=== PATIENT | male | born 1935 | race Caucasian/White ===

== ENCOUNTER → 2018-06-08 07:01 | Outpatient (CLI) | payer OTHER, SELFPAY ==
[2018-06-08 08:45] LABS: Add Manual Diff / Slide Review NO; Eosinophils Percent Auto 4.5 % (2-4); Hematocrit 44.1 % (41-53); Hemoglobin 15.2 g/dL (13.5-17.5); Lymphocytes Percent Auto 20.4 % (25-40); Mean Corpuscular HGB Conc 34.5 % (30-36); Mean Corpuscular Volume 98.6 fL (80-100); Monocytes Percent Auto 7.4 % (3-14); Neutrophils Absolute Auto 3200 /uL (1500-7000); Neutrophils Percent Auto 66.7 % (50-75); Platelet Count 176 X10^3/uL (150-400); Red Blood Cell Count 4.47 X10^6/uL (4.5-5.9); Red Cell Distribution Width 12.7 % (11.6-14.8); White Blood Cell Count 4.8 X10^3/uL (4.5-11.0)
[2018-06-08 09:12] LABS: Alanine Aminotransferase 28 IU/L (21-72); Albumin 3.8 g/dL (3.5-5.0); Albumin Globulin Ratio 1.3 (1.0-2.8); Alkaline Phosphatase 73 U/L (38-126); Aspartate Aminotransferase 25 IU/L (17-59); BUN Creatinine Ratio 17.3 (6-22); Bilirubin Total 1.2 mg/dL (0.2-1.3); Blood Urea Nitrogen 19 mg/dL (9-20); Calcium 8.9 mg/dL (8.4-10.2); Carbon Dioxide 31 mmol/L (22-32); Chloride 104 mmol/L (98-107); Estimated Glomerular Filt Rate > 60.0 mL/min (>60); Glucose 91 mg/dL (80-110); HEMOLYSIS < 15 (0-50); Potassium 3.8 mmol/L (3.4-5.1); Sodium 142 mmol/L (137-145); Total Protein 6.8 g/dL (6.3-8.2)
[2018-06-08 09:43] LABS: Prostate Specific Antigen Scrn 1.57 ng/mL (0.1-4.0)
== END ==
PROVIDERS: Student in an Organized Health Care Education/Training Program; PCP Internal Medicine; Visit Provider Internal Medicine
DX: Z87.442 Personal history of urinary calculi (principal); E78.5 Hyperlipidemia, unspecified; I10 Essential (primary) hypertension; Z12.5 Encounter for screening for malignant neoplasm of prostate
CPT/HCPCS: 36415; 80053; 85025; G0103

== ENCOUNTER 2019-02-11 20:38 | Emergency (ER) | payer OTHER, SELFPAY ==
[2019-02-11 21:00] VITALS: BP 150/86; PULSE 58; RESP 15; TEMP 36.1; O2SAT 97; BMI 24.3
--- NOTE | 2019-02-11 21:35 | PC.NURSE ---
Pt reports having carpal tunnel surgery yesterday and advised to come back if site has s/s of infection. pt concerned for coloring of hand. on assessment hand appears to have iodine dyed to skin. pt reports that he was not told that iodine was put on skin and he didnt know what the odd coloring was. 2+ pulses. +CSM. appears intact and healing nicely.
--- NOTE | 2019-02-12 04:52 | ED.EXTPRO ---
HPI - Extremity Problem General Chief complaint: Extremity Problem,Nontraumatic Stated complaint: surgery right wrist, R hand swelling/redness/heat Time Seen by Provider: 02/11/19 20:43 Source: patient Mode of arrival: ambulatory Limitations: no limitations History of Present Illness HPI Narrative: 83-year-old male nonsmoker with recent carpal tunnel surgery presents with a chief complaint redness of his hand. His discharge instructions suggested the for increasing pain, swelling or redness he should be seen emergency department. He denies any fever chills nor any significant pain. He denies any swelling nor red streaks. MD Complaint: other Onset (ago): hour(s) Pain Consistency: constant Location: right Quality: other Radiation: none Relieving factors: nothing Exacerbating factors: nothing Related Data Home Medications Medication Instructions Recorded Confirmed ASPIRIN (Aspir-Low) 81 mg PO Q DAY #0 09/04/11 12/14/18 MULTIVITAMIN (#MULTIPLE VITAMINS) 1 cap PO #0 09/04/11 12/14/18 VITAMIN D (Vitamin D3) 2,000 u PO DAILY #0 07/25/12 12/14/18 glucosamine sulfate 1,500 mg oral 1,500 mg PO #0 12/14/18 12/14/18 powder packet Previous Rx's Medication Instructions Recorded metronidazole [Metrogel] 1 % TOPICAL BID #180 ml 07/20/18 pravastatin [Pravachol] 80 mg PO HS #90 tab 11/16/18 tamsulosin 0.4 mg capsule 0.4 mg PO QDAY #90 cap 12/14/18 propranolol 40 mg PO BID #180 tab 12/21/18 potassium chloride 8 mEq 8 meq PO QDAY #90 tab 01/06/19 tablet,extended release hydrochlorothiazide 25 mg tablet 25 mg PO QDAY #90 tab 01/20/19 Allergies Allergy/AdvReac Type Severity Reaction Status Date / Time atorvastatin [ATORVASTATIN] Allergy Unknown WEAKNESS/BODY Verified 02/11/19 21:00 ACHES Review of Systems Constitutional Constitutional: Denies chills, Denies fatigue, Denies fever(s), Denies frequent falls, Denies lethargy and Denies weakness Eyes Eyes: Denies change in vision, Denies eye discharge, Denies irritation and Denies loss of vision ENT Ears, Nose, Mouth, and Throat: Denies change in voice, Denies dizziness, Denies neck pain, Denies sore throat and Denies throat swelling Cardiovascular Cardiovascular: Denies chest pain, Denies irregular heart rhythm, Denies lightheadedness, Denies palpitations, Denies dyspnea, Denies dyspnea on exertion and Denies orthopnea Respiratory Respiratory: Denies cough, Denies dyspnea, Denies dyspnea on exertion and Denies wheezing Gastrointestinal Gastrointestinal: Denies abdominal pain, Denies change in bowel habits, Denies diarrhea, Denies nausea and Denies vomiting Genitourinary Genitourinary: Denies hematuria, Denies flank pain, Denies urinary incontinence and Denies urinary urgency Musculoskeletal Musculoskeletal: Denies back pain, Denies muscle weakness, Denies neck pain, Denies numbness and Denies tingling Integumentary/Breasts Skin/Breast: Denies pruritus, Reports erythema, Denies rash and Denies wounds Neurologic Neurologic: Denies behavioral changes, Denies confusion, Denies dizziness, Denies frequent falls, Denies loss of vision, Denies numbness, Denies tingling and Denies weakness Psychiatric Psychiatric: Denies anxiety, Denies behavioral changes, Denies confusion, Denies depression, Denies homicidal ideation and Denies suicidal ideation Endocrine Endocrine: Denies fatigue, Denies flushing and Denies palpitations Hematologic/Lymphatic Hematologic/Lymphatic: Denies easy bruising Allergic/Immunologic Allergic/Immunologic: Denies urticaria, Denies throat swelling and Denies wheezing [facility] Medical History Anxiety (Inactive 06/06/14) Cardiac arrhythmia (Chronic 06/06/14) Cardiac arrhythmia (Chronic) Cervical spine disease (Chronic) Colon polyps (Resolved) Essential hypertension (Chronic 08/04/15) History of adenomatous polyp of colon (Chronic 12/27/10) History of renal calculi (Chronic 12/27/10) Hyperlipidemia (Chronic 08/09/16) Hyperlipidemia (Chronic) Kidney stones (Resolved) Paroxysmal atrial fibrillation (Chronic) SVT (supraventricular tachycardia) (Chronic) Family History Father Family history of Alzheimer's disease Social History marital status: number of children: 0 household members: none lives independently: Yes caregiver/support person: Yes housing: house pets and animals: No education level: high school occupational status: other current occupational exposures/hazards: No Previous occupational history: [employer]/episcopalian: None Smoking Status: Former smoker Tobacco: How many years used: 10 Smokeless tobacco user: other quit status: quit date established second hand exposure: No alcohol intake: never substance use type: does not use Family History Father Family history of Alzheimer's disease Social History marital status: number of children: 0 household members: none lives independently: Yes caregiver/support person: Yes housing: house pets and animals: No education level: high school occupational status: other current occupational exposures/hazards: No Previous occupational history: [employer]/episcopalian: None Smoking Status: Former smoker Tobacco: How many years used: 10 Smokeless tobacco user: other quit status: quit date established second hand exposure: No alcohol intake: never substance use type: does not use Exam Narrative Exam Narrative: GEN: AOx3 and in mild distress EYES: Pupils are equal, round, and reactive to light and accommodation. Extraoccular muscles are intact bilaterally. There is no subconjunctival hemorrhage or exudate. CHEST: Lungs are clear to auscultation bilaterally and free of wheezes, rales, or rhonchi. Heart rate is regular rhythm, there are no murmurs, clicks, rubs, or gallops. There is no chest wall tenderness. ABD: Abdomen is soft and nontender. There is no guarding or rebound. Bowel sounds are normal in all 4 quadrants. There is no mass or organomegaly. EXT: Full painless ROM of all extremities with no loss of sensation or strength. No swelling, pain SKIN: Right hand is orangish/yellow, from betadine during surgery. Warm, pink, and dry. No erythema or rash Initial Vital Signs Initial Vital Signs: Vital Signs Temperature 96.9 F L 02/11/19 21:00 Pulse Rate 58 L 02/11/19 21:00 Respiratory Rate 15 02/11/19 21:00 Blood Pressure 150/86 H 02/11/19 21:00 Pulse Oximetry 97 02/11/19 21:00 Course Vital Signs Vital signs: Vital Signs - 8 hr 02/11/19 21:00 Temperature 96.9 F L Pulse Rate 58 L Respiratory Rate 15 Blood Pressure 150/86 H Pulse Oximetry 97 MDM - Extremity (Nontraumatic) MDM Narrative Medical decision making narrative: 83-year-old male with recent carpal tunnel surgery presents with concerns that his right hand is discolored. His discharge instructions stated that he needs to be seen for redness, swelling, or pain. The discoloration is clearly from preop preparation. Patient given return precautions, has had questions answered to apparent satisfaction Discharge Plan Departure Patient Disposition: Home Clinical Impression: Feared complaint without diagnosis Discharge Date/Time: 02/11/19 22:05 Activity Restrictions/Additional Instructions: *You have been diagnosed with [very reassuring exam in the aftermath appear surge] *What to do: *Take medications as directed *Follow up with your primary care provider in 2-3 days, call for an appointment. Let them know you were seen in the Emergency Department and that we ask that you be seen in follow up *Return to ER if you should have any new, worsening or concerning symptoms Prescriptions: No Action ASPIRIN (Aspir-Low) 81 mg PO Q DAY Qty: 0 RF: 0 MULTIVITAMIN (#MULTIPLE VITAMINS) 1 cap PO Qty: 0 RF: 0 VITAMIN D (Vitamin D3) 2,000 u PO DAILY Qty: 0 RF: 0 metronidazole [Metrogel] 1 % gel 1 % Topical BID Qty: 180 RF: 3 pravastatin [Pravachol] 80 mg tablet 80 mg PO HS Qty: 90 RF: 3 Miriam 1,500 mg powder in packet 1,500 mg PO Qty: 0 RF: 0 propranolol 40 mg tablet 40 mg PO BID Qty: 180 RF: 3 potassium chloride [Klor-Con 8] 8 mEq tablet extended release 8 meq PO QDAY Qty: 90 RF: 3 hydrochlorothiazide 25 mg tablet 25 mg PO QDAY Qty: 90 RF: 3 tamsulosin [Flomax] 0.4 mg capsule 0.4 mg PO QDAY Qty: 90 RF: 3 Referrals: Jack Richardson MD [Primary Care Provider] -
== END 2019-02-11 22:05 | disposition home or self-care (01) ==
PROVIDERS: Emergency Provider Emergency Medicine; PCP Internal Medicine
DX: G89.18 Other acute postprocedural pain (principal); M79.641 Pain in right hand
CPT/HCPCS: 99282

== ENCOUNTER → 2019-06-07 08:33 | Outpatient (CLI) | payer OTHER, SELFPAY ==
[2019-06-07 10:14] LABS: Add Manual Diff / Slide Review NO; Basophils Absolute Auto 0 /uL (0-100); Basophils Percent Auto 0.9 % (0-2); Eosinophils Absolute Auto 100 /uL (0-450); Eosinophils Percent Auto 2.4 % (2-4); Hemoglobin 14.6 g/dL (13.5-17.5); Lymphocytes Absolute Auto 900 /uL (1100-4500); Lymphocytes Percent Auto 22.1 % (25-40); Mean Corpuscular Hemoglobin 33.5 PG (26-34); Mean Corpuscular Volume 98.6 fL (80-100); Monocytes Absolute Auto 400 /uL (0-900); Neutrophils Absolute Auto 2600 /uL (1500-7000); Neutrophils Percent Auto 64.6 % (50-75); Platelet Count 173 X10^3/uL (150-400); Red Blood Cell Count 4.36 X10^6/uL (4.5-5.9); Red Cell Distribution Width 12.9 % (11.6-14.8); White Blood Cell Count 3.9 X10^3/uL (4.5-11.0)
[2019-06-07 10:53] LABS: Alanine Aminotransferase 19 IU/L (<50); Albumin Globulin Ratio 1.4 (1.0-2.8); Alkaline Phosphatase 84 U/L (38-126); Aspartate Aminotransferase 28 IU/L (17-59); BUN Creatinine Ratio 13.6 (6-22); Bilirubin Total 1.2 mg/dL (0.2-1.3); Blood Urea Nitrogen 15 mg/dL (9-20); Carbon Dioxide 33 mmol/L (22-32); Chloride 103 mmol/L (98-107); Cholesterol 187 mg/dL (140-199); Estimated Glomerular Filt Rate > 60.0 mL/min (>60); Globulin 2.9 g/dL (1.7-4.1); Glucose 96 mg/dL (80-110); HDL Cholesterol 42 mg/dL (40-60); HEMOLYSIS < 15 (0-50); LDL Cholesterol Calculated 133 mg/dL (<100); Potassium 4.1 mmol/L (3.4-5.1); Sodium 143 mmol/L (137-145); Total Protein 6.9 g/dL (6.3-8.2); Triglycerides 61 mg/dL (35-150)
== END ==
PROVIDERS: PCP Internal Medicine; Visit Provider Internal Medicine
DX: E78.5 Hyperlipidemia, unspecified (principal); I10 Essential (primary) hypertension; R60.9 Edema, unspecified; Z87.442 Personal history of urinary calculi
CPT/HCPCS: 36415; 80053; 80061; 85025

== ENCOUNTER → 2019-06-14 11:24 | Outpatient (CLI) | payer OTHER, SELFPAY ==
--- NOTE | 2019-06-14 11:25 | DI.RAD.S_ITS ---
PROCEDURE: XR CHEST 2V INDICATIONS: chest pain TECHNIQUE: 2 views of the chest were acquired. COMPARISON: [facility], CHEST 2 VIEW, 09/19/2016, 16:21. [facility], CHEST 2 VIEW, 06/04/2014, 10:04. FINDINGS: Surgical changes and devices: None. Lungs and pleura: Lungs are clear. No pleural effusions or pneumothorax. Mediastinum: Mediastinal contours are normal. Heart size is normal. Bones and chest wall: No suspicious bony abnormalities. Soft tissues appear unremarkable. IMPRESSION: Normal for age, source of current chest pain symptoms is not seen. Dictated by: Moisés Bowser M.D. on 06/14/2019 at 12:46 Approved by: Moisés Bowser M.D. on 06/14/2019 at 12:50
== END ==
PROVIDERS: PCP Internal Medicine; Visit Provider Internal Medicine
DX: R07.9 Chest pain, unspecified (principal)
CPT/HCPCS: 71046

== ENCOUNTER → 2019-12-09 08:17 | Outpatient (CLI) | payer OTHER, SELFPAY ==
--- NOTE | 2019-12-09 08:19 | DI.RAD.S_ITS ---
PROCEDURE: XR LUMBAR SPINE 2-3V INDICATIONS: back pain TECHNIQUE: 3 views of the lumbar spine were acquired. COMPARISON: None. FINDINGS: Bones: No fracture or focal osseous destruction. Multilevel degenerative endplate sclerosis and spurring. Diffuse facet arthropathy. Straightening of the normal lordotic curvature. Mild narrowing of the L5-S1 and L4-L5 disc space. Mild levocurvature. Mild bilateral hip joint degeneration and degenerative spurring and sclerosis at the SI joints bilaterally Soft tissues: Scattered vascular calcifications seen in the aorta. IMPRESSION: Mild lower lumbar spondylosis and diffuse facet arthropathy Dictated by: Rubens Matute M.D. on 12/09/2019 at 13:55 Approved by: Rubens Matute M.D. on 12/09/2019 at 13:56
[2019-12-09 09:56] LABS: Alanine Aminotransferase 36 IU/L (<50); Albumin 3.7 g/dL (3.5-5.0); Albumin Globulin Ratio 1.3 (1.0-2.8); Alkaline Phosphatase 79 U/L (38-126); Aspartate Aminotransferase 32 IU/L (17-59); BUN Creatinine Ratio 16.7 (6-22); Bilirubin Total 1.4 mg/dL (0.2-1.3); Blood Urea Nitrogen 18 mg/dL (9-20); Carbon Dioxide 34 mmol/L (22-32); Chloride 102 mmol/L (98-107); Cholesterol 168 mg/dL (140-199); Estimated Glomerular Filt Rate > 60.0 mL/min (>60); Globulin 2.8 g/dL (1.7-4.1); Glucose 91 mg/dL (80-110); HDL Cholesterol 39 mg/dL (40-60); HEMOLYSIS < 15 (0-50); LDL Cholesterol Calculated 101 mg/dL (<100); Potassium 3.9 mmol/L (3.4-5.1); Sodium 139 mmol/L (137-145); Total Protein 6.5 g/dL (6.3-8.2); Triglycerides 139 mg/dL (35-150)
== END ==
PROVIDERS: PCP Internal Medicine; Referring Provider Internal Medicine; Visit Provider Internal Medicine
DX: M54.9 Dorsalgia, unspecified (principal); E78.5 Hyperlipidemia, unspecified; I10 Essential (primary) hypertension
CPT/HCPCS: 36415; 72100; 80053; 80061

== ENCOUNTER 2020-02-15 13:32 | Emergency (ER) | payer OTHER, SELFPAY ==
[2020-02-15 13:36] VITALS: BP 182/86; PULSE 69; RESP 20; TEMP 36.7; O2SAT 100
--- NOTE | 2020-02-15 13:53 | DI.RAD.S_ITS ---
PROCEDURE: XR CHEST 1V INDICATIONS: chest pain TECHNIQUE: One view of the chest was acquired. COMPARISON: [facility], , CHEST 2 VIEW, 09/19/2016, 16:21. [facility], , XR CHEST 2V, 06/14/2019, 11:20. FINDINGS: Surgical changes and devices: None. Lungs and pleura: Lungs are clear. No pleural effusions or pneumothorax. Mediastinum: Mediastinal contours appear normal. Heart size is normal. Bones and chest wall: No suspicious bony lesions. Overlying soft tissues appear unremarkable. IMPRESSION: No acute cardiopulmonary disease. Dictated by: Brittany Claros M.D. on 02/15/2020 at 14:29 Approved by: Brittany Claros M.D. on 02/15/2020 at 14:30
--- NOTE | 2020-02-15 13:54 | ED_ITS ---
HPI - Chest Pain General Chief Complaint: Chest Pain Stated Complaint: heart can feel it pounding Time Seen by Provider: 02/15/20 13:54 History of Present Illness HPI narrative: 84-year-old gentleman with a history of hypertension, paroxysmal atrial fibrillation (last episode estimated at 5 years ago and not anticoagulated) and chronic peripheral edema, presents after a 10 second episode with a very notable pounding in his chest. It was not associated with pain, dyspnea, diaphoresis. It has since resolved. Related Data Home Medications Medication Instructions Recorded Confirmed ASPIRIN (Aspir-Low) 81 mg PO Q DAY #0 09/04/11 01/25/20 MULTIVITAMIN (#MULTIPLE VITAMINS) 1 cap PO #0 09/04/11 01/25/20 VITAMIN D (Vitamin D3) 2,000 u PO DAILY #0 07/25/12 01/25/20 glucosamine sulfate 1,500 mg oral 1,500 mg PO #0 12/14/18 01/25/20 powder packet Previous Rx's Medication Instructions Recorded metronidazole [Metrogel] 1 % TOPICAL BID #180 ml 07/20/18 tamsulosin 0.4 mg capsule 0.4 mg PO QDAY #90 cap 12/14/18 cyclobenzaprine 5 mg tablet 5 mg PO TID PRN #20 tab 12/02/19 meloxicam 7.5 mg tablet 7.5 mg PO DAILY #20 tab 12/02/19 pravastatin 80 mg tablet 80 mg PO HS #90 tab 12/06/19 losartan 50 mg tablet 50 mg PO DAILY #90 tab 12/13/19 propranolol 40 mg tablet 40 mg PO BID #180 tab 12/31/19 potassium chloride 8 mEq 8 meq PO QDAY #90 tab 01/14/20 tablet,extended release hydrochlorothiazide 25 mg tablet 25 mg PO QDAY #90 tab 01/20/20 Allergies Allergy/AdvReac Type Severity Reaction Status Date / Time atorvastatin [ATORVASTATIN] Allergy Unknown WEAKNESS/BODY Verified 02/15/20 13:56 ACHES lisinopril AdvReac Intermediate slow hr Verified 02/15/20 13:56 Review of Systems Review of Systems Narrative: Pertinent positive and negative findings as per HPI Remainder of review of systems is otherwise unremarkable for Constitutional: Fevers, chills, weakness ENT: No sore throat, neck pain, ear pain CV: Chest pain, dyspnea on exertion Respiratory: Cough, wheeze, dyspnea GI: Nausea, vomiting, diarrhea, change in bowel habits, black or bloody stools : Dysuria, hematuria, flank pain MS: Muscle weakness, numbness, joint swelling or warmth Skin: Rashes, nonhealing lesions Neuro: Syncope, dizziness, tingling Endocrine: Fatigue, heat or cold intolerance, very dry skin Patient History Medical History Anxiety (Inactive 06/06/14) Cardiac arrhythmia (Chronic 06/06/14) Cardiac arrhythmia (Chronic) Carpal tunnel syndrome (Chronic) Cervical spine disease (Chronic) Colon polyps (Resolved) Essential hypertension (Chronic 08/04/15) History of adenomatous polyp of colon (Chronic 12/27/10) History of renal calculi (Chronic 12/27/10) Hyperlipidemia (Chronic 08/09/16) Hyperlipidemia (Chronic) Kidney stones (Resolved) Paroxysmal atrial fibrillation (Chronic) SVT (supraventricular tachycardia) (Chronic) Surgical History S/P carpal tunnel release (Inactive) Family History Father Family history of Alzheimer's disease Social History marital status: number of children: 0 household members: none lives independently: Yes caregiver/support person: Yes housing: house pets and animals: No education level: high school occupational status: other current occupational exposures/hazards: No Previous occupational history: [employer] destini/confucianist: None Smoking Status: Former smoker Tobacco: How many years used: 10 Smokeless tobacco user: other quit status: quit date established second hand exposure: No alcohol intake: never substance use type: does not use Smoking Status: Former smoker alcohol intake frequency: holidays/special occasions only Substance Use Type: does not use Exam Narrative Exam Narrative: General: Anxious but able to give a complete and coherent history. Well-nourished well-developed HEENT: Moist mucous membranes, normal sclera with reactive pupils, Neck: No JVD, supple Respiratory: Lungs are clear to auscultation, no wheezing no rales no rhonchi. Full and symmetrical air movement Cardiac: Regular rate and rhythm no murmurs no bruits Abdomen: Soft nontender good bowel tones, no flank pain Skin: Warm and dry, no rashes Neurologic: Grossly neurologically intact with no obvious asymmetries or abn ormalities Extremities: No trauma, well perfused, no lower extremity edema at this time Psych: Cooperative, appropriate insight and affect Initial Vital Signs Initial Vital Signs: Vital Signs Temperature 98.1 F 02/15/20 13:36 Pulse Rate 69 02/15/20 13:36 Respiratory Rate 20 02/15/20 13:36 Blood Pressure 182/86 H 02/15/20 13:36 Pulse Oximetry 100 02/15/20 13:36 Scores ABCD2 Citation: Lancet. 2006Jul 05;369(6262):283-32. Validation and refinement of scores to predict very early stroke risk after transient ischaemic attack. Jose SC1, Phyllis PM, Camille MN, Aren MF, Pito JS, Sammy AL, Mike S. Course Orders Ordered: ED Orders 02/15/20 13:53 XR chest 1V Stat 02/15/20 13:56 Complete Blood Count AUTO DIFF Stat Comprehensive Metabolic Panel Stat Lipase Stat Partial Thromboplastin Time Stat Prothrombin Time INR Stat Troponin & CK Cardiac Panel Stat 02/15/20 13:58 EKG-12 Lead Stat Vital Signs Vital signs: Vital Signs - 8 hr 02/15/20 13:36 02/15/20 14:15 02/15/20 14:30 Temperature 98.1 F Pulse Rate 69 65 62 Respiratory Rate 20 13 13 Blood Pressure 182/86 H 131/65 Pulse Oximetry 100 100 98 MDM - Chest Pain Medical Records Data Attestation: I reviewed the patient's medical records. Lab Data Attestation: I reviewed the patient's lab results. Result diagrams: 02/15/20 13:56 02/15/20 13:56 Labs: Lab Results 02/15/20 02/15/20 02/15/20 Range/Units 13:56 13:56 13:56 WBC 4.7 (4.5-11.0) X10^3/uL RBC 4.02 L (4.5-5.9) X10^6/uL Hgb 13.5 (13.5-17.5) g/dL Hct 39.1 L (41-53) % MCV 97.2 (80-100) fL MCH 33.6 (26-34) PG MCHC 34.5 (30-36) % RDW 12.7 (11.6-14.8) % Plt Count 171 (150-400) X10^3/uL Neut % (Auto) 63.5 (50-75) % Lymph % (Auto) 23.9 L (25-40) % [place] % (Auto) 9.4 (3-14) % Eos % (Auto) 2.2 (2-4) % Baso % (Auto) 1.0 (0-2) % Neut # (Auto) 3000 (7576-2381) /uL Lymph # (Auto) 1100 (0771-9843) /uL [place] # (Auto) 400 (0-900) /uL Eos # (Auto) 100 (0-450) /uL Baso # (Auto) 0 (0-100) /uL PT 11.7 (10.1-12.7) SECONDS INR 1.0 (0.9-1.3) APTT 29 (26.4-36.2) SECONDS Sodium 139 (137-145) mmol/L Potassium 3.6 (3.4-5.1) mmol/L Chloride 104 (98-107) mmol/L Carbon Dioxide 30 (22-32) mmol/L BUN 20 (9-20) mg/dL Creatinine 1.14 (0.66-1.25) mg/dL Estimated GFR > 60.0 (>60) mL/min BUN/Creatinine Ratio 17.5 (6-22) Glucose 106 (80-110) mg/dL Calcium 9.1 (8.4-10.2) mg/dL Total Bilirubin 1.3 (0.2-1.3) mg/dL AST 25 (17-59) IU/L ALT 19 (<50) IU/L Alkaline Phosphatase 75 (38-126) U/L Total Creatine Kinase 132 (55-170) U/L CK-MB (CK-2) 2.70 H (<2.37) ng/mL CK-MB (CK-2) Rel Index 2.0 (1.5-5.0) % Troponin I < 0.012 (0.01-0.034) ng/mL Total Protein 6.4 (6.3-8.2) g/dL Albumin 3.6 (3.5-5.0) g/dL Globulin 2.8 (1.7-4.1) g/dL Albumin/Globulin Ratio 1.3 (1.0-2.8) Lipase 155 (23-300) U/L ECG Data Attestation: I personally reviewed and interpreted this ECG as follows: Interpretation: Sinus rhythm at a rate of 75 Normal axis, normal intervals Mild sinus arrhythmia No ischemic changes MDM Narrative Medical decision making narrative: 84-year-old gentleman with 10 seconds of significant heart pounding not associated with pain dyspnea or diaphoresis. 3 hours after initial episode workup is unremarkable with reassuring EKG and troponin. He is much more home at this point and having no residual symptoms. He does have a primary care physician and access to follow-up if needed. I [address] he is safe for home discharge Discharge Plan Departure Patient Disposition: Home Clinical Impression: Heart palpitations Instructions: DI for Palpitations Activity Restrictions/Additional Instructions: Thank you for coming in today We did a thorough workup in the emergency department and did not find any evidence of heart attack or heart attack like symptoms, life-threatening cardiac rhythms, blood clots, infection or any reason to keep you in the hospital today. I do not have a good explanation for the 10 seconds of heart pounding that got your attention this morning however your body does seem to have tolerated it nicely. If you have recurrent symptoms please feel free to return to the emergency department. I encourage you to follow-up with Dr. Richardson when the within the next 3-4 weeks. Prescriptions: No Action ASPIRIN (Aspir-Low) 81 mg PO Q DAY Qty: 0 RF: 0 MULTIVITAMIN (#MULTIPLE VITAMINS) 1 cap PO Qty: 0 RF: 0 VITAMIN D (Vitamin D3) 2,000 u PO DAILY Qty: 0 RF: 0 metronidazole [Metrogel] 1 % gel 1 % Topical BID Qty: 180 RF: 3 Miriam 1,500 mg powder in packet 1,500 mg PO Qty: 0 RF: 0 pravastatin 80 mg tablet 80 mg PO HS Qty: 90 RF: 3 propranolol 40 mg tablet 40 mg PO BID Qty: 180 RF: 3 potassium chloride [Klor-Con 8] 8 mEq tablet extended release 8 meq PO QDAY Qty: 90 RF: 3 hydrochlorothiazide 25 mg tablet 25 mg PO QDAY Qty: 90 RF: 3 tamsulosin [Flomax] 0.4 mg capsule 0.4 mg PO QDAY Qty: 90 RF: 3 losartan 50 mg tablet 50 mg PO DAILY Qty: 90 RF: 3 cyclobenzaprine 5 mg tablet 5 mg PO TID PRN (Reason: muscle spasm) Qty: 20 RF: 0 meloxicam 7.5 mg tablet 7.5 mg PO DAILY Qty: 20 RF: 0 Referrals: Jack Richardson MD [Primary Care Provider] -
[2020-02-15 14:02] LABS: Add Manual Diff / Slide Review NO; Basophils Absolute Auto 0 /uL (0-100); Eosinophils Absolute Auto 100 /uL (0-450); Eosinophils Percent Auto 2.2 % (2-4); Hematocrit 39.1 % (41-53); Hemoglobin 13.5 g/dL (13.5-17.5); Lymphocytes Absolute Auto 1100 /uL (1100-4500); Lymphocytes Percent Auto 23.9 % (25-40); Mean Corpuscular HGB Conc 34.5 % (30-36); Mean Corpuscular Hemoglobin 33.6 PG (26-34); Mean Corpuscular Volume 97.2 fL (80-100); Monocytes Absolute Auto 400 /uL (0-900); Monocytes Percent Auto 9.4 % (3-14); Neutrophils Absolute Auto 3000 /uL (1500-7000); Neutrophils Percent Auto 63.5 % (50-75); Platelet Count 171 X10^3/uL (150-400); Red Blood Cell Count 4.02 X10^6/uL (4.5-5.9); Red Cell Distribution Width 12.7 % (11.6-14.8); White Blood Cell Count 4.7 X10^3/uL (4.5-11.0)
[2020-02-15 14:10] LABS: Prothrombin Time 11.7 SECONDS (10.1-12.7)
[2020-02-15 14:13] LABS: PTT Partial Thromboplastin Tim 29 SECONDS (26.4-36.2)
[2020-02-15 14:15] VITALS: PULSE 65; RESP 13; O2SAT 100
[2020-02-15 14:15] LABS: Alanine Aminotransferase 19 IU/L (<50); Albumin 3.6 g/dL (3.5-5.0); Albumin Globulin Ratio 1.3 (1.0-2.8); Alkaline Phosphatase 75 U/L (38-126); Aspartate Aminotransferase 25 IU/L (17-59); BUN Creatinine Ratio 17.5 (6-22); Bilirubin Total 1.3 mg/dL (0.2-1.3); Blood Urea Nitrogen 20 mg/dL (9-20); Calcium 9.1 mg/dL (8.4-10.2); Carbon Dioxide 30 mmol/L (22-32); Chloride 104 mmol/L (98-107); Creatine Kinase 132 U/L (55-170); Estimated Glomerular Filt Rate > 60.0 mL/min (>60); Globulin 2.8 g/dL (1.7-4.1); Glucose 106 mg/dL (80-110); HEMOLYSIS 16 (0-50); Lipase 155 U/L (23-300); Potassium 3.6 mmol/L (3.4-5.1); Sodium 139 mmol/L (137-145); Total Protein 6.4 g/dL (6.3-8.2)
[2020-02-15 14:27] LABS: Troponin I < 0.012 ng/mL (0.01-0.034)
[2020-02-15 14:30] VITALS: BP 131/65; PULSE 62; RESP 13; O2SAT 98
[2020-02-15 15:00] VITALS: BP 134/64; PULSE 62; O2SAT 97
[2020-02-15 15:30] VITALS: BP 129/64; PULSE 60; O2SAT 96
== END 2020-02-15 15:37 | disposition home or self-care (01) ==
PROVIDERS: Emergency Provider Emergency Medicine; PCP Internal Medicine
DX: R00.2 Palpitations (principal); R07.9 Chest pain, unspecified; I10 Essential (primary) hypertension
CPT/HCPCS: 36415; 71045; 80053; 82550; 82553; 83690; 84484; 85025; 85610; 85730; 93005; 99283

== ENCOUNTER → 2020-03-15 15:48 | Outpatient (CLI) | payer OTHER, SELFPAY ==
--- NOTE | 2020-03-15 15:50 | DI.ECHO.S_ITS ---
[facility]---------+ [facility] +---------+ : : [address] : : : : [id number] : : : : Phone: [phone]---------+ Echocardiogram Report + + :Name: MARIO PATE Study Date: 03/15/2020 Height: 70 in : :[facility] Weight: 175 lb : : Gender: Male BSA: 2.0 m2 : :: 1935 Age: 84 yrs BP: 156/87 mmHg: :Reason For Study: PALPITATIONS : :Ordering Physician: RENATA, : :SADIE Landa Performed By: Maricarmen Yeh : :Referring: SADIE YANEZ : + + Interpretation Summary The ejection fraction is estimated to be 60-65%. There is mild mitral regurgitation. There is mild aortic regurgitation. There is mild to moderate tricuspid regurgitation. The right ventricular systolic pressure is estimated to be at least 27 mmHg based on an estimated right atrial pressure of 3 mm Hg. Procedure: A two-dimensional transthoracic echocardiogram with color flow and Doppler was performed. The study quality was technically adequate. There is no prior echocardiogram noted for this patient. The patient was in sinus bradycardia with heart rates between 45-48 bpm during the exam. Left Ventricle: The left ventricle is normal in size and wall thickness. The ejection fraction is estimated to be 60-65%. There are no focal wall motion abnormalities. Diastolic parameters suggest probable normal left ventricular diastolic function and normal filling pressures. Right Ventricle: The right ventricle is normal in size and function. Atria: The left atrial size is normal. Right atrial size is normal. There is no Doppler evidence for an interatrial shunt. Mitral Valve: The mitral valve is normal in structure and function. There is mild mitral regurgitation. Aortic Valve: The aortic valve is trileaflet. The aortic valve opens well. There is no aortic valve stenosis. There is mild aortic regurgitation. Tricuspid Valve: The tricuspid valve is normal in structure and function. There is mild to moderate tricuspid regurgitation. The right ventricular systolic pressure is estimated to be at least 27 mmHg based on an estimated right atrial pressure of 3 mm Hg. Pulmonic Valve: The pulmonic valve is not well visualized. There is mild pulmonic regurgitation. Great Vessels: The aortic root is normal size. The ascending aorta is mildly enlarged. The IVC is of normal diameter and collapses greater than 50% with a sniff. This suggests a low right atrial pressure of 3 mm Hg. Pericardium/ Pleura There is no pericardial effusion. There is no pleural effusion. MMode/2D Measurements & Calculations LVIDd: 5.1 cm LVOT diam: 2.1 cm LVIDs: 3.1 cm Ao root diam: 3.8 cm FS: 38.1 % asc Aorta Diam: 4.0 cm EPSS: 0.82 cm Ao Arch Diam (Prox Trans): 3.5 cm IVSd: 0.94 cm LVPWd: 1.0 cm LV wilson. diameter/BSA (cm/m^2): 2.6 LV sys. diameter/BSA (cm/m^2): 1.6 LA A2 area: 24.9 cm2 RA long axis: 5.0 cm LA A4 area: 16.0 cm2 RA area: 17.2 cm2 LA length (vol): 5.2 cm RA vol: 49.9 ml LA vol: 65.7 ml RA : 25.3 ml/m2 LA vol index: 33.3 ml/m2 IVC diam: 0.91 cm RVD1 (basal): 3.6 cm TAPSE: 1.9 cm Doppler Measurements & Calculations Ao V2 max: 139.6 cm/sec LVOT Max Mina: 111.6 cm/sec Ao V2 mean: 90.8 cm/sec LV V1 max P.0 mmHg Ao max P.8 mmHg LV V1 VTI: 26.8 cm Ao mean P.9 mmHg LUBNA(I,D): 3.3 cm2 Ao V2 VTI: 28.7 cm LUBNA(V,D): 2.8 cm2 sev ratio: 0.94 LUBNA indexed to BSA (cm^2/m^2): 1.7 AI P1/2t: 1067 msec AI dec slope: 102.8 cm/sec2 MV E max mina: 73.2 cm/sec TR max mina: 245.6 cm/sec MV A max mina: 58.5 cm/sec TR max P.2 mmHg MV E/A: 1.3 PA V2 max: 54.7 cm/sec Med Peak E' Mina: 7.4 cm/sec PA V2 mean: 36.6 cm/sec E/E' med: 9.9 PA mean P.63 mmHg Lat Peak E' Mina: 11.3 cm/sec E/E' lat: 6.5 E/e' average: 8.2 MV dec time: 0.23 sec SVLVOT): 93.4 ml Reading Physician:10:33 AM
== END ==
PROVIDERS: PCP Internal Medicine; Referring Provider Internal Medicine; Visit Provider Internal Medicine
DX: I08.3 Combined rheumatic disorders of mitral, aortic and tricuspid valves (principal); I77.89 Other specified disorders of arteries and arterioles; R00.2 Palpitations; I10 Essential (primary) hypertension
CPT/HCPCS: 93306

== ENCOUNTER → 2020-03-20 12:47 | Outpatient (CLI) | payer OTHER, SELFPAY ==
--- NOTE | 2020-04-14 16:20 | P.HOLT.S_ITS ---
[employer] Report Referral & Results Date Patient Seen: 03/20/20 Requesting provider: Jack Richardson Indication: Palpitations Duration of monitoring (days): 14 Diary information: There was 1 patient triggered event and 5 patient diary entries These events were associated with (within 45 seconds) sinus rhythm alone Data: Minimum heart rate identified was 30 beats per minute at 09:25 on 03/25/2020 Maximum sinus heart rate was 92 beats per minute at 16:53 on 04/02/2020 Maximum overall heart rate was 135 beats per minute at 16:47 on 03/25/2020 during a 13 beat run of SVT Less than 1% of identified beats or either ventricular supraventricular ectopic in origin. Patient did have a 9.2nd run of ventricular trigeminy There 17 runs of SVT/atrial tachycardia with the fastest being the above 13 beat run at 135 beats per minute with the longest lasting 10.2 seconds at a rate of 119 beats per minute. Impression: Various minor dysrhythmias as above without evidence of anything more significant. Certainly low burden of premature depolarizations present
== END ==
PROVIDERS: PCP Internal Medicine; Referring Provider Internal Medicine; Visit Provider Internal Medicine
DX: R00.2 Palpitations (principal)
CPT/HCPCS: 0296T; 0298T

== ENCOUNTER → 2020-04-21 09:39 | Outpatient (CLI) | payer OTHER, SELFPAY ==
--- NOTE | 2020-04-21 09:40 | DI.US.S_ITS ---
PROCEDURE: US PERIPH VENOUS UP EXTREM RT INDICATIONS: swollen , lump of right FA TECHNIQUE: Real-time imaging, as well as color and pulse Doppler interrogation, was performed of the right upper extremity deep veins from the inferior neck to the antecubital fossa. COMPARISON: None. FINDINGS: The internal jugular vein, visualized portions of the subclavian vein, axillary, and brachial veins are free of intraluminal thrombus. Where physically possible, the veins are normally compressible. Color and pulse Doppler demonstrate normal intraluminal flow, with expected phasicity and pulsatility. Additional scanning of the cephalic and basilic veins of the superficial system demonstrate normal compressibility, without thrombus. Scanning is performed at the area of clinical concern involving the right proximal forearm, where there is a subcutaneous nodule within echogenicity similar to the surrounding subcutaneous fat that measures 11 x 5 x 11 mm. No abnormal vascularity can be seen. IMPRESSION: Negative for deep venous thrombosis. 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 Dictated by: Oleksandr Dc M.D. on 04/21/2020 at 9:53 Approved by: Oleksandr Dc M.D. on 04/21/2020 at 9:55
== END ==
PROVIDERS: PCP Internal Medicine; Referring Provider Internal Medicine; Visit Provider Registered Nurse
DX: R22.31 Localized swelling, mass and lump, right upper limb (principal)
CPT/HCPCS: 93971

== ENCOUNTER 2020-07-30 09:06 | Emergency (ER) | payer OTHER, SELFPAY ==
[2020-07-30] VITALS (19 sets, daily range): BP systolic 110–200; BP diastolic 64–132; PULSE 45–70; RESP 12–20; TEMP 36; O2SAT 95–98; BMI 24.3
--- NOTE | 2020-07-30 09:34 | DI.CT.S_ITS ---
PROCEDURE: CT ANGIO CHEST ABDOMEN PELVIS INDICATIONS: Chest and abdominal pain TECHNIQUE: Precontrast 5 mm thick sections acquired from the lung apices to the iliac crests. After the administration of intravenous contrast, 2.5 mm thick sections again acquired from the lung apices to the iliac crests. Maximum intensity projection (MIP) oblique sagittal and coronal reformats were then acquired. For radiation dose reduction, the following was used: automated exposure control. COMPARISON: None. FINDINGS: Image quality: Excellent. AORTA: Intramural hematoma: Absent Maximum hematoma thickness: Not applicable. Focal contrast enhancement: Intramural blood pool (< 2 mm neck or imperceptible communication with aortic lumen): Absent. Ulcer-like projection (broad communication with aortic lumen > 3 mm): Absent. Dissection: Absent Bhanu classification: Not applicable Maximum aortic diameter: 4.1 cm. [If Bhanu A dissection, > 5.0 cm has a poorer prognosis. If [place] B dissection, > 4.0 cm has a poorer prognosis.] Periaortic hematoma: Absent. CHEST: Lungs and pleura: No acute airspace opacities. No pleural effusions or pneumothorax. Central and peripheral airways are patent and normal in caliber. Mediastinum: Heart size is normal. Atherosclerotic calcifications are noted in the aorta, great vessels and the coronary vasculature. No pericardial effusion. No mediastinal or hilar adenopathy by size criteria. Central pulmonary arteries are normal in size. Esophagus is normal in caliber. No hiatal hernias. Bones and chest wall: No axillary adenopathy by size criteria. Thyroid gland contains a 1.9 centimeter hypoattenuating nodule in the left lobe. No suspicious bony lesions. No vertebral body compression fractures. ABDOMEN: Vasculature: Celiac trunk and mesenteric arteries are patent. Renal arteries are also patent. Solid organs: Liver is normal in size and enhancement. Gallbladder contains multiple small gallstones. Gallbladder wall is thickened. There is small amount of pericholecystic fluid.. 7 millimeter 4 millimeter stones in the common bile duct with mild intra and extrahepatic biliary dilatation. Pancreas enhances normally. Spleen is normal in size and enhancement. No adrenal nodules. Both kidneys are normal in size and enhancement, without hydronephrosis. Peritoneum and bowel: No free fluid or air. Bowel loops are normal in caliber and wall thickness. Scattered colonic diverticuli without evidence of diverticulitis. The appendix is normal. Nodes and vessels: No retroperitoneal or mesenteric adenopathy by size criteria. Inferior vena cava is normal in morphology. Miscellaneous: Small fat containing umbilical hernia. PELVIS: Genitourinary: Bladder wall thickness is normal. Miscellaneous: No inguinal hernias or adenopathy. No ventral hernias. Bones: No suspicious bony lesions. No vertebral body compression fractures. Spine degenerative disc disease and facet arthropathy. IMPRESSION: 1. No evidence of aortic dissection or aneurysm. 2. Cholelithiasis with gallbladder wall thickening and pericholecystic fluid concerning for acute cholecystitis. 3. 4 millimeter and 6 millimeters stones in the common bile duct with mild intra and extrahepatic biliary tree dilatation. 4. Colonic diverticulosis without evidence of diverticulitis. 5. Atherosclerosis including dense atherosclerotic calcifications in the coronary vasculature. Dictated by: Anali Ragland MD, PhD on 07/30/2020 at 10:32 Approved by: Anali Ragland MD, PhD on 07/30/2020 at 10:40
--- NOTE | 2020-07-30 09:34 | DI.CT.S_ITS ---
PROCEDURE: CT HEAD/BRAIN WO CON INDICATIONS: headache TECHNIQUE: Noncontrast 4.5 mm thick angled axial sections acquired from the foramen magnum to the vertex, with coronal and sagittal reformats. For radiation dose reduction, the following was used: automated exposure control, adjustment of mA and/or kV according to patient size. COMPARISON: None. FINDINGS: Image quality: Excellent. CSF spaces: Basal cisterns are patent. No extra-axial fluid collections. The ventricles are symmetric in size and shape. Brain: No intracranial bleeds or masses. There is cerebral volume loss for age, with resultant ventricular and sulcal prominence. There are periventricular and deep white matter chronic small vessel ischemic changes. There is intracranial internal carotid artery atherosclerosis. Skull and face: Calvarium and visualized facial bones appear intact, without suspicious lesions. Sinuses: Visualized sinuses and mastoids are clear. IMPRESSION: No acute intracranial disease process. Dictated by: Anali Ragland MD, PhD on 07/30/2020 at 10:28 Approved by: Anali Ragland MD, PhD on 07/30/2020 at 10:31
--- NOTE | 2020-07-30 09:37 | PC.NURSE ---
Pt took home HTCZ and propanolol per instruction
--- NOTE | 2020-07-30 09:41 | ED.CHESTPAIN ---
HPI - Chest Pain General Chief Complaint: Chest Pain Stated Complaint: Heart issues/high blood pressure Time Seen by Provider: 07/30/20 09:16 Source: patient and other (Significant other/partner) Mode of arrival: Ambulatory Limitations: no limitations History of Present Illness HPI narrative: Patient sitting in a recliner 3:00 a.m. today. Had sudden-onset epigastric burning pain nonradiating other than going to his umbilicus. 03/18 lasted for hours resolved by 7:00 a.m.. Pain free at this time. Has not taken his blood pressure medication this morning. Blood pressure vitals noted. His family doctor, dr muhammad took him off 1 of his blood pressure medications 10 days ago. It has been elevating since then. Complains of mild head discomfort. Has baseline slow cognition/putting words together that is not not new. Otherwise has baseline right leg weakness from previous sciatic problems. No slurred speech or facial droop. Otherwise no other new neuro complaints no prior history of aneurysms. Related Data Home Medications Medication Instructions Recorded Confirmed ASPIRIN (Aspir-Low) 81 mg PO Q DAY #0 09/04/11 07/30/20 MULTIVITAMIN (#MULTIPLE VITAMINS) 1 cap PO #0 09/04/11 07/20/20 VITAMIN D (Vitamin D3) 2,000 u PO DAILY #0 07/25/12 07/30/20 Previous Rx's Medication Instructions Recorded metronidazole [Metrogel] 1 % TOPICAL BID #180 ml 07/20/18 pravastatin 80 mg tablet 80 mg PO HS #90 tab 12/06/19 propranolol 40 mg tablet 40 mg PO BID #180 tab 12/31/19 potassium chloride 8 mEq 8 meq PO QDAY #90 tab 01/14/20 tablet,extended release hydrochlorothiazide 25 mg tablet 25 mg PO QDAY #90 tab 01/20/20 tamsulosin 0.4 mg capsule 0.4 mg PO QDAY #90 cap 03/06/20 Allergies Allergy/AdvReac Type Severity Reaction Status Date / Time atorvastatin [ATORVASTATIN] Allergy Unknown WEAKNESS/BODY Verified 07/30/20 09:25 ACHES lisinopril AdvReac Intermediate slow hr Verified 07/30/20 09:25 Review of Systems Review of Systems Narrative: GENERAL: Denies chills, fatigue, malaise, fever, sweats. HEENT: Denies sinus pain, ear pain, sore throat RESPIRATORY: Denies dyspnea, cough CARDIOVASCULAR: Complaint chest pain, denied palpitations GASTROINTESTINAL: Denies nausea, vomiting, abdominal pain : Denies dysuria, frequency, hematuria MUSCULOSKELETAL: denies any new muscle or bony pain SKIN: Denies rash, skin lesions NEUROLOGIC: Denies any new weakness, numbness, complains of mild headache ROS Unobtainable: All systems reviewed & are unremarkable except as noted in HPI and below Patient History Medical History Anxiety (06/06/14) Cardiac arrhythmia (06/06/14) Carpal tunnel syndrome Cervical spine disease Essential hypertension (08/04/15) History of adenomatous polyp of colon (12/27/10) History of renal calculi (12/27/10) Hyperlipidemia (08/09/16) Paroxysmal atrial fibrillation SVT (supraventricular tachycardia) Surgical History S/P carpal tunnel release Family History Father Family history of Alzheimer's disease Social History marital status: number of children: 0 household members: none lives independently: Yes caregiver/support person: Yes housing: house pets and animals: No education level: high school occupational status: other current occupational exposures/hazards: No Previous occupational history: [employer] destini/restorationism: None Smoking Status: Former smoker Tobacco: How many years used: 10 Smokeless tobacco user: other quit status: quit date established second hand exposure: No alcohol intake: never substance use type: does not use Smoking Status: Former smoker alcohol intake frequency: holidays/special occasions only Substance Use Type: does not use Exam Narrative Exam Narrative: GENERAL: in no distress, not toxic not dyspneic HEAD: Normocephalic. EYES: Pupils equal round No scleral icterus. No injection no discharge ENT: Mucous membranes moist. NECK: Trachea midline. CARDIOVASCULAR: Regular rate and rhythm without murmurs RESPIRATORY: Clear to auscultation. Breath sounds equal bilaterally. No wheezes, rales, or rhonchi. GASTROINTESTINAL: Abdomen soft, non-tender, bowel sounds present no peritoneal signs EXTREMITIES: No gross deformities. BACK: No flank tenderness. NEURO: AOx4. Clear speech no facial droop light touch intact to bilateral face hands with strong equal home health rn. Negative pronator drift. SKIN: Warm and dry PSYCH: Not anxious, is cooperative Initial Vital Signs Initial Vital Signs: Vital Signs Temperature 96.8 F L 07/30/20 09:15 Pulse Rate 70 07/30/20 09:15 Respiratory Rate 18 07/30/20 09:15 Blood Pressure 200/102 H 07/30/20 09:15 Pulse Oximetry 97 07/30/20 09:15 Course Course Course Narrative: Blood pressure improving well here. Patient took home blood pressure medication Decision to Admit Date: 07/30/20 Decision to Admit time: 11:03 Orders Ordered: ED Orders 07/30/20 09:48 Urinalysis and Microscopic Stat 07/30/20 10:57 US abdomen limited Stat 07/30/20 11:05 COVID19 Stat Discontinued Medications Aspirin (Aspirin 81 Mg Chew Tab) 324 mg PO NOW ONE Stop: 07/30/20 09:35 Last Admin: 07/30/20 09:44 Dose: 243 mg Documented by: GEOVANNA Clonidine HCl (Clonidine 0.1 Mg Tablet) 0.1 mg PO NOW ONE Stop: 07/30/20 11:41 Last Admin: 07/30/20 11:54 Dose: 0.1 mg Documented by: GEOVANNA Sodium Chloride (Normal Saline 0.9%) 1,000 mls @ 150 mls/hr IV CONT NIKOLE Last Infusion: 07/30/20 14:31 Dose: 0 mls/hr Documented by: Admin: 07/30/20 09:44 Dose: 150 mls/hr Documented by: GEOVANNA Sodium Chloride (Normal Saline 0.9%) 500 mls @ 1,000 mls/hr IV BOLUS ONE Stop: 07/30/20 10:54 Last Infusion: 07/30/20 11:18 Dose: 0 mls/hr Documented by: Admin: 07/30/20 10:34 Dose: 1,000 mls/hr Documented by: GEOVANNA Piperacillin Sod/Tazobactam (Sod 4.5 gm/ Sodium Chloride) 100 mls @ 200 mls/hr IV NOW ONE Stop: 07/30/20 14:15 Last Infusion: 07/30/20 14:30 Dose: 0 mls/hr Documented by: Admin: 07/30/20 13:56 Dose: 200 mls/hr Documented by: HAROON Reevaluation(s) Reevaluation #1: Updated patient and partner lab results and diagnosis and discussion with surgeon for transfer for ERCP and GI services Time: 11:04 Consultations Consultation #1: Spoke with Dr. Thornton, general surgeon, at our facility. Patient needs GI intervention possible ERCP. Recommends transferring Time: 11:04 Consultation #2: s/w dr jose henriquez, he will help coordinate transfer patient to [facility], he will contact hospitalist Additional Consultation(s): Time 1:45 p.m.. [facility] has assigned bed for patient for hospitalist Dr. Stuart, they did not call me or provided conversation. [place] insurance physician provided communication with [facility] and our facility Vital Signs Vital signs: Vital Signs - 8 hr 07/30/20 11:00 07/30/20 11:05 07/30/20 11:30 Pulse Rate 54 L 54 L 54 L Respiratory Rate 12 20 14 Blood Pressure 183/90 H Pulse Oximetry 96 97 97 07/30/20 11:31 07/30/20 11:54 07/30/20 12:00 Pulse Rate 52 L 53 L Respiratory Rate 19 12 Blood Pressure 181/85 H 188/82 H Pulse Oximetry 97 97 07/30/20 12:01 07/30/20 12:30 07/30/20 13:00 Pulse Rate 53 L 48 L 46 L Respiratory Rate 16 16 18 Blood Pressure 178/80 H 157/80 H 126/67 Pulse Oximetry 97 96 97 07/30/20 13:30 07/30/20 14:00 07/30/20 14:30 Pulse Rate 45 L 45 L 46 L Respiratory Rate 20 17 18 Blood Pressure 110/64 129/67 127/70 Pulse Oximetry 95 96 96 07/30/20 15:36 Pulse Rate 46 L Respiratory Rate 18 Blood Pressure 125/74 Pulse Oximetry 98 MDM - Chest Pain Differential Diagnosis Differential diagnosis: Likely stable angina, unstable angina pectoris, atypical chest pain, st elevation myocardial infarction, chest pain, biliary colic and other (Pancreatitis/cholecystitis) Medical Records Data Attestation: I reviewed the patient's medical records. Lab Data Attestation: I reviewed the patient's lab results. Result diagrams: 07/30/20 09:18 07/30/20 09:18 Labs: Lab Results 07/30/20 07/30/20 07/30/20 Range/Units 09:18 09:18 09:18 WBC 4.1 L (4.5-11.0) X10^3/uL RBC 4.45 L (4.5-5.9) X10^6/uL Hgb 15.4 (13.5-17.5) g/dL Hct 44.4 (41-53) % MCV 99.8 (80-100) fL MCH 34.6 H (26-34) PG MCHC 34.7 (30-36) % RDW 13.0 (11.6-14.8) % Plt Count 164 (150-400) X10^3/uL Neut % (Auto) 74.1 (50-75) % Lymph % (Auto) 14.8 L (25-40) % Forrest % (Auto) 10.2 (3-14) % Eos % (Auto) 0.6 L (2-4) % Baso % (Auto) 0.3 (0-2) % Neut # (Auto) 3100 (5690-8863) /uL Lymph # (Auto) 600 L (9743-4884) /uL Forrest # (Auto) 400 (0-900) /uL Eos # (Auto) 0 (0-450) /uL Baso # (Auto) 0 (0-100) /uL PT 11.1 (10.1-12.7) SECONDS INR 1.0 (0.9-1.3) APTT 30 (26.4-36.2) SECONDS Sodium 137 (137-145) mmol/L Potassium 3.8 (3.4-5.1) mmol/L Chloride 102 (98-107) mmol/L Carbon Dioxide 34 H (22-32) mmol/L BUN 22 H (9-20) mg/dL Creatinine 1.03 (0.66-1.25) mg/dL Estimated GFR > 60.0 (>60) mL/min BUN/Creatinine Ratio 21.4 (6-22) Glucose 91 (80-110) mg/dL Calcium 9.1 (8.4-10.2) mg/dL Total Bilirubin 2.9 H (0.2-1.3) mg/dL AST 1193 H (17-59) IU/L ALT 722 H (<50) IU/L Alkaline Phosphatase 169 H (38-126) U/L Total Creatine Kinase 97 (55-170) U/L CK-MB (CK-2) TNP CK-MB (CK-2) Rel Index TNP Troponin I < 0.012 (0.01-0.034) ng/mL Total Protein 7.3 (6.3-8.2) g/dL Albumin 4.1 (3.5-5.0) g/dL Globulin 3.2 (1.7-4.1) g/dL Albumin/Globulin Ratio 1.3 (1.0-2.8) Lipase 145 (23-300) U/L Urine Color Urine Appearance Urine pH (4.5-8.0) Ur Specific [place] (1.000-1.035) Urine Protein (Negative) Urine Glucose (UA) (Negative) g/dL Urine Ketones (NEGATIVE) Urine Occult Blood (Negative) Urine Nitrate (Negative) Urine Bilirubin (NEGATIVE) Urine Urobilinogen (0.2) E.U./dL Ur Leukocyte Esterase (NEGATIVE) Urine RBC (0-5/HPF) Urine WBC (0-5/HPF) Urine Bacteria (None) Ur Culture Indicated? Micro UA Comment SARS-CoV-2 (PCR) (Negative) 07/30/20 07/30/20 Range/Units 09:48 11:05 WBC (4.5-11.0) X10^3/uL RBC (4.5-5.9) X10^6/uL Hgb (13.5-17.5) g/dL Hct (41-53) % MCV (80-100) fL MCH (26-34) PG MCHC (30-36) % RDW (11.6-14.8) % Plt Count (150-400) X10^3/uL Neut % (Auto) (50-75) % Lymph % (Auto) (25-40) % Forrest % (Auto) (3-14) % Eos % (Auto) (2-4) % Baso % (Auto) (0-2) % Neut # (Auto) (6563-6320) /uL Lymph # (Auto) (1263-8045) /uL Forrest # (Auto) (0-900) /uL Eos # (Auto) (0-450) /uL Baso # (Auto) (0-100) /uL PT (10.1-12.7) SECONDS INR (0.9-1.3) APTT (26.4-36.2) SECONDS Sodium (137-145) mmol/L Potassium (3.4-5.1) mmol/L Chloride (98-107) mmol/L Carbon Dioxide (22-32) mmol/L BUN (9-20) mg/dL Creatinine (0.66-1.25) mg/dL Estimated GFR (>60) mL/min BUN/Creatinine Ratio (6-22) Glucose (80-110) mg/dL Calcium (8.4-10.2) mg/dL Total Bilirubin (0.2-1.3) mg/dL AST (17-59) IU/L ALT (<50) IU/L Alkaline Phosphatase (38-126) U/L Total Creatine Kinase (55-170) U/L CK-MB (CK-2) CK-MB (CK-2) Rel Index Troponin I (0.01-0.034) ng/mL Total Protein (6.3-8.2) g/dL Albumin (3.5-5.0) g/dL Globulin (1.7-4.1) g/dL Albumin/Globulin Ratio (1.0-2.8) Lipase (23-300) U/L Urine Color Yellow Urine Appearance Clear Urine pH 7.5 (4.5-8.0) Ur Specific [place] 1.010 (1.000-1.035) Urine Protein Negative (Negative) Urine Glucose (UA) Negative (Negative) g/dL Urine Ketones Negative (NEGATIVE) Urine Occult Blood Trace-lysed (Negative) Urine Nitrate Negative (Negative) Urine Bilirubin Negative (NEGATIVE) Urine Urobilinogen 1.0 (0.2) E.U./dL Ur Leukocyte Esterase Trace H (NEGATIVE) Urine RBC None seen (0-5/HPF) Urine WBC None seen (0-5/HPF) Urine Bacteria None seen (None) Ur Culture Indicated? Cult not indicated Micro UA Comment Microscopic normal SARS-CoV-2 (PCR) Negative (Negative) Urine Dip Bedside Urine Glucose Negative Bedside Urine Bilirubin - Negative Bedside Urine Ketone - Negative Urine Specific [place] 1.015 Bedside Urine Occult Blood - Negative Bedside Urine pH 7.5 Bedside Urine Protein - Negative Bedside Urine Urobilinogen +/- 1mg Bedside Urine Nitrite - Negative Bedside Urine Leukocytes - Negative Esterase Imaging Data CT scan - head: Radiologist's Impression: [address] [id number] Scan ReportSigned Patient: Roel Vikcers MMR#: [id number]: 8Acct:[id number]/Sex: 84 / MDate of Service: 07/30/20Loc: EDAccession Number: [id number] Procedure: CT head/brain wo con Ordering Provider: Lorenzo Bro MD PROCEDURE: CT HEAD/BRAIN WO CON INDICATIONS: headache TECHNIQUE: Noncontrast 4.5 mm thick angled axial sections acquired from the foramen magnum to the vertex, with coronal and sagittal reformats. For radiation dose reduction, the following was used: automated exposure control, adjustment of mA and/or kV according to patient size. COMPARISON: None. FINDINGS: Image quality: Excellent. CSF spaces: Basal cisterns are patent. No extra-axial fluid collections. The ventricles are symmetric in size and shape. Brain: No intracranial bleeds or masses. There is cerebral volume loss for age, with resultant ventricular and sulcal prominence. There are periventricular and deep white matter chronic small vessel ischemic changes. There is intracranial internal carotid artery atherosclerosis. Skull and face: Calvarium and visualized facial bones appear intact, without suspicious lesions. Sinuses: Visualized sinuses and mastoids are clear. IMPRESSION: No acute intracranial disease process. Dictated by: Anali Ragland MD, PhD on 07/30/2020 at 10:28 Approved by: Anali Ragland MD, PhD on 07/30/2020 at 10:31 CT scan - abdomen/pelvis: Radiologist's Impression: [address] [id number] Scan ReportSigned Patient: Roel Vickers MMR#: [id number]: 8Acct:[id number]/Sex: 84 / MDate of Service: 07/30/20Loc: EDAccession Number: [id number] Procedure: CT angio chest abdomen pelvis Ordering Provider: Lorenzo Bro MD PROCEDURE: CT ANGIO CHEST ABDOMEN PELVIS INDICATIONS: Chest and abdominal pain TECHNIQUE: Precontrast 5 mm thick sections acquired from the lung apices to the iliac crests. After the administration of intravenous contrast, 2.5 mm thick sections again acquired from the lung apices to the iliac crests. Maximum intensity projection (MIP) oblique sagittal and coronal reformats were then acquired. For radiation dose reduction, the following was used: automated exposure control. COMPARISON: None. FINDINGS: Image quality: Excellent. AORTA: Intramural hematoma: Absent Maximum hematoma thickness: Not applicable. Focal contrast enhancement: Intramural blood pool (< 2 mm neck or imperceptible communication with aortic lumen): Absent. Ulcer-like projection (broad communication with aortic lumen > 3 mm): Absent. Dissection: Absent Bhanu classification: Not applicable Maximum aortic diameter: 4.1 cm. [If Bhanu A dissection, > 5.0 cm has a poorer prognosis. If Bhanu B dissection, > 4.0 cm has a poorer prognosis.] Periaortic hematoma: Absent. CHEST: Lungs and pleura: No acute airspace opacities. No pleural effusions or pneumothorax. Central and peripheral airways are patent and normal in caliber. Mediastinum: Heart size is normal. Atherosclerotic calcifications are noted in the aorta, great vessels and the coronary vasculature. No pericardial effusion. No mediastinal or hilar adenopathy by size criteria. Central pulmonary arteries are normal in size. Esophagus is normal in caliber. No hiatal hernias. Bones and chest wall: No axillary adenopathy by size criteria. Thyroid gland contains a 1.9 centimeter hypoattenuating nodule in the left lobe. No suspicious bony lesions. No vertebral body compression fractures. ABDOMEN: Vasculature: Celiac trunk and mesenteric arteries are patent. Renal arteries are also patent. Solid organs: Liver is normal in size and enhancement. Gallbladder contains multiple small gallstones. Gallbladder wall is thickened. There is small amount of pericholecystic fluid.. 7 millimeter 4 millimeter stones in the common bile duct with mild intra and extrahepatic biliary dilatation. Pancreas enhances normally. Spleen is normal in size and enhancement. No adrenal nodules. Both kidneys are normal in size and enhancement, without hydronephrosis. Peritoneum and bowel: No free fluid or air. Bowel loops are normal in caliber and wall thickness. Scattered colonic diverticuli without evidence of diverticulitis. The appendix is normal. Nodes and vessels: No retroperitoneal or mesenteric adenopathy by size criteria. Inferior vena cava is normal in morphology. Miscellaneous: Small fat containing umbilical hernia. PELVIS: Genitourinary: Bladder wall thickness is normal. Miscellaneous: No inguinal hernias or adenopathy. No ventral hernias. Bones: No suspicious bony lesions. No vertebral body compression fractures. Spine degenerative disc disease and facet arthropathy. IMPRESSION: 1. No evidence of aortic dissection or aneurysm. 2. Cholelithiasis with gallbladder wall thickening and pericholecystic fluid concerning for acute cholecystitis. 3. 4 millimeter and 6 millimeters stones in the common bile duct with mild intra and extrahepatic biliary tree dilatation. 4. Colonic diverticulosis without evidence of diverticulitis. 5. Atherosclerosis including dense atherosclerotic calcifications in the coronary vasculature. Dictated by: Anali Ragland MD, PhD on 07/30/2020 at 10:32 Approved by: Anali Ragland MD, PhD on 07/30/2020 at 10:40 US - abdomen: Radiologist's Impression: [address] [id number] ReportSigned Patient: Roel Vickers [facility]#: [id number]: 8Acct:[id number]/Sex: 84 / MDate of Service: 07/30/20Loc: EDAccession Number: [id number] Procedure: US abdomen limited Ordering Provider: Lorenzo Bro MD PROCEDURE: US ABDOMEN LIMITED INDICATIONS: abd pain/attn gallbladder TECHNIQUE: Real-time focused scanning was performed of the abdomen, with image documentation. COMPARISON: [facility], CT, CT ANGIO CHEST ABDOMEN PELVIS, 07/30/2020, 9:58. FINDINGS: The liver is normal in size and demonstrates no focal lesions. Sludge is seen within the gallbladder. The gallbladder wall measures up to 3 mm. No focal pericholecystic fluid is seen. The sonographic Hernandez sign is negative. The common bile duct is prominently enlarged at 14 mm. Stones and apparent sludge can be seen within the common bile duct. No significant pancreatic abnormality is seen on these images. IMPRESSION: Stones and apparent sludge can be seen within the common bile duct, with associated biliary ductal dilatation, as previously demonstrated by CT. Sludge is seen within the gallbladder, without additional significant gallbladder abnormality. It is noted that on the recent prior CT, the gallbladder wall appeared thickened. Dictated by: Oleksandr Dc M.D. on 07/30/2020 at 11:04 Approved by: Oleksandr Dc M.D. on 07/30/2020 at 11:08 ECG Data Attestation: I personally reviewed and interpreted this ECG as follows: Interpretation: Sinus rhythm with premature supraventricular complexes. Ventricular rate 65. No ST elevation MDM Narrative Medical decision making narrative: Appropriate for transfer. Will need ERCP/gastroenterology. I do not have the services here. Discharge Plan Departure Patient Disposition: [facility] Clinical Impression: Acute calculous cholecystitis Prescriptions: No Action ASPIRIN (Aspir-Low) 81 mg PO Q DAY Qty: 0 RF: 0 MULTIVITAMIN (#MULTIPLE VITAMINS) 1 cap PO Qty: 0 RF: 0 VITAMIN D (Vitamin D3) 2,000 u PO DAILY Qty: 0 RF: 0 metronidazole [Metrogel] 1 % gel 1 % Topical BID Qty: 180 RF: 3 pravastatin 80 mg tablet 80 mg PO HS Qty: 90 RF: 3 propranolol 40 mg tablet 40 mg PO BID Qty: 180 RF: 3 potassium chloride [Klor-Con 8] 8 mEq tablet extended release 8 meq PO QDAY Qty: 90 RF: 3 hydrochlorothiazide 25 mg tablet 25 mg PO QDAY Qty: 90 RF: 3 tamsulosin [Flomax] 0.4 mg capsule 0.4 mg PO QDAY Qty: 90 RF: 3 Referrals: Jack Muhammad MD [Primary Care Provider] -
[2020-07-30] MEDS: ASPIRIN 81 MG CHEW TAB 324 MG PO (09:44)
[2020-07-30] MEDS: SODIUM CHLORIDE 0.9% 1,000 ML 150 ML IV (09:44)
[2020-07-30 09:45] LABS: Prothrombin Time 11.1 SECONDS (10.1-12.7)
[2020-07-30 09:48] LABS: PTT Partial Thromboplastin Tim 30 SECONDS (26.4-36.2)
[2020-07-30 09:49] LABS: Alanine Aminotransferase 722 IU/L (<50); Albumin 4.1 g/dL (3.5-5.0); Albumin Globulin Ratio 1.3 (1.0-2.8); Alkaline Phosphatase 169 U/L (38-126); BUN Creatinine Ratio 21.4 (6-22); Bilirubin Total 2.9 mg/dL (0.2-1.3); Blood Urea Nitrogen 22 mg/dL (9-20); Calcium 9.1 mg/dL (8.4-10.2); Carbon Dioxide 34 mmol/L (22-32); Chloride 102 mmol/L (98-107); Creatine Kinase 97 U/L (55-170); Estimated Glomerular Filt Rate > 60.0 mL/min (>60); Globulin 3.2 g/dL (1.7-4.1); Glucose 91 mg/dL (80-110); HEMOLYSIS 24 (0-50); Lipase 145 U/L (23-300); Potassium 3.8 mmol/L (3.4-5.1); Sodium 137 mmol/L (137-145); Total Protein 7.3 g/dL (6.3-8.2)
[2020-07-30 09:50] LABS: Add Manual Diff / Slide Review NO; Basophils Absolute Auto 0 /uL (0-100); Basophils Percent Auto 0.3 % (0-2); Eosinophils Absolute Auto 0 /uL (0-450); Eosinophils Percent Auto 0.6 % (2-4); Hematocrit 44.4 % (41-53); Hemoglobin 15.4 g/dL (13.5-17.5); Lymphocytes Absolute Auto 600 /uL (1100-4500); Lymphocytes Percent Auto 14.8 % (25-40); Mean Corpuscular HGB Conc 34.7 % (30-36); Mean Corpuscular Hemoglobin 34.6 PG (26-34); Mean Corpuscular Volume 99.8 fL (80-100); Monocytes Absolute Auto 400 /uL (0-900); Monocytes Percent Auto 10.2 % (3-14); Neutrophils Absolute Auto 3100 /uL (1500-7000); Neutrophils Percent Auto 74.1 % (50-75); Platelet Count 164 X10^3/uL (150-400); Red Blood Cell Count 4.45 X10^6/uL (4.5-5.9); White Blood Cell Count 4.1 X10^3/uL (4.5-11.0)
[2020-07-30 09:55] LABS: Aspartate Aminotransferase 1193 IU/L (17-59)
[2020-07-30 09:55] LABS: Bacteria Urine None Seen; RBC Urine None Seen (0-5/HPF); WBC Urine None Seen (0-5/HPF)
[2020-07-30 09:56] LABS: Appearance Urine UA CLEAR; Bilirubin Urine UA NEGATIVE (NEGATIVE); Color Urine UA YELLOW; Glucose Urine UA NEGATIVE (Negative); Ketones Urine UA NEGATIVE (NEGATIVE); Leukocyte Esterase Urine UA TRACE (NEGATIVE); Nitrite Urine UA NEGATIVE (Negative); Occult Blood Urine UA TRACE-LYSED (Negative); Protein Urine UA NEGATIVE (Negative); pH Urine UA 7.5 (4.5-8.0)
[2020-07-30 10:01] LABS: Troponin I < 0.012 ng/mL (0.01-0.034)
[2020-07-30 10:12] LABS: Culture Indicated Urine Cult Not Indicated; Urine Comments Microscopic Normal
[2020-07-30] MEDS: SODIUM CHLORIDE 0.9% 500 ML 1000 ML IV (10:34)
--- NOTE | 2020-07-30 10:57 | DI.US.S_ITS ---
PROCEDURE: US ABDOMEN LIMITED INDICATIONS: abd pain/attn gallbladder TECHNIQUE: Real-time focused scanning was performed of the abdomen, with image documentation. COMPARISON: [facility], CT, CT ANGIO CHEST ABDOMEN PELVIS, 07/30/2020, 9:58. FINDINGS: The liver is normal in size and demonstrates no focal lesions. Sludge is seen within the gallbladder. The gallbladder wall measures up to 3 mm. No focal pericholecystic fluid is seen. The sonographic Hernandez sign is negative. The common bile duct is prominently enlarged at 14 mm. Stones and apparent sludge can be seen within the common bile duct. No significant pancreatic abnormality is seen on these images. IMPRESSION: Stones and apparent sludge can be seen within the common bile duct, with associated biliary ductal dilatation, as previously demonstrated by CT. Sludge is seen within the gallbladder, without additional significant gallbladder abnormality. It is noted that on the recent prior CT, the gallbladder wall appeared thickened. Dictated by: Oleksandr Dc M.D. on 07/30/2020 at 11:04 Approved by: Oleksandr Dc M.D. on 07/30/2020 at 11:08
[2020-07-30 11:30] LABS: COVID19 -Nasal RAPID Negative (Negative)
[2020-07-30] MEDS: cloNIDine 0.1 MG TABLET PO (11:54)
[2020-07-30] MEDS: PIPERACILLIN/TAZO 4.5 GM in SODIUM CHLORIDE 0.9% 100 ML 200 ML IV (13:56)
--- NOTE | 2020-07-30 15:23 | PC.NURSE ---
Report called to Darrius Koch Seugent, RN
== END 2020-07-30 15:44 | disposition short-term general hospital (02) ==
PROVIDERS: Emergency Provider Emergency Medicine; PCP Internal Medicine
DX: K80.00 Calculus of gallbladder with acute cholecystitis without obstruction (principal); R07.9 Chest pain, unspecified; R51.9 Headache, unspecified; I10 Essential (primary) hypertension; Z79.82 Long term (current) use of aspirin; Z20.822 Contact with and (suspected) exposure to COVID-19
CPT/HCPCS: 36415; 70450; 71275; 74174; 76705; 80053; 81001; 81003; 82550; 83690; 84484; 85025; 85610; 85730; 87635; 93005; 93010; 96361; 96365; 99284; C9803; J2543; Q9967

== ENCOUNTER 2020-10-23 19:41 | Emergency (ER) | payer OTHER, SELFPAY ==
[2020-10-23] VITALS (9 sets, daily range): BP systolic 119–184; BP diastolic 67–98; PULSE 46–65; RESP 12–20; TEMP 36.9; O2SAT 95–98
--- NOTE | 2020-10-23 19:50 | DI.RAD.S_ITS ---
PROCEDURE: XR CHEST 1V INDICATIONS: chest pain TECHNIQUE: One view of the chest was acquired. COMPARISON: [facility], CR, XR CHEST 1V, 02/15/2020, 13:59. FINDINGS: Surgical changes and devices: None. Lungs and pleura: Lungs are clear. No pleural effusions or pneumothorax. Mediastinum: Mediastinal contours appear normal. Heart size is normal. Bones and chest wall: No suspicious bony lesions. Degenerative change in the glenohumeral joints bilaterally. Overlying soft tissues appear unremarkable. IMPRESSION: No acute cardiopulmonary disease. Dictated by: Marry Steele M.D. on 10/23/2020 at 20:41 Approved by: Marry Steele M.D. on 10/23/2020 at 20:41
[2020-10-23 20:17] LABS: Add Manual Diff / Slide Review NO; Basophils Absolute Auto 0 /uL (0-100); Basophils Percent Auto 0.7 % (0-2); Eosinophils Absolute Auto 100 /uL (0-450); Eosinophils Percent Auto 1.8 % (2-4); Hemoglobin 14.1 g/dL (13.5-17.5); Lymphocytes Absolute Auto 1400 /uL (1100-4500); Lymphocytes Percent Auto 27.6 % (25-40); Mean Corpuscular HGB Conc 34.4 % (30-36); Mean Corpuscular Hemoglobin 33.5 PG (26-34); Mean Corpuscular Volume 97.5 fL (80-100); Monocytes Absolute Auto 500 /uL (0-900); Monocytes Percent Auto 9.1 % (3-14); Neutrophils Absolute Auto 3100 /uL (1500-7000); Neutrophils Percent Auto 60.8 % (50-75); Platelet Count 182 X10^3/uL (150-400); Prothrombin Time 11.2 SECONDS (10.1-12.7); Red Cell Distribution Width 12.9 % (11.6-14.8); White Blood Cell Count 5.1 X10^3/uL (4.5-11.0)
[2020-10-23 20:20] LABS: PTT Partial Thromboplastin Tim 28 SECONDS (26.4-36.2)
[2020-10-23 20:22] LABS: Alanine Aminotransferase 21 IU/L (<50); Albumin Globulin Ratio 1.4 (1.0-2.8); Alkaline Phosphatase 83 U/L (38-126); Aspartate Aminotransferase 29 IU/L (17-59); BUN Creatinine Ratio 19.1 (6-22); Blood Urea Nitrogen 21 mg/dL (9-20); Calcium 9.2 mg/dL (8.4-10.2); Carbon Dioxide 34 mmol/L (22-32); Chloride 101 mmol/L (98-107); Creatine Kinase 120 U/L (55-170); Estimated Glomerular Filt Rate > 60.0 mL/min (>60); Globulin 2.9 g/dL (1.7-4.1); Glucose 118 mg/dL (80-110); HEMOLYSIS < 15 (0-50); Lipase 87 U/L (23-300); Potassium 3.6 mmol/L (3.4-5.1); Sodium 140 mmol/L (137-145); Total Protein 6.9 g/dL (6.3-8.2)
[2020-10-23 20:34] LABS: Troponin I < 0.012 ng/mL (0.01-0.034)
[2020-10-23 20:37] LABS: CKMB % Relative Index 2.2 % (1.5-5.0); Creatine Kinase MB 2.64 ng/mL (<2.37)
--- NOTE | 2020-10-23 21:02 | ED.NEUROSD ---
HPI - Neuro Symptoms/Deficit General Chief Complaint: Neuro Symptoms/Deficit Stated Complaint: Feels Like Earthquake In Body Time Seen by Provider: 10/23/20 19:50 Source: patient and family Mode of arrival: Wheelchair Limitations: no limitations History of Present Illness HPI Narrative: 85-year-old male who was here by private vehicle for evaluation of symptoms that occurred just prior to arrival. He states that he was at his house when he felt like there was an earthquake. He states he felt like his body was moving but he really was not moving. He denied any vertigo. Denies chest pain. Denies shortness of breath. Had no nausea and vomiting. He called his girlfriend to come over and they both decided to come to the emergency department. Prior to coming the did take his blood pressure in the systolic blood pressure was in the 190s. Two days ago after discussion with his primary doctor they stopped the amlodipine because he was having swelling in his lower extremities. Patient states that the swelling was actually present prior to the amlodipine and review of the primary doctor's note does state that he was not convinced that the swelling was related to this however the patient has had problems with blood pressure medications in the past specifically losartan that they decided to hold on replacing the amlodipine with another medication and checking his blood pressures over the next month and deciding at that point whether not he I to be back on blood pressure medications. On Anticoagulants: No Related Data Home Medications Medication Instructions Recorded Confirmed ASPIRIN (Aspir-Low) 81 mg PO Q DAY #0 09/04/11 10/20/20 MULTIVITAMIN (#MULTIPLE VITAMINS) 1 cap PO #0 09/04/11 10/20/20 VITAMIN D (Vitamin D3) 2,000 u PO DAILY #0 07/25/12 10/20/20 Acid Addiction Nurse 1 tab PO DAILY 10/20/20 calcium carbonate 200 mg calcium 200 mg PO BID PRN 10/20/20 10/20/20 (500 mg) chewable tablet Previous Rx's Medication Instructions Recorded metronidazole [Metrogel] 1 % TOPICAL BID #180 ml 07/20/18 pravastatin 80 mg tablet 80 mg PO HS #90 tab 12/06/19 propranolol 40 mg tablet 40 mg PO BID #180 tab 12/31/19 potassium chloride 8 mEq 8 meq PO QDAY #90 tab 01/14/20 tablet,extended release hydrochlorothiazide 25 mg tablet 25 mg PO QDAY #90 tab 01/20/20 tamsulosin 0.4 mg capsule 0.4 mg PO QDAY #90 cap 03/06/20 food supplemt, lactose-reduced 1 ea PO QID #12041 ml 08/18/20 citalopram 10 mg tablet 10 mg PO DAILY #30 tab 10/20/20 Allergies Allergy/AdvReac Type Severity Reaction Status Date / Time atorvastatin [ATORVASTATIN] Allergy Unknown WEAKNESS/BODY Verified 10/20/20 09:11 ACHES lisinopril AdvReac Intermediate slow hr Verified 10/20/20 09:11 losartan AdvReac Intermediate imbalance Verified 10/20/20 09:11 Review of Systems Constitutional Constitutional: Denies fever(s) Cardiovascular Cardiovascular: Denies chest pain and Denies dyspnea Respiratory Respiratory: Denies dyspnea Gastrointestinal Gastrointestinal: Denies abdominal pain, Denies nausea and Denies vomiting Musculoskeletal Musculoskeletal: Reports system reviewed and no additional complaints, except as documented Integumentary/Breasts Skin/Breast: Reports system reviewed and no additional complaints, except as documented Neurologic Neurologic: Reports tremor(s) Comments: Feels like his body is shaking Hematologic/Lymphatic Hematologic/Lymphatic: Denies easy bleeding and Denies easy bruising On Anticoagulants: No Allergic/Immunologic Allergic/Immunologic: Reports system reviewed and no additional complaints, except as documented Patient History Medical History Anxiety (06/06/14) Bile duct carcinoma Cardiac arrhythmia (06/06/14) Carpal tunnel syndrome Cervical spine disease Essential hypertension (08/04/15) History of adenomatous polyp of colon (12/27/10) History of renal calculi (12/27/10) Hyperlipidemia (08/09/16) Mild cognitive impairment Paroxysmal atrial fibrillation SVT (supraventricular tachycardia) Surgical History S/P carpal tunnel release Family History Father Family history of Alzheimer's disease Social History marital status: number of children: 0 household members: none lives independently: Yes caregiver/support person: Yes housing: house pets and animals: No education level: high school occupational status: other current occupational exposures/hazards: No Previous occupational history: [employer] destini/restoration: None Smoking Status: Former smoker Tobacco: How many years used: 10 Smokeless tobacco user: other quit status: quit date established second hand exposure: No alcohol intake: never substance use type: does not use Smoking Status: Former smoker alcohol intake frequency: holidays/special occasions only Substance Use Type: does not use Exam Initial Vital Signs Initial Vital Signs: Vital Signs Temperature 98.4 F 10/23/20 19:45 Pulse Rate 64 10/23/20 19:45 Respiratory Rate 20 10/23/20 19:45 Blood Pressure 184/98 H 10/23/20 19:45 Pulse Oximetry 98 10/23/20 19:45 Const General: cooperative and comfortable Limitations: mental status not altered HENMT Head: normal to inspection and normocephalic Resp Effort & Inspection: normal respiratory effort Auscultation: clear to auscultation bilaterally Cardio Rate: regular rate Rhythm: regular rhythm GI Inspection: non-distended Palpation: soft Skin Lesions: no lesions Rashes: no rashes Neuro General: patient alert and patient awake Speech: speech normal Extrem General: capillary refill normal Psych Appearance: grossly normal and well kempt Course Orders Ordered: ED Orders 10/23/20 19:50 XR chest 1V Stat EKG-12 Lead Stat 10/23/20 20:00 Complete Blood Count AUTO DIFF Stat Comprehensive Metabolic Panel Stat Lipase Stat Partial Thromboplastin Time Stat Prothrombin Time INR Stat Troponin & CK Cardiac Panel Stat 10/23/20 21:56 Troponin & CK Cardiac Panel Stat Vital Signs Vital signs: Vital Signs - 8 hr 10/23/20 19:45 10/23/20 20:16 10/23/20 20:30 Temperature 98.4 F Pulse Rate 64 53 L 55 L Respiratory Rate 20 13 12 Blood Pressure 184/98 H 158/79 H Pulse Oximetry 98 98 97 10/23/20 21:00 10/23/20 21:30 10/23/20 21:31 Temperature Pulse Rate 58 L 46 L 49 L Respiratory Rate 19 18 15 Blood Pressure 168/83 H 127/74 Pulse Oximetry 95 95 96 10/23/20 22:00 10/23/20 22:30 10/23/20 23:31 Temperature Pulse Rate 51 L 49 L 65 Respiratory Rate 16 17 19 Blood Pressure 125/72 119/67 136/76 Pulse Oximetry 96 95 96 MDM - Neuro Symptoms/Deficit Lab Data Attestation: I reviewed the patient's lab results. Result diagrams: 10/23/20 20:00 10/23/20 20:00 Labs: Lab Results 10/23/20 10/23/20 10/23/20 Range/Units 20:00 20:00 20:00 WBC 5.1 (4.5-11.0) X10^3/uL RBC 4.20 L (4.5-5.9) X10^6/uL Hgb 14.1 (13.5-17.5) g/dL Hct 41.0 (41-53) % MCV 97.5 (80-100) fL MCH 33.5 (26-34) PG MCHC 34.4 (30-36) % RDW 12.9 (11.6-14.8) % Plt Count 182 (150-400) X10^3/uL Neut % (Auto) 60.8 (50-75) % Lymph % (Auto) 27.6 (25-40) % [place] % (Auto) 9.1 (3-14) % Eos % (Auto) 1.8 L (2-4) % Baso % (Auto) 0.7 (0-2) % Neut # (Auto) 3100 (8844-9789) /uL Lymph # (Auto) 1400 (8921-2895) /uL [place] # (Auto) 500 (0-900) /uL Eos # (Auto) 100 (0-450) /uL Baso # (Auto) 0 (0-100) /uL PT 11.2 (10.1-12.7) SECONDS INR 1.0 (0.9-1.3) APTT 28 (26.4-36.2) SECONDS Sodium 140 (137-145) mmol/L Potassium 3.6 (3.4-5.1) mmol/L Chloride 101 (98-107) mmol/L Carbon Dioxide 34 H (22-32) mmol/L BUN 21 H (9-20) mg/dL Creatinine 1.10 (0.66-1.25) mg/dL Estimated GFR > 60.0 (>60) mL/min BUN/Creatinine Ratio 19.1 (6-22) Glucose 118 H (80-110) mg/dL Calcium 9.2 (8.4-10.2) mg/dL Total Bilirubin 1.0 (0.2-1.3) mg/dL AST 29 (17-59) IU/L ALT 21 (<50) IU/L Alkaline Phosphatase 83 (38-126) U/L Total Creatine Kinase 120 (55-170) U/L CK-MB (CK-2) 2.64 H (<2.37) ng/mL CK-MB (CK-2) Rel Index 2.2 (1.5-5.0) % Troponin I < 0.012 (0.01-0.034) ng/mL Total Protein 6.9 (6.3-8.2) g/dL Albumin 4.0 (3.5-5.0) g/dL Globulin 2.9 (1.7-4.1) g/dL Albumin/Globulin Ratio 1.4 (1.0-2.8) Lipase 87 (23-300) U/L 10/23/20 Range/Units 21:56 WBC (4.5-11.0) X10^3/uL RBC (4.5-5.9) X10^6/uL Hgb (13.5-17.5) g/dL Hct (41-53) % MCV (80-100) fL MCH (26-34) PG MCHC (30-36) % RDW (11.6-14.8) % Plt Count (150-400) X10^3/uL Neut % (Auto) (50-75) % Lymph % (Auto) (25-40) % [place] % (Auto) (3-14) % Eos % (Auto) (2-4) % Baso % (Auto) (0-2) % Neut # (Auto) (9215-6237) /uL Lymph # (Auto) (6435-6431) /uL [place] # (Auto) (0-900) /uL Eos # (Auto) (0-450) /uL Baso # (Auto) (0-100) /uL PT (10.1-12.7) SECONDS INR (0.9-1.3) APTT (26.4-36.2) SECONDS Sodium (137-145) mmol/L Potassium (3.4-5.1) mmol/L Chloride (98-107) mmol/L Carbon Dioxide (22-32) mmol/L BUN (9-20) mg/dL Creatinine (0.66-1.25) mg/dL Estimated GFR (>60) mL/min BUN/Creatinine Ratio (6-22) Glucose (80-110) mg/dL Calcium (8.4-10.2) mg/dL Total Bilirubin (0.2-1.3) mg/dL AST (17-59) IU/L ALT (<50) IU/L Alkaline Phosphatase (38-126) U/L Total Creatine Kinase 104 (55-170) U/L CK-MB (CK-2) 2.03 (<2.37) ng/mL CK-MB (CK-2) Rel Index 2.0 (1.5-5.0) % Troponin I < 0.012 (0.01-0.034) ng/mL Total Protein (6.3-8.2) g/dL Albumin (3.5-5.0) g/dL Globulin (1.7-4.1) g/dL Albumin/Globulin Ratio (1.0-2.8) Lipase (23-300) U/L Imaging Data Chest x-ray: Radiologist's Impression: [address] [id number] ReportSigned Patient: Roel Vickers [facility]#: [id number]: 8Acct:[id number]/Sex: 85 / MDate of Service: 10/23/20Loc: EDAccession Number: [id number] Procedure: XR chest 1V Ordering Provider: Harjit Plasencia D.O. PROCEDURE: XR CHEST 1V INDICATIONS: chest pain TECHNIQUE: One view of the chest was acquired. COMPARISON: [facility], CR, XR CHEST 1V, 02/15/2020, 13:59. FINDINGS: Surgical changes and devices: None. Lungs and pleura: Lungs are clear. No pleural effusions or pneumothorax. Mediastinum: Mediastinal contours appear normal. Heart size is normal. Bones and chest wall: No suspicious bony lesions. Degenerative change in the glenohumeral joints bilaterally. Overlying soft tissues appear unremarkable. IMPRESSION: No acute cardiopulmonary disease. Dictated by: Marry Steele M.D. on 10/23/2020 at 20:41 Approved by: Marry Steele M.D. on 10/23/2020 at 20:41 ECG Data Attestation: I personally reviewed and interpreted this ECG as follows: Prior ECG tracings: not available for review Interpretation: Sinus bradycardia Ventricular rate of 55 Normal axis Normal QRS Normal QTC No ST T wave changes MDM Narrative Medical decision making narrative: His labs and EKG are reassuring. Unsure as to what was causing the shaking sensation that he had a his body. Does not appear to be seizure/stroke. He was awake during the whole event. His blood pressure was elevated at the time and I did discuss with him that this could potentially be because he was not feeling well. He did take a dose of the amlodipine prior to arrival. His blood pressure improved during his time here in the ER. I feel that we can hold on further workup for now. Review of the patient's primary doctor's note and also discussion with the patient it appears that the swelling in his lower extremities was present prior to the start of the amlodipine and they are not 100% convinced that it was caused by the amlodipine. Given that his blood pressure was elevated he is very concerned about the blood pressure being elevated he wants to restart his amlodipine. I do not think this is unreasonable and I will have him contact his primary doctor tomorrow to discuss this further. He was given return precautions and follow-up instructions. He expressed understanding and agreement. Discharge Plan Departure Patient Disposition: Home Clinical Impression: Hypertension Instructions: Essential Hypertension Activity Restrictions/Additional Instructions: I do recommend that you continue all of your medications like we discussed. Tomorrow morning when the office opens give your primary doctor's office a call for a follow-up. Return to the emergency department for any new or worsening symptoms Prescriptions: No Action ASPIRIN (Aspir-Low) 81 mg PO Q DAY Qty: 0 RF: 0 MULTIVITAMIN (#MULTIPLE VITAMINS) 1 cap PO Qty: 0 RF: 0 VITAMIN D (Vitamin D3) 2,000 u PO DAILY Qty: 0 RF: 0 metronidazole [Metrogel] 1 % gel 1 % Topical BID Qty: 180 RF: 3 pravastatin 80 mg tablet 80 mg PO HS Qty: 90 RF: 3 propranolol 40 mg tablet 40 mg PO BID Qty: 180 RF: 3 potassium chloride [Klor-Con 8] 8 mEq tablet extended release 8 meq PO QDAY Qty: 90 RF: 3 hydrochlorothiazide 25 mg tablet 25 mg PO QDAY Qty: 90 RF: 3 tamsulosin [Flomax] 0.4 mg capsule 0.4 mg PO QDAY Qty: 90 RF: 3 Acid Addiction Nurse 1 tab PO DAILY RF: 0 calcium carbonate [Tums] 200 mg calcium (500 mg) tablet,chewable 200 mg PO BID PRN (Reason: heartburn) RF: 0 citalopram 10 mg tablet 10 mg PO DAILY Qty: 30 RF: 4 Ensure Original Liquid 1 ea PO QID Qty: 40622 RF: 12 Referrals: Jack Richardson MD [Primary Care Provider] -
[2020-10-23 22:26] LABS: Creatine Kinase 104 U/L (55-170)
[2020-10-23 22:39] LABS: Troponin I < 0.012 ng/mL (0.01-0.034)
[2020-10-23 22:42] LABS: Creatine Kinase MB 2.03 ng/mL (<2.37)
== END 2020-10-23 23:31 | disposition home or self-care (01) ==
PROVIDERS: Emergency Provider Emergency Medicine; PCP Internal Medicine
DX: I10 Essential (primary) hypertension (principal); R07.9 Chest pain, unspecified
CPT/HCPCS: 36415; 71045; 80053; 82550; 82553; 83690; 84484; 85025; 85610; 85730; 93005; 93010; 99284

== ENCOUNTER 2021-01-18 13:09 | Outpatient (RCR) | payer OTHER, SELFPAY ==
--- NOTE | 2021-01-19 16:29 | ST.OPPOC ---
Physical, Occupational & Speech Therapy At [facility] Visit Care Team Role Provider Type Jack Richardson MD Family Provider Physician Primary Care Provider Address: [address] [place] [address], [facility] [address], [place], [address] Ubaldo Shelton MD Attending Provider Non-Staff Referring Provider Address: [address] [place] [address], [id number] Speech Pathology Plan of Care Plan of Care Dates 01/18/21-04/20/21 Language Function Mild-moderately impaired Cognitive Function Mild-moderately impaired Findings Pt presented with moderate word-finding difficulty. At one point, he pointed to the computer and said I don't know the name for that. Additionally, he reported that he finds this challenge frustrating. This OFFICE EXECUTIVE suggested different strategies for word-finding, such as thinking of a different way to say the same thing, describing the word/item, writing important information down to help with phone calls and labeling items (i.e., the computer). Both the pt and his stated that they are currently using these strategies. A list of different strategies were provided to the pt for their use to try at home. in discussion the results of the SLUMS, it appeared that memory was impacted more than other areas. Both the pt and his reported that the memory issues have been occurring for some time and were not new following his surgeries. Pt and his reported that they are currently using external strategies for memory assistance: lists, using a calendar for important information, implementing a central location for everything important ( calendar, phone, keys, etc). At the end of the session, both the pt and his indicated that they will try the word finding strategies at home before coming in for therapy. Electronically Signed by: Polly Henry, OFFICE EXECUTIVE 01/19/21 [id number] Please Sign and Return: I have reviewed this Plan of Care and certify that the skilled therapy services above are required to meet the patient?s needs. Physician Signature Date Printed Name and Credentials Clinical Instructor Signature Printed Name and Credentials
--- NOTE | 2021-01-19 16:33 | ST.OPIE ---
Visit Care Team Role Provider Type Jack Richardson MD Family Provider Physician Primary Care Provider Specialty: Internal Medicine Address: [address] [place] [address], [address], [place], [address] Email: [email or web address] Ubaldo Shelton MD Attending Provider Non-Staff Referring Provider Specialty: Psychiatry Address: [address] [place] [address], [id number] Email: Speech-Language Pathology Initial Evaluation ASSISTANT ELEMENTARY TEACHER Adult Cognitive Linguistic Eval Start: 01/19/21 11:44 Freq: Status: Active Protocol: Document 01/18/21 11:45 LNK (Rec: 01/19/21 12:33 LNK [id number]) Adult Cognitive Linguistic Evaluation Session Time Visit Start Time 13:30 Visit Stop Time 14:30 Total Visit Minutes 60 Visit Information Visit Number 1 Plan of Care Dates 01/18/21-04/20/[address] Shelton Reason for Referral wordfinding Setting Assessment Location Outpatient Care Visit Type Note Type Initial evaluation Patient Information Identification Type Name,Date of Medical History Roel Vickers was seen for an assessment of his word-finding difficulty. According to records reviewed and interview with the pt and his , pt had 3 gall bladder surgeries within 1 week in October 2020. Afterwards, pt's noticed word finding difficulty. Pt reported that he had an MRI recently, which was reported to show no intercranial infarct. Additionally, the pt noted that since the 3 surgeries, his voice and been very breathy. His stated this is not his voice. During the session, t his ASSISTANT ELEMENTARY TEACHER observed poor vocal quality with significant breathiness and limited volume control. It may be related to having been intubated, which possibly damages vocal fold innervation . Education Level [employer] Occupation Status Retired Hearing Hearing Level Hearing Aids Subjective Patient Report Pt and his reported that, in addition to his difficulty coming up with the word he wants to say, he has been more forgetful and had misplaced items as well as has given things away (a guitar he had made), but he doesn't remember doing so or who he gave it to , as an example. Pt and his reported that they are currently using external strategies for memory assistance : lists, using a calendar for important information, implementing a central location for everything important (calendar, phone, keys, etc). 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 Fifteen pictures were presented. Of the 15, the pt was able to spontaneously name 8. Of the remaining pictures( 6/15), the pt was unable to name the picture with verbal and phonemic cueing. He was able to correctly identify the written word for the picture from 4 written words presented . The one remaining picture was correctly identified following a phonemic cue. The SLUMS was then administered to the pt to screen cognive functioning. The results indicated a score of 15/30, which indicated moderate cognitive dysfunction . The pt was oriented x3 was able to compute mental math, reversed numbers up to 3 digits and he named 14 different animals within one minute. However he was unable to remember details of a short paragraph read to him, draw a clock face with a specified time or remember w words with an interval of time (he remembered 2/5). Findings/Results Language Function Mild-moderately impaired Cognitive Function Mild-moderately impaired Findings Pt presented with moderate word-finding difficulty. At one point, he pointed to the computer and said I don't know the name for that. Additionally, he reported that he finds this challenge frustrating. This ASSISTANT ELEMENTARY TEACHER suggested different strategies for word-finding, such as thinking of a different way to say the same thing, describing the word/item, writing important information down to help with phone calls and labeling items (i.e., the computer). Both the pt and his stated that they are currently using these strategies. A list of different strategies were provided to the pt for their use to try at home. in discussion the results of the SLUMS, it appeared that memory was impacted more than other areas. Both the pt and his reported that the memory issues have been occurring for some time and were not new following his surgeries. Pt and his reported that they are currently using external strategies for memory assistance: lists, using a calendar for important information, implementing a central location for everything important (calendar , phone, keys, etc). at the end of the session, both the pt and his indicated that they will try the word finding strategies at home before coming in for therapy. Cognitive Communication Deficits Self-awareness of Cognitive- Predictive awareness (able to Communication Deficits predict problem; impact of impairments) Concomitant Factors Concomitant Factors Hearing loss Impact on Functioning Activity Limits/Particip.Rest. Mild: General Tasks and Demands Household Tasks Interpersonal Interactions Community Safety Risks Mod: Being Left Alone at Home Reacting to Emergency Managing Medication Traveling Alone in Community Prognosis Prognosis Fair Based on Cognitive status,Family support Plan of Care Speech-Language Treatment No Patient/Caregiver Education Described results of evaluation,Patient expressed understanding of evaluation, Family/caregivers expressed understanding of evaluation, Patient expressed understanding of eval, but refused treatment Short Term Goals Possible referral to ENT re: breathy voice
--- NOTE | 2021-02-22 10:48 | ST.OPDS ---
Visit Care Team Role Provider Type Jack Richardson MD Family Provider Physician Primary Care Provider Address: [address] [place] [address], [facility] [address], [place], [address] Ubaldo Shelton MD Attending Provider Non-Staff Referring Provider Address: [address] [place] [address], [id number] TIER IN Treatment Note TIER IN Treatment Note Start: 01/19/21 11:44 Freq: Status: Active Protocol: Document 02/22/21 10:44 LNK (Rec: 02/22/21 10:48 LNK [email or web address]) Speech Pathology Treatment Note Visit Type Note Type Discharge Summary General Information General Information Roel Vickers was seen for an assessment of his word-finding difficulty.Pt and his reported that, in addition to his difficulty coming up with the word he wants to say, he has been more forgetful and had misplaced items as well as has given things away (a guitar he had made), but he doesn't remember doing so or who he gave it to, as an example. Subjective Observations/Patient Presentation He was seen with his . Chief Complaint(s) Language,Cognitive Objective Treatment Activities Pt has not been seen since initial evaluation. Will d/c at this time Assessment Progress Towards Goals Appropriate for Discharge Plan Amount of Therapy Recommended No Further Therapy Frequency of Treatment No Further Therapy Therapy Recommendations Discharge from Speech Therapy
== END 2021-02-23 07:56 | disposition home or self-care (01) ==
LOC: SP 13:09
PROVIDERS: Family Provider Internal Medicine; PCP Internal Medicine; Referring Provider Psychiatry & Neurology Neurology; Visit Provider Psychiatry & Neurology Neurology
DX: R47.89 Other speech disturbances (principal); R41.89 Other symptoms and signs involving cognitive functions and awareness; Z91.81 History of falling
CPT/HCPCS: 92523

== ENCOUNTER 2021-02-27 14:35 | Emergency (ER) | payer OTHER, SELFPAY ==
[2021-02-27 14:43] VITALS: BP 156/84; PULSE 52; RESP 18; TEMP 36.6; O2SAT 98; BMI 24.7
[2021-02-27 16:27] VITALS: O2SAT 84
[2021-02-27 16:28] VITALS: BP 182/87; PULSE 51; O2SAT 97
[2021-02-27 16:30] VITALS: PULSE 55; RESP 18; O2SAT 99
[2021-02-27 16:32] LABS: Add Manual Diff / Slide Review NO; Basophils Absolute Auto 0 /uL (0-100); Basophils Percent Auto 0.7 % (0-2); Eosinophils Absolute Auto 100 /uL (0-450); Eosinophils Percent Auto 1.5 % (2-4); Hematocrit 40.9 % (41-53); Hemoglobin 14.3 g/dL (13.5-17.5); Lymphocytes Absolute Auto 1000 /uL (1100-4500); Lymphocytes Percent Auto 17.6 % (25-40); Mean Corpuscular HGB Conc 34.9 % (30-36); Mean Corpuscular Hemoglobin 34.7 PG (26-34); Mean Corpuscular Volume 99.6 fL (80-100); Monocytes Absolute Auto 500 /uL (0-900); Monocytes Percent Auto 8.9 % (3-14); Neutrophils Absolute Auto 3800 /uL (1500-7000); Neutrophils Percent Auto 71.3 % (50-75); Platelet Count 166 X10^3/uL (150-400); Red Blood Cell Count 4.11 X10^6/uL (4.5-5.9); Red Cell Distribution Width 12.8 % (11.6-14.8); White Blood Cell Count 5.4 X10^3/uL (4.5-11.0)
--- NOTE | 2021-02-27 16:34 | PC.NURSE ---
Patient's significant other reports patient called her today c/o confusion and high blood pressure. Took patient to walk in clinic who brought patient here. SO gave patient dose of amlodipine 5mg and propranolol (dose unknown) at 1300). Patient reports he feels better c/o to earlier today. Denies chest pain and SOB.
[2021-02-27 16:38] LABS: Alanine Aminotransferase 21 IU/L (<50); Albumin 3.8 g/dL (3.5-5.0); Albumin Globulin Ratio 1.3 (1.0-2.8); Alkaline Phosphatase 83 U/L (38-126); Aspartate Aminotransferase 32 IU/L (17-59); BUN Creatinine Ratio 21.4 (6-22); Bilirubin Total 1.4 mg/dL (0.2-1.3); Blood Urea Nitrogen 22 mg/dL (9-20); Calcium 9.1 mg/dL (8.4-10.2); Carbon Dioxide 34 mmol/L (22-32); Chloride 103 mmol/L (98-107); Creatine Kinase 115 U/L (55-170); Estimated Glomerular Filt Rate > 60.0 mL/min (>60); Glucose 100 mg/dL (80-110); HEMOLYSIS < 15 (0-50); Potassium 3.6 mmol/L (3.4-5.1); Sodium 139 mmol/L (137-145); Total Protein 6.8 g/dL (6.3-8.2)
[2021-02-27 16:50] LABS: Troponin I < 0.012 ng/mL (0.01-0.034)
[2021-02-27 16:54] LABS: CKMB % Relative Index 1.8 % (1.5-5.0); Creatine Kinase MB 2.03 ng/mL (<2.37)
--- NOTE | 2021-02-27 16:58 | ED_ITS ---
HPI - General Adult General Chief complaint: Hypertension Stated complaint: high blood pressure, blue lips and nose Time Seen by Provider: 02/27/21 16:40 Source: patient and family Mode of arrival: Wheelchair Limitations: no limitations History of Present Illness HPI narrative: Patient is an 85-year-old male who was sent over from the walk-in clinic for evaluation of high blood pressure and discoloration of his lips and nose. The discoloration has resolved. Patient is on blood pressure medications. He does admit that there has been some changes in his medicine recently. He is been trying to adjust when he takes his medication throughout the day. He denies chest pain no shortness of breath. Earlier today he did take his blood pressure and was elevated. This did make him somewhat anxious. He then realized that he did not take his blood pressure medications so he took it at that time. Contacted his primary doctor and was sent to the walk-in clinic from there and then was sent to the emergency department. Related Data Home Medications Medication Instructions Recorded Confirmed ASPIRIN (Aspir-Low) 81 mg PO Q DAY #0 09/04/11 11/13/20 MULTIVITAMIN (#MULTIPLE VITAMINS) 1 cap PO #0 09/04/11 11/13/20 VITAMIN D (Vitamin D3) 2,000 u PO DAILY #0 07/25/12 11/13/20 Acid Medical Device Sales Representative 1 tab PO DAILY 10/20/20 11/13/20 calcium carbonate 200 mg calcium 200 mg PO BID PRN 10/20/20 11/13/20 (500 mg) chewable tablet (Tums) amlodipine 5 mg tablet 5 mg PO DAILY 10/26/20 11/13/20 Previous Rx's Medication Instructions Recorded metronidazole 1 % topical gel 1 % TOPICAL BID #180 ml 07/20/18 (Metrogel) tamsulosin 0.4 mg capsule (Flomax) 0.4 mg PO QDAY #90 cap 03/06/20 pravastatin 80 mg tablet 80 mg PO HS #90 tab 12/22/20 food supplemt, lactose-reduced 1 ea PO QID #72666 ml 01/01/21 (Ensure Original) propranolol 40 mg tablet 40 mg PO BID #180 tab 01/09/21 potassium chloride 8 mEq 8 meq PO QDAY #90 tab 01/16/21 tablet,extended release (Klor-Con) hydrochlorothiazide 25 mg tablet 25 mg PO QDAY #90 tab 01/29/21 Allergies Allergy/AdvReac Type Severity Reaction Status Date / Time atorvastatin [ATORVASTATIN] Allergy Unknown WEAKNESS/BODY Verified 11/13/20 15:22 ACHES citalopram AdvReac Intermediate Off Verified 11/13/20 15:33 Balance/Head felt stuffed. lisinopril AdvReac Intermediate slow hr Verified 11/13/20 15:22 losartan AdvReac Intermediate imbalance Verified 11/13/20 15:22 Review of Systems Constitutional Constitutional: Denies fever(s) and Denies headache(s) ENT Ears, Nose, Mouth, and Throat: Denies headache(s) Cardiovascular Cardiovascular: Reports as per HPI and Reports system reviewed and no additional complaints, except as documented Respiratory Respiratory: Reports system reviewed and no additional complaints, except as documented Gastrointestinal Gastrointestinal: Reports as per HPI and Reports system reviewed and no additional complaints, except as documented Musculoskeletal Musculoskeletal: Reports system reviewed and no additional complaints, except as documented Integumentary/Breasts Skin/Breast: Reports system reviewed and no additional complaints, except as documented and Reports as per HPI Neurologic Neurologic: Reports system reviewed and no additional complaints, except as documented and Denies headache(s) Hematologic/Lymphatic On Anticoagulants: No Patient History Medical History Anxiety (06/06/14) Bile duct carcinoma Cardiac arrhythmia (06/06/14) Carpal tunnel syndrome Cervical spine disease Essential hypertension (08/04/15) History of adenomatous polyp of colon (12/27/10) History of renal calculi (12/27/10) Hyperlipidemia (08/09/16) Mild cognitive impairment Paroxysmal atrial fibrillation SVT (supraventricular tachycardia) Surgical History S/P carpal tunnel release Family History Father Family history of Alzheimer's disease Social History marital status: number of children: 0 household members: none lives independently: Yes caregiver/support person: Yes housing: house pets and animals: No education level: high school occupational status: other current occupational exposures/hazards: No 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: None Smoking Status: Former smoker Tobacco: How many years used: 10 Smokeless tobacco user: other quit status: quit date established second hand exposure: No alcohol intake: never substance use type: does not use Smoking Status: Former smoker alcohol intake frequency: holidays/special occasions only Substance Use Type: does not use Exam Initial Vital Signs Initial Vital Signs: Vital Signs Temperature 97.8 F 02/27/21 14:43 Pulse Rate 52 L 02/27/21 14:43 Respiratory Rate 18 02/27/21 14:43 Blood Pressure 156/84 H 02/27/21 14:43 Pulse Oximetry 98 02/27/21 14:43 Const General: cooperative, healthy appearing and comfortable Limitations: altered mental status HENMT Head: normal to inspection and normocephalic Neck Neck: normal visual inspection Resp Effort & Inspection: normal respiratory effort Auscultation: clear to auscultation bilaterally Cardio Rate: regular rate Rhythm: regular rhythm GI Inspection: normal to inspection and non-distended Palpation: soft and No tender Back/Spine/Pelvis Back: normal to inspection Skin Lesions: no lesions Rashes: no rashes Neuro General: patient alert, patient awake and patient oriented x3 Extrem General: capillary refill normal Psych Appearance: grossly normal and well kempt Course Orders Ordered: ED Orders 02/27/21 15:00 EKG-12 Lead Stat 02/27/21 15:24 Complete Blood Count AUTO DIFF Stat Comprehensive Metabolic Panel Stat Troponin & CK Cardiac Panel Stat Vital Signs Vital signs: Vital Signs - 8 hr 02/27/21 14:43 02/27/21 16:27 02/27/21 16:28 Temperature 97.8 F Pulse Rate 52 L 51 L Respiratory Rate 18 Blood Pressure 156/84 H 182/87 H Pulse Oximetry 98 84 L 97 02/27/21 16:30 Temperature Pulse Rate 55 L Respiratory Rate 18 Blood Pressure Pulse Oximetry 99 Medical Decision Making Lab Data Lab results reviewed: Yes I reviewed the patient's lab results. Result diagrams: 02/27/21 15:24 02/27/21 15:24 Labs: Lab Results 02/27/21 02/27/21 Range/Units 15:24 15:24 WBC 5.4 (4.5-11.0) X10^3/uL RBC 4.11 L (4.5-5.9) X10^6/uL Hgb 14.3 (13.5-17.5) g/dL Hct 40.9 L (41-53) % MCV 99.6 (80-100) fL MCH 34.7 H (26-34) PG MCHC 34.9 (30-36) % RDW 12.8 (11.6-14.8) % Plt Count 166 (150-400) X10^3/uL Neut % (Auto) 71.3 (50-75) % Lymph % (Auto) 17.6 L (25-40) % [place] % (Auto) 8.9 (3-14) % Eos % (Auto) 1.5 L (2-4) % Baso % (Auto) 0.7 (0-2) % Neut # (Auto) 3800 (5529-8022) /uL Lymph # (Auto) 1000 L (9149-5895) /uL [place] # (Auto) 500 (0-900) /uL Eos # (Auto) 100 (0-450) /uL Baso # (Auto) 0 (0-100) /uL Sodium 139 (137-145) mmol/L Potassium 3.6 (3.4-5.1) mmol/L Chloride 103 (98-107) mmol/L Carbon Dioxide 34 H (22-32) mmol/L BUN 22 H (9-20) mg/dL Creatinine 1.03 (0.66-1.25) mg/dL Estimated GFR > 60.0 (>60) mL/min BUN/Creatinine Ratio 21.4 (6-22) Glucose 100 (80-110) mg/dL Calcium 9.1 (8.4-10.2) mg/dL Total Bilirubin 1.4 H (0.2-1.3) mg/dL AST 32 (17-59) IU/L ALT 21 (<50) IU/L Alkaline Phosphatase 83 (38-126) U/L Total Creatine Kinase 115 (55-170) U/L CK-MB (CK-2) 2.03 (<2.37) ng/mL CK-MB (CK-2) Rel Index 1.8 (1.5-5.0) % Troponin I < 0.012 (0.01-0.034) ng/mL Total Protein 6.8 (6.3-8.2) g/dL Albumin 3.8 (3.5-5.0) g/dL Globulin 3.0 (1.7-4.1) g/dL Albumin/Globulin Ratio 1.3 (1.0-2.8) ECG Data Attestation: I personally reviewed and interpreted this ECG as follows: Prior ECG tracings: not available for review Interpretation: Is sinus bradycardia Ventricular rate of 50 Normal axis Normal QRS Normal QTC No ST T wave changes MDM Narrative Medical decision making narrative: Unsure the exact etiology of the blue color of his nose and lips. That has resolved. Patient not in respiratory distress. Blood pressure slightly elevated but no indication of end-organ dysfunction from this. Had long discussion with him and family regarding his blood pressure medications and how to take his blood pressure at home. No emergent condition found on his exam today. Patient is safe for home discharge. He is given return precautions and follow-up instructions. He expressed understanding and agreement. Discharge Plan Departure Patient Disposition: Home Clinical Impression: Hypertension Instructions: DI for High Blood Pressure Activity Restrictions/Additional Instructions: I do recommend that you continue to take all of your blood pressure medications as directed and take your blood pressure at home like we discussed. Contact your primary doctor as you may need to change the amlodipine to a different medicine because of the swelling your having in your legs. Return to the emergency department for any new or worsening symptoms Prescriptions: No Action ASPIRIN (Aspir-Low) 81 mg PO Q DAY Qty: 0 RF: 0 MULTIVITAMIN (#MULTIPLE VITAMINS) 1 cap PO Qty: 0 RF: 0 VITAMIN D (Vitamin D3) 2,000 u PO DAILY Qty: 0 RF: 0 metronidazole [Metrogel] 1 % gel 1 % Topical BID Qty: 180 RF: 3 tamsulosin [Flomax] 0.4 mg capsule 0.4 mg PO QDAY Qty: 90 RF: 3 amlodipine 5 mg tablet 5 mg PO DAILY RF: 0 pravastatin 80 mg tablet 80 mg PO HS Qty: 90 RF: 3 propranolol 40 mg tablet 40 mg PO BID Qty: 180 RF: 3 potassium chloride [Klor-Con 8] 8 mEq tablet extended release 8 meq PO QDAY Qty: 90 RF: 3 hydrochlorothiazide 25 mg tablet 25 mg PO QDAY Qty: 90 RF: 3 Acid Medical Device Sales Representative 1 tab PO DAILY RF: 0 calcium carbonate [Tums] 200 mg calcium (500 mg) tablet,chewable 200 mg PO BID PRN (Reason: heartburn) RF: 0 Ensure Original Liquid 1 ea PO QID Qty: 93421 RF: 12 Referrals: Jack Richardson MD [Primary Care Provider] -
[2021-02-27 17:10] VITALS: BP 149/77; PULSE 50; RESP 21; O2SAT 97
== END 2021-02-27 17:11 | disposition home or self-care (01) ==
PROVIDERS: Emergency Provider Emergency Medicine; Family Provider Internal Medicine; PCP Internal Medicine
DX: I10 Essential (primary) hypertension (principal); R07.9 Chest pain, unspecified
CPT/HCPCS: 36415; 80053; 82550; 82553; 84484; 85025; 93005; 93010; 99283; 99284

== ENCOUNTER 2021-03-23 09:00 | Outpatient (RCR) | payer OTHER, SELFPAY ==
--- NOTE | 2021-01-23 16:34 | PT.OIE ---
Current Diagnoses Other symptoms and signs involving cognitive functions and awareness (01/23/21) Dizziness and giddiness (01/23/21) Other speech disturbances (01/23/21) History of falling (01/23/21) Past Medical History (Last Reviewed 10/24/20 @ 03:25 by Harjit Plasencia DO) Anxiety (06/06/14) Bile duct carcinoma Cardiac arrhythmia (06/06/14) Carpal tunnel syndrome Cervical spine disease Essential hypertension (08/04/15) History of adenomatous polyp of colon (12/27/10) History of renal calculi (12/27/10) Hyperlipidemia (08/09/16) Mild cognitive impairment Paroxysmal atrial fibrillation S/P carpal tunnel release SVT (supraventricular tachycardia) Past Surgical History (Last Reviewed 07/30/20 @ 09:43 by Lorenzo Bro MD) S/P carpal tunnel release Visit Care Team Role Provider Type Jack Richardson MD Family Provider Physician Primary Care Provider Specialty: Internal Medicine Address: [address] [place] [address], [address], [address] Email: [email or web address] Ubaldo Shelton MD Attending Provider Non-Staff Referring Provider Specialty: Psychiatry Address: [address] [place] [address], [id number] Email: Physical Therapy Initial Evaluation PT-OP-A Visit Information Start: 01/23/21 09:27 Freq: Status: Active Protocol: Document 01/23/21 10:15 AMB (Rec: 01/23/21 16:05 AMB [email or web address]) Out-Patient Physical Therapy Visit Information Visit Information Visit Type Initial Evaluation Visit Start Time 10:15 Visit Stop Time 11:00 Total Visit Minutes 45 Visit Number 1 PT-OP-B Current Condition Start: 01/23/21 09:27 Freq: Status: Active Protocol: Document 01/23/21 10:15 AMB (Rec: 01/23/21 10:44 AMB [id number]) Current Condition History of Current Condition Onset Date A few months Current Complaints Off balance History of Current Condition Norberto reports he goes on 1 mile walk with his girlfriend and some days feels like he has difficulty walking in a straight line. Describes being off balance with head turns and moving from sit to stand. 2 falls in the last 6 months. Fell on the curb, was able to get up by himself. Reports right leg weakness since gall bladder surgery, was in the hospital for a week . Head feels fuzzy. Reports L leg swelling. Feels like falling to the left, denies spinning or symptoms with rolling over in bed. Does walk with a cane in the community at times. He and his girlfriend both have their own homes, he is driving. Treatment Goals Patient/Caregiver Goals Walk more, and be able to turn head without dizziness. Prior Functional Status Baseline Function- ADL's Modified Independent Baseline Function- Mobility Modified Independent Current Functional Impairments (Reported) Functional Limitations- ADL's Feeling of being off balance with walking, especially with turning left, does have neck pain, is on hypertension medicine, is [place] Personal Factors Other Personal Factors That May Effect History of gall bladder Therapy/Recovery surgery, history of bile duct cancer, previous bilateral carpal tunnel surgery, neck pain PT-OP-D Balance Start: 01/23/21 09:27 Freq: Status: Active Protocol: Document 01/23/21 10:15 AMB (Rec: 01/23/21 16:33 AMB [email or web address]) Balance Tests Other Other Balance Tests Performed NBOS HT- fall, NBOS EC- fall, WBOS HT (small head turn)- 30 seconds ok. Walking with head turns falls left. PT-OP-G Mobility & Gait Start: 01/23/21 09:27 Freq: Status: Active Protocol: Document 01/23/21 10:15 AMB (Rec: 01/23/21 16:34 AMB [email or web address]) OP Gait Assessment Comments Gait Comments Pt ambulates without AD with WBOS with slightly veering gait. PT-OP-M Strength Start: 01/23/21 09:27 Freq: Status: Active Protocol: Document 01/23/21 10:15 AMB (Rec: 01/23/21 16:33 AMB [email or web address]) Hip Strength Hip Manual Muscle Testing Right Flexion (L2) 4 Good Extension (S1) 4 Good Abduction 4 Good Left Flexion (L2) 4+ Good+ Extension (S1) 4+ Good+ Abduction 4+ Good+ PT-OP-T Assessment and Plan Start: 01/23/21 09:27 Freq: Status: Active Protocol: Document 01/23/21 10:15 AMB (Rec: 01/23/21 16:26 AMB [email or web address]) Physical Therapy Assessment Rehab Potential Rehabilitation Potential Good Evaluation Complexity Number of Personal Factors/Comorbidities 1-2 Number of Body Systems Impaired 4 or More Clinical Presentation at Evaluation Evolving Impairments Impairments Functional Activities,Gait, Pain,Strength,Vestibular Goals Three Impairment Strength Short Term Goal (STG) Norberto will show improved LE strength by moving from sit to stand with good stability 5x in 20 seconds or less. STG Duration 4 weeks Two Impairment Balance Short Term Goal (STG) Norberto will be able to stand with NBOS and turn his head slowly right and left without loss of balance. STG Duration 4 weeks One Impairment Gait Short Term Goal (STG) Norberto will ambulate with horizontal head turns without veering. STG Duration 4 weeks Half-Way Goal (LTG) Norberto will walk in the community over uneven terrain without AD with good safety and stability. LTG Duration 8 weeks Assessment Summary Assessment Norberto attended physical therapy alone, and a history was somewhat challenging due to his memory issues. It sounds that he has had increasing feeling of being off balance, especially with moving from sit to stand and turning his head while standing or walking . Considerations of vestibular, central, postural hypotension, and cervicogenic dizziness all considered due to his subjective description of symptoms. His blood pressure in seated was 163/84. He did not have any dizziness or nystagmus in supine or with rolling or moving from sidelying to seated. Started the DGI with him, but walking with head turns quickly became unsafe and stopped due to time restrictions after the extended time trying to get a history, understand his description of symptoms. He does have a history of neck pain but this was present long before his recent hospitilization. From MD notes he had a recent MRI to check for CVA, and that was unavailable for review. He will benefit from physical therapy to further assess his gait/balance/fall risk and feeling of being off balance with turning his head. Physical Therapy Plan Frequency and Duration Frequency of Treatment 2x/Week Duration of Treatment 8 weeks Plan of Care Start Date 01/23/21 Plan of Care End Date 03/20/21 Therapeutic Interventions Therapeutic Interventions Balance Training,Gait Training ,Home Exercise Program,Manual Therapy,Neuromuscular Re- education,Self-Care/Home Management,Therapeutic Activities,Therapeutic Exercises,Vestibular Rehabilitation Next Visit Focus/Plan Next Note Type Treatment Note Next Visit Plan Begin HEP, further evaluate balance with head turns. Evaluate neck vs vestibular components.
--- NOTE | 2021-01-23 16:34 | PT.OPPOC ---
Physical, Occupational & Speech Therapy At [facility] Current Diagnoses Other symptoms and signs involving cognitive functions and awareness (01/23/21) Dizziness and giddiness (01/23/21) Other speech disturbances (01/23/21) History of falling (01/23/21) Visit Care Team Role Provider Type Jack Richardson MD Family Provider Physician Primary Care Provider Specialty: Internal Medicine Address: [address] [place] [address], [facility] [address], [place], [address] Email: [email or web address] Ubaldo Shelton MD Attending Provider Non-Staff Referring Provider Specialty: Psychiatry Address: [address] [place] [id number] Email: Plan Of Care PT-OP-T Assessment and Plan Start: 01/23/21 09:27 Freq: Status: Active Protocol: Document 01/23/21 10:15 AMB (Rec: 01/23/21 16:26 AMB [email or web address]) Physical Therapy Assessment Rehab Potential Rehabilitation Potential Good Evaluation Complexity Number of Personal Factors/Comorbidities 1-2 Number of Body Systems Impaired 4 or More Clinical Presentation at Evaluation Evolving Impairments Impairments Functional Activities,Gait, Pain,Strength,Vestibular Goals Three Impairment Strength Short Term Goal (STG) Norberto will show improved LE strength by moving from sit to stand with good stability 5x in 20 seconds or less. STG Duration 4 weeks Two Impairment Balance Short Term Goal (STG) Norberto will be able to stand with NBOS and turn his head slowly right and left without loss of balance. STG Duration 4 weeks One Impairment Gait Short Term Goal (STG) Norberto will ambulate with horizontal head turns without veering. STG Duration 4 weeks Hides Soaker Goal (LTG) Norberto will walk in the community over uneven terrain without AD with good safety and stability. LTG Duration 8 weeks Assessment Summary Assessment Norberto attended physical therapy alone, and a history was somewhat challenging due to his memory issues. It sounds that he has had increasing feeling of being off balance, especially with moving from sit to stand and turning his head while standing or walking . Considerations of vestibular, central, postural hypotension, and cervicogenic dizziness all considered due to his subjective description of symptoms. His blood pressure in seated was 163/84. He did not have any dizziness or nystagmus in supine or with rolling or moving from sidelying to seated. Started the DGI with him, but walking with head turns quickly became unsafe and stopped due to time restrictions after the extended time trying to get a history, understand his description of symptoms. He does have a history of neck pain but this was present long before his recent hospitilization. From MD notes he had a recent MRI to check for CVA, and that was unavailable for review. He will benefit from physical therapy to further assess his gait/balance/fall risk and feeling of being off balance with turning his head. Physical Therapy Plan Frequency and Duration Frequency of Treatment 2x/Week Duration of Treatment 8 weeks Plan of Care Start Date 01/23/21 Plan of Care End Date 03/20/21 Therapeutic Interventions Therapeutic Interventions Balance Training,Gait Training ,Home Exercise Program,Manual Therapy,Neuromuscular Re- education,Self-Care/Home Management,Therapeutic Activities,Therapeutic Exercises,Vestibular Rehabilitation Next Visit Focus/Plan Next Note Type Treatment Note Next Visit Plan Begin HEP, further evaluate balance with head turns. Evaluate neck vs vestibular components. Plan of Care Dates Plan of Care Start Date 01/23/21 Plan of Care End Date 03/20/21 Electronically Signed by: Lauryn Bullock, PT 01/23/21 1470 Please Sign and Return: I have reviewed this Plan of Care and certify that the skilled therapy services above are required to meet the patient?s needs. Physician Signature Date Printed Name and Credentials Clinical Instructor Signature Printed Name and Credentials
--- NOTE | 2021-01-25 11:16 | PT.OTN ---
Current Diagnoses Other symptoms and signs involving cognitive functions and awareness (01/25/21) Dizziness and giddiness (01/25/21) Other speech disturbances (01/25/21) History of falling (01/25/21) Physical Therapy Treatment Note PT-OP-A Visit Information Start: 01/23/21 09:27 Freq: Status: Active Protocol: Document 01/25/21 10:33 SP (Rec: 01/25/21 11:31 SP [id number]) Out-Patient Physical Therapy Visit Information Visit Information Visit Type Treatment Note Visit Start Time 10:33 Visit Stop Time 11:16 Total Visit Minutes 43 Visit Number 2 Number of DUST BOX TENDER Visits 1 PT-OP-B Current Condition Start: 01/23/21 09:27 Freq: Status: Active Protocol: Document 01/23/21 10:15 AMB (Rec: 01/23/21 10:44 AMB [id number]) Current Condition History of Current Condition Onset Date A few months Current Complaints Off balance History of Current Condition Norberto reports he goes on 1 mile walk with his girlfriend and some days feels like he has difficulty walking in a straight line. Describes being off balance with head turns and moving from sit to stand. 2 falls in the last 6 months. Fell on the curb, was able to get up by himself. Reports right leg weakness since gall bladder surgery, was in the hospital for a week . Head feels fuzzy. Reports L leg swelling. Feels like falling to the left, denies spinning or symptoms with rolling over in bed. Does walk with a cane in the community at times. He and his girlfriend both have their own homes, he is driving. Treatment Goals Patient/Caregiver Goals Walk more, and be able to turn head without dizziness. Prior Functional Status Baseline Function- ADL's Modified Independent Baseline Function- Mobility Modified Independent Current Functional Impairments (Reported) Functional Limitations- ADL's Feeling of being off balance with walking, especially with turning left, does have neck pain, is on hypertension medicine, is [place] Personal Factors Other Personal Factors That May Effect History of gall bladder Therapy/Recovery surgery, history of bile duct cancer, previous bilateral carpal tunnel surgery, neck pain PT-OP-C Subjective Start: 01/23/21 09:27 Freq: Status: Active Protocol: Document 01/25/21 10:33 SP (Rec: 01/25/21 11:31 SP [id number]) OP-PT Subjective Patient Comments Patient Comments Pt arrived by self. He stated we just did some talking and seeing what can help me with balance ans walking better last time. I want to be able to walk with my girlfriend without wobbling like a drunk person. PT-OP-D Balance Start: 01/23/21 09:27 Freq: Status: Active Protocol: Document 01/23/21 10:15 AMB (Rec: 01/23/21 16:33 AMB [email or web address]) Balance Tests Other Other Balance Tests Performed NBOS HT- fall, NBOS EC- fall, WBOS HT (small head turn)- 30 seconds ok. Walking with head turns falls left. PT-OP-G Mobility & Gait Start: 01/23/21 09:27 Freq: Status: Active Protocol: Document 01/23/21 10:15 AMB (Rec: 01/23/21 16:34 AMB [email or web address]) OP Gait Assessment Comments Gait Comments Pt ambulates without AD with WBOS with slightly veering gait. PT-OP-M Strength Start: 01/23/21 09:27 Freq: Status: Active Protocol: Document 01/23/21 10:15 AMB (Rec: 01/23/21 16:33 AMB [email or web address]) Hip Strength Hip Manual Muscle Testing Right Flexion (L2) 4 Good Extension (S1) 4 Good Abduction 4 Good Left Flexion (L2) 4+ Good+ Extension (S1) 4+ Good+ Abduction 4+ Good+ PT-OP-Q Treatments Start: 01/23/21 09:27 Freq: Status: Active Protocol: Document 01/25/21 10:33 SP (Rec: 01/25/21 11:31 SP [id number]) Therapeutic Exercises Supine Exercises TA fall out Supine Exercise Name alternating each LE- added to HEP am warm up Side bilateral Resistance AROM Reps/Minutes x6 each side Comments cued TA fac with stabilize opp LE and slow controlled pacing TA engagement Supine Exercise Name added to HEP- am warm up Reps/Minutes 10 sec hold x5 Comments therapist feedback under LB good TA fac and able to count Sitting Exercises sit<>stand Sitting Exercise Name contact chair if needed 1 UE - added to HEP Reps/Minutes 2x5 Comments cued scoot forward, feet underneath, hip hinge fwd asc/ desc chair Standing Exercises hip abd Standing Exercise Name added to HEP Side bilateral Resistance AROM Equipment Used rail (ed. counter at home for safety) Reps/Minutes 10 reps (2x day) Comments cued tall posture and leg out to side- improved with reps Self-Care/Home Management Treatment Education Patient Education Body Mechanics,Home Exercise Program,Posture,Safety Other Education Pt reported performs step taps forward in corner at home for safety leg strengthening self HEP. Assess next tx. Initiated supine, seated and stand ex for core, hip abd strengthening to support balance, gait, mobility. PT-OP-T Assessment and Plan Start: 01/23/21 09:27 Freq: Status: Active Protocol: Document 01/25/21 10:33 SP (Rec: 01/25/21 11:31 SP [id number]) Physical Therapy Assessment Goals Three Impairment Strength Short Term Goal (STG) Norberto will show improved LE strength by moving from sit to stand with good stability 5x in 20 seconds or less. STG Duration 4 weeks Two Impairment Balance Short Term Goal (STG) Norberto will be able to stand with NBOS and turn his head slowly right and left without loss of balance. STG Duration 4 weeks One Impairment Gait Short Term Goal (STG) Norberto will ambulate with horizontal head turns without veering. STG Duration 4 weeks Printing Press Operator Goal (LTG) Norberto will walk in the community over uneven terrain without AD with good safety and stability. LTG Duration 8 weeks Assessment Summary Assessment DUST BOX TENDER initiated TA and hip abd strengthening. Cued for set up and proper form supine for am warm up and improved core and hip stabilization during knee fall out. Pt able to ascend/ descend sit<>stands without UE suupport required with education and progression reps . Pt understood and good performance of HEP given today and stated felt more confident getting in/ out chair end tx. Physical Therapy Plan Frequency and Duration Frequency of Treatment 2x/Week Duration of Treatment 8 weeks Plan of Care Start Date 01/23/21 Plan of Care End Date 03/20/21 Therapeutic Interventions Therapeutic Interventions Balance Training,Gait Training ,Home Exercise Program,Manual Therapy,Neuromuscular Re- education,Self-Care/Home Management,Therapeutic Activities,Therapeutic Exercises,Vestibular Rehabilitation Next Visit Focus/Plan Next Note Type Treatment Note Next Visit Plan Next tx: recheck initiated HEP : supine TA, knee fallout, sit <>stands, hip abd standing. * Review self HEP step taps contact corner wall and progress balance to HEP. POC: further evaluate balance with head turns. Evaluate neck vs vestibular components.
--- NOTE | 2021-01-29 15:28 | PT.OTN ---
Current Diagnoses Other symptoms and signs involving cognitive functions and awareness (01/29/21) Dizziness and giddiness (01/29/21) Other speech disturbances (01/29/21) History of falling (01/29/21) Physical Therapy Treatment Note PT-OP-A Visit Information Start: 01/23/21 09:27 Freq: Status: Active Protocol: Document 01/29/21 14:35 SP (Rec: 01/29/21 15:53 SP [id number]) Out-Patient Physical Therapy Visit Information Visit Information Visit Type Treatment Note Visit Start Time 14:35 Visit Stop Time 15:28 Total Visit Minutes 53 Visit Number 3 Number of WIRE BASKET MAKER Visits 2 PT-OP-B Current Condition Start: 01/23/21 09:27 Freq: Status: Active Protocol: Document 01/23/21 10:15 AMB (Rec: 01/23/21 10:44 AMB [id number]) Current Condition History of Current Condition Onset Date A few months Current Complaints Off balance History of Current Condition Norberto reports he goes on 1 mile walk with his girlfriend and some days feels like he has difficulty walking in a straight line. Describes being off balance with head turns and moving from sit to stand. 2 falls in the last 6 months. Fell on the curb, was able to get up by himself. Reports right leg weakness since gall bladder surgery, was in the hospital for a week . Head feels fuzzy. Reports L leg swelling. Feels like falling to the left, denies spinning or symptoms with rolling over in bed. Does walk with a cane in the community at times. He and his girlfriend both have their own homes, he is driving. Treatment Goals Patient/Caregiver Goals Walk more, and be able to turn head without dizziness. Prior Functional Status Baseline Function- ADL's Modified Independent Baseline Function- Mobility Modified Independent Current Functional Impairments (Reported) Functional Limitations- ADL's Feeling of being off balance with walking, especially with turning left, does have neck pain, is on hypertension medicine, is [place] Personal Factors Other Personal Factors That May Effect History of gall bladder Therapy/Recovery surgery, history of bile duct cancer, previous bilateral carpal tunnel surgery, neck pain PT-OP-C Subjective Start: 01/23/21 09:27 Freq: Status: Active Protocol: Document 01/29/21 14:35 SP (Rec: 01/29/21 15:53 SP [id number]) OP-PT Subjective Patient Comments Patient Comments Pt states compliant with exercises given. I don't turn my head when walking because feel like am going to fall when go for a walk with my girlfriend. Pt states if feeling unsteady that day will bring a cane with him on walks but not always. He reports just doesn't trust his R leg muscle weakness to support him and hoping PT can improve this. PT-OP-D Balance Start: 01/23/21 09:27 Freq: Status: Active Protocol: Document 01/23/21 10:15 AMB (Rec: 01/23/21 16:33 AMB [email or web address]) Balance Tests Other Other Balance Tests Performed NBOS HT- fall, NBOS EC- fall, WBOS HT (small head turn)- 30 seconds ok. Walking with head turns falls left. PT-OP-G Mobility & Gait Start: 01/23/21 09:27 Freq: Status: Active Protocol: Document 01/23/21 10:15 AMB (Rec: 01/23/21 16:34 AMB [email or web address]) OP Gait Assessment Comments Gait Comments Pt ambulates without AD with WBOS with slightly veering gait. PT-OP-M Strength Start: 01/23/21 09:27 Freq: Status: Active Protocol: Document 01/23/21 10:15 AMB (Rec: 01/23/21 16:33 AMB [email or web address]) Hip Strength Hip Manual Muscle Testing Right Flexion (L2) 4 Good Extension (S1) 4 Good Abduction 4 Good Left Flexion (L2) 4+ Good+ Extension (S1) 4+ Good+ Abduction 4+ Good+ PT-OP-Q Treatments Start: 01/23/21 09:27 Freq: Status: Active Protocol: Document 01/29/21 14:35 SP (Rec: 01/29/21 15:53 SP [id number]) Cardio Equipment Recumbent Stepper (Sci-Fit) Duration (Minutes) 5 Resistance 2.5 Seat Position 12 Other LEs only, 65- 70 RPMs, 0. 81miles Therapeutic Exercises Supine Exercises TA fall out Supine Exercise Name changed to clamshell w/ TB Side bilateral Resistance #2 Reps/Minutes x6 each side Comments cued TA fac with stabilize opp LE and slow controlled pacing TA engagement Supine Exercise Name reviewed TA fac HEP Reps/Minutes 10 sec hold x5 Comments therapist feedback under LB good TA fac Sitting Exercises sit<>stand Sitting Exercise Name arms out front, uses for momentum as need at this time- reviewed HEP Reps/Minutes 9 reps in 30 Comments occ cued scoot forward, feet underneath, hip hinge fwd asc/ desc chair Standing Exercises heel raises Standing Exercise Name added to HEP Side bilateral Equipment Used contact rail Reps/Minutes x10 hip ext Standing Exercise Name contact rail (added to HEP) Side bilateral Reps/Minutes x10 Comments cued tall posture hip abd Standing Exercise Name reviewed HEP Side bilateral Resistance AROM Equipment Used rail (ed. counter at home for safety) Reps/Minutes 10 reps (2x day) Comments cued tall posture and leg out to side- improved with reps Gait Training Gait Activity 6MWT Device Used 0 Level of Assistance CG- 5%A Surface firm Distance/Duration 885 ft in 6 min Treatment Focus stability, foot clearance, stride, balance recovery Comments Pt loses balance L when turns head R. Neuro Re-Education Treatment Balance Activities pranay stepping Details step to patterning Surface firm Equipment 6 hurdles Reps/Duration F, side stepping Comments CGA- Min A: LOB x2 foot caught pranay, Min A for recovery step taps Details facing corner AROM BLEs Surface 2 UE> 1UE stable SBA, 0 UE contact CGA x5 reps Equipment 8 step Comments reviewed personal exercise (he performs hands on vu at home) PT-OP-T Assessment and Plan Start: 01/23/21 09:27 Freq: Status: Active Protocol: Document 01/29/21 14:35 SP (Rec: 01/29/21 15:53 SP [id number]) Physical Therapy Assessment Goals Three Impairment Strength Short Term Goal (STG) Norberto will show improved LE strength by moving from sit to stand with good stability 5x in 20 seconds or less. STG Duration 4 weeks Two Impairment Balance Short Term Goal (STG) Norberto will be able to stand with NBOS and turn his head slowly right and left without loss of balance. STG Duration 4 weeks One Impairment Gait Short Term Goal (STG) Norberto will ambulate with horizontal head turns without veering. STG Duration 4 weeks Alf Goal (LTG) Norberto will walk in the community over uneven terrain without AD with good safety and stability. LTG Duration 8 weeks Assessment Summary Assessment Reviewed HEP- supine: able to add TB resistance to fall out (clamshell #2 for HEP), standing: cued tall posture and no back arch during hip abd, added hip ext and heel raises contact rail for safety support with improved self postural corrections. Assessed baseline gait 6MWT with added head turns/ vertical when safe straight distance, pt unsteady during R head turn loses balance to L CGA for recovery, states doesn't turn head afraid of falling when walking. Pt improved RLE WB stability end tx compared to when arrived. Physical Therapy Plan Frequency and Duration Frequency of Treatment 2x/Week Duration of Treatment 8 weeks Plan of Care Start Date 01/23/21 Plan of Care End Date 03/20/21 Therapeutic Interventions Therapeutic Interventions Balance Training,Gait Training ,Home Exercise Program,Manual Therapy,Neuromuscular Re- education,Self-Care/Home Management,Therapeutic Activities,Therapeutic Exercises,Vestibular Rehabilitation Next Visit Focus/Plan Next Note Type Treatment Note Next Visit Plan Assess response to HEP and review and more neuro added last tx. *Progress corner balance and progress balance to HEP if safe. POC: further evaluate balance with head turns. Evaluate neck vs vestibular components.
--- NOTE | 2021-02-01 16:10 | PT.OTN ---
Current Diagnoses Other symptoms and signs involving cognitive functions and awareness (02/01/21) Dizziness and giddiness (02/01/21) Other speech disturbances (02/01/21) History of falling (02/01/21) Physical Therapy Treatment Note PT-OP-A Visit Information Start: 01/23/21 09:27 Freq: Status: Active Protocol: Document 02/01/21 08:15 AMB (Rec: 02/01/21 16:08 AMB [email or web address]) Out-Patient Physical Therapy Visit Information Visit Information Visit Type Treatment Note Visit Start Time 08:15 Visit Stop Time 09:00 Total Visit Minutes 45 Visit Number 4 Number of CAKE ICER Visits 0 PT-OP-B Current Condition Start: 01/23/21 09:27 Freq: Status: Active Protocol: Document 01/23/21 10:15 AMB (Rec: 01/23/21 10:44 AMB [id number]) Current Condition History of Current Condition Onset Date A few months Current Complaints Off balance History of Current Condition Norberto reports he goes on 1 mile walk with his girlfriend and some days feels like he has difficulty walking in a straight line. Describes being off balance with head turns and moving from sit to stand. 2 falls in the last 6 months. Fell on the curb, was able to get up by himself. Reports right leg weakness since gall bladder surgery, was in the hospital for a week . Head feels fuzzy. Reports L leg swelling. Feels like falling to the left, denies spinning or symptoms with rolling over in bed. Does walk with a cane in the community at times. He and his girlfriend both have their own homes, he is driving. Treatment Goals Patient/Caregiver Goals Walk more, and be able to turn head without dizziness. Prior Functional Status Baseline Function- ADL's Modified Independent Baseline Function- Mobility Modified Independent Current Functional Impairments (Reported) Functional Limitations- ADL's Feeling of being off balance with walking, especially with turning left, does have neck pain, is on hypertension medicine, is [place] Personal Factors Other Personal Factors That May Effect History of gall bladder Therapy/Recovery surgery, history of bile duct cancer, previous bilateral carpal tunnel surgery, neck pain PT-OP-C Subjective Start: 01/23/21 09:27 Freq: Status: Active Protocol: Document 02/01/21 08:15 AMB (Rec: 02/01/21 16:08 AMB [email or web address]) OP-PT Subjective Patient Comments Patient Comments Pt continues to be off balance PT-OP-D Balance Start: 01/23/21 09:27 Freq: Status: Active Protocol: Document 01/23/21 10:15 AMB (Rec: 01/23/21 16:33 AMB [email or web address]) Balance Tests Other Other Balance Tests Performed NBOS HT- fall, NBOS EC- fall, WBOS HT (small head turn)- 30 seconds ok. Walking with head turns falls left. PT-OP-G Mobility & Gait Start: 01/23/21 09:27 Freq: Status: Active Protocol: Document 01/23/21 10:15 AMB (Rec: 01/23/21 16:34 AMB [email or web address]) OP Gait Assessment Comments Gait Comments Pt ambulates without AD with WBOS with slightly veering gait. PT-OP-M Strength Start: 01/23/21 09:27 Freq: Status: Active Protocol: Document 01/23/21 10:15 AMB (Rec: 01/23/21 16:33 AMB [email or web address]) Hip Strength Hip Manual Muscle Testing Right Flexion (L2) 4 Good Extension (S1) 4 Good Abduction 4 Good Left Flexion (L2) 4+ Good+ Extension (S1) 4+ Good+ Abduction 4+ Good+ PT-OP-Q Treatments Start: 01/23/21 09:27 Freq: Status: Active Protocol: Document 02/01/21 08:15 AMB (Rec: 02/01/21 12:48 AMB [email or web address]) Gait Training Gait Activity 1 Description indoor smooth terrain Device Used none Level of Assistance SBA Comments working on feeling ok with turns Canalithic Repositioning BPPV Treatment [place] Affected Canal(s) R Reps 2 Comments Strong torsional nystagmus for 10 seconds with first rep in first position, no dizziness or nystagmus during second repetition PT-OP-T Assessment and Plan Start: 01/23/21 09:27 Freq: Status: Active Protocol: Document 02/01/21 08:15 AMB (Rec: 02/01/21 12:48 AMB [email or web address]) Physical Therapy Assessment Assessment Summary Assessment Pt had signs and symptoms consistent with R posterior canalasthiasis BPPV. Educated and pt more stable afterward. Physical Therapy Plan Therapeutic Interventions Therapeutic Interventions Balance Training,Gait Training ,Home Exercise Program,Manual Therapy,Neuromuscular Re- education,Self-Care/Home Management,Therapeutic Activities,Therapeutic Exercises,Vestibular Rehabilitation Next Visit Focus/Plan Next Note Type Treatment Note Next Visit Plan Reassess Brock Hendrickson
--- NOTE | 2021-02-05 15:21 | PT.OTN ---
Current Diagnoses Other symptoms and signs involving cognitive functions and awareness (02/05/21) Dizziness and giddiness (02/05/21) Other speech disturbances (02/05/21) History of falling (02/05/21) Physical Therapy Treatment Note PT-OP-A Visit Information Start: 01/23/21 09:27 Freq: Status: Active Protocol: Document 02/05/21 14:15 AMB (Rec: 02/05/21 15:21 AMB [email or web address]) Out-Patient Physical Therapy Visit Information Visit Information Visit Type Treatment Note Visit Start Time 08:15 Visit Stop Time 09:00 Total Visit Minutes 45 Visit Number 5 Number of CHARTER COACH DRIVER Visits 0 PT-OP-B Current Condition Start: 01/23/21 09:27 Freq: Status: Active Protocol: Document 01/23/21 10:15 AMB (Rec: 01/23/21 10:44 AMB [id number]) Current Condition History of Current Condition Onset Date A few months Current Complaints Off balance History of Current Condition Norberto reports he goes on 1 mile walk with his girlfriend and some days feels like he has difficulty walking in a straight line. Describes being off balance with head turns and moving from sit to stand. 2 falls in the last 6 months. Fell on the curb, was able to get up by himself. Reports right leg weakness since gall bladder surgery, was in the hospital for a week . Head feels fuzzy. Reports L leg swelling. Feels like falling to the left, denies spinning or symptoms with rolling over in bed. Does walk with a cane in the community at times. He and his girlfriend both have their own homes, he is driving. Treatment Goals Patient/Caregiver Goals Walk more, and be able to turn head without dizziness. Prior Functional Status Baseline Function- ADL's Modified Independent Baseline Function- Mobility Modified Independent Current Functional Impairments (Reported) Functional Limitations- ADL's Feeling of being off balance with walking, especially with turning left, does have neck pain, is on hypertension medicine, is [place] Personal Factors Other Personal Factors That May Effect History of gall bladder Therapy/Recovery surgery, history of bile duct cancer, previous bilateral carpal tunnel surgery, neck pain PT-OP-C Subjective Start: 01/23/21 09:27 Freq: Status: Active Protocol: Document 02/05/21 14:15 AMB (Rec: 02/05/21 15:21 AMB [email or web address]) OP-PT Subjective Patient Comments Patient Comments Pt feeling better, states today went for a mile walk with girlfriend and felt the best he has since his surgeries. Hasn't fully recovered and interested to see if BPPV is all the way gone or not, agrees that right sided weakness could be impacting his balance as well. PT-OP-D Balance Start: 01/23/21 09:27 Freq: Status: Active Protocol: Document 01/23/21 10:15 AMB (Rec: 01/23/21 16:33 AMB [email or web address]) Balance Tests Other Other Balance Tests Performed NBOS HT- fall, NBOS EC- fall, WBOS HT (small head turn)- 30 seconds ok. Walking with head turns falls left. PT-OP-G Mobility & Gait Start: 01/23/21 09:27 Freq: Status: Active Protocol: Document 01/23/21 10:15 AMB (Rec: 01/23/21 16:34 AMB [email or web address]) OP Gait Assessment Comments Gait Comments Pt ambulates without AD with WBOS with slightly veering gait. PT-OP-M Strength Start: 01/23/21 09:27 Freq: Status: Active Protocol: Document 01/23/21 10:15 AMB (Rec: 01/23/21 16:33 AMB [email or web address]) Hip Strength Hip Manual Muscle Testing Right Flexion (L2) 4 Good Extension (S1) 4 Good Abduction 4 Good Left Flexion (L2) 4+ Good+ Extension (S1) 4+ Good+ Abduction 4+ Good+ PT-OP-Q Treatments Start: 01/23/21 09:27 Freq: Status: Active Protocol: Document 02/05/21 14:15 AMB (Rec: 02/05/21 15:21 AMB [email or web address]) Neuro Re-Education Treatment Balance Activities 2 Details stairs Comments alternating steps with rail- SBA 1 Details walking with head turns Comments vertical and horizontal Vestibular Rehabilitation VOR Retraining Details 45bpm Background simple Distance From Target 3-5ft Reps/Duration 15 sec x5 Comments NBOS then stride stance PT-OP-T Assessment and Plan Start: 01/23/21 09:27 Freq: Status: Active Protocol: Document 02/05/21 14:15 AMB (Rec: 02/05/21 15:21 AMB [email or web address]) Physical Therapy Assessment Goals Three Impairment Strength Short Term Goal (STG) Norberto will show improved LE strength by moving from sit to stand with good stability 5x in 20 seconds or less. STG Duration 4 weeks Two Impairment Balance Short Term Goal (STG) Norberto will be able to stand with NBOS and turn his head slowly right and left without loss of balance. STG Duration 4 weeks One Impairment Gait Short Term Goal (STG) Norberto will ambulate with horizontal head turns without veering. STG Duration 4 weeks Custodial Goal (LTG) Norberto will walk in the community over uneven terrain without AD with good safety and stability. LTG Duration 8 weeks Assessment Summary Assessment Rechecked Brock Emeka B and negative with both. Pt continues to lose balance with horizontal head turns with walking, vertical head turns as well but not as bad. DVA 5 lines, pt denies blurriness and double vision with VOR exercises, but also loses balance if turns head quickly and has large DVA change. Physical Therapy Plan Next Visit Focus/Plan Next Note Type Treatment Note Next Visit Plan Continue strengthening and progress balance exercises- can work into gentle head turns but slow for now. Progress R hip stabilization, ankle stability
--- NOTE | 2021-02-08 09:03 | PT.OTN ---
Current Diagnoses Other symptoms and signs involving cognitive functions and awareness (02/08/21) Dizziness and giddiness (02/08/21) Other speech disturbances (02/08/21) History of falling (02/08/21) Physical Therapy Treatment Note PT-OP-A Visit Information Start: 01/23/21 09:27 Freq: Status: Active Protocol: Document 02/08/21 08:15 SP (Rec: 02/08/21 10:48 SP [id number]) Out-Patient Physical Therapy Visit Information Visit Information Visit Type Treatment Note Visit Start Time 08:15 Visit Stop Time 09:03 Total Visit Minutes 48 Visit Number 6 Number of CABLE STRANDER Visits 1 PT-OP-B Current Condition Start: 01/23/21 09:27 Freq: Status: Active Protocol: Document 01/23/21 10:15 AMB (Rec: 01/23/21 10:44 AMB [id number]) Current Condition History of Current Condition Onset Date A few months Current Complaints Off balance History of Current Condition Norberto reports he goes on 1 mile walk with his girlfriend and some days feels like he has difficulty walking in a straight line. Describes being off balance with head turns and moving from sit to stand. 2 falls in the last 6 months. Fell on the curb, was able to get up by himself. Reports right leg weakness since gall bladder surgery, was in the hospital for a week . Head feels fuzzy. Reports L leg swelling. Feels like falling to the left, denies spinning or symptoms with rolling over in bed. Does walk with a cane in the community at times. He and his girlfriend both have their own homes, he is driving. Treatment Goals Patient/Caregiver Goals Walk more, and be able to turn head without dizziness. Prior Functional Status Baseline Function- ADL's Modified Independent Baseline Function- Mobility Modified Independent Current Functional Impairments (Reported) Functional Limitations- ADL's Feeling of being off balance with walking, especially with turning left, does have neck pain, is on hypertension medicine, is [place] Personal Factors Other Personal Factors That May Effect History of gall bladder Therapy/Recovery surgery, history of bile duct cancer, previous bilateral carpal tunnel surgery, neck pain PT-OP-C Subjective Start: 01/23/21 09:27 Freq: Status: Active Protocol: Document 02/08/21 08:15 SP (Rec: 02/08/21 10:48 SP [id number]) OP-PT Subjective Patient Comments Patient Comments Pt stated I felt alot better after she shook my head up a little bit last time. I was a little PT-OP-D Balance Start: 01/23/21 09:27 Freq: Status: Active Protocol: Document 01/23/21 10:15 AMB (Rec: 01/23/21 16:33 AMB [email or web address]) Balance Tests Other Other Balance Tests Performed NBOS HT- fall, NBOS EC- fall, WBOS HT (small head turn)- 30 seconds ok. Walking with head turns falls left. PT-OP-G Mobility & Gait Start: 01/23/21 09:27 Freq: Status: Active Protocol: Document 01/23/21 10:15 AMB (Rec: 01/23/21 16:34 AMB [email or web address]) OP Gait Assessment Comments Gait Comments Pt ambulates without AD with WBOS with slightly veering gait. PT-OP-M Strength Start: 01/23/21 09:27 Freq: Status: Active Protocol: Document 01/23/21 10:15 AMB (Rec: 01/23/21 16:33 AMB [email or web address]) Hip Strength Hip Manual Muscle Testing Right Flexion (L2) 4 Good Extension (S1) 4 Good Abduction 4 Good Left Flexion (L2) 4+ Good+ Extension (S1) 4+ Good+ Abduction 4+ Good+ PT-OP-Q Treatments Start: 01/23/21 09:27 Freq: Status: Active Protocol: Document 02/08/21 08:15 SP (Rec: 02/08/21 10:48 SP [id number]) Cardio Equipment Recumbent Stepper (Sci-Fit) Duration (Minutes) 5 Resistance 2.5 Seat Position 10 Other LEs only, 60-65 RPMs, 0. 90miles Gym Equipment Shuttle Recovery Unilateral Squats Resistance 37# Shuttle Recovery Platform Stable Reps/Time 2x10 Bilateral Squats Resistance 75#> 87# Shuttle Recovery Platform Stable Reps/Time x10 Therapeutic Exercises Sitting Exercises pirformis stretch Sitting Exercise Name added to HEP Side bilateral Reps/Minutes 20 x2 Comments end tx for reduction in hip soreness and ROM improve sit<>stand Sitting Exercise Name arms out front, uses for momentum as need at this time- reviewed HEP Resistance add Equipment Used arms front Reps/Minutes 9 reps in 30 Comments occasional cues for hip hinge slow eccentric sitting Standing Exercises band walk Standing Exercise Name added to HEP Side bilateral Resistance YTB Equipment Used rail contact 1 UE Reps/Minutes 20 ft x2 laps Comments cued slow eccentric feet together heel raises Standing Exercise Name reviewed HEP Side bilateral Equipment Used contact rail Reps/Minutes x10 Neuro Re-Education Treatment Balance Activities 1 Details walking with gentle slow head turns Comments vertical and horizontal, LOB to R x2 with head turn to L. Improved slightly with education on looking at an object when turning head. PT-OP-T Assessment and Plan Start: 01/23/21 09:27 Freq: Status: Active Protocol: Document 02/08/21 08:15 SP (Rec: 02/08/21 10:48 SP [id number]) Physical Therapy Assessment Goals Three Impairment Strength Short Term Goal (STG) Norberto will show improved LE strength by moving from sit to stand with good stability 5x in 20 seconds or less. STG Duration 4 weeks Two Impairment Balance Short Term Goal (STG) Norberto will be able to stand with NBOS and turn his head slowly right and left without loss of balance. STG Duration 4 weeks One Impairment Gait Short Term Goal (STG) Norberto will ambulate with horizontal head turns without veering. STG Duration 4 weeks Retail Property Manager Goal (LTG) Norberto will walk in the community over uneven terrain without AD with good safety and stability. LTG Duration 8 weeks Assessment Summary Assessment Pt demonstrates scissor step and LOB CG for recovery with head turns mainly when turing head to L, improved slightly with cues for looking for an object when turn head. Pt improved walking stability post LE strengthening exercises end of tx leaving. Physical Therapy Plan Frequency and Duration Frequency of Treatment 2x/Week Duration of Treatment 8 weeks Plan of Care Start Date 01/23/21 Plan of Care End Date 03/20/21 Therapeutic Interventions Therapeutic Interventions Balance Training,Gait Training ,Home Exercise Program,Manual Therapy,Neuromuscular Re- education,Self-Care/Home Management,Therapeutic Activities,Therapeutic Exercises,Vestibular Rehabilitation Next Visit Focus/Plan Next Note Type Treatment Note Next Visit Plan Continue strengthening and progress balance exercises- can work into gentle head turns but slow for now. Progress R hip stabilization, ankle stability
--- NOTE | 2021-02-13 15:22 | PT.OTN ---
Current Diagnoses Other symptoms and signs involving cognitive functions and awareness (02/13/21) Dizziness and giddiness (02/13/21) Other speech disturbances (02/13/21) History of falling (02/13/21) Physical Therapy Treatment Note PT-OP-A Visit Information Start: 01/23/21 09:27 Freq: Status: Active Protocol: Document 02/13/21 14:32 SP (Rec: 02/13/21 15:48 SP [id number]) Out-Patient Physical Therapy Visit Information Visit Information Visit Type Treatment Note Visit Start Time 14:32 Visit Stop Time 15:22 Total Visit Minutes 50 Visit Number 7 Number of OIL TESTER Visits 2 PT-OP-B Current Condition Start: 01/23/21 09:27 Freq: Status: Active Protocol: Document 01/23/21 10:15 AMB (Rec: 01/23/21 10:44 AMB [id number]) Current Condition History of Current Condition Onset Date A few months Current Complaints Off balance History of Current Condition Norberto reports he goes on 1 mile walk with his girlfriend and some days feels like he has difficulty walking in a straight line. Describes being off balance with head turns and moving from sit to stand. 2 falls in the last 6 months. Fell on the curb, was able to get up by himself. Reports right leg weakness since gall bladder surgery, was in the hospital for a week . Head feels fuzzy. Reports L leg swelling. Feels like falling to the left, denies spinning or symptoms with rolling over in bed. Does walk with a cane in the community at times. He and his girlfriend both have their own homes, he is driving. Treatment Goals Patient/Caregiver Goals Walk more, and be able to turn head without dizziness. Prior Functional Status Baseline Function- ADL's Modified Independent Baseline Function- Mobility Modified Independent Current Functional Impairments (Reported) Functional Limitations- ADL's Feeling of being off balance with walking, especially with turning left, does have neck pain, is on hypertension medicine, is [place] Personal Factors Other Personal Factors That May Effect History of gall bladder Therapy/Recovery surgery, history of bile duct cancer, previous bilateral carpal tunnel surgery, neck pain PT-OP-C Subjective Start: 01/23/21 09:27 Freq: Status: Active Protocol: Document 02/13/21 14:32 SP (Rec: 02/13/21 15:48 SP [id number]) OP-PT Subjective Patient Comments Patient Comments Pt stated I have been little off most of the day. Pt stated walking about 2 miles now daily with gradual incline / declines. PT-OP-D Balance Start: 01/23/21 09:27 Freq: Status: Active Protocol: Document 01/23/21 10:15 AMB (Rec: 01/23/21 16:33 AMB [email or web address]) Balance Tests Other Other Balance Tests Performed NBOS HT- fall, NBOS EC- fall, WBOS HT (small head turn)- 30 seconds ok. Walking with head turns falls left. PT-OP-G Mobility & Gait Start: 01/23/21 09:27 Freq: Status: Active Protocol: Document 01/23/21 10:15 AMB (Rec: 01/23/21 16:34 AMB [email or web address]) OP Gait Assessment Comments Gait Comments Pt ambulates without AD with WBOS with slightly veering gait. PT-OP-M Strength Start: 01/23/21 09:27 Freq: Status: Active Protocol: Document 01/23/21 10:15 AMB (Rec: 01/23/21 16:33 AMB [email or web address]) Hip Strength Hip Manual Muscle Testing Right Flexion (L2) 4 Good Extension (S1) 4 Good Abduction 4 Good Left Flexion (L2) 4+ Good+ Extension (S1) 4+ Good+ Abduction 4+ Good+ PT-OP-Q Treatments Start: 01/23/21 09:27 Freq: Status: Active Protocol: Document 02/13/21 14:32 SP (Rec: 02/13/21 15:48 SP [id number]) Cardio Equipment Recumbent Stepper (Sci-Fit) Duration (Minutes) 7 Resistance 2.5 Seat Position 10 Other LEs only: 109 miles, 69 RPM Gym Equipment Shuttle Recovery Unilateral Squats Details knee alignment, LE strengthening Resistance 50# >62# Shuttle Recovery Platform Stable Reps/Time 2x10 Bilateral Squats Details knee alignment, LE strengthening Resistance 87#>112# Shuttle Recovery Platform Stable Reps/Time 2X10 Therapeutic Exercises Sitting Exercises sit<>stand Sitting Exercise Name arms out front, uses for momentum as need at this time- reviewed HEP Equipment Used 18 chair Reps/Minutes 9 reps in 30 Comments occasional cues for hip hinge slow eccentric sitting Standing Exercises band walk Standing Exercise Name Reviewed HEP Side bilateral Resistance #2 TB Equipment Used rail contact 1 UE Reps/Minutes 20 ft x2 laps Comments cued slow eccentric feet together Neuro Re-Education Treatment Balance Activities 2 Details stairs Equipment MAP bldg stair flight (1.5 flight) Comments alternating steps with hand light contact slide along rail 1 flight w/quad facilitation and hip ext for stability ascend CG- Min A, CG- Min grasp rail descending. 1 Details walking with gentle slow head turns Comments vertical and horizontal, LOB to R x1 during vertical head turn. Improved with education on looking at an object when turning head with slower pacing turn. pranay stepping Details step over step patterning Surface firm Equipment 6 hurdles Reps/Duration Fwd Comments CGA- Min A: noted wt shift deviations but no LOB PT-OP-T Assessment and Plan Start: 01/23/21 09:27 Freq: Status: Active Protocol: Document 02/13/21 14:32 SP (Rec: 02/13/21 15:48 SP [id number]) Physical Therapy Assessment Goals Three Impairment Strength Short Term Goal (STG) Norberto will show improved LE strength by moving from sit to stand with good stability 5x in 20 seconds or less. STG Duration 4 weeks Two Impairment Balance Short Term Goal (STG) Norberto will be able to stand with NBOS and turn his head slowly right and left without loss of balance. STG Duration 4 weeks One Impairment Gait Short Term Goal (STG) Norberto will ambulate with horizontal head turns without veering. STG Duration 4 weeks Snf Goal (LTG) Norberto will walk in the community over uneven terrain without AD with good safety and stability. LTG Duration 8 weeks Assessment Summary Assessment Pt demonstrated scissor step during vertical head turns today, improved with cues for awareness of maintaining WBOS. Improved ascending stairs with hand gliding rails today compared to Min director of spa and guest experience 1 UE last tx. Physical Therapy Plan Frequency and Duration Frequency of Treatment 2x/Week Duration of Treatment 8 weeks Plan of Care Start Date 01/23/21 Plan of Care End Date 03/20/21 Therapeutic Interventions Therapeutic Interventions Balance Training,Gait Training ,Home Exercise Program,Manual Therapy,Neuromuscular Re- education,Self-Care/Home Management,Therapeutic Activities,Therapeutic Exercises,Vestibular Rehabilitation Next Visit Focus/Plan Next Note Type Treatment Note Next Visit Plan Next tx sport cord, SLS and uneven ground, recheck gait head turns, tandem walking in/ /bars. POC: Continue strengthening and progress balance exercises- can work into gentle head turns but slow for now. Progress R hip stabilization, ankle stability
--- NOTE | 2021-02-15 13:05 | PT.OTN ---
Current Diagnoses Other symptoms and signs involving cognitive functions and awareness (02/15/21) Dizziness and giddiness (02/15/21) Other speech disturbances (02/15/21) History of falling (02/15/21) Physical Therapy Treatment Note PT-OP-A Visit Information Start: 01/23/21 09:27 Freq: Status: Active Protocol: Document 02/15/21 12:16 SP (Rec: 02/15/21 15:31 SP [id number]) Out-Patient Physical Therapy Visit Information Visit Information Visit Type Treatment Note Visit Start Time 12:16 Visit Stop Time 13:05 Total Visit Minutes 49 Visit Number 8 Number of ESCROW AGENT Visits 3 PT-OP-B Current Condition Start: 01/23/21 09:27 Freq: Status: Active Protocol: Document 01/23/21 10:15 AMB (Rec: 01/23/21 10:44 AMB [id number]) Current Condition History of Current Condition Onset Date A few months Current Complaints Off balance History of Current Condition Onrberto reports he goes on 1 mile walk with his girlfriend and some days feels like he has difficulty walking in a straight line. Describes being off balance with head turns and moving from sit to stand. 2 falls in the last 6 months. Fell on the curb, was able to get up by himself. Reports right leg weakness since gall bladder surgery, was in the hospital for a week . Head feels fuzzy. Reports L leg swelling. Feels like falling to the left, denies spinning or symptoms with rolling over in bed. Does walk with a cane in the community at times. He and his girlfriend both have their own homes, he is driving. Treatment Goals Patient/Caregiver Goals Walk more, and be able to turn head without dizziness. Prior Functional Status Baseline Function- ADL's Modified Independent Baseline Function- Mobility Modified Independent Current Functional Impairments (Reported) Functional Limitations- ADL's Feeling of being off balance with walking, especially with turning left, does have neck pain, is on hypertension medicine, is [place] Personal Factors Other Personal Factors That May Effect History of gall bladder Therapy/Recovery surgery, history of bile duct cancer, previous bilateral carpal tunnel surgery, neck pain PT-OP-C Subjective Start: 01/23/21 09:27 Freq: Status: Active Protocol: Document 02/15/21 12:16 SP (Rec: 02/15/21 15:31 SP [id number]) OP-PT Subjective Patient Comments Patient Comments Pt stated I walked the [facility] [place] yesterday, incorporated ascend/ descend the elevated stairs using semi wide B HR to top ([address]) while partner rested on nearby bench, and aware of my thighs now. No pain though just stiffness when arrived. Pt states has not had any dizziness. Patient Reported Progress Improving PT-OP-D Balance Start: 01/23/21 09:27 Freq: Status: Active Protocol: Document 01/23/21 10:15 AMB (Rec: 01/23/21 16:33 AMB [email or web address]) Balance Tests Other Other Balance Tests Performed NBOS HT- fall, NBOS EC- fall, WBOS HT (small head turn)- 30 seconds ok. Walking with head turns falls left. PT-OP-G Mobility & Gait Start: 01/23/21 09:27 Freq: Status: Active Protocol: Document 01/23/21 10:15 AMB (Rec: 01/23/21 16:34 AMB [email or web address]) OP Gait Assessment Comments Gait Comments Pt ambulates without AD with WBOS with slightly veering gait. PT-OP-M Strength Start: 01/23/21 09:27 Freq: Status: Active Protocol: Document 01/23/21 10:15 AMB (Rec: 01/23/21 16:33 AMB [email or web address]) Hip Strength Hip Manual Muscle Testing Right Flexion (L2) 4 Good Extension (S1) 4 Good Abduction 4 Good Left Flexion (L2) 4+ Good+ Extension (S1) 4+ Good+ Abduction 4+ Good+ PT-OP-Q Treatments Start: 01/23/21 09:27 Freq: Status: Active Protocol: Document 02/15/21 12:16 SP (Rec: 02/15/21 15:31 SP [id number]) Cardio Equipment Recumbent Stepper (Sci-Fit) Duration (Minutes) 7 Resistance 2.5 Seat Position 12 Other LEs only: 1.10 miles, 70 RPM Gym Equipment Shuttle Balance red Details WBOS Comments 1. wt shift, f/b hand contact> hover 2. stationary balance, hand hover 3. head turns CG- Min A on gait belt improved self corrections as time progressed Sport Cord green Exercise Details f/b/side stepping, forward step up/ back step downs Cord/Resistance CGA- 5%A, mod cues for patterning same LE lead asc/ descend Reps/Duration 5 steps each direction Comments cued slow eccentric control for improved SLS time recovery w/ hip abd and core fac. Neuro Re-Education Treatment Balance Activities corner balance Details NBOS, Semi tandem Surface firm Equipment back to wall, chair front- hands hover chair back Reps/Duration 5 min Comments EO head turns, EC 30 each foot position, increased sway/ veer RLE forward but self recovery w/out hands required. Cued tall posture, glut/ core fac fac between BLE. 1 Details walking with gentle slower head turns Surface firm Equipment GB Reps/Duration 1 lap around clinic Comments Improved self recovery wt shift deviations today, noted little increased normal JAIRON ( feet //) during stepping, no scissor stepping- performed post sport cord and shuttle balance. PT-OP-T Assessment and Plan Start: 01/23/21 09:27 Freq: Status: Active Protocol: Document 02/15/21 12:16 SP (Rec: 02/15/21 15:31 SP [id number]) Physical Therapy Assessment Goals Three Impairment Strength Short Term Goal (STG) Norberto will show improved LE strength by moving from sit to stand with good stability 5x in 20 seconds or less. STG Duration 4 weeks Two Impairment Balance Short Term Goal (STG) Norberto will be able to stand with NBOS and turn his head slowly right and left without loss of balance. STG Duration 4 weeks One Impairment Gait Short Term Goal (STG) Norberto will ambulate with horizontal head turns without veering. STG Duration 4 weeks Pet Handler Goal (LTG) Nroberto will walk in the community over uneven terrain without AD with good safety and stability. LTG Duration 8 weeks Assessment Summary Assessment Pt had no LOB, noted improved decreased veering and not scissor stepping during gait head turns post balance sport cord and shuttle balance initiated this tx. Physical Therapy Plan Frequency and Duration Frequency of Treatment 2x/Week Duration of Treatment 8 weeks Plan of Care Start Date 01/23/21 Plan of Care End Date 03/20/21 Therapeutic Interventions Therapeutic Interventions Balance Training,Gait Training ,Home Exercise Program,Manual Therapy,Neuromuscular Re- education,Self-Care/Home Management,Therapeutic Activities,Therapeutic Exercises,Vestibular Rehabilitation Next Visit Focus/Plan Next Note Type Treatment Note Next Visit Plan Continue sport cord, shuttle balance, uneven ground, recheck gait head turns, tandem walking in//bars. POC: Continue strengthening and progress balance exercises - can work into gentle head turns but slow for now. Progress R hip stabilization, ankle stability
--- NOTE | 2021-02-19 12:58 | PT.OTN ---
Current Diagnoses Other symptoms and signs involving cognitive functions and awareness (02/19/21) Dizziness and giddiness (02/19/21) Other speech disturbances (02/19/21) History of falling (02/19/21) Physical Therapy Treatment Note PT-OP-A Visit Information Start: 01/23/21 09:27 Freq: Status: Active Protocol: Document 02/19/21 09:01 AMB (Rec: 02/19/21 09:12 AMB [id number]) Out-Patient Physical Therapy Visit Information Visit Information Visit Type Treatment Note Visit Start Time 09:00 Visit Stop Time 09:45 Total Visit Minutes 45 Visit Number 9 Number of CLAY HOUSE WORKER Visits 0 PT-OP-B Current Condition Start: 01/23/21 09:27 Freq: Status: Active Protocol: Document 01/23/21 10:15 AMB (Rec: 01/23/21 10:44 AMB [id number]) Current Condition History of Current Condition Onset Date A few months Current Complaints Off balance History of Current Condition Norberto reports he goes on 1 mile walk with his girlfriend and some days feels like he has difficulty walking in a straight line. Describes being off balance with head turns and moving from sit to stand. 2 falls in the last 6 months. Fell on the curb, was able to get up by himself. Reports right leg weakness since gall bladder surgery, was in the hospital for a week . Head feels fuzzy. Reports L leg swelling. Feels like falling to the left, denies spinning or symptoms with rolling over in bed. Does walk with a cane in the community at times. He and his girlfriend both have their own homes, he is driving. Treatment Goals Patient/Caregiver Goals Walk more, and be able to turn head without dizziness. Prior Functional Status Baseline Function- ADL's Modified Independent Baseline Function- Mobility Modified Independent Current Functional Impairments (Reported) Functional Limitations- ADL's Feeling of being off balance with walking, especially with turning left, does have neck pain, is on hypertension medicine, is [place] Personal Factors Other Personal Factors That May Effect History of gall bladder Therapy/Recovery surgery, history of bile duct cancer, previous bilateral carpal tunnel surgery, neck pain PT-OP-C Subjective Start: 01/23/21 09:27 Freq: Status: Active Protocol: Document 02/19/21 09:01 AMB (Rec: 02/19/21 09:12 AMB [id number]) OP-PT Subjective Patient Comments Patient Comments Pt feels about 75% better, but still notices the ankles have to work extra hard. PT-OP-D Balance Start: 01/23/21 09:27 Freq: Status: Active Protocol: Document 01/23/21 10:15 AMB (Rec: 01/23/21 16:33 AMB [email or web address]) Balance Tests Other Other Balance Tests Performed NBOS HT- fall, NBOS EC- fall, WBOS HT (small head turn)- 30 seconds ok. Walking with head turns falls left. PT-OP-G Mobility & Gait Start: 01/23/21 09:27 Freq: Status: Active Protocol: Document 01/23/21 10:15 AMB (Rec: 01/23/21 16:34 AMB [email or web address]) OP Gait Assessment Comments Gait Comments Pt ambulates without AD with WBOS with slightly veering gait. PT-OP-M Strength Start: 01/23/21 09:27 Freq: Status: Active Protocol: Document 01/23/21 10:15 AMB (Rec: 01/23/21 16:33 AMB [email or web address]) Hip Strength Hip Manual Muscle Testing Right Flexion (L2) 4 Good Extension (S1) 4 Good Abduction 4 Good Left Flexion (L2) 4+ Good+ Extension (S1) 4+ Good+ Abduction 4+ Good+ PT-OP-Q Treatments Start: 01/23/21 09:27 Freq: Status: Active Protocol: Document 02/19/21 09:01 AMB (Rec: 02/19/21 09:12 AMB [id number]) Cardio Equipment Recumbent Stepper (Sci-Fit) Duration (Minutes) 7 Resistance 3 Seat Position 12 Other LEs only: 1.08 miles, 70 RPM Gym Equipment Shuttle Balance red Details WBOS Comments 1. stationary balance, hand hover 2. head turns 3. a/p then m/l stance on board CG- Min A on gait belt improved self corrections as time progressed Therapeutic Exercises Standing Exercises lateral step up Side right Reps/Minutes 2x10 achilles stretch Reps/Minutes 30x2 Comments on KEV heel raises Standing Exercise Name reviewed HEP Side bilateral Equipment Used contact rail Reps/Minutes x10 hip ext Standing Exercise Name contact rail (reviewed HEP Side bilateral Reps/Minutes x10 Comments cued tall posture hip abd Standing Exercise Name reviewed HEP Side bilateral Resistance AROM Equipment Used rail (ed. counter at home for safety) Reps/Minutes 10 reps (2x day) Comments cued tall posture and leg out to side- improved with reps Neuro Re-Education Treatment Balance Activities corner balance Details NBOS, Semi tandem Surface firm Equipment back to wall, chair front- hands hover chair back Reps/Duration 5 min Comments EO head turns, EC 30 each foot position, increased sway/ veer RLE forward but self recovery w/out hands required. Cued tall posture, glut/ core fac fac between BLE. 1 Details walking with gentle slower head turns Surface firm Equipment GB Reps/Duration 1 lap around clinic Comments Improved self recovery wt shift deviations today, noted little d shuttle balance.-- added ball toss PT-OP-T Assessment and Plan Start: 01/23/21 09:27 Freq: Status: Active Protocol: Document 02/19/21 09:00 AMB (Rec: 02/19/21 12:58 AMB [email or web address]) Physical Therapy Assessment Goals Three Impairment Strength Short Term Goal (STG) Norberto will show improved LE strength by moving from sit to stand with good stability 5x in 20 seconds or less. STG Duration 4 weeks Two Impairment Balance Short Term Goal (STG) Norberto will be able to stand with NBOS and turn his head slowly right and left without loss of balance. STG Duration 4 weeks One Impairment Gait Short Term Goal (STG) Norberto will ambulate with horizontal head turns without veering. STG Duration 4 weeks [facility] Goal (LTG) Norberto will walk in the community over uneven terrain without AD with good safety and stability. LTG Duration 8 weeks Assessment Summary Assessment Pt notes that R sided weakness has been going on for a few years, but he feels like it is improving. Did encourage pt that his gait is less veering today. Physical Therapy Plan Next Visit Focus/Plan Next Note Type Progress Note Next Visit Plan Continue sport cord, shuttle balance, uneven ground, recheck gait head turns, tandem walking in//bars. POC: Continue strengthening and progress balance exercises - can work into gentle head turns but slow for now. Progress R hip stabilization, ankle stability
--- NOTE | 2021-02-22 16:00 | PT.OTN ---
Current Diagnoses Other symptoms and signs involving cognitive functions and awareness (02/22/21) Dizziness and giddiness (02/22/21) Other speech disturbances (02/22/21) History of falling (02/22/21) Physical Therapy Treatment Note PT-OP-A Visit Information Start: 01/23/21 09:27 Freq: Status: Active Protocol: Document 02/22/21 09:05 AMB (Rec: 02/22/21 09:48 AMB [id number]) Out-Patient Physical Therapy Visit Information Visit Information Visit Type Progress Note Visit Start Time 09:05 Visit Stop Time 09:45 Total Visit Minutes 45 Visit Number 10 PT-OP-B Current Condition Start: 01/23/21 09:27 Freq: Status: Active Protocol: Document 01/23/21 10:15 AMB (Rec: 01/23/21 10:44 AMB [id number]) Current Condition History of Current Condition Onset Date A few months Current Complaints Off balance History of Current Condition Norberto reports he goes on 1 mile walk with his girlfriend and some days feels like he has difficulty walking in a straight line. Describes being off balance with head turns and moving from sit to stand. 2 falls in the last 6 months. Fell on the curb, was able to get up by himself. Reports right leg weakness since gall bladder surgery, was in the hospital for a week . Head feels fuzzy. Reports L leg swelling. Feels like falling to the left, denies spinning or symptoms with rolling over in bed. Does walk with a cane in the community at times. He and his girlfriend both have their own homes, he is driving. Treatment Goals Patient/Caregiver Goals Walk more, and be able to turn head without dizziness. Prior Functional Status Baseline Function- ADL's Modified Independent Baseline Function- Mobility Modified Independent Current Functional Impairments (Reported) Functional Limitations- ADL's Feeling of being off balance with walking, especially with turning left, does have neck pain, is on hypertension medicine, is [place] Personal Factors Other Personal Factors That May Effect History of gall bladder Therapy/Recovery surgery, history of bile duct cancer, previous bilateral carpal tunnel surgery, neck pain PT-OP-C Subjective Start: 01/23/21 09:27 Freq: Status: Active Protocol: Document 02/22/21 09:05 AMB (Rec: 02/22/21 09:48 AMB [id number]) OP-PT Subjective Patient Comments Patient Comments Feeling a little wobbly today but it just started PT-OP-D Balance Start: 01/23/21 09:27 Freq: Status: Active Protocol: Document 01/23/21 10:15 AMB (Rec: 01/23/21 16:33 AMB [email or web address]) Balance Tests Other Other Balance Tests Performed NBOS HT- fall, NBOS EC- fall, WBOS HT (small head turn)- 30 seconds ok. Walking with head turns falls left. PT-OP-G Mobility & Gait Start: 01/23/21 09:27 Freq: Status: Active Protocol: Document 01/23/21 10:15 AMB (Rec: 01/23/21 16:34 AMB [email or web address]) OP Gait Assessment Comments Gait Comments Pt ambulates without AD with WBOS with slightly veering gait. PT-OP-M Strength Start: 01/23/21 09:27 Freq: Status: Active Protocol: Document 01/23/21 10:15 AMB (Rec: 01/23/21 16:33 AMB [email or web address]) Hip Strength Hip Manual Muscle Testing Right Flexion (L2) 4 Good Extension (S1) 4 Good Abduction 4 Good Left Flexion (L2) 4+ Good+ Extension (S1) 4+ Good+ Abduction 4+ Good+ PT-OP-Q Treatments Start: 01/23/21 09:27 Freq: Status: Active Protocol: Document 02/22/21 15:52 AMB (Rec: 02/22/21 16:00 AMB [email or web address]) Cardio Equipment Recumbent Stepper (Sci-Fit) Duration (Minutes) 7 Resistance 3 Seat Position 12 Gait Training Gait Activity 1 Description indoor smooth terrain Device Used none Level of Assistance SBA Comments working on feeling ok with turns- did have a little misstep turning r Canalithic Repositioning BPPV Treatment [place] Affected Canal(s) R Reps 2 PT-OP-T Assessment and Plan Start: 01/23/21 09:27 Freq: Status: Active Protocol: Document 02/22/21 15:52 AMB (Rec: 02/22/21 16:00 AMB [email or web address]) Physical Therapy Assessment Goals Three Impairment Strength Short Term Goal (STG) Norberto will show improved LE strength by moving from sit to stand with good stability 5x in 20 seconds or less. STG Duration 4 weeks Two Impairment Balance Short Term Goal (STG) Norberto will be able to stand with NBOS and turn his head slowly right and left without loss of balance. STG Duration 4 weeks One Impairment Gait Short Term Goal (STG) Norberto will ambulate with horizontal head turns without veering. STG Duration 4 weeks Portfolio Accountant Goal (LTG) Norberto will walk in the community over uneven terrain without AD with good safety and stability. LTG Duration 8 weeks Assessment Summary Assessment Norberto had signs and symptoms consistent with R posterior canalithiasis today after being clear for weaks. Tolerated [place]a maneuver well without sx with second [place], however did explain to pt that since he was seemingly clear and then sx returned he could have a higher risk of sx in the future. Will need to further assess goals when pt is doing better as he has met some of his goals, but was off today. Physical Therapy Plan Next Visit Focus/Plan Next Note Type Treatment Note Next Visit Plan Recheck [place]. Continue sport cord, shuttle balance, uneven ground, recheck gait head turns, tandem walking in//bars. POC: Continue strengthening and progress balance exercises - can work into gentle head turns but slow for now. Progress R hip stabilization, ankle stability
--- NOTE | 2021-02-28 11:09 | PT.OTN ---
Current Diagnoses Other symptoms and signs involving cognitive functions and awareness (02/28/21) Dizziness and giddiness (02/28/21) Other speech disturbances (02/28/21) History of falling (02/28/21) Physical Therapy Treatment Note PT-OP-A Visit Information Start: 01/23/21 09:27 Freq: Status: Active Protocol: Document 02/28/21 08:14 AMB (Rec: 02/28/21 09:02 AMB [id number]) Out-Patient Physical Therapy Visit Information Visit Information Visit Type Treatment Note Visit Start Time 08:15 Visit Stop Time 09:00 Total Visit Minutes 45 Visit Number 11 PT-OP-B Current Condition Start: 01/23/21 09:27 Freq: Status: Active Protocol: Document 01/23/21 10:15 AMB (Rec: 01/23/21 10:44 AMB [id number]) Current Condition History of Current Condition Onset Date A few months Current Complaints Off balance History of Current Condition Norberto reports he goes on 1 mile walk with his girlfriend and some days feels like he has difficulty walking in a straight line. Describes being off balance with head turns and moving from sit to stand. 2 falls in the last 6 months. Fell on the curb, was able to get up by himself. Reports right leg weakness since gall bladder surgery, was in the hospital for a week . Head feels fuzzy. Reports L leg swelling. Feels like falling to the left, denies spinning or symptoms with rolling over in bed. Does walk with a cane in the community at times. He and his girlfriend both have their own homes, he is driving. Treatment Goals Patient/Caregiver Goals Walk more, and be able to turn head without dizziness. Prior Functional Status Baseline Function- ADL's Modified Independent Baseline Function- Mobility Modified Independent Current Functional Impairments (Reported) Functional Limitations- ADL's Feeling of being off balance with walking, especially with turning left, does have neck pain, is on hypertension medicine, is [place] Personal Factors Other Personal Factors That May Effect History of gall bladder Therapy/Recovery surgery, history of bile duct cancer, previous bilateral carpal tunnel surgery, neck pain PT-OP-C Subjective Start: 01/23/21 09:27 Freq: Status: Active Protocol: Document 02/28/21 08:14 AMB (Rec: 02/28/21 09:02 AMB [id number]) OP-PT Subjective Patient Comments Patient Comments Was in the ED yesterday for hypertension 150/86 today at beginning of session PT-OP-D Balance Start: 01/23/21 09:27 Freq: Status: Active Protocol: Document 01/23/21 10:15 AMB (Rec: 01/23/21 16:33 AMB [email or web address]) Balance Tests Other Other Balance Tests Performed NBOS HT- fall, NBOS EC- fall, WBOS HT (small head turn)- 30 seconds ok. Walking with head turns falls left. PT-OP-G Mobility & Gait Start: 01/23/21 09:27 Freq: Status: Active Protocol: Document 01/23/21 10:15 AMB (Rec: 01/23/21 16:34 AMB [email or web address]) OP Gait Assessment Comments Gait Comments Pt ambulates without AD with WBOS with slightly veering gait. PT-OP-M Strength Start: 01/23/21 09:27 Freq: Status: Active Protocol: Document 01/23/21 10:15 AMB (Rec: 01/23/21 16:33 AMB [email or web address]) Hip Strength Hip Manual Muscle Testing Right Flexion (L2) 4 Good Extension (S1) 4 Good Abduction 4 Good Left Flexion (L2) 4+ Good+ Extension (S1) 4+ Good+ Abduction 4+ Good+ PT-OP-Q Treatments Start: 01/23/21 09:27 Freq: Status: Active Protocol: Document 02/28/21 08:14 AMB (Rec: 02/28/21 09:02 AMB [id number]) Gym Equipment Shuttle Recovery Unilateral Squats Details knee alignment, LE strengthening Resistance 50# Shuttle Recovery Platform Stable Reps/Time 2x10 Bilateral Squats Details knee alignment, LE strengthening Resistance 100# Shuttle Recovery Platform Stable Reps/Time 2X10 Shuttle Balance blue Details WBOS Comments fwd/lateral slow head turns EO Therapeutic Exercises Standing Exercises hip ext Standing Exercise Name contact rail (reviewed HEP Side bilateral Reps/Minutes x10 Comments cued tall posture hip abd Standing Exercise Name reviewed HEP Side bilateral Resistance AROM Equipment Used rail (ed. counter at home for safety) Reps/Minutes 10 reps (2x day) Comments cued tall posture and leg out to side- improved with reps Gait Training Gait Activity 1 Description indoor smooth terrain Device Used none Level of Assistance SBA Comments working on feeling ok with turns-added head turns vertical and horizontal Neuro Re-Education Treatment Other Activities 1 Details Recheck [place] Comments negative R and L PT-OP-T Assessment and Plan Start: 01/23/21 09:27 Freq: Status: Active Protocol: Document 02/28/21 08:14 AMB (Rec: 02/28/21 09:02 AMB [id number]) Physical Therapy Assessment Assessment Summary Assessment No signs of BPPV today. Encouraged Norberto to continue to watch his hypertension, overall improving strength on the right and improving stability with gait, but concerning that BPPV was treated and then returned a month later. Physical Therapy Plan Next Visit Focus/Plan Next Note Type Treatment Note Next Visit Plan Recheck [place]. Continue sport cord, shuttle balance, uneven ground, recheck gait head turns, tandem walking in//bars. POC: Continue strengthening and progress balance exercises - can work into gentle head turns but slow for now. Progress R hip stabilization, ankle stability
--- NOTE | 2021-03-09 11:17 | PT.OTN ---
Current Diagnoses Other symptoms and signs involving cognitive functions and awareness (03/09/21) Dizziness and giddiness (03/09/21) Other speech disturbances (03/09/21) History of falling (03/09/21) Physical Therapy Treatment Note PT-OP-A Visit Information Start: 01/23/21 09:27 Freq: Status: Active Protocol: Document 03/09/21 09:00 AMB (Rec: 03/09/21 09:32 AMB [id number]) Out-Patient Physical Therapy Visit Information Visit Information Visit Type Treatment Note Visit Start Time 09:00 Visit Stop Time 09:45 Total Visit Minutes 45 Visit Number 12 PT-OP-B Current Condition Start: 01/23/21 09:27 Freq: Status: Active Protocol: Document 01/23/21 10:15 AMB (Rec: 01/23/21 10:44 AMB [id number]) Current Condition History of Current Condition Onset Date A few months Current Complaints Off balance History of Current Condition Norberto reports he goes on 1 mile walk with his girlfriend and some days feels like he has difficulty walking in a straight line. Describes being off balance with head turns and moving from sit to stand. 2 falls in the last 6 months. Fell on the curb, was able to get up by himself. Reports right leg weakness since gall bladder surgery, was in the hospital for a week . Head feels fuzzy. Reports L leg swelling. Feels like falling to the left, denies spinning or symptoms with rolling over in bed. Does walk with a cane in the community at times. He and his girlfriend both have their own homes, he is driving. Treatment Goals Patient/Caregiver Goals Walk more, and be able to turn head without dizziness. Prior Functional Status Baseline Function- ADL's Modified Independent Baseline Function- Mobility Modified Independent Current Functional Impairments (Reported) Functional Limitations- ADL's Feeling of being off balance with walking, especially with turning left, does have neck pain, is on hypertension medicine, is [place] Personal Factors Other Personal Factors That May Effect History of gall bladder Therapy/Recovery surgery, history of bile duct cancer, previous bilateral carpal tunnel surgery, neck pain PT-OP-C Subjective Start: 01/23/21 09:27 Freq: Status: Active Protocol: Document 03/09/21 09:45 AMB (Rec: 03/09/21 11:12 AMB [email or web address]) OP-PT Subjective Patient Comments Patient Comments Pt states he is doing well, would like to be checked for BPPV again just ot make sure, but doesn't feel dizzy. PT-OP-D Balance Start: 01/23/21 09:27 Freq: Status: Active Protocol: Document 01/23/21 10:15 AMB (Rec: 01/23/21 16:33 AMB [email or web address]) Balance Tests Other Other Balance Tests Performed NBOS HT- fall, NBOS EC- fall, WBOS HT (small head turn)- 30 seconds ok. Walking with head turns falls left. PT-OP-G Mobility & Gait Start: 01/23/21 09:27 Freq: Status: Active Protocol: Document 01/23/21 10:15 AMB (Rec: 01/23/21 16:34 AMB [email or web address]) OP Gait Assessment Comments Gait Comments Pt ambulates without AD with WBOS with slightly veering gait. PT-OP-M Strength Start: 01/23/21 09:27 Freq: Status: Active Protocol: Document 01/23/21 10:15 AMB (Rec: 01/23/21 16:33 AMB [email or web address]) Hip Strength Hip Manual Muscle Testing Right Flexion (L2) 4 Good Extension (S1) 4 Good Abduction 4 Good Left Flexion (L2) 4+ Good+ Extension (S1) 4+ Good+ Abduction 4+ Good+ PT-OP-Q Treatments Start: 01/23/21 09:27 Freq: Status: Active Protocol: Document 03/09/21 09:45 AMB (Rec: 03/09/21 11:12 AMB [email or web address]) Gym Equipment Shuttle Recovery Bilateral Squats Details knee alignment, LE strengthening Resistance 100# Shuttle Recovery Platform Stable Reps/Time 2X10 Shuttle Balance blue Details WBOS Comments fwd/lateral slow head turns EO Therapeutic Exercises Standing Exercises hip ext Standing Exercise Name contact rail (reviewed HEP Side bilateral Reps/Minutes x10 Comments cued tall posture hip abd Standing Exercise Name reviewed HEP Side bilateral Resistance AROM Equipment Used rail (ed. counter at home for safety) Reps/Minutes 10 reps (2x day) Comments cued tall posture and leg out to side- improved with reps Gait Training Gait Activity 1 Description indoor smooth terrain Device Used none Level of Assistance SBA Comments working on feeling ok with turns-added head turns vertical and horizontal Neuro Re-Education Treatment Other Activities 1 Details Recheck Brock-Hallpike Comments negative R and L PT-OP-T Assessment and Plan Start: 01/23/21 09:27 Freq: Status: Active Protocol: Document 03/09/21 09:00 AMB (Rec: 03/09/21 09:32 AMB [id number]) Physical Therapy Assessment Goals Three Impairment Strength Short Term Goal (STG) Norberto will show improved LE strength by moving from sit to stand with good stability 5x in 20 seconds or less. STG Duration 4 weeks Two Impairment Balance Short Term Goal (STG) Norberto will be able to stand with NBOS and turn his head slowly right and left without loss of balance. STG Duration 4 weeks One Impairment Gait Short Term Goal (STG) Norberto will ambulate with horizontal head turns without veering. STG Duration 4 weeks Care Home Goal (LTG) Norberto will walk in the community over uneven terrain without AD with good safety and stability. LTG Duration 8 weeks Assessment Summary Assessment Norberto did well with his walking today. Encouraged him to continue with strengthening the right side and reassured him that at least today he showed no signs of BPPV. Physical Therapy Plan Next Visit Focus/Plan Next Note Type Treatment Note Next Visit Plan Continue sport cord, shuttle balance, uneven ground, recheck gait head turns, tandem walking in//bars. POC: Continue strengthening and progress balance exercises - can work into gentle head turns but slow for now. Progress R hip stabilization, ankle stability
--- NOTE | 2021-03-16 09:46 | PT.OTN ---
Current Diagnoses Other symptoms and signs involving cognitive functions and awareness (03/16/21) Dizziness and giddiness (03/16/21) Other speech disturbances (03/16/21) History of falling (03/16/21) Physical Therapy Treatment Note PT-OP-A Visit Information Start: 01/23/21 09:27 Freq: Status: Active Protocol: Document 03/16/21 09:00 AMB (Rec: 03/16/21 09:28 AMB [id number]) Out-Patient Physical Therapy Visit Information Visit Information Visit Type Treatment Note Visit Start Time 09:00 Visit Stop Time 09:45 Total Visit Minutes 45 Visit Number 13 PT-OP-B Current Condition Start: 01/23/21 09:27 Freq: Status: Active Protocol: Document 01/23/21 10:15 AMB (Rec: 01/23/21 10:44 AMB [id number]) Current Condition History of Current Condition Onset Date A few months Current Complaints Off balance History of Current Condition Norberto reports he goes on 1 mile walk with his girlfriend and some days feels like he has difficulty walking in a straight line. Describes being off balance with head turns and moving from sit to stand. 2 falls in the last 6 months. Fell on the curb, was able to get up by himself. Reports right leg weakness since gall bladder surgery, was in the hospital for a week . Head feels fuzzy. Reports L leg swelling. Feels like falling to the left, denies spinning or symptoms with rolling over in bed. Does walk with a cane in the community at times. He and his girlfriend both have their own homes, he is driving. Treatment Goals Patient/Caregiver Goals Walk more, and be able to turn head without dizziness. Prior Functional Status Baseline Function- ADL's Modified Independent Baseline Function- Mobility Modified Independent Current Functional Impairments (Reported) Functional Limitations- ADL's Feeling of being off balance with walking, especially with turning left, does have neck pain, is on hypertension medicine, is [place] Personal Factors Other Personal Factors That May Effect History of gall bladder Therapy/Recovery surgery, history of bile duct cancer, previous bilateral carpal tunnel surgery, neck pain PT-OP-C Subjective Start: 01/23/21 09:27 Freq: Status: Active Protocol: Document 03/16/21 09:00 AMB (Rec: 03/16/21 09:28 AMB [id number]) OP-PT Subjective Patient Comments Patient Comments Pt had a red arm after flu and pneumonia vaccine and felt a bit dizzy for a few days but hasn't felt dizzy since Friday and feels fine now. Reports BP has been within normal range. PT-OP-D Balance Start: 01/23/21 09:27 Freq: Status: Active Protocol: Document 01/23/21 10:15 AMB (Rec: 01/23/21 16:33 AMB [email or web address]) Balance Tests Other Other Balance Tests Performed NBOS HT- fall, NBOS EC- fall, WBOS HT (small head turn)- 30 seconds ok. Walking with head turns falls left. PT-OP-G Mobility & Gait Start: 01/23/21 09:27 Freq: Status: Active Protocol: Document 01/23/21 10:15 AMB (Rec: 01/23/21 16:34 AMB [email or web address]) OP Gait Assessment Comments Gait Comments Pt ambulates without AD with WBOS with slightly veering gait. PT-OP-M Strength Start: 01/23/21 09:27 Freq: Status: Active Protocol: Document 01/23/21 10:15 AMB (Rec: 01/23/21 16:33 AMB [email or web address]) Hip Strength Hip Manual Muscle Testing Right Flexion (L2) 4 Good Extension (S1) 4 Good Abduction 4 Good Left Flexion (L2) 4+ Good+ Extension (S1) 4+ Good+ Abduction 4+ Good+ PT-OP-Q Treatments Start: 01/23/21 09:27 Freq: Status: Active Protocol: Document 03/16/21 09:00 AMB (Rec: 03/16/21 09:28 AMB [id number]) Cardio Equipment Recumbent Elliptical (Biodex) Duration (Minutes) 7 Resistance 5 Gym Equipment Shuttle Recovery Unilateral Squats Details knee alignment, LE strengthening Resistance 50# Shuttle Recovery Platform Stable Reps/Time 2x10 Bilateral Squats Details knee alignment, LE strengthening Resistance 100# Shuttle Recovery Platform Stable Reps/Time 2X10 Therapeutic Exercises Standing Exercises hip ext Standing Exercise Name contact rail (reviewed HEP Side bilateral Reps/Minutes 3x10 Comments cued tall posture hip abd Standing Exercise Name reviewed HEP Side bilateral Resistance AROM Equipment Used rail (ed. counter at home for safety) Reps/Minutes 10 reps (2x day) Comments cued tall posture and leg out to side- improved with reps Gait Training Gait Activity 1 Description indoor smooth terrain Device Used none Level of Assistance SBA Comments working on feeling ok with turns-added head turns vertical and horizontal PT-OP-T Assessment and Plan Start: 01/23/21 09:27 Freq: Status: Active Protocol: Document 03/16/21 09:00 AMB (Rec: 03/16/21 09:28 AMB [id number]) Physical Therapy Assessment Goals Three Impairment Strength Short Term Goal (STG) Norberto will show improved LE strength by moving from sit to stand with good stability 5x in 20 seconds or less. STG Duration 4 weeks Two Impairment Balance Short Term Goal (STG) Norberto will be able to stand with NBOS and turn his head slowly right and left without loss of balance. STG Duration 4 weeks One Impairment Gait Short Term Goal (STG) Norberto will ambulate with horizontal head turns without veering. STG Duration 4 weeks Prison Goal (LTG) Norberto will walk in the community over uneven terrain without AD with good safety and stability. LTG Duration 8 weeks Assessment Summary Assessment Pt was relieved to again be negative with DixHallpike. Right leg continues to be weaker than left but pt feels it is coming along. Physical Therapy Plan Next Visit Focus/Plan Next Note Type Treatment Note Next Visit Plan Continue sport cord, shuttle balance, uneven ground, recheck gait head turns, tandem walking in//bars. POC: Continue strengthening and progress balance exercises - can work into gentle head turns but slow for now. Progress R hip stabilization, ankle stability
--- NOTE | 2021-03-23 13:28 | PT.OPPOC ---
Physical, Occupational & Speech Therapy At [facility] Current Diagnoses Other symptoms and signs involving cognitive functions and awareness (03/23/21) Dizziness and giddiness (03/23/21) Other speech disturbances (03/23/21) History of falling (03/23/21) Visit Care Team Role Provider Type Jack Richardson MD Family Provider Physician Primary Care Provider Specialty: Internal Medicine Address: [address] [place] [address], [facility] [address], [address] Email: [email or web address] Ubaldo Shelton MD Attending Provider Non-Staff Referring Provider Specialty: Psychiatry Address: [address] [place] [address], [id number] Email: Plan Of Care PT-OP-T Assessment and Plan Start: 01/23/21 09:27 Freq: Status: Active Protocol: Document 03/23/21 09:00 AMB (Rec: 03/23/21 09:15 AMB [id number]) Physical Therapy Assessment Goals Three Impairment Strength Short Term Goal (STG) Norberto will show improved LE strength by moving from sit to stand with good stability 5x in 20 seconds or less. STG Duration MET-12 seconds Two Impairment Balance Short Term Goal (STG) Norberto will be able to stand with NBOS and turn his head slowly right and left without loss of balance. STG Duration MET One Impairment Gait Short Term Goal (STG) Norberto will ambulate with horizontal head turns without veering. STG Duration [employer] Goal (LTG) Norberto will walk in the community over uneven terrain without AD with good safety and stability. LTG Duration MET Assessment Summary Assessment Norberto has met the majority of his goals and feels he can independently progress his exercise at this time. He is going to be returning to the gym. Encouraged him to follow up with us in the future if his BPPV returns, but at this time he is clear. Reviewed his HEP and he is doing it daily at this time. Physical Therapy Plan Frequency and Duration Frequency of Treatment 1x/Week Duration of Treatment 1 weeks Plan of Care Start Date 03/20/21 Plan of Care End Date 03/27/21 Therapeutic Interventions Therapeutic Interventions Balance Training,Gait Training ,Home Exercise Program,Manual Therapy,Neuromuscular Re- education,Self-Care/Home Management,Therapeutic Activities,Therapeutic Exercises,Vestibular Rehabilitation Discharge Physical Therapy Discharge Reasons Goals Met Next Visit Focus/Plan Next Note Type Plan of Care Dates Plan of Care Start Date 03/20/21 Plan of Care End Date 03/27/21 Electronically Signed by: Lauryn Bullock, PT 03/23/21 [id number] Please Sign and Return: I have reviewed this Plan of Care and certify that the skilled therapy services above are required to meet the patient?s needs. Physician Signature Date Printed Name and Credentials
--- NOTE | 2021-03-23 13:29 | PT.OTN ---
Current Diagnoses Other symptoms and signs involving cognitive functions and awareness (03/23/21) Dizziness and giddiness (03/23/21) Other speech disturbances (03/23/21) History of falling (03/23/21) Physical Therapy Treatment Note PT-OP-A Visit Information Start: 01/23/21 09:27 Freq: Status: Active Protocol: Document 03/23/21 09:00 AMB (Rec: 03/23/21 09:15 AMB [id number]) Out-Patient Physical Therapy Visit Information Visit Information Visit Type Treatment Note PT-OP-B Current Condition Start: 01/23/21 09:27 Freq: Status: Active Protocol: Document 01/23/21 10:15 AMB (Rec: 01/23/21 10:44 AMB [id number]) Current Condition History of Current Condition Onset Date A few months Current Complaints Off balance History of Current Condition Norberto reports he goes on 1 mile walk with his girlfriend and some days feels like he has difficulty walking in a straight line. Describes being off balance with head turns and moving from sit to stand. 2 falls in the last 6 months. Fell on the curb, was able to get up by himself. Reports right leg weakness since gall bladder surgery, was in the hospital for a week . Head feels fuzzy. Reports L leg swelling. Feels like falling to the left, denies spinning or symptoms with rolling over in bed. Does walk with a cane in the community at times. He and his girlfriend both have their own homes, he is driving. Treatment Goals Patient/Caregiver Goals Walk more, and be able to turn head without dizziness. Prior Functional Status Baseline Function- ADL's Modified Independent Baseline Function- Mobility Modified Independent Current Functional Impairments (Reported) Functional Limitations- ADL's Feeling of being off balance with walking, especially with turning left, does have neck pain, is on hypertension medicine, is [place] Personal Factors Other Personal Factors That May Effect History of gall bladder Therapy/Recovery surgery, history of bile duct cancer, previous bilateral carpal tunnel surgery, neck pain PT-OP-C Subjective Start: 01/23/21 09:27 Freq: Status: Active Protocol: Document 03/23/21 09:00 AMB (Rec: 03/23/21 09:50 AMB [email or web address]) OP-PT Subjective Patient Comments Patient Comments Norberto is going back down to [place] next week to have the doctors talk to him about his bile duct cancer and to review a brain MRI due to his word finding. PT-OP-D Balance Start: 01/23/21 09:27 Freq: Status: Active Protocol: Document 01/23/21 10:15 AMB (Rec: 01/23/21 16:33 AMB [email or web address]) Balance Tests Other Other Balance Tests Performed NBOS HT- fall, NBOS EC- fall, WBOS HT (small head turn)- 30 seconds ok. Walking with head turns falls left. PT-OP-G Mobility & Gait Start: 01/23/21 09:27 Freq: Status: Active Protocol: Document 01/23/21 10:15 AMB (Rec: 01/23/21 16:34 AMB [email or web address]) OP Gait Assessment Comments Gait Comments Pt ambulates without AD with WBOS with slightly veering gait. PT-OP-M Strength Start: 01/23/21 09:27 Freq: Status: Active Protocol: Document 01/23/21 10:15 AMB (Rec: 01/23/21 16:33 AMB [email or web address]) Hip Strength Hip Manual Muscle Testing Right Flexion (L2) 4 Good Extension (S1) 4 Good Abduction 4 Good Left Flexion (L2) 4+ Good+ Extension (S1) 4+ Good+ Abduction 4+ Good+ PT-OP-Q Treatments Start: 01/23/21 09:27 Freq: Status: Active Protocol: Document 03/23/21 09:00 AMB (Rec: 03/23/21 09:50 AMB [email or web address]) Therapeutic Exercises Sitting Exercises pirformis stretch Sitting Exercise Name review HEP Side bilateral Reps/Minutes 20 x2 Comments end tx for reduction in hip soreness and ROM improve sit<>stand Sitting Exercise Name arms out front, uses for momentum as need at this time- reviewed HEP Equipment Used 18 chair Reps/Minutes 9 reps in 30 Comments occasional cues for hip hinge slow eccentric sitting Standing Exercises heel raises Standing Exercise Name reviewed HEP Side bilateral Equipment Used contact rail Reps/Minutes x10 hip ext Standing Exercise Name contact rail (reviewed HEP Side bilateral Reps/Minutes 3x10 Comments cued tall posture hip abd Standing Exercise Name reviewed HEP Side bilateral Resistance AROM Equipment Used rail (ed. counter at home for safety) Reps/Minutes 10 reps (2x day) Comments cued tall posture and leg out to side- improved with reps Gait Training Gait Activity 1 Description indoor smooth terrain Device Used none Level of Assistance SBA Comments working on feeling ok with turns-added head turns vertical and horizontal Neuro Re-Education Treatment Balance Activities corner balance Details NBOS, Semi tandem Surface firm Equipment back to wall, chair front- hands hover chair back Reps/Duration 5 min Comments EO head turns, Cued tall posture, glut/ core fac fac between BLE. PT-OP-T Assessment and Plan Start: 01/23/21 09:27 Freq: Status: Active Protocol: Document 03/23/21 09:00 AMB (Rec: 03/23/21 09:15 AMB [id number]) Physical Therapy Assessment Goals Three Impairment Strength Short Term Goal (STG) Norberto will show improved LE strength by moving from sit to stand with good stability 5x in 20 seconds or less. STG Duration MET-12 seconds Two Impairment Balance Short Term Goal (STG) Norberto will be able to stand with NBOS and turn his head slowly right and left without loss of balance. STG Duration MET One Impairment Gait Short Term Goal (STG) Norberto will ambulate with horizontal head turns without veering. STG Duration [employer] Goal (LTG) Norberto will walk in the community over uneven terrain without AD with good safety and stability. LTG Duration MET Assessment Summary Assessment Norberto has met the majority of his goals and feels he can independently progress his exercise at this time. He is going to be returning to the gym. Encouraged him to follow up with us in the future if his BPPV returns, but at this time he is clear. Reviewed his HEP and he is doing it daily at this time. Physical Therapy Plan Frequency and Duration Frequency of Treatment 1x/Week Duration of Treatment 1 weeks Plan of Care Start Date 03/20/21 Plan of Care End Date 03/27/21 Therapeutic Interventions Therapeutic Interventions Balance Training,Gait Training ,Home Exercise Program,Manual Therapy,Neuromuscular Re- education,Self-Care/Home Management,Therapeutic Activities,Therapeutic Exercises,Vestibular Rehabilitation Discharge Physical Therapy Discharge Reasons Goals Met Next Visit Focus/Plan Next Note Type
== END 2021-07-10 09:52 ==
LOC: PHYS 09:00
PROVIDERS: Family Provider Internal Medicine; PCP Internal Medicine; Referring Provider Psychiatry & Neurology Neurology; Visit Provider Psychiatry & Neurology Neurology
DX: R47.89 Other speech disturbances (principal); Z91.81 History of falling; R41.89 Other symptoms and signs involving cognitive functions and awareness; R42 Dizziness and giddiness
CPT/HCPCS: 95992; 97110; 97112; 97116; 97162; 97535

== ENCOUNTER 2021-07-11 13:30 | Outpatient (RCR) | payer OTHER, SELFPAY ==
--- NOTE | 2021-05-22 17:35 | ST.IPIE ---
Visit Care Team Role Provider Type Jack Richardson MD Family Provider Physician Primary Care Provider Specialty: Internal Medicine Address: [address] [place] [address], [facility] [address], [place], [address] Email: [email or web address] Ubaldo Shelton MD Attending Provider Non-Staff Referring Provider Specialty: Psychiatry Address: [address] [place] [address], [id number] Email: Current Diagnoses Other symptoms and signs involving cognitive functions and awareness (05/28/21) Other speech disturbances (05/28/21) Past Medical History (Last Reviewed 02/28/21 @ 08:45 by Harjit Plasencia DO) Anxiety (Medical 06/06/14) Bile duct carcinoma (Medical) Cardiac arrhythmia (Medical 06/06/14) Carpal tunnel syndrome (Medical) Bilateral Cervical spine disease (Medical) Essential hypertension (Medical 08/04/15) History of adenomatous polyp of colon (Medical 12/27/10) History of renal calculi (Medical 12/27/10) Hyperlipidemia (Medical 08/09/16) Mild cognitive impairment (Medical) Paroxysmal atrial fibrillation (Medical) S/P carpal tunnel release (Medical) SVT (supraventricular tachycardia) (Medical) ST IP Initial Evaluation Report RETAIL WORKER Adult Cognitive Linguistic Eval Start: 05/22/21 12:41 Freq: Status: Active Protocol: Document 05/22/21 12:41 BROOKE (Rec: 05/22/21 13:33 BROOKE [email or web address]) Adult Cognitive Linguistic Evaluation Session Time Visit Start Time 12:45 Visit Stop Time 13:30 Total Visit Minutes 45 Visit Information Visit Number Initial Evaluation Plan of Care Dates 05/22/21 - 08/20/21 Insurance Information [facility] Advantage Referral Referring Provider Dr. Ubaldo Shelton Reason for Referral Word finding difficulty; sub memory Setting Assessment Location Outpatient Care Visit Type Note Type Initial evaluation Next Note Type Next Note Type Treatment Note Patient Information Identification Type Name,ID Card Medical History The pt is an 85-yr-old male with c/o significant word- finding/naming, working and short-term memory, and spelling deficits. Per medical records from Neurologist dated 12/22/20, symptoms first appeared as age-related memory issues in 2019 but WFDs worsened significantly around October 2020 after the pt underwent 3 gall bladder surgeries within a week. At that time, STM appeared to still be intact. There was some concern about stroke and MRI was ordered, but results were not available for today's evaluation. Deficits interfere with his ability to express himself, track conversations and their information, name recognizable objects, and spell words. The latter results in dependence on copying words but the pt reports being able to hold only 2 letters at a time in memory when copying. 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 Polly Henry for outpatient Speech Therapy evaluation at this clinic for the same complaints based on the same medical report. The pt did not return for treatment. At that time, evaluation included administration of [place] Naming Test (8/15 items named independently; 3 items with semantic/phonemic cues; and 4 items from multiple written choices) as well as SLUMS cognitive screening tool ( Score: 15/30, moderate cognitive deficits). Subjective Patient Report The pt arrived on time, unaccompanied. He required extensive time to complete clinic intake forms and had a difficult time explaining case history, with meandering language, unclear connections between topics, and incomplete sentences d/t word-finding difficulties. Eventually, the pt was able to communicate his ideas with interpretive effort on the part of the clinician. Assessment Oral Motor Examination Completed No Informal Assessment Receptive Language Normal No: Impacted by memory. Requires further assessment Expressive Language Normal No: Further assessment, including written expression, is required. Expressive Language Impairment(s) Automatic speech,Sentence closure/completion, Confrontation naming, Expression of basic wants/ needs,Expression of complex thoughts/ideas Pragmatic Language Normal Yes Speech Normal Yes Cognition Normal No Cognitive Impairment(s) Short-term memory,Executive functioning,Thought organization Formal Assessment Standardized Test/Screener Type Michael Cognitive Assessment (MoCA) Administration Complete Results Total Score: 16/30 (where 26 or greater is normal) Visuospatial/Executive Function: 1/5 Namin/3 Attention: 6/6 Language: 0/3 Abstraction: 2/2 Delayed Recall: 0/5 (no correct responses when provided category or multiple choice cues) Orientation: 6/6 [place] Naming Test (short form ) was also administered. The pt named 9/16 items independently; two additional items with stimulus cue; one item with phonemic cue; and three items from multiple written choices (F04). Findings/Results Language Function Moderately-severely impaired Cognitive Function Moderately-severely impaired Findings The pt presents with moderately-severely impaired expressive language and cognitive-linguistic impairment, based on spontaneous conversation and screening tools assessment. Language impairments are primarily in areas of confrontational naming and thought organization. Cognitive-linguistic impairments are primarily in areas of working and short- term memory and executive function skills. Assessment was limited d/t time constraints, and further assessment is required to determine the extent of deficits in these areas, as well as reading and writing skills. Suspect impact of multiple exposure to anesthesia in a short span of time may be, at least in part, the cause of these deficits, which seemingly appeared very suddently. Deficits significantly impact the pt's ability to effectively communicate even in simple conversation, and, per his report, memory deficits are impacting his relationships and ability to participate independently in ADLs. Skilled intervention is medically necessary for further assessment and to increase the pt's ability to communicate effectively, participate in ADLs, increase independence and quality of life. Cognitive Communication Deficits Self-awareness of Cognitive- Predictive awareness (able to Communication Deficits predict problem; impact of impairments) Impact on Functioning Activity Limits/Particip.Rest. Mild: Household Tasks Mod: General Tasks and Demands Sev: Interpersonal Interactions Community Safety Risks Mild: Reacting to Emergency Mod: Traveling Alone in Community Prognosis Comment Prognosis pending further evaluation Plan of Care Speech-Language Treatment Yes Frequency 1x/wk Duration 4 mos Patient/Caregiver Education Described results of evaluation,Patient expressed understanding of evaluation, Patient expressed agreement with goals and treatment plans ,Patient requires further education/training Short Term Goals 1. The pt will participate in further assessment of expressive, receptive, and cogntitive communication skills to identify impairments and strengths and to guide POC. 2. The pt will demonstrate understanding of word recall strategies by using them in structured tasks with 80% accuracy to improve his expressive language abilities. 3. In collaboration with RETAIL WORKER and SO, the pt will develop external memory tools (e.g, memory notebook, calendar, alarms, etc.) to assist the pt in recalling important information and maintain highest level of independence possible. 4. The pt will use conversation tracking strategies/tools (e.g., active listening skills, etc.) with 80% accuracy in structured tasks to track and recall functional conversations. Interstate Bus Driver Goals 1. Using communication strategies and tools as needed , the pt will effectively communicate with known and unknown communication partners in 75% or more opportunities.
--- NOTE | 2021-05-28 16:25 | ST.OPTN ---
Visit Care Team Role Provider Type Jack Richardson MD Family Provider Physician Primary Care Provider Address: [address] [place] [address], [address], [place], [address] Ubaldo Shelton MD Attending Provider Non-Staff Referring Provider Address: [address] [place] [address], [id number] CLOTH PATTERN MAKER Treatment Note CLOTH PATTERN MAKER Treatment Note Start: 05/22/21 12:41 Freq: Status: Active Protocol: Document 05/28/21 17:35 BROOKE (Rec: 05/28/21 17:36 BROOKE [id number]) Speech Pathology Treatment Note Session Time Visit Start Time 14:30 Visit Stop Time 15:20 Total Visit Minutes 50 Visit Information Visit Number 06/18 Plan of Care Dates 05/22/21 - 08/20/21 Insurance Information [facility] Advantage Setting Treatment Setting Outpatient Care Visit Type Note Type Treatment Note Next Note Type Next Note Type Treatment Note General Information General Information The pt is an 85-yr-old male with c/o significant word- finding/naming, working and short-term memory, and spelling deficits. Per medical records from Neurologist dated 12/22/20, symptoms first appeared as age-related memory issues in 2019 but WFDs worsened significantly around October 2020 after the pt underwent 3 gall bladder surgeries within a week. At that time, STM appeared to still be intact. There was some concern about stroke and MRI was ordered, but results were not available for today's evaluation. Deficits interfere with his ability to express himself, track conversations and their information, name recognizable objects, and spell words. The latter results in dependence on copying words but the pt reports being able to hold only 2 letters at a time in memory when copying. Subjective Observations/Patient Presentation Pt arrived on time. No new complaints. Chief Complaint(s) Language,Cognitive Rehab Expectation/Goals: Patient Goals Improve word recall and ability to express himself as per PLOF Patient Knowledge/Awareness of CLOTH PATTERN MAKER Role Good in Treatment Objective Short Term Goals The pt will participate in further assessment of expressive, receptive, and cognitive communication skills to identify impairments and strengths and to guide POC. GOAL MET 1. The pt will demonstrate understanding of word recall strategies by using them in structured tasks with 80% accuracy to improve his expressive language abilities. 2. In collaboration with CLOTH PATTERN MAKER and SO, the pt will develop external memory tools (e.g, memory notebook, calendar, alarms, etc.) to assist the pt in recalling important information and maintain highest level of independence possible. 3. The pt will use conversation tracking strategies/tools (e.g., active listening skills, etc.) with 80% accuracy in structured tasks to track and recall functional conversations. 4. The pt will complete spelling tasks of moderate complexity with 80% accuracy to improve written expression. Clinical Massage Therapist Goals 1. Using communication strategies and tools as needed , the pt will effectively communicate with known and unknown communication partners in 75% or more opportunities. 2. The pt will complete functional writing tasks (e.g. , personal information, short messages, etc.) with 80% spelling accuracy to improve written communication skills. 3. Using memory tools and strategies as needed, the pt will complete ADLs independently in 75% of all opportunities, as measured by pt/family report and clinician judgment. Treatment Activities Continued assessment of expressive and receptive language skills with the following results: Object identification and confrontational namin/12 (100%) Recognition of functions: 11/ 12 (92%), error corrected with carrier phrase. Yes/No: 10/10 (100%) Following 1-step commands: 3/3 (100%) 2-step commands: 3/4 (75%) 3-step commands: 2/3 (67%) Repeating Phrases 1-8 syllables each, 18/18 (100%); 9 syllables 0/2 (0%). Errors included misarticulation of 5- syllable word and omission of final word in sentence. Logic Questions: 8/8 (100%) with occ halting speech, slowed expressive language processing, and abandoning of original expression x1 followed by a revised sentence. Sequencing (explaining steps to tasks): 2/5 (40%); errors included omissions of casas steps. Defining Terms: 7/13 (54%) clearly defined; 1 answer was incorrect (pt defined fleeing vs fleeting); and 6 partial definitions (e.g., transportation for car). Number Recognition: 12/12 (100 %) Numeric Word Recognition: 15/ 15 (100%) Mathematic Calculations: Addition, Subtraction and Division: 21/ (100% with effort x2 in division problems ); Multiplication: 16/18 (89%) . Reading Words and Sentences Orally: 9/10 (90%) Error was an addition of a preposition into a sentence. Writing Words and Sentences: 6 /10 (60%) Pt hesitated frequently contemplating spelling and exhibited difficulty recalling latter words in longer sentences. Five spelling errors were made ; 2 words were omitted from one sentence and the final, longest sentence was abandoned d/t memory failure. Copying Sentence: 100% Writing Personal Contact Information: Name and Phone number 100%; Address: Pt initially unable to complete street address, [place], and transposed numbers of zip code. When asked to state complete address orally, he did so without error and then was able to correctly write it. Vickie Joe Oral and Written Descriptions: Oral description 100% acc in content and language; Written description: Mix of complete and incomplete sentences; 5 spelling errors, 4 ofwhich were accurately corrected. Pt independently identified and attempted to correct all errors independently. All writing was legible and appropriate in size. No physical effort in writing was noted. Assessment Patient Response to Treatment Good Rehab Potential Good Impairments Identified Auditory Processing,Cognitive- Linguistic Skills,Expressive Language,Memory - Short Term, Memory - Working,Receptive Language,Written Expression Assessment of Improvement The pt presents with mild- moderate expressive and cognitive communication deficits. Expressive language impairments primarily are in the areas of word retrieval, thought organization, and spelling. Cognitive communication impairments are primarily in the area of working and short-term memory and impact expressive. Receptive language skills are strong but largely impacted by memory deficits, making it difficult for the pt to track and follow lengthy or complex speech, such as multi-step directions. When information is presented in small chunks, comprehension is WNL. Reviewed with Patient Goals,Progress Being Made,Home Exercise Program Patient/Caregiver Understanding Good Plan Amount of Therapy Recommended 4 Months Frequency of Treatment Once a Week Length of Session 45 Minutes Treatment Emphasis Next Session External memory tools; Est HEP Therapeutic Contents Auditory Comprehension,Client Education,Cognitive-Linguistic Training,Expressive Language Training,Home Exercise Program ,Information Processing, Written Expression Provided Patient/Caregiver Instruction Home Exercise Program,Plan of Care,Questions/Concerns Therapy Recommendations Continue with Current Program
--- NOTE | 2021-06-13 14:26 | ST.OPTN ---
Visit Care Team Role Provider Type Jack Richardson MD Family Provider Physician Primary Care Provider Address: [address] [place] [address], [address], [address] Ubaldo Shelton MD Attending Provider Non-Staff Referring Provider Address: [address] [place] [address], [id number] KEY ACCOUNT REPRESENTATIVE Treatment Note KEY ACCOUNT REPRESENTATIVE Treatment Note Start: 05/22/21 12:41 Freq: Status: Active Protocol: Document 06/13/21 14:19 BROOKE (Rec: 06/13/21 14:26 BROOKE [email or web address]) Speech Pathology Treatment Note Session Time Visit Start Time 13:30 Visit Stop Time 14:15 Total Visit Minutes 45 Visit Information Visit Number 2/ Plan of Care Dates 05/22/21 - 08/20/21 Insurance Information [facility] Advantage Setting Treatment Setting Outpatient Care Visit Type Note Type Treatment Note Next Note Type Next Note Type Treatment Note General Information General Information The pt is an 85-yr-old male with c/o significant word- finding/naming, working and short-term memory, and spelling deficits. Per medical records from Neurologist dated 12/22/20, symptoms first appeared as age-related memory issues in 2019 but WFDs worsened significantly around October 2020 after the pt underwent 3 gall bladder surgeries within a week. At that time, STM appeared to still be intact. There was some concern about stroke and MRI was ordered, but results were not available for today's evaluation. Deficits interfere with his ability to express himself, track conversations and their information, name recognizable objects, and spell words. The latter results in dependence on copying words but the pt reports being able to hold only 2 letters at a time in memory when copying. Subjective Observations/Patient Presentation Pt arrived on time. No new complaints. Continues to be frustrated with WFDs. Chief Complaint(s) Language,Cognitive Rehab Expectation/Goals: Patient Goals Improve word recall and ability to express himself as per PLOF Patient Knowledge/Awareness of KEY ACCOUNT REPRESENTATIVE Role Good in Treatment Objective Short Term Goals The pt will participate in further assessment of expressive, receptive, and cognititive communication skills to identify impairments and strengths and to guide POC. GOAL MET 1. The pt will demonstrate understanding of word recall strategies by using them in structured tasks with 80% accuracy to improve his expressive language abilities. 2. In collaboration with KEY ACCOUNT REPRESENTATIVE and SO, the pt will develop external memory tools (e.g, memory notebook, calendar, alarms, etc.) to assist the pt in recalling important information and maintain highest level of independence possible. 3. The pt will use conversation tracking strategies/tools (e.g., active listening skills, etc.) with 80% accuracy in structured tasks to track and recall functional conversations. 4. The pt will complete spelling tasks of moderate complexity with 80% accuracy to improve written expression. Group Home Goals 1. Using communication strategies and tools as needed , the pt will effectively communicate with known and unknown communication partners in 75% or more opportunities. 2. The pt will complete functional writing tasks (e.g. , personal information, short messages, etc.) with 80% spelling accuracy to improve written communication skills. 3. Using memory tools and strategies as needed, the pt will complete ADLs independently in 75% of all opportunities, as measured by pt/family report and clinician judgment. Treatment Activities Initiated expressive language treatment and development of HEP. The pt completed trials of several tasks with verbal instruction, examples, and prompting as needed: Synonyms, completing sentences /paragraphs with nouns or verbs, naming items in categories, naming objects from written clues, and describing/defining objects. He required greater assistance synonyms and identifying objects from clues, as compared to other tasks. Moderate WFDs were observed throughout the session, both in structured tasks and conversation. The pt was moderately responsive to prompts to describe items or answer questions related to them. He was minimally responsive to phonemic cues. Assessment Patient Response to Treatment Good Rehab Potential Good Impairments Identified Auditory Processing,Cognitive- Linguistic Skills,Expressive Language,Memory - Short Term, Memory - Working,Receptive Language,Written Expression Assessment of Improvement Pt continues with moderate WFDs that make conversation slow, halting and at times cumbersome; however, no communication breakdowns occurred as a result, and the pt initiated use of gestures and descriptions in attempts to name items and continue conversation. He was visibly frustrated and expressed feeling so as well. He was agreeable to HEP recommendations and demonstrated stimulability with all tasks, which were also challenging to him, making them good therapeutic targets. Reviewed with Patient Goals,Progress Being Made,Home Exercise Program Patient/Caregiver Understanding Good Plan Amount of Therapy Recommended 4 Months Frequency of Treatment Once a Week Length of Session 45 Minutes Treatment Emphasis Next Session External memory tools; cont HEP; initiate semantic features analysis Therapeutic Contents Auditory Comprehension,Client Education,Cognitive-Linguistic Training,Expressive Language Training,Home Exercise Program ,Information Processing, Written Expression Provided Patient/Caregiver Instruction Home Exercise Program,Plan of Care,Questions/Concerns Therapy Recommendations Continue with Current Program
--- NOTE | 2021-06-20 17:18 | ST.OPTN ---
Visit Care Team Role Provider Type Jack Richardson MD Family Provider Physician Primary Care Provider Address: [address] [place] [address], [address], [place], [address] Ubaldo Shelton MD Attending Provider Non-Staff Referring Provider Address: [address] [place] [address], [id number] HEEL COVERER Treatment Note HEEL COVERER Treatment Note Start: 05/22/21 12:41 Freq: Status: Active Protocol: Document 06/20/21 13:24 BROOKE (Rec: 06/20/21 13:25 BROOKE [id number]) Speech Pathology Treatment Note Session Time Visit Start Time 12:30 Visit Stop Time 13:20 Total Visit Minutes 50 Visit Information Visit Number 3/ Plan of Care Dates 05/22/21 - 08/20/21 Insurance Information [facility] Advantage Setting Treatment Setting Outpatient Care Visit Type Note Type Treatment Note Next Note Type Next Note Type Treatment Note General Information General Information The pt is an 85-yr-old male with c/o significant word- finding/naming, working and short-term memory, and spelling deficits. Per medical records from Neurologist dated 12/22/20, symptoms first appeared as age-related memory issues in 2019 but WFDs worsened significantly around October 2020 after the pt underwent 3 gall bladder surgeries within a week. At that time, STM appeared to still be intact. There was some concern about stroke and MRI was ordered, but results were not available for today's evaluation. Deficits interfere with his ability to express himself, track conversations and their information, name recognizable objects, and spell words. The latter results in dependence on copying words but the pt reports being able to hold only 2 letters at a time in memory when copying. Subjective Observations/Patient Presentation Pt arrived on time. No new complaints. Continues to be frustrated with WFDs. Chief Complaint(s) Language,Cognitive Rehab Expectation/Goals: Patient Goals Improve word recall and ability to express himself as per PLOF Patient Knowledge/Awareness of HEEL COVERER Role Good in Treatment Objective Short Term Goals The pt will participate in further assessment of expressive, receptive, and cognititive communication skills to identify impairments and strengths and to guide POC. GOAL MET 1. The pt will demonstrate understanding of word recall strategies by using them in structured tasks with 80% accuracy to improve his expressive language abilities. 2. In collaboration with HEEL COVERER and SO, the pt will develop external memory tools (e.g, memory notebook, calendar, alarms, etc.) to assist the pt in recalling important information and maintain highest level of independence possible. 3. The pt will use conversation tracking strategies/tools (e.g., active listening skills, etc.) with 80% accuracy in structured tasks to track and recall functional conversations. 4. The pt will complete spelling tasks of moderate complexity with 80% accuracy to improve written expression. Halfway Goals 1. Using communication strategies and tools as needed , the pt will effectively communicate with known and unknown communication partners in 75% or more opportunities. 2. The pt will complete functional writing tasks (e.g. , personal information, short messages, etc.) with 80% spelling accuracy to improve written communication skills. 3. Using memory tools and strategies as needed, the pt will complete ADLs independently in 75% of all opportunities, as measured by pt/family report and clinician judgment. Treatment Activities Assessed pt's word recall via homework tasks. Pt completed categorical naming tasks listing 3 items in each category with 100% acc. He named objects based on clues with 60% acc. Errors were related to clues generally but not specifically. For example , sleep in response to warm , wool, bed. He verbalized understanding of corrections. The pt read paragraphs aloud, filling in blanks with appropriate words (100% acc). Reading was accurate with 4 misarticulations, which the pt self-corrected. Recommended the pt read aloud daily to increase exposure and attention to words and promote oral word production. The pt identified woodworking magazines as good references to read. During conversation, the pt discussed a plumbing issue he is having at home, as well as his woodworking hobby . Fluency of speech was frequently interrupted by WFDs , which the pt acknowledged with frustration. He was inconsistently responsive to semantic and phonemic cues and used gestures effectively to assist communication. He indicated that communication deficits have contributed to decline in participation of his woodworking hobby. Assessment Patient Response to Treatment Good Rehab Potential Good Impairments Identified Auditory Processing,Cognitive- Linguistic Skills,Expressive Language,Memory - Short Term, Memory - Working,Receptive Language,Written Expression Assessment of Improvement Pt continues with moderate WFDs that make conversation slow, halting and at times cumbersome. Pt's response to cues is inconsistent. Dequincy categorical naming skills were stronger than more abstract convergent naming skills. Recommended the pt read aloud daily for reasons stated above. Will incorporate reading and picture descriptions into treatment sessions, using the pt's [employer] hobby as a salient topic. Reviewed with Patient Goals,Progress Being Made,Home Exercise Program Patient/Caregiver Understanding Good Plan Amount of Therapy Recommended 4 Months Frequency of Treatment Once a Week Length of Session 45 Minutes Treatment Emphasis Next Session External memory tools; reading /describing [employer] hobby Therapeutic Contents Auditory Comprehension,Client Education,Cognitive-Linguistic Training,Expressive Language Training,Home Exercise Program ,Information Processing, Written Expression Provided Patient/Caregiver Instruction Home Exercise Program,Plan of Care,Questions/Concerns Therapy Recommendations Continue with Current Program
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
--- NOTE | 2021-07-04 17:57 | ST.OPTN ---
Visit Care Team Role Provider Type Jack Richardson MD Family Provider Physician Primary Care Provider Address: [address] [place] [address], [address], [place], [address] Ubaldo Shelton MD Attending Provider Non-Staff Referring Provider Address: [address] [place] [address], [id number] F[address]IGHT Treatment Note [address] FREIGHT Treatment Note Start: 05/22/21 12:41 Freq: Status: Active Protocol: Document 07/04/21 17:51 BROOKE (Rec: 07/04/21 17:57 BROOKE [id number]) Speech Pathology Treatment Note Session Time Visit Start Time 13:30 Visit Stop Time 14:15 Total Visit Minutes 45 Visit Information Visit Number 10/16 Plan of Care Dates 05/22/21 - 08/20/21 Insurance Information [facility] Advantage Setting Treatment Setting Outpatient Care Visit Type Note Type Treatment Note Next Note Type Next Note Type Treatment Note General Information General Information The pt is an 85-yr-old male with c/o significant word- finding/naming, working and short-term memory, and spelling deficits. Per medical records from Neurologist dated 12/22/20, symptoms first appeared as age-related memory issues in 2019 but WFDs worsened significantly around October 2020 after the pt underwent 3 gall bladder surgeries within a week. At that time, STM appeared to still be intact. There was some concern about stroke and MRI was ordered, but results were not available for today's evaluation. Deficits interfere with his ability to express himself, track conversations and their information, name recognizable objects, and spell words. The latter results in dependence on copying words but the pt reports being able to hold only 2 letters at a time in memory when copying. Subjective Observations/Patient Presentation Pt arrived on time. No new complaints. Continues to be frustrated with WFDs. Brought a magazine with him for reading tasks. Chief Complaint(s) Language,Cognitive Rehab Expectation/Goals: Patient Goals Improve word recall and ability to express himself as per PLOF Patient Knowledge/Awareness of [address] FREIGHT Role Good in Treatment Objective Short Term Goals The pt will participate in further assessment of expressive, receptive, and cognititive communication skills to identify impairments and strengths and to guide POC. GOAL MET 1. The pt will demonstrate understanding of word recall strategies by using them in structured tasks with 80% accuracy to improve his expressive language abilities. 2. In collaboration with [address] FREIGHT and SO, the pt will develop external memory tools (e.g, memory notebook, calendar, alarms, etc.) to assist the pt in recalling important information and maintain highest level of independence possible. 3. The pt will use conversation tracking strategies/tools (e.g., active listening skills, etc.) with 80% accuracy in structured tasks to track and recall functional conversations. 4. The pt will complete spelling tasks of moderate complexity with 80% accuracy to improve written expression. Nursing Home Goals 1. Using communication strategies and tools as needed , the pt will effectively communicate with known and unknown communication partners in 75% or more opportunities. 2. The pt will complete functional writing tasks (e.g. , personal information, short messages, etc.) with 80% spelling accuracy to improve written communication skills. 3. Using memory tools and strategies as needed, the pt will complete ADLs independently in 75% of all opportunities, as measured by pt/family report and clinician judgment. Treatment Activities Targeted expressive language skills via reading aloud from magazine of pt's choice. The pt read a full magazine page with 7 articulatory errors, all with multisyllabic words. Trained pt in syllable segmentation. With [address] FREIGHT guidance and repetition, the pt read multisyllabic words with increased ease and fluency. The pt continued to display difficulty recalling the word computer, though he was able to orally spell it correctly. Given pen and paper, the pt wrote the word correctly and continued with difficulty reading, omitting the first syllable (com). With segmentation, he improved with this word as well. Consulted with him on script use for functional conversations. He stated he felt they were a good idea. Did not feel he needed a script to explain his expressive language deficits. Will continue to develop in future sessions. Assessment Patient Response to Treatment Good Rehab Potential Good Impairments Identified Auditory Processing,Cognitive- Linguistic Skills,Expressive Language,Memory - Short Term, Memory - Working,Receptive Language,Written Expression Assessment of Improvement Pt exhibited increased difficulty reading multisyllabic words, benefiting from syllable segmentation. Computer continues to be a difficult word for him to retrieve, though spelling it on paper was helpful. Reviewed with Patient Goals,Progress Being Made,Home Exercise Program Patient/Caregiver Understanding Good Plan Amount of Therapy Recommended 4 Months Frequency of Treatment Once a Week Length of Session 45 Minutes Treatment Emphasis Next Session External memory tools; scripts Therapeutic Contents Auditory Comprehension,Client Education,Cognitive-Linguistic Training,Expressive Language Training,Home Exercise Program ,Information Processing, Written Expression Provided Patient/Caregiver Instruction Home Exercise Program,Plan of Care,Questions/Concerns Therapy Recommendations Continue with Current Program
--- NOTE | 2021-07-11 14:50 | ST.OPTN ---
Visit Care Team Role Provider Type Jack Richardson MD Family Provider Physician Primary Care Provider Address: [address] [place] [address], [address], [place], [address] Ubaldo Shelton MD Attending Provider Non-Staff Referring Provider Address: [address] [place] [address], [address] LIVER TRIMMER Treatment Note LIVER TRIMMER Treatment Note Start: 05/22/21 12:41 Freq: Status: Active Protocol: Document 07/11/21 14:26 BROOKE (Rec: 07/11/21 14:50 BROOKE [id number]) Speech Pathology Treatment Note Session Time Visit Start Time 13:30 Visit Stop Time 14:25 Total Visit Minutes 55 Visit Information Visit Number 11/16 Plan of Care Dates 05/22/21 - 08/20/21 Insurance Information [facility] Advantage Setting Treatment Setting Outpatient Care Visit Type Note Type Treatment Note Next Note Type Next Note Type Treatment Note General Information General Information The pt is an 85-yr-old male with c/o significant word- finding/naming, working and short-term memory, and spelling deficits. Per medical records from Neurologist dated 12/22/20, symptoms first appeared as age-related memory issues in 2019 but WFDs worsened significantly around October 2020 after the pt underwent 3 gall bladder surgeries within a week. At that time, STM appeared to still be intact. There was some concern about stroke and MRI was ordered, but results were not available for today's evaluation. Deficits interfere with his ability to express himself, track conversations and their information, name recognizable objects, and spell words. The latter results in dependence on copying words but the pt reports being able to hold only 2 letters at a time in memory when copying. Subjective Observations/Patient Presentation Pt arrived on time. No new complaints. Continues to be frustrated with WFDs. Chief Complaint(s) Language,Cognitive Rehab Expectation/Goals: Patient Goals Improve word recall and ability to express himself as per PLOF Patient Knowledge/Awareness of LIVER TRIMMER Role Good in Treatment Patient/Caregiver Compliance with Home Good Exercise Program Objective Short Term Goals SOME PROGRESS MADE; GOALS NOT MET 1. The pt will demonstrate understanding of word recall strategies by using them in structured tasks with 80% accuracy to improve his expressive language abilities. 2. In collaboration with LIVER TRIMMER and SO, the pt will develop external memory tools (e.g, memory notebook, calendar, alarms, etc.) to assist the pt in recalling important information and maintain highest level of independence possible. 3. The pt will use conversation tracking strategies/tools (e.g., active listening skills, etc.) with 80% accuracy in structured tasks to track and recall functional conversations. 4. The pt will complete spelling tasks of moderate complexity with 80% accuracy to improve written expression. Mcfp Goals 1. Using communication strategies and tools as needed , the pt will effectively communicate with known and unknown communication partners in 75% or more opportunities. 2. The pt will complete functional writing tasks (e.g. , personal information, short messages, etc.) with 80% spelling accuracy to improve written communication skills. 3. Using memory tools and strategies as needed, the pt will complete ADLs independently in 75% of all opportunities, as measured by pt/family report and clinician judgment. Treatment Activities Targeted expressive language skills via confrontational naming (96% acc), picture description (95% acc), and phrase completion (synonyms 100% acc and antonyms 88% acc) . Frequent WFDs that disrupted the flow of conversation were noted during spontaneous speech. The pt used gestures and descriptions to communicate, both in structured tasks and conversation. He was responsive to extended time, phonemic prompts, and carrier phrase prompts. During synonym naming task, he was able to create a sentence using the original word and then substitute the word with a synonym, doing so with increased independence over the span of the task. Skilled feedback was provided with recommendations for carrying over these prompts into conversational speech. Discussed POC. The pt requested discharge from services d/t slow progress, a very busy schedule, and expensive copay responsibilities. LIVER TRIMMER invited the pt to let his PCP know if he would ever like to return for additional services when life is not so hectic. He declined offer for additional HEP tasks to continue rehab work independently. Assessment Patient Response to Treatment Good Rehab Potential Good Impairments Identified Auditory Processing,Cognitive- Linguistic Skills,Expressive Language,Memory - Short Term, Memory - Working,Receptive Language,Written Expression Progress Towards Goals Slow Progress Assessment of Improvement Over the course of treatment, the pt has made slow and minimal progress in improving word recall skills, particularly in spontaneous conversation, although notable progress has been made in structured tasks. The pt continues to feel significant frustration from these communication limitations. Because his reading skills are strong, it is recommended that the pt (with assistance as needed from /family) continue to develop written scripts for information/ conversations that he repeats frequently (e.g., medical history, household projects, etc.). Such scripts were initiated in treatment but with limited development. Continued reading aloud and completion of structured HEP tasks provided by this LIVER TRIMMER are also recommended. It has been a pleasure to work with this patient, and opportunity to continue therapy would be welcomed by this LIVER TRIMMER. Continued progress is anticipated to be slow but possible. Reviewed with Patient Goals,Progress Being Made,Home Exercise Program Patient/Caregiver Understanding Good Plan Amount of Therapy Recommended No Further Therapy Treatment Emphasis Next Session External memory tools; scripts Therapeutic Contents Auditory Comprehension,Client Education,Cognitive-Linguistic Training,Expressive Language Training,Home Exercise Program ,Information Processing, Written Expression Provided Patient/Caregiver Instruction Home Exercise Program,Plan of Care,Questions/Concerns Therapy Recommendations Discharge from Speech Therapy Comment Per pt request
== END 2021-07-12 08:22 | disposition home or self-care (01) ==
LOC: SP 13:30
PROVIDERS: Family Provider Internal Medicine; PCP Internal Medicine; Referring Provider Psychiatry & Neurology Neurology; Visit Provider Psychiatry & Neurology Neurology
DX: R47.89 Other speech disturbances (principal); R41.89 Other symptoms and signs involving cognitive functions and awareness
CPT/HCPCS: 92507; 92523

== ENCOUNTER → 2021-07-24 09:21 | Outpatient (CLI) | payer OTHER, SELFPAY ==
--- NOTE | 2021-07-24 | DI.RAD.S_ITS ---
PROCEDURE: XR CALCANEOUS LT MIN 2V INDICATIONS: LEFT HEEL PAIN TECHNIQUE: Two views of the calcaneus were acquired. COMPARISON: None. FINDINGS: Bones: No fractures or dislocations. There is a small plantar calcaneal enthesophyte. No suspicious bony lesions. Soft tissues: No suspicious calcifications. Achilles tendon appears normal. IMPRESSION: 1. No definite fracture identified. 2. Small plantar calcaneal enthesophyte is nonspecific but may be associated with plantar fasciitis. Dictated by: Sandip Crook M.D. on 07/24/2021 at 14:56 Approved by: Sandip Crook M.D. on 07/24/2021 at 14:58
== END ==
PROVIDERS: Family Provider Internal Medicine; PCP Family Medicine; Referring Provider Family Medicine; Visit Provider Family Medicine
DX: M77.32 Calcaneal spur, left foot (principal); M79.672 Pain in left foot
CPT/HCPCS: 73650

== ENCOUNTER 2021-09-06 07:49 | Emergency (ER) | payer OTHER, SELFPAY ==
[2021-09-06] VITALS (42 sets, daily range): BP systolic 91–202; BP diastolic 50–102; PULSE 52–95; RESP 12–32; TEMP 36.8–39.1; O2SAT 91–97; BMI 24.0
--- NOTE | 2021-09-06 08:08 | DI.RAD.S_ITS ---
PROCEDURE: XR CHEST 1V INDICATIONS: suspected sepsis TECHNIQUE: One view of the chest was acquired. COMPARISON: [facility], CR, XR CHEST 1V, 10/23/2020, 20:03. FINDINGS: Surgical changes and devices: None. Lungs and pleura: Lungs are clear. No pleural effusions or pneumothorax. Mediastinum: Mild cephalization and congestion of central vasculature. Mediastinal contour is otherwise normal. Heart size is normal. Bones and chest wall: No suspicious bony lesions. Degenerative changes in both glenohumeral joints. Overlying soft tissues appear unremarkable. IMPRESSION: 1. Findings of slight central vascular congestion without pulmonary edema. Dictated by: Marry Steele M.D. on 09/06/2021 at 8:51 Approved by: Marry Steele M.D. on 09/06/2021 at 8:52
--- NOTE | 2021-09-06 08:17 | ED_ITS ---
HPI - Abdominal Pain <Lorenzo Bro MD - Last Filed: 09/13/21 22:18> General Chief Complaint: Fever Stated Complaint: Shaking, abd pain, vomiting Time Seen by Provider: 09/06/21 08:05 Source: patient Mode of arrival: Family Vehicle History of Present Illness HPI narrative: Patient denies any chest pain or dyspnea cough cold congestion. Patient here with . For the past 2 weeks has been taking antacids for heartburn. However this morning had vomiting and fever and epigastric pain. Has had decreased urine output as well. No dysuria. Denies any back pain. Fever noted. Denies any sick contacts. Related Data Home Medications Medication Instructions Recorded Confirmed VITAMIN D (Vitamin D3) 2,000 u PO DAILY #0 07/25/12 09/06/21 calcium carbonate 200 mg calcium 200 mg PO BID PRN 10/20/20 09/06/21 (500 mg) chewable tablet (Tums) aspirin 81 mg chewable tablet 81 mg PO DAILY 09/06/21 09/06/21 atenolol 25 mg tablet 25 mg PO DAILY 09/06/21 09/06/21 diltiazem HCl 120 mg 120 mg PO DAILY 09/06/21 09/06/21 capsule,extended release 24 hr (Cardizem CD) ranitidine HCl 75 mg tablet 75 mg PO DAILY 09/06/21 09/06/21 Previous Rx's Medication Instructions Recorded pravastatin 80 mg tablet 80 mg PO HS #90 tab 12/22/20 potassium chloride 8 mEq 8 meq PO QDAY #90 tab 01/16/21 tablet,extended release (Klor-Con) hydrochlorothiazide 25 mg tablet 25 mg PO QDAY #90 tab 01/29/21 tamsulosin 0.4 mg capsule (Flomax) 0.4 mg PO QDAY #90 cap 03/07/21 Allergies Allergy/AdvReac Type Severity Reaction Status Date / Time atorvastatin [ATORVASTATIN] Allergy Unknown WEAKNESS/BODY Verified 09/06/21 12:12 ACHES citalopram AdvReac Intermediate Off Verified 09/06/21 12:12 Balance/Head felt stuffed. lisinopril AdvReac Intermediate slow hr Verified 09/06/21 12:12 Review of Systems <Lorenzo Bro MD - Last Filed: 09/13/21 22:18> Review of Systems Narrative: GENERAL: Positive for chills, fatigue, malaise, fever, sweats. HEENT: Denies sinus pain, ear pain, sore throat RESPIRATORY: Denies dyspnea, cough CARDIOVASCULAR: Denies chest pain, palpitations GASTROINTESTINAL: Positive for nausea, vomiting, abdominal pain : Denies dysuria, frequency, hematuria MUSCULOSKELETAL: denies muscle or bony pain SKIN: Denies rash, skin lesions NEUROLOGIC: Denies weakness, numbness ROS Unobtainable: All systems reviewed & are unremarkable except as noted in HPI and below Patient History <Lorenzo Bro MD - Last Filed: 09/13/21 22:18> Medical History Anxiety (06/06/14) Bile duct carcinoma Cardiac arrhythmia (06/06/14) Carpal tunnel syndrome Cervical spine disease Essential hypertension (08/04/15) History of adenomatous polyp of colon (12/27/10) History of renal calculi (12/27/10) Hyperlipidemia (08/09/16) Mild cognitive impairment Paroxysmal atrial fibrillation SVT (supraventricular tachycardia) Surgical History S/P carpal tunnel release Family History Father Family history of Alzheimer's disease Social History marital status: number of children: 0 household members: none lives independently: Yes caregiver/support person: Yes housing: house pets and animals: No education level: high school occupational status: other current occupational exposures/hazards: No Previous occupational history: [employer] destini/quaker: None Smoking Status: Former smoker Tobacco: How many years used: 10 Smokeless tobacco user: other quit status: quit date established second hand exposure: No alcohol intake: never substance use type: does not use Smoking Status: Former smoker alcohol intake frequency: holidays/special occasions only Substance Use Type: does not use Exam <Lorenzo Bro MD - Last Filed: 09/13/21 22:18> Narrative Exam Narrative: GENERAL: in no distress, not toxic not dyspneic HEAD: Normocephalic. EYES: Pupils equal round No scleral icterus. ENT: Mucous membranes moist. NECK: Trachea midline. CARDIOVASCULAR: Regular rate and rhythm without murmurs RESPIRATORY: Clear to auscultation. Breath sounds equal bilaterally. No wheezes, rales, or rhonchi. Tachypneic GASTROINTESTINAL: Abdomen soft, epigastric tenderness no rebound tenderness no peritoneal signs, bowel sounds present. Abdomen is flat. EXTREMITIES: No gross deformities. NEURO: AOx4. SKIN: Warm and dry PSYCH: Not anxious, is cooperative Initial Vital Signs Initial Vital Signs: Vital Signs Pulse Rate 81 09/06/21 08:00 Respiratory Rate 18 09/06/21 08:00 Pulse Oximetry 95 09/06/21 08:00 <Saundra Diallo MD - Last Filed: 09/07/21 03:43> Initial Vital Signs Initial Vital Signs: Vital Signs Pulse Rate 81 09/06/21 08:00 Respiratory Rate 18 09/06/21 08:00 Pulse Oximetry 95 09/06/21 08:00 Course <Lorenzo Bro MD - Last Filed: 09/13/21 22:18> Course Course Narrative: No new issues during course of stay 6:00 p.m.. Sign out to Dr. Stock. Patient is on waiting list for multiple hospitals for acceptance. Will need a repeat antibiotic. Orders Ordered: Discontinued Medications Acetaminophen (Acetaminophen 650 Mg Supp) 650 mg MD NOW ONE Stop: 09/06/21 08:16 Last Admin: 09/06/21 08:33 Dose: 650 mg Documented by: ALMA Hydromorphone HCl (Hydromorphone 0.5 Mg Inj) 0.5 mg IV Q15MIN PRN PRN Reason: Pain, Last Admin: 09/07/21 03:55 Dose: 0.5 mg Documented by: Admin: 09/06/21 23:55 Dose: 0.5 mg Documented by: GEOVANNA Sodium Chloride (Normal Saline 0.9%) 1,000 mls @ 1,000 mls/hr IV BOLUS ONE Stop: 09/06/21 09:07 Last Infusion: 09/06/21 09:48 Dose: 0 mls/hr Documented by: Admin: 09/06/21 08:34 Dose: 1,000 mls/hr Documented by: ALMA Sodium Chloride (Normal Saline 0.9%) 1,000 mls @ 1,000 mls/hr IV BOLUS ONE Stop: 09/06/21 09:14 Last Admin: 09/06/21 09:47 Dose: Not Given Documented by: ALMA Piperacillin Sod/Tazobactam (Sod 4.5 gm/ Sodium Chloride) 100 mls @ 200 mls/hr IV NOW ONE Stop: 09/06/21 10:40 Last Infusion: 09/06/21 11:55 Dose: 0 mls/hr Documented by: Admin: 09/06/21 11:11 Dose: 200 mls/hr Documented by: ALMA Piperacillin Sod/Tazobactam (Sod 4.5 gm/ Sodium Chloride) 100 mls @ 200 mls/hr IV NOW ONE Stop: 09/06/21 17:27 Last Infusion: 09/06/21 18:30 Dose: 0 mls/hr Documented by: Admin: 09/06/21 17:44 Dose: 200 mls/hr Documented by: SREE Sodium Chloride (Normal Saline 0.9%) 1,000 mls @ 75 mls/hr IV CONT NIKOLE Last Infusion: 09/07/21 04:07 Dose: 0 mls/hr Documented by: Admin: 09/06/21 18:00 Dose: 75 mls/hr Documented by: SREE Piperacillin Sod/Tazobactam (Sod 3.375 gm/ Sodium Chloride) 100 mls @ 25 mls/hr IV Q8H [facility] Last Infusion: 09/07/21 04:08 Dose: 0 mls/hr Documented by: Admin: 09/07/21 01:22 Dose: 25 mls/hr Documented by: ALBERT Ondansetron HCl (Ondansetron 4 Mg/2 Ml Inj) 4 mg IV NOW ONE Stop: 09/06/21 08:16 Last Admin: 09/06/21 08:34 Dose: 4 mg Documented by: ALMA Ondansetron HCl (Ondansetron 4 Mg/2 Ml Inj) 4 mg IV NOW ONE Stop: 09/07/21 04:00 Last Admin: 09/07/21 04:02 Dose: 4 mg Documented by: ALBERT Reevaluation(s) Reevaluation #1: Reviewed results with patient and , patient feeling much better. Blood pressure improved. Fever resolved. They understand need for transfer to [place] again this year for ERCP. Time: 10:44 Consultations Consultation #1: Spoke with Dr. Jeffers, general surgeon here, will likely need ERCP. Will need to be transferred Time: 10:44 Vital Signs Vital signs: Vital Signs - 8 hr 09/06/21 20:00 09/06/21 20:30 09/06/21 21:00 Temperature Pulse Rate 60 63 62 Respiratory Rate 14 16 14 Blood Pressure 103/56 L 125/63 134/72 Pulse Oximetry 97 96 94 09/06/21 21:30 09/06/21 22:00 09/06/21 22:30 Temperature Pulse Rate 62 61 65 Respiratory Rate 20 14 24 Blood Pressure 127/60 140/71 119/68 Pulse Oximetry 95 95 95 09/06/21 23:00 09/06/21 23:30 09/06/21 23:31 Temperature Pulse Rate 62 62 69 Respiratory Rate 20 12 20 Blood Pressure 149/64 H 137/65 Pulse Oximetry 96 95 96 09/07/21 00:00 09/07/21 00:30 09/07/21 01:00 Temperature Pulse Rate 62 60 57 L Respiratory Rate 12 12 12 Blood Pressure 136/66 149/70 H 147/73 H Pulse Oximetry 96 96 97 09/07/21 01:30 Temperature 98 F Pulse Rate 53 L Respiratory Rate 19 Blood Pressure Pulse Oximetry 94 <Saundra Diallo MD - Last Filed: 09/07/21 03:43> Orders Ordered: Discontinued Medications Acetaminophen (Acetaminophen 650 Mg Supp) 650 mg MD NOW ONE Stop: 09/06/21 08:16 Last Admin: 09/06/21 08:33 Dose: 650 mg Documented by: ALMA Hydromorphone HCl (Hydromorphone 0.5 Mg Inj) 0.5 mg IV Q15MIN PRN PRN Reason: Pain, Last Admin: 09/07/21 03:55 Dose: 0.5 mg Documented by: Admin: 09/06/21 23:55 Dose: 0.5 mg Documented by: GEOVANNA Sodium Chloride (Normal Saline 0.9%) 1,000 mls @ 1,000 mls/hr IV BOLUS ONE Stop: 09/06/21 09:07 Last Infusion: 09/06/21 09:48 Dose: 0 mls/hr Documented by: Admin: 09/06/21 08:34 Dose: 1,000 mls/hr Documented by: ALMA Sodium Chloride (Normal Saline 0.9%) 1,000 mls @ 1,000 mls/hr IV BOLUS ONE Stop: 09/06/21 09:14 Last Admin: 09/06/21 09:47 Dose: Not Given Documented by: ALMA Piperacillin Sod/Tazobactam (Sod 4.5 gm/ Sodium Chloride) 100 mls @ 200 mls/hr IV NOW ONE Stop: 09/06/21 10:40 Last Infusion: 09/06/21 11:55 Dose: 0 mls/hr Documented by: Admin: 09/06/21 11:11 Dose: 200 mls/hr Documented by: ALMA Piperacillin Sod/Tazobactam (Sod 4.5 gm/ Sodium Chloride) 100 mls @ 200 mls/hr IV NOW ONE Stop: 09/06/21 17:27 Last Infusion: 09/06/21 18:30 Dose: 0 mls/hr Documented by: Admin: 09/06/21 17:44 Dose: 200 mls/hr Documented by: SREE Sodium Chloride (Normal Saline 0.9%) 1,000 mls @ 75 mls/hr IV CONT NIKOLE Last Infusion: 09/07/21 04:07 Dose: 0 mls/hr Documented by: Admin: 09/06/21 18:00 Dose: 75 mls/hr Documented by: SREE Piperacillin Sod/Tazobactam (Sod 3.375 gm/ Sodium Chloride) 100 mls @ 25 mls/hr IV Q8H [facility] Last Infusion: 09/07/21 04:08 Dose: 0 mls/hr Documented by: Admin: 09/07/21 01:22 Dose: 25 mls/hr Documented by: ALBERT Ondansetron HCl (Ondansetron 4 Mg/2 Ml Inj) 4 mg IV NOW ONE Stop: 09/06/21 08:16 Last Admin: 09/06/21 08:34 Dose: 4 mg Documented by: ALMA Ondansetron HCl (Ondansetron 4 Mg/2 Ml Inj) 4 mg IV NOW ONE Stop: 09/07/21 04:00 Last Admin: 09/07/21 04:02 Dose: 4 mg Documented by: ALBERT Vital Signs Vital signs: Vital Signs - 8 hr 09/06/21 20:00 09/06/21 20:30 09/06/21 21:00 Temperature Pulse Rate 60 63 62 Respiratory Rate 14 16 14 Blood Pressure 103/56 L 125/63 134/72 Pulse Oximetry 97 96 94 09/06/21 21:30 09/06/21 22:00 09/06/21 22:30 Temperature Pulse Rate 62 61 65 Respiratory Rate 20 14 24 Blood Pressure 127/60 140/71 119/68 Pulse Oximetry 95 95 95 09/06/21 23:00 09/06/21 23:30 09/06/21 23:31 Temperature Pulse Rate 62 62 69 Respiratory Rate 20 12 20 Blood Pressure 149/64 H 137/65 Pulse Oximetry 96 95 96 09/07/21 00:00 09/07/21 00:30 09/07/21 01:00 Temperature Pulse Rate 62 60 57 L Respiratory Rate 12 12 12 Blood Pressure 136/66 149/70 H 147/73 H Pulse Oximetry 96 96 97 09/07/21 01:30 Temperature 98 F Pulse Rate 53 L Respiratory Rate 19 Blood Pressure Pulse Oximetry 94 MDM - Abdominal Pain <Lorenzo Bro MD - Last Filed: 09/13/21 22:18> Differential Diagnosis Differential diagnosis: Likely abdominal pain, acute appendicitis, diverticulitis, pancreatitis, small bowel obstruction and other (Cholangitis) Lab Data Result diagrams: 09/06/21 08:30 09/06/21 08:30 Labs: Lab Results 09/06/21 09/06/21 09/06/21 Range/Units 08:30 08:30 08:30 WBC 4.2 L (4.5-11.0) X10^3/uL RBC 4.40 L (4.5-5.9) X10^6/uL Hgb 14.8 (13.5-17.5) g/dL Hct 43.3 (41-53) % MCV 98.3 (80-100) fL MCH 33.7 (26-34) PG MCHC 34.2 (30-36) % RDW 12.9 (11.6-14.8) % Plt Count 131 L (150-400) X10^3/uL Neut % (Auto) 90.9 H (50-75) % Lymph % (Auto) 5.6 L (25-40) % [place] % (Auto) 2.8 L (3-14) % Eos % (Auto) 0.6 L (2-4) % Baso % (Auto) 0.1 (0-2) % Neut # (Auto) 3800 (5150-9941) /uL Lymph # (Auto) 200 L (1425-9844) /uL [place] # (Auto) 100 (0-900) /uL Eos # (Auto) 0 (0-450) /uL Baso # (Auto) 0 (0-100) /uL Sodium 139 (137-145) mmol/L Potassium 3.9 (3.4-5.1) mmol/L Chloride 102 (98-107) mmol/L Carbon Dioxide 32 (22-32) mmol/L BUN 22 H (9-20) mg/dL Creatinine 1.11 (0.66-1.25) mg/dL Estimated GFR > 60.0 (>60) mL/min BUN/Creatinine Ratio 19.8 (6-22) Glucose 121 H (80-110) mg/dL Lactate 1.2 (0.7-2.1) mmol/L Calcium 9.4 (8.4-10.2) mg/dL Total Bilirubin 2.6 H (0.2-1.3) mg/dL AST 796 H (17-59) IU/L ALT 655 H (<50) IU/L Alkaline Phosphatase 299 H (38-126) U/L Total Creatine Kinase 103 (55-170) U/L CK-MB (CK-2) 2.62 H (<2.37) ng/mL CK-MB (CK-2) Rel Index 2.5 (1.5-5.0) % Troponin I < 0.012 (0.01-0.034) ng/mL Total Protein 7.5 (6.3-8.2) g/dL Albumin 4.2 (3.5-5.0) g/dL Globulin 3.3 (1.7-4.1) g/dL Albumin/Globulin Ratio 1.3 (1.0-2.8) Lipase 88 (23-300) U/L Procalcitonin 0.34 (<0.5) ng/mL A. baumannii (PCR) (Not Detect) Chlamy pneumoniae PCR (Not Detect) Adenovirus (PCR) (Not Detect) B. pertussis DNA (PCR) (Not Detecte) B.parapertussis DNA PCR (Not Detecte) Maria L albicans (PCR) (Not Detect) C. glabrata (PCR) (Not Detect) C. krusei (PCR) (Not Detect) C. parapsilosis (PCR) (Not Detect) C. tropicalis (PCR) (Not Detect) Coronavirus OC43 (PCR) (Not Detect) Coronavirus HKU1 (PCR) (Not Detect) Coronavirus 229E (PCR) (Not Detect) SARS-CoV-2 (PCR) (Not Detecte) Coronavirus NL63 (PCR) (Not Detect) Enterobacteriac sp PCR (Not Detect) E. cloacae complex PCR (Not Detect) Enterococcus sp PCR (Not Detect) E. coli (PCR) (Not Detect) H. influenzae (PCR) (Not Detect) Human Metapneumovir PCR (Not Detect) Influenza Type A (PCR) (Not Detect) Influenza Type B (PCR) (Not Detect) Klebsiella oxytoca PCR (Not Detect) Klebsiella pneumoniae (Not Detect) List. monocytogenes PCR (Not Detect) M. pneumoniae (PCR) (Not Detect) N. meningitidis (PCR) (Not Detect) Parainfluenza 1 (PCR) (Not Detect) Parainfluenza 2 (PCR) (Not Detect) Parainfluenza 3 (PCR) (Not Detect) Parainfluenza 4 (PCR) (Not Detect) Proteus species (PCR) (Not Detect) RSV (PCR) (Not Detect) Entero/Rhino (PCR) (Not Detect) Serratia marcescens PCR (Not Detect) Staphylococcus sp PCR (Not Detect) Staph aureus (PCR) (Not Detect) mecA-Methicil Res Gene Streptococcus sp PCR (Not Detect) Group A Strep (PCR) (Not Detect) Strep agalactiae (PCR) (Not Detect) Strep pneumoniae (PCR) (Not Detect) P. aeruginosa (PCR) (Not Detect) Sim/B-Vanco Res Genes KPC-Carbap Res Gene PCR (Not Detect) 09/06/21 09/06/21 Range/Units 08:30 08:57 WBC (4.5-11.0) X10^3/uL RBC (4.5-5.9) X10^6/uL Hgb (13.5-17.5) g/dL Hct (41-53) % MCV (80-100) fL MCH (26-34) PG MCHC (30-36) % RDW (11.6-14.8) % Plt Count (150-400) X10^3/uL Neut % (Auto) (50-75) % Lymph % (Auto) (25-40) % [place] % (Auto) (3-14) % Eos % (Auto) (2-4) % Baso % (Auto) (0-2) % Neut # (Auto) (4110-0777) /uL Lymph # (Auto) (4844-5919) /uL [place] # (Auto) (0-900) /uL Eos # (Auto) (0-450) /uL Baso # (Auto) (0-100) /uL Sodium (137-145) mmol/L Potassium (3.4-5.1) mmol/L Chloride (98-107) mmol/L Carbon Dioxide (22-32) mmol/L BUN (9-20) mg/dL Creatinine (0.66-1.25) mg/dL Estimated GFR (>60) mL/min BUN/Creatinine Ratio (6-22) Glucose (80-110) mg/dL Lactate (0.7-2.1) mmol/L Calcium (8.4-10.2) mg/dL Total Bilirubin (0.2-1.3) mg/dL AST (17-59) IU/L ALT (<50) IU/L Alkaline Phosphatase (38-126) U/L Total Creatine Kinase (55-170) U/L CK-MB (CK-2) (<2.37) ng/mL CK-MB (CK-2) Rel Index (1.5-5.0) % Troponin I (0.01-0.034) ng/mL Total Protein (6.3-8.2) g/dL Albumin (3.5-5.0) g/dL Globulin (1.7-4.1) g/dL Albumin/Globulin Ratio (1.0-2.8) Lipase (23-300) U/L Procalcitonin (<0.5) ng/mL A. baumannii (PCR) Not detected (Not Detect) Chlamy pneumoniae PCR Not detected (Not Detect) Adenovirus (PCR) Not detected (Not Detect) B. pertussis DNA (PCR) Not detected (Not Detecte) B.parapertussis DNA PCR Not detected (Not Detecte) Maria L albicans (PCR) Not detected (Not Detect) C. glabrata (PCR) Not detected (Not Detect) C. krusei (PCR) Not detected (Not Detect) C. parapsilosis (PCR) Not detected (Not Detect) C. tropicalis (PCR) Not detected (Not Detect) Coronavirus OC43 (PCR) Not detected (Not Detect) Coronavirus HKU1 (PCR) Not detected (Not Detect) Coronavirus 229E (PCR) Not detected (Not Detect) SARS-CoV-2 (PCR) Not detected (Not Detecte) Coronavirus NL63 (PCR) Not detected (Not Detect) Enterobacteriac sp PCR Detected H (Not Detect) E. cloacae complex PCR Detected H (Not Detect) Enterococcus sp PCR Not detected (Not Detect) E. coli (PCR) Not detected (Not Detect) H. influenzae (PCR) Not detected (Not Detect) Human Metapneumovir PCR Not detected (Not Detect) Influenza Type A (PCR) Not detected (Not Detect) Influenza Type B (PCR) Not detected (Not Detect) Klebsiella oxytoca PCR Not detected (Not Detect) Klebsiella pneumoniae Detected H (Not Detect) List. monocytogenes PCR Not detected (Not Detect) M. pneumoniae (PCR) Not detected (Not Detect) N. meningitidis (PCR) Not detected (Not Detect) Parainfluenza 1 (PCR) Not detected (Not Detect) Parainfluenza 2 (PCR) Not detected (Not Detect) Parainfluenza 3 (PCR) Not detected (Not Detect) Parainfluenza 4 (PCR) Not detected (Not Detect) Proteus species (PCR) Not detected (Not Detect) RSV (PCR) Not detected (Not Detect) Entero/Rhino (PCR) Not detected (Not Detect) Serratia marcescens PCR Not detected (Not Detect) Staphylococcus sp PCR Not detected (Not Detect) Staph aureus (PCR) Not detected (Not Detect) mecA-Methicil Res Gene Not Reportable Streptococcus sp PCR Not detected (Not Detect) Group A Strep (PCR) Not detected (Not Detect) Strep agalactiae (PCR) Not detected (Not Detect) Strep pneumoniae (PCR) Not detected (Not Detect) P. aeruginosa (PCR) Not detected (Not Detect) Sim/B-Vanco Res Genes Not Reportable KPC-Carbap Res Gene PCR Not detected (Not Detect) Point of care testing: Urine Dip Bedside Urine Glucose Negative Bedside Urine Bilirubin - Negative Bedside Urine Ketone - Negative Urine Specific [place] 1.015 Bedside Urine Occult Blood - Negative Bedside Urine pH 7.5 Bedside Urine Protein - Negative Bedside Urine Urobilinogen - Negative Bedside Urine Nitrite - Negative Bedside Urine Leukocytes - Negative Esterase Imaging Data CT scan - abdomen/pelvis: Radiologist's Impression: [address] [address] [address] Scan Report Signed Patient: Roel Vickers MR#: [id number] : 1935 Acct:[id number] Age/Sex: 86 / M Date of Service: 09/06/21 Loc: ED Accession Number: [id number] ?? Procedure: CT chest abd pel w con Ordering Provider: Lorenzo Bro MD PROCEDURE:? CT CHEST ABD PEL W CON ? INDICATIONS:? iv contrast only,? epigastric pain ? TECHNIQUE:? After the administration of intravenous contrast, 5 mm thick sections acquired from the lung apices to the symphysis.? 5 mm coronal and sagittal reformats were perform ed, with additional 7 mm MIP reformats through the lungs.? For radiation dose reduction, the following was used:? automated exposure control, adjustment of mA and/or kV according to patient size.? ? COMPARISON:? [facility], CT, CT ANGIO CHEST ABDOMEN PELVIS, 07/30/2020, 9:58. ? FINDINGS:? Image quality:? Excellent.? ? CHEST:? Lungs and pleura:? No acute airspace opacities.? No pleural effusions or pneumothorax.? Central and peripheral airways appear patent and normal in caliber.? ? Mediastinum:? Heart size is normal.? No pericardial effusion.? No mediastinal or hilar adenopathy by size criteria.? Thoracic aorta and central pulmonary arteries are normal in size.? Esophagus is normal in caliber. Scattered atheromatous calcifications are present within the aortic arch. ? No hiatal hernia.? ? Chest wall:? No axillary or supraclavicular adenopathy by size criteria.? The right thyroid lobe has a normal appearance.? A cystic lesion is present within the left thyroid lobe which is unchanged from the study dated July 30, 2020. ? ? ABDOMEN:? Solid organs:? Liver is normal in size and enhancement.? Gallbladder surgically absent .? Trace pneumobilia is present within the central liver.? There is very mild intrahepatic biliary ductal dilatation that is decreased when compared with the study dated July 30, 2020.? There is a central metallic biliary stent which appears partially p atent and partially filled with soft tissue or debris.? Pancreas enhances normally.? Spleen is normal in size and enhancement.? No adrenal nodules.? Kidneys demonstrate normal size and enhancement, without hydronephrosis.? ? Peritoneum and bowel:? Bowel loops demonstrate normal wall thickness and ca liber.? There are scattered sigmoid diverticula. No evidence for diverticulitis. The appendix is thin walled and gas filled. No free fluid or air.? ? Nodes and vessels:? No retroperitoneal or mesenteric adenopathy by size criteria.? Aorta and inferior vena cava are normal in size.? ? Miscellaneous:? No ventral hernias.? ? ? PELVIS:? Genitourinary:? Bladder wall thickness is normal.? ? Miscellaneous:? No inguinal adenopathy.? There is a small left-sided fat containing inguinal hernia. ? Bones:? No suspicious bony lesions.? No vertebral body compression fractures.? ? IMPRESSION:? ? 1. Trace intrahepatic biliary ductal dilatation in the setting of a metallic biliary stent, which is likely within normal limits.? The stent is partially filled with soft tissue, fluid or debris, however, there are no findings to suggest obstruction of the stent.? ? 2. No acute intra-abdominal findings.? Normal appendix.? Diverticulosis.? No acute diverticulitis.? ? Dictated by: Enriqueta Duron M.D. on 09/06/2021 at 9:51 ? ? Approved by: Enriqueta Duron M.D. on 09/06/2021 at 10:03 ? Chest x-ray: Radiologist's Impression: [address] [address] XRay Report Signed Patient: Roel Vickers MR#: [id number] : 1935 Acct:[id number] Age/Sex: 86 / M Date of Service: 09/06/21 Loc: ED Accession Number: [id number] ?? Procedure: XR chest 1V Ordering Provider: Lorenzo Bro MD PROCEDURE:? XR CHEST 1V ? INDICATIONS:? suspected sepsis ? TECHNIQUE:? One view of the chest was acquired.? ? COMPARISON:? [facility], CR, XR CHEST 1V, 10/23/2020, 20:03. ? FINDINGS:? ? Surgical changes and devices:? None.? ? Lungs and pleura:? Lungs are clear.? No pleural effusions or pneumothorax.? ? Mediastinum:? Mild cephalization and congestion of central vasculature.? Mediastinal contour is otherwise normal.? Heart size is normal. ? Bones and chest wall:? No suspicious bony lesions.? Degenerative changes in both glenohumeral joints.? Overlying soft tissues appear unremarkable.? ? IMPRESSION:? ? 1. Findings of slight central vascular congestion without pulmonary edema.? ? ? Dictated by: Marry Steele M.D. on 09/06/2021 at 8:51 ? ? Approved by: Marry Steele M.D. on 09/06/2021 at 8:52 ? ECG Data Interpretation: Normal sinus rhythm rate [address] elevation or depression <Saundra Diallo MD - Last Filed: 09/07/21 03:43> Lab Data Labs: Lab Results 09/06/21 09/06/21 09/06/21 Range/Units 08:30 08:30 08:30 WBC 4.2 L (4.5-11.0) X10^3/uL RBC 4.40 L (4.5-5.9) X10^6/uL Hgb 14.8 (13.5-17.5) g/dL Hct 43.3 (41-53) % MCV 98.3 (80-100) fL MCH 33.7 (26-34) PG MCHC 34.2 (30-36) % RDW 12.9 (11.6-14.8) % Plt Count 131 L (150-400) X10^3/uL Neut % (Auto) 90.9 H (50-75) % Lymph % (Auto) 5.6 L (25-40) % [place] % (Auto) 2.8 L (3-14) % Eos % (Auto) 0.6 L (2-4) % Baso % (Auto) 0.1 (0-2) % Neut # (Auto) 3800 (4495-6296) /uL Lymph # (Auto) 200 L (1164-6061) /uL [place] # (Auto) 100 (0-900) /uL Eos # (Auto) 0 (0-450) /uL Baso # (Auto) 0 (0-100) /uL Sodium 139 (137-145) mmol/L Potassium 3.9 (3.4-5.1) mmol/L Chloride 102 (98-107) mmol/L Carbon Dioxide 32 (22-32) mmol/L BUN 22 H (9-20) mg/dL Creatinine 1.11 (0.66-1.25) mg/dL Estimated GFR > 60.0 (>60) mL/min BUN/Creatinine Ratio 19.8 (6-22) Glucose 121 H (80-110) mg/dL Lactate 1.2 (0.7-2.1) mmol/L Calcium 9.4 (8.4-10.2) mg/dL Total Bilirubin 2.6 H (0.2-1.3) mg/dL AST 796 H (17-59) IU/L ALT 655 H (<50) IU/L Alkaline Phosphatase 299 H (38-126) U/L Total Creatine Kinase 103 (55-170) U/L CK-MB (CK-2) 2.62 H (<2.37) ng/mL CK-MB (CK-2) Rel Index 2.5 (1.5-5.0) % Troponin I < 0.012 (0.01-0.034) ng/mL Total Protein 7.5 (6.3-8.2) g/dL Albumin 4.2 (3.5-5.0) g/dL Globulin 3.3 (1.7-4.1) g/dL Albumin/Globulin Ratio 1.3 (1.0-2.8) Lipase 88 (23-300) U/L Procalcitonin 0.34 (<0.5) ng/mL A. baumannii (PCR) (Not Detect) Chlamy pneumoniae PCR (Not Detect) Adenovirus (PCR) (Not Detect) B. pertussis DNA (PCR) (Not Detecte) B.parapertussis DNA PCR (Not Detecte) Maria L albicans (PCR) (Not Detect) C. glabrata (PCR) (Not Detect) C. krusei (PCR) (Not Detect) C. parapsilosis (PCR) (Not Detect) C. tropicalis (PCR) (Not Detect) Coronavirus OC43 (PCR) (Not Detect) Coronavirus HKU1 (PCR) (Not Detect) Coronavirus 229E (PCR) (Not Detect) SARS-CoV-2 (PCR) (Not Detecte) Coronavirus NL63 (PCR) (Not Detect) Enterobacteriac sp PCR (Not Detect) E. cloacae complex PCR (Not Detect) Enterococcus sp PCR (Not Detect) E. coli (PCR) (Not Detect) H. influenzae (PCR) (Not Detect) Human Metapneumovir PCR (Not Detect) Influenza Type A (PCR) (Not Detect) Influenza Type B (PCR) (Not Detect) Klebsiella oxytoca PCR (Not Detect) Klebsiella pneumoniae (Not Detect) List. monocytogenes PCR (Not Detect) M. pneumoniae (PCR) (Not Detect) N. meningitidis (PCR) (Not Detect) Parainfluenza 1 (PCR) (Not Detect) Parainfluenza 2 (PCR) (Not Detect) Parainfluenza 3 (PCR) (Not Detect) Parainfluenza 4 (PCR) (Not Detect) Proteus species (PCR) (Not Detect) RSV (PCR) (Not Detect) Entero/Rhino (PCR) (Not Detect) Serratia marcescens PCR (Not Detect) Staphylococcus sp PCR (Not Detect) Staph aureus (PCR) (Not Detect) mecA-Methicil Res Gene Streptococcus sp PCR (Not Detect) Group A Strep (PCR) (Not Detect) Strep agalactiae (PCR) (Not Detect) Strep pneumoniae (PCR) (Not Detect) P. aeruginosa (PCR) (Not Detect) Sim/B-Vanco Res Genes KPC-Carbap Res Gene PCR (Not Detect) 09/06/21 09/06/21 Range/Units 08:30 08:57 WBC (4.5-11.0) X10^3/uL RBC (4.5-5.9) X10^6/uL Hgb (13.5-17.5) g/dL Hct (41-53) % MCV (80-100) fL MCH (26-34) PG MCHC (30-36) % RDW (11.6-14.8) % Plt Count (150-400) X10^3/uL Neut % (Auto) (50-75) % Lymph % (Auto) (25-40) % [place] % (Auto) (3-14) % Eos % (Auto) (2-4) % Baso % (Auto) (0-2) % Neut # (Auto) (2553-9296) /uL Lymph # (Auto) (6074-5148) /uL [place] # (Auto) (0-900) /uL Eos # (Auto) (0-450) /uL Baso # (Auto) (0-100) /uL Sodium (137-145) mmol/L Potassium (3.4-5.1) mmol/L Chloride (98-107) mmol/L Carbon Dioxide (22-32) mmol/L BUN (9-20) mg/dL Creatinine (0.66-1.25) mg/dL Estimated GFR (>60) mL/min BUN/Creatinine Ratio (6-22) Glucose (80-110) mg/dL Lactate (0.7-2.1) mmol/L Calcium (8.4-10.2) mg/dL Total Bilirubin (0.2-1.3) mg/dL AST (17-59) IU/L ALT (<50) IU/L Alkaline Phosphatase (38-126) U/L Total Creatine Kinase (55-170) U/L CK-MB (CK-2) (<2.37) ng/mL CK-MB (CK-2) Rel Index (1.5-5.0) % Troponin I (0.01-0.034) ng/mL Total Protein (6.3-8.2) g/dL Albumin (3.5-5.0) g/dL Globulin (1.7-4.1) g/dL Albumin/Globulin Ratio (1.0-2.8) Lipase (23-300) U/L Procalcitonin (<0.5) ng/mL A. baumannii (PCR) Not detected (Not Detect) Chlamy pneumoniae PCR Not detected (Not Detect) Adenovirus (PCR) Not detected (Not Detect) B. pertussis DNA (PCR) Not detected (Not Detecte) B.parapertussis DNA PCR Not detected (Not Detecte) Maria L albicans (PCR) Not detected (Not Detect) C. glabrata (PCR) Not detected (Not Detect) C. krusei (PCR) Not detected (Not Detect) C. parapsilosis (PCR) Not detected (Not Detect) C. tropicalis (PCR) Not detected (Not Detect) Coronavirus OC43 (PCR) Not detected (Not Detect) Coronavirus HKU1 (PCR) Not detected (Not Detect) Coronavirus 229E (PCR) Not detected (Not Detect) SARS-CoV-2 (PCR) Not detected (Not Detecte) Coronavirus NL63 (PCR) Not detected (Not Detect) Enterobacteriac sp PCR Detected H (Not Detect) E. cloacae complex PCR Detected H (Not Detect) Enterococcus sp PCR Not detected (Not Detect) E. coli (PCR) Not detected (Not Detect) H. influenzae (PCR) Not detected (Not Detect) Human Metapneumovir PCR Not detected (Not Detect) Influenza Type A (PCR) Not detected (Not Detect) Influenza Type B (PCR) Not detected (Not Detect) Klebsiella oxytoca PCR Not detected (Not Detect) Klebsiella pneumoniae Detected H (Not Detect) List. monocytogenes PCR Not detected (Not Detect) M. pneumoniae (PCR) Not detected (Not Detect) N. meningitidis (PCR) Not detected (Not Detect) Parainfluenza 1 (PCR) Not detected (Not Detect) Parainfluenza 2 (PCR) Not detected (Not Detect) Parainfluenza 3 (PCR) Not detected (Not Detect) Parainfluenza 4 (PCR) Not detected (Not Detect) Proteus species (PCR) Not detected (Not Detect) RSV (PCR) Not detected (Not Detect) Entero/Rhino (PCR) Not detected (Not Detect) Serratia marcescens PCR Not detected (Not Detect) Staphylococcus sp PCR Not detected (Not Detect) Staph aureus (PCR) Not detected (Not Detect) mecA-Methicil Res Gene Not Reportable Streptococcus sp PCR Not detected (Not Detect) Group A Strep (PCR) Not detected (Not Detect) Strep agalactiae (PCR) Not detected (Not Detect) Strep pneumoniae (PCR) Not detected (Not Detect) P. aeruginosa (PCR) Not detected (Not Detect) Sim/B-Vanco Res Genes Not Reportable KPC-Carbap Res Gene PCR Not detected (Not Detect) Point of care testing: Urine Dip Bedside Urine Glucose Negative Bedside Urine Bilirubin - Negative Bedside Urine Ketone - Negative Urine Specific [place] 1.015 Bedside Urine Occult Blood - Negative Bedside Urine pH 7.5 Bedside Urine Protein - Negative Bedside Urine Urobilinogen - Negative Bedside Urine Nitrite - Negative Bedside Urine Leukocytes - Negative Esterase MDM Narrative Medical decision making narrative: Care is assumed of this 86-year-old gentleman with a prior history of choledocholithiasis post cholecystectomy and biliary stent placement at [facility] in [place] approximately a year ago. Pt has an expressive aphasia so history details are somewhat difficult to ascertain. This morning with epigastric pain, vomiting and fever. CT scan of the abdomen reveals trace intrahepatic biliary ductal dilatation with biliary stent in place. The stent is partially filled with soft tissue fluid or debris without obvious obstruction. White blood cell count and procalcitonin are not elevated, elevated total bili at 2.6 AST 796, ALT 655, alkaline phosphatase 299. Care is reviewed with surgeon here in [facility] who recommended transfer with anticipation of ERCP. Attempts are initiated to find accepting hospital and none are available [place] and [place] [address]. Antibiotics are initiated and maintenance IV fluids are continued. 09/07/21 1am patient has done well over the evening. He has requested single additional dose of pain medication. Additional phone calls are again being placed to look for additional bed options. Apparently ERCP is not available at [facility] this week. He remains on Zosyn. Morning lab work will be ordered. may have availability. Calls to [facility], [place], [place], [facility] and all pending 2:20 am Discussion with hospitalist, Dr Littlejohn at [address] ERCP 08/03/2020 per notes in Epic. 08/15/2020 Repeat ERCP but details unclear. Pt also accepted by GI, Dr Parson Pt notified of plans. Waiting for bed availabilty to arrange transport. 340am 09/10 blood cultures showing gram neg rods. Pt has been on zosyn for 24 hours 345 Transport here Discharge Plan [facility] Imp[facility]: Acute cholangitis, Blood bacterial culture positive Prescriptions: No Action VITAMIN D (Vitamin D3) 2,000 u PO DAILY Qty: 0 0RF pravastatin 80 mg tablet 80 mg PO HS Qty: 90 3RF potassium chloride [Klor-Con 8] 8 mEq tablet extended release 8 meq PO QDAY Qty: 90 3RF hydrochlorothiazide 25 mg tablet 25 mg PO QDAY Qty: 90 3RF tamsulosin [Flomax] 0.4 mg capsule 0.4 mg PO QDAY Qty: 90 3RF calcium carbonate [Tums] 200 mg calcium (500 mg) tablet,chewable 200 mg PO BID PRN (Reason: heartburn) 0RF aspirin 81 mg Tablet,Chewable 81 mg PO DAILY 0RF atenolol 25 mg Tablet 25 mg PO DAILY 0RF ranitidine HCl [Heartburn Relief (ranitidine)] 75 mg Tablet 75 mg PO DAILY 0RF diltiazem HCl [Cardizem CD] 120 mg Capsule,Extended Release 24hr 120 mg PO DAILY 0RF Referrals: Alvaro Hamilton MD [Primary Care Provider] -
[2021-09-06] MEDS: ACETAMINOPHEN 650 MG SUPP PR (08:33)
[2021-09-06] MEDS: SODIUM CHLORIDE 0.9% 1,000 ML 1000 ML IV (08:34)
[2021-09-06] MEDS: ONDANSETRON 4 MG/2 ML INJ IV (08:34)
[2021-09-06 08:41] LABS: Add Manual Diff / Slide Review NO; Basophils Absolute Auto 0 /uL (0-100); Basophils Percent Auto 0.1 % (0-2); Eosinophils Absolute Auto 0 /uL (0-450); Eosinophils Percent Auto 0.6 % (2-4); Hematocrit 43.3 % (41-53); Hemoglobin 14.8 g/dL (13.5-17.5); Lymphocytes Absolute Auto 200 /uL (1100-4500); Lymphocytes Percent Auto 5.6 % (25-40); Mean Corpuscular HGB Conc 34.2 % (30-36); Mean Corpuscular Hemoglobin 33.7 PG (26-34); Mean Corpuscular Volume 98.3 fL (80-100); Monocytes Absolute Auto 100 /uL (0-900); Monocytes Percent Auto 2.8 % (3-14); Neutrophils Absolute Auto 3800 /uL (1500-7000); Neutrophils Percent Auto 90.9 % (50-75); Platelet Count 131 X10^3/uL (150-400); Red Cell Distribution Width 12.9 % (11.6-14.8); White Blood Cell Count 4.2 X10^3/uL (4.5-11.0)
[2021-09-06 08:57] LABS: Alanine Aminotransferase 655 IU/L (<50); Albumin 4.2 g/dL (3.5-5.0); Albumin Globulin Ratio 1.3 (1.0-2.8); Alkaline Phosphatase 299 U/L (38-126); BUN Creatinine Ratio 19.8 (6-22); Bilirubin Total 2.6 mg/dL (0.2-1.3); Blood Urea Nitrogen 22 mg/dL (9-20); Calcium 9.4 mg/dL (8.4-10.2); Carbon Dioxide 32 mmol/L (22-32); Chloride 102 mmol/L (98-107); Creatine Kinase 103 U/L (55-170); Estimated Glomerular Filt Rate > 60.0 mL/min (>60); Globulin 3.3 g/dL (1.7-4.1); Glucose 121 mg/dL (80-110); HEMOLYSIS < 15 (0-50); Lactate (Lactic Acid) 1.2 mmol/L (0.7-2.1); Lipase 88 U/L (23-300); Potassium 3.9 mmol/L (3.4-5.1); Sodium 139 mmol/L (137-145); Total Protein 7.5 g/dL (6.3-8.2)
[2021-09-06 09:06] LABS: Aspartate Aminotransferase 796 IU/L (17-59)
[2021-09-06 09:09] LABS: Troponin I < 0.012 ng/mL (0.01-0.034)
[2021-09-06 09:13] LABS: Procalcitonin 0.34 ng/mL (<0.5)
[2021-09-06 09:15] LABS: CKMB % Relative Index 2.5 % (1.5-5.0); Creatine Kinase MB 2.62 ng/mL (<2.37)
--- NOTE | 2021-09-06 09:30 | DI.CT.S_ITS ---
PROCEDURE: CT CHEST ABD PEL W CON INDICATIONS: iv contrast only, epigastric pain TECHNIQUE: After the administration of intravenous contrast, 5 mm thick sections acquired from the lung apices to the symphysis. 5 mm coronal and sagittal reformats were performed, with additional 7 mm MIP reformats through the lungs. For radiation dose reduction, the following was used: automated exposure control, adjustment of mA and/or kV according to patient size. COMPARISON: [facility], CT, CT ANGIO CHEST ABDOMEN PELVIS, 07/30/2020, 9:58. FINDINGS: Image quality: Excellent. CHEST: Lungs and pleura: No acute airspace opacities. No pleural effusions or pneumothorax. Central and peripheral airways appear patent and normal in caliber. Mediastinum: Heart size is normal. No pericardial effusion. No mediastinal or hilar adenopathy by size criteria. Thoracic aorta and central pulmonary arteries are normal in size. Esophagus is normal in caliber. Scattered atheromatous calcifications are present within the aortic arch. No hiatal hernia. Chest wall: No axillary or supraclavicular adenopathy by size criteria. The right thyroid lobe has a normal appearance. A cystic lesion is present within the left thyroid lobe which is unchanged from the study dated July 30, 2020. ABDOMEN: Solid organs: Liver is normal in size and enhancement. Gallbladder surgically absent . Trace pneumobilia is present within the central liver. There is very mild intrahepatic biliary ductal dilatation that is decreased when compared with the study dated July 30, 2020. There is a central metallic biliary stent which appears partially patent and partially filled with soft tissue or debris. Pancreas enhances normally. Spleen is normal in size and enhancement. No adrenal nodules. Kidneys demonstrate normal size and enhancement, without hydronephrosis. Peritoneum and bowel: Bowel loops demonstrate normal wall thickness and caliber. There are scattered sigmoid diverticula. No evidence for diverticulitis. The appendix is thin walled and gas filled. No free fluid or air. Nodes and vessels: No retroperitoneal or mesenteric adenopathy by size criteria. Aorta and inferior vena cava are normal in size. Miscellaneous: No ventral hernias. PELVIS: Genitourinary: Bladder wall thickness is normal. Miscellaneous: No inguinal adenopathy. There is a small left-sided fat containing inguinal hernia. Bones: No suspicious bony lesions. No vertebral body compression fractures. IMPRESSION: 1. Trace intrahepatic biliary ductal dilatation in the setting of a metallic biliary stent, which is likely within normal limits. The stent is partially filled with soft tissue, fluid or debris, however, there are no findings to suggest obstruction of the stent. 2. No acute intra-abdominal findings. Normal appendix. Diverticulosis. No acute diverticulitis. Dictated by: Enriqueta Duron M.D. on 09/06/2021 at 9:51 Approved by: Enriqueta Duron M.D. on 09/06/2021 at 10:03
[2021-09-06 09:50] LABS: Adenovirus Not Detected (Not Detect); B. parapertussis Not Detected (Not Detecte); Bordetella pertussis Not Detected (Not Detecte); Chlamydophila pneumoniae Not Detected (Not Detect); Coronavirus 229E Not Detected (Not Detect); Coronavirus HKU1 Not Detected (Not Detect); Coronavirus NL 63 Not Detected (Not Detect); Coronavirus OC43 Not Detected (Not Detect); Human Metapneumovirus Not Detected (Not Detect); Human Rhinovirus/Enterovirus Not Detected (Not Detect); Influenza A Not Detected (Not Detect); Influenza B Not Detected (Not Detect); Mycoplasma pneumoniae Not Detected (Not Detect); Parainfluenza Virus 1 Not Detected (Not Detect); Parainfluenza Virus 2 Not Detected (Not Detect); Parainfluenza Virus 3 Not Detected (Not Detect); Parainfluenza Virus 4 Not Detected (Not Detect); Respiratory Syncytial Virus Not Detected (Not Detect); SARS- CoV-2 Not Detected (Not Detecte)
[2021-09-06] MEDS: PIPERACILLIN/TAZO 4.5 GM in SODIUM CHLORIDE 0.9% 100 ML 200 ML IV ×2 (11:11→17:44)
[2021-09-06] MEDS: SODIUM CHLORIDE 0.9% 1,000 ML 75 ML IV (18:00)
--- NOTE | 2021-09-06 18:06 | PC.NURSE ---
Pt helped to sit up and given apple juice, tolerated well.
--- NOTE | 2021-09-06 18:29 | PC.NURSE ---
Pt given chicken broth and tolerated well.
[2021-09-06 23:28] LABS: Acinetobacter baumannii Not Detected (Not Detect); Candida albicans Not Detected (Not Detect); Candida glabrata Not Detected (Not Detect); Candida krusei Not Detected (Not Detect); Candida parapsilosis Not Detected (Not Detect); Candida tropicalis Not Detected (Not Detect); E. coli Not Detected (Not Detect); Enterobacter cloacae complex Detected (Not Detect); Enterobacteriaceae species Detected (Not Detect); Enterococcus species Not Detected (Not Detect); Haemophilus influenzae Not Detected (Not Detect); KPC (carbapenem-resist gene) Not Detected (Not Detect); Listeria monocytogenes Not Detected (Not Detect); Neisseria meningitidis Not Detected (Not Detect); Proteus species Not Detected (Not Detect); Pseudomonas aeruginosa Not Detected (Not Detect); Serratia marcescens Not Detected (Not Detect); Staphylococcus species Not Detected (Not Detect); Streptococcus agalactiae (Gr B Not Detected (Not Detect); Streptococcus pneumonia Not Detected (Not Detect); Streptococcus pyogenes (Gr A) Not Detected (Not Detect); Streptococcus species Not Detected (Not Detect)
--- NOTE | 2021-09-06 23:45 | PC.NURSE ---
After noting blood cultures and notifying DR Diallo,his iv fluids were increased to 125 ml per hour per DR Churchill verbal order.
[2021-09-06] MEDS: HYDROMORPHONE 0.5 MG INJ IV (23:55)
[2021-09-07] VITALS (8 sets, daily range): BP systolic 136–168; BP diastolic 66–83; PULSE 52–63; RESP 12–20; TEMP 36.6; O2SAT 94–97
[2021-09-07] MEDS: PIPERACILLIN/TAZO 3.375 GM in SODIUM CHLORIDE 0.9% 100 ML 25 ML IV (01:22)
[2021-09-07] MEDS: HYDROMORPHONE 0.5 MG INJ IV (03:55)
[2021-09-07] MEDS: ONDANSETRON 4 MG/2 ML INJ IV (04:02)
== END 2021-09-07 04:15 | disposition short-term general hospital (02) ==
PROVIDERS: Emergency Medicine; Emergency Provider Emergency Medicine; Family Provider Internal Medicine; PCP Family Medicine
DX: K83.09 Other cholangitis (principal); R78.81 Bacteremia; Z87.891 Personal history of nicotine dependence
CPT/HCPCS: 36415; 71045; 71260; 74177; 80053; 81003; 82550; 82553; 83605; 83690; 84145; 84484; 85025; 87040; 87150; 87186; 87205; 87633; 93005; 96361; 96365; 96366; 96375; 96376; 99285; J1170; J2405; J2543

== ENCOUNTER → 2021-09-27 13:43 | Outpatient (CLI) | payer OTHER, SELFPAY ==
--- NOTE | 2021-10-17 11:01 | P.HOLT.S_ITS ---
[facility] Report Referral & Results Date Patient Seen: 09/27/21 Requesting provider: Alvaro Hamilton Indication: Atrial fibrillation Duration of monitoring (days): 14 Diary information: There are no patient events to review Data: Minimum heart rate identified was 40 beats per minute at 13:21 on 10/01/2021 Maximum sinus heart rate was 93 beats per minute at 17:07 on 10/01/2021 Maximum overall heart rate was 184 beats per minute at 07:04 on 10/10/2021 during a run of SVT Approximately 3.8% of identified beats were supraventricular ectopic in origin which would classify them as occasional Less than 1% of identified beats were ventricular ectopic in origin which classify them as rare There were 26 runs of SVT the fastest being the 4 beat run at 184 beats per minute the longest lasting 9 beats No episodes of atrial fibrillation or pauses of 3.0 seconds or longer were identified on this study Patient overall with evidence of relative bradycardia with absolute minimum heart rate as above and 40 beats per minute, and patient rarely having heart rate greater than 90-100 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
== END ==
PROVIDERS: Family Provider Family Medicine; PCP Family Medicine; Referring Provider Family Medicine; Visit Provider Family Medicine
DX: I48.91 Unspecified atrial fibrillation (principal)
CPT/HCPCS: 93246; 93248

== ENCOUNTER 2022-03-08 08:32 | Observation (INO) | payer OTHER, SELFPAY ==
[2022-03-08] VITALS (13 sets, daily range): BP systolic 122–185; BP diastolic 64–86; PULSE 45–67; RESP 13–24; TEMP 36.4–37.1; O2SAT 95–99; BMI 23.8
--- NOTE | 2022-03-08 09:15 | DI.CT.S_ITS ---
PROCEDURE: CT ANGIO HEAD AND NECK INDICATIONS: confusion TECHNIQUE: After the administration of intravenous contrast, 1 mm thick sections acquired from the aortic arch through the [place]. Post-contrast 4.5 mm thick sections then re-acquired from the foramen magnum to the vertex. 3-dimensional vgrrkct-fqqyscnon-gpypcjykdk (MIP) and/or volume rendering reformats were acquired of the central intracranial vasculature and neck separately. For radiation dose reduction, the following was used: automated exposure control, adjustment of mA and/or kV according to patient size. COMPARISON: [facility], CT, CT CHEST ABD PEL W CON, 09/06/2021, 9:18. [facility], CR, XR CALCANEOUS LT MIN 2V, 07/24/2021, 10:36. FINDINGS: Image quality: Excellent. BRAIN: CSF spaces: Ventricles are normal in size and shape. Basal cisterns are patent. No extra-axial fluid collections. Brain: No midline shift. No intracranial bleeds or masses. [place]-white matter interface appears intact. Skull and face: Calvarium and facial bones appear intact, without suspicious lesions. Orbits appear normal. Sinuses: Sinuses and mastoids are clear. HEAD CT ANGIOGRAPHY: Anterior circulation: Intracranial internal carotid arteries are normal in size and flow. The flow within the paired anterior cerebral arteries is normal and symmetric. The flow within the middle cerebral arteries is normal and symmetric. The anterior communicating artery is seen. No aneurysms are seen. Posterior circulation: Visualized portions of the vertebral arteries demonstrate normal caliber, and join to form a normal appearing basilar artery. Flow within the posterior cerebral arteries is normal and symmetric. No aneurysms are seen. NECK CT ANGIOGRAPHY: Carotid system: The great vessels demonstrate a conventional anatomy as they arise from the aortic arch. The origins of the common carotid arteries appear patent. The common carotid arteries demonstrate normal caliber and courses. The bifurcation regions are both widely patent. The internal carotid arteries demonstrate normal calibers and courses. Posterior circulation: The origins of the vertebral arteries both appear widely patent. The more superior extracranial portions of both vertebral arteries also demonstrate normal courses and calibers. They join to form a normal appearing basilar artery. Soft tissues: Multiple bilateral thyroid nodules, including one left thyroid nodule which is a cyst containing a mural nodule measuring approximately 1.5 centimeters. Bones: No suspicious bony lesions. Visualized cervical spine appears normally aligned. IMPRESSION: No hemodynamically significant stenosis of the major intracranial or extracranial arterial circulation. Any quantitative measurements of stenosis were performed using NASCET criteria. Dictated by: Duglas Caruso M.D. on 03/08/2022 at 9:47 Approved by: Duglas Carsuo M.D. on 03/08/2022 at 9:52
--- NOTE | 2022-03-08 09:15 | DI.CT.S_ITS ---
PROCEDURE: CT STROKE INDICATIONS: confusion TECHNIQUE: Noncontrast 4.5 mm thick angled axial sections acquired from the foramen magnum to the vertex, with coronal reformats. For radiation dose reduction, the following was used: automated exposure control, adjustment of mA and/or kV according to patient size. COMPARISON: None. FINDINGS: Image quality: Excellent. CSF spaces: Basal cisterns are patent. No extra-axial fluid collections. The ventricles are symmetric in size and shape. Brain: No intracranial bleeds or masses. There is cerebral volume loss for age, with resultant ventricular and sulcal prominence. There are periventricular and deep white matter chronic small vessel ischemic changes. There is intracranial internal carotid artery atherosclerosis. Skull and face: Calvarium and visualized facial bones appear intact, without suspicious lesions. Sinuses: Visualized sinuses and mastoids are clear. IMPRESSION: 1. CT head without acute intracranial abnormalities or acute calvarial fractures. 2. Age-related senescent changes and sequela of chronic small vessel ischemic disease. Findings were discussed with Dr. Bro at 0926 hrs. This study fulfills neurological imaging criteria for inclusion or exclusion of acute stroke therapies based on available published neurological guidelines. Dictated by: Reji Cain M.D. on 03/08/2022 at 9:24 Approved by: Reji Cain M.D. on 03/08/2022 at 9:27
--- NOTE | 2022-03-08 09:28 | ED.NEUROSD ---
HPI - Neuro Symptoms/Deficit General Chief Complaint: Weakness Stated Complaint: sitting fell over, shakey , disoriented Time Seen by Provider: 03/08/22 08:56 Source: patient and family Mode of arrival: Wheelchair History of Present Illness HPI Narrative: Code stroke was activated. Last well known 6:00 a.m. today. Went to bed at 9:00 p.m. last night. Patient awoke at 6:00 a.m. and got to the edge of the bed as he usually would. Puts his feet on the ground to balance himself. He states he started feeling off balance and he did not pass out but felt to the left side onto his pillow. He gave himself a minute and collected himself and got himself upright. He did walk to the bathroom and was able to shave. However looking at the shower curtain is seemed to be moving. Which it was not. This resolved. He went back to his bed and sat down with his feet on the ground. He laid back. He looked to the left and had visual disturbance of the environment shaking. He then looked straight and back to left again and it resolved.. He then looked to the right and had the same visual disturbance. He could not tell if it was 1 or both eyes. However that quickly resolved. His life partner is at bedside. She did come over to his home. Symptoms had resolved. No slurred speech facial droop or unilateral limb weakness or numbness. Patient has been worked up in the past for stroke and it has been negative, has baseline with speech where sometimes he has trouble finding words. This is not new. Patient feels he is more shaky bilateral. On Anticoagulants: Yes Related Data Home Medications Medication Instructions Recorded Confirmed calcium carbonate 200 mg calcium 200 mg PO BID PRN heartburn 10/20/20 03/08/22 (500 mg) chewable tablet (Tums) aspirin 81 mg chewable tablet 81 mg PO DAILY 09/06/21 03/08/22 diltiazem HCl 120 mg 120 mg PO DAILY 09/06/21 03/08/22 capsule,extended release 24 hr (Cardizem CD) ranitidine HCl 75 mg tablet 75 mg PO DAILY 09/06/21 03/08/22 cholecalciferol (vitamin D3) 50 50 mcg PO DAILY 03/08/22 03/08/22 mcg (2,000 unit) tablet Previous Rx's Medication Instructions Recorded pravastatin 80 mg tablet 80 mg PO HS #90 tabs 12/22/20 potassium chloride 8 mEq 8 meq PO QDAY #90 tabs 01/16/21 tablet,extended release (Klor-Con) hydrochlorothiazide 25 mg tablet 25 mg PO QDAY #90 tabs 01/29/21 tamsulosin 0.4 mg capsule (Flomax) 0.4 mg PO QDAY #90 caps 03/07/21 atenolol 25 mg tablet 12.5 mg PO DAILY #30 tabs 03/09/22 Allergies Allergy/AdvReac Type Severity Reaction Status Date / Time atorvastatin [ATORVASTATIN] Allergy Unknown WEAKNESS/BODY Verified 01/26/22 17:38 ACHES citalopram AdvReac Intermediate Off Verified 01/26/22 17:38 Balance/Head felt stuffed. lisinopril AdvReac Intermediate slow hr Verified 01/26/22 17:38 Review of Systems Review of Systems Narrative: GENERAL: Denies chills, fatigue, malaise, fever, sweats. HEENT: Denies sinus pain, ear pain, sore throat RESPIRATORY: Denies dyspnea, cough CARDIOVASCULAR: Denies chest pain, palpitations GASTROINTESTINAL: Denies nausea, vomiting, abdominal pain : Denies dysuria, frequency, hematuria MUSCULOSKELETAL: denies muscle or bony pain SKIN: Denies rash, skin lesions NEUROLOGIC: Denies weakness, numbness, positive blurry vision negative headache, negative slurred speech or facial droop, positive tremors ROS Unobtainable: All systems reviewed & are unremarkable except as noted in HPI and below Hematologic/Lymphatic On Anticoagulants: Yes Patient History Medical History Anxiety (06/06/14) Bile duct carcinoma Cardiac arrhythmia (06/06/14) Carpal tunnel syndrome Cervical spine disease Essential hypertension (08/04/15) History of adenomatous polyp of colon (12/27/10) History of renal calculi (12/27/10) Hyperlipidemia (08/09/16) Mild cognitive impairment Paroxysmal atrial fibrillation SVT (supraventricular tachycardia) Surgical History S/P carpal tunnel release Family History Father Family history of Alzheimer's disease Social History marital status: number of children: 0 household members: none lives independently: Yes caregiver/support person: Yes housing: house pets and animals: No education level: high school occupational status: other current occupational exposures/hazards: No Previous occupational history: [employer] destini/faith: None Smoking Status: Former smoker Tobacco: How many years used: 10 Smokeless tobacco user: other quit status: quit date established second hand exposure: No alcohol intake: current substance use type: does not use Smoking Status: Former smoker alcohol intake frequency: holidays/special occasions only Substance Use Type: does not use Exam Narrative Exam Narrative: GENERAL: in no distress, not toxic not dyspneic HEAD: Normocephalic. EYES: Pupils equal round No scleral icterus. ENT: Mucous membranes moist. NECK: Trachea midline. No carotid bruit CARDIOVASCULAR: Regular rate and rhythm without murmurs RESPIRATORY: Clear to auscultation. Breath sounds equal bilaterally. No wheezes, rales, or rhonchi. GASTROINTESTINAL: Abdomen soft, non-tender EXTREMITIES: No gross deformities. BACK: No flank tenderness. NEURO: AOx4. Negative fast exam. Has clear speech, no facial droop light touch intact bilateral face hands and legs with strong equal photoengraving etcher negative pronator drift. [id number] intact bilaterally SKIN: Warm and dry PSYCH: Not anxious, is cooperative Initial Vital Signs Initial Vital Signs: Vital Signs Pulse Rate 56 L 03/08/22 08:54 Pulse Oximetry 98 03/08/22 08:54 Oxygen Delivery Method 03/08/22 08:54 Scores NIH Stroke Scale Level of Conciousness: Alert, keenly responsive Ask month/age: Answers both questions correctly. Open/close eyes, close hand: Performs both tasks correctly Best gaze horizontal: Normal Visual sebastian: No visual loss Facial palsy: Normal symetrical movement Left arm drift: No drift for full 10 sec Right arm drift: No drift for full 10 sec Left leg drift: No drift for full 5 sec Right leg drift: No drift for full 5 sec Limb ataxia: Absent Sensory on face/arms/legs: Normal, no sensory loss Best language: No aphasia, normal Dysarthria: Normal Extinction or inattention: No abnormality Total NIH Stroke scale score: 0 Course Course Course Narrative: 9:28 a.m.. Spoke with radiologist, stroke head CT noncontrast brain no acute process Decision to Admit Date: 03/08/22 Decision to Admit time: : Orders Ordered: Discontinued Medications Aspirin (Aspirin 81 Mg Chew Tab) 81 mg PO DAILY [facility] Last Admin: 03/09/22 08:49 Dose: 81 mg Documented By: Admin: 03/08/22 12:35 Dose: 81 mg Documented By: LI Atenolol (Atenolol 25 Mg Tablet) 25 mg PO DAILY [facility] Last Admin: 03/09/22 08:49 Dose: 25 mg Documented By: Admin: 03/08/22 12:35 Dose: 25 mg Documented By: LI Calcium Carbonate (Calcium Carbonate 500 Mg Tab) 200 mg PO BID PRN PRN Reason: heartburn Calcium Carbonate (Calcium Carbonate 500 Mg Tab) 500 mg PO BID PRN PRN Reason: heartburn Last Admin: 03/08/22 12:36 Dose: 500 mg Documented By: LI Diltiazem HCl (Diltiazem Cd 120 Mg Cap) 120 mg PO DAILY [facility] Last Admin: 03/09/22 08:53 Dose: 120 mg Documented By: Admin: 03/08/22 12:38 Dose: 120 mg Documented By: LI Enoxaparin Sodium (Enoxaparin 30 Mg/0.3 Ml Syringe) 30 mg SUBCUT DAILY [facility] Last Admin: 03/09/22 08:52 Dose: 30 mg Documented By: MAGDY Enoxaparin Sodium (Enoxaparin 40 Mg/0.4 Ml Syringe) 40 mg SUBCUT DAILY [facility] Enoxaparin Sodium (Enoxaparin 40 Mg/0.4 Ml Syringe) 40 mg SUBCUT DAILY [facility] Famotidine (Famotidine 20 Mg Tablet) 10 mg PO DAILY [facility] Last Admin: 03/09/22 08:49 Dose: 10 mg Documented By: MAGDY Hydrochlorothiazide (Hydrochlorothiazide 25 Mg Tablet) 25 mg PO DAILY [facility] Last Admin: 03/09/22 08:50 Dose: 25 mg Documented By: Admin: 03/08/22 12:35 Dose: 25 mg Documented By: LI Sodium Chloride (Normal Saline 0.9%) 500 mls @ 1,000 mls/hr IV BOLUS ONE Stop: 03/08/22 09:50 Last Infusion: 03/08/22 10:43 Dose: 0 mls/hr Documented By: Admin: 03/08/22 09:52 Dose: 1,000 mls/hr Documented By: NABEEL Ceftriaxone Sodium 1,000 mg/ (Sodium Chloride) 100 mls @ 200 mls/hr IV Q24H [facility] Last Admin: 03/08/22 12:36 Dose: 200 mls/hr Documented By: LI Prednisolone 1% (Ophth Susp) 1 each EYE-LEFT QID [facility] Last Admin: 03/09/22 08:55 Dose: 1 each Documented By: Admin: 03/08/22 20:45 Dose: 1 each Documented By: DIANA Potassium Chloride (Potassium Chloride 10 Meq Tab) 10 meq PO DAILY [facility] Last Admin: 03/09/22 08:49 Dose: 10 meq Documented By: MAGDY Pravastatin Sodium (Pravastatin 20 Mg Tablet) 80 mg PO BEDTIME [facility] Last Admin: 03/08/22 20:44 Dose: 80 mg Documented By: DIANA Prednisolone Acetate (Prednisolone Ophth Susp) 1 drops EYE-BOTH QID [facility] Last Admin: 03/08/22 18:00 Dose: 1 drop Documented By: LI Tamsulosin HCl (Tamsulosin 0.4 Mg Capsule) 0.4 mg PO DAILY [facility] Last Admin: 03/09/22 08:49 Dose: 0.4 mg Documented By: Admin: 03/08/22 12:36 Dose: 0.4 mg Documented By: LI Vitamin D (Cholecalciferol (Vitamin D3) 1,000 Unit Tablet) 2,000 unit PO DAILY [facility] Last Admin: 03/09/22 08:50 Dose: 2,000 unit Documented By: MAGDY Reevaluation(s) Reevaluation #1: Updated patient and results. Blood pressure has improved. No complaints at this time. They understand will need admission for MRI and echocardiogram and balance workup for likely TIA. Time: 10:51 Consultations Consultation #1: Spoke with primary provider on-call, Dr. Hernandez, will see pt and admit Time: 11:02 Vital Signs Vital signs: Vital Signs - 8 hr 03/08/22 08:56 03/08/22 08:54 03/08/22 09:00 Temperature 98.7 F Pulse Rate 56 L Respiratory Rate Blood Pressure 180/86 H Pulse Oximetry 98 Oxygen Delivery Method Room Air 03/08/22 09:00 03/08/22 09:30 03/08/22 09:30 Temperature Pulse Rate 63 63 Respiratory Rate Blood Pressure 185/84 H Pulse Oximetry 99 99 Oxygen Delivery Method Room Air 03/08/22 10:00 03/08/22 10:01 03/08/22 10:01 Temperature Pulse Rate 63 63 Respiratory Rate 13 24 Blood Pressure 171/81 H Pulse Oximetry 98 98 Oxygen Delivery Method 03/08/22 10:30 03/08/22 10:31 03/08/22 10:31 Temperature Pulse Rate 62 55 L Respiratory Rate Blood Pressure 166/79 H Pulse Oximetry 98 98 Oxygen Delivery Method Room Air MDM - Neuro Symptoms/Deficit Differential Diagnosis Differential diagnosis: Likely peripheral neuropathy, cerebrovascular accident, transient cerebral ischemia and other (UTI/dehydration) Lab Data Result diagrams: 03/09/22 05:48 03/09/22 05:48 Labs: Lab Results 03/08/22 03/08/22 03/08/22 Range/Units 08:55 08:55 09:55 WBC 4.5 (4.5-11.0) X10^3/uL RBC 4.46 L (4.5-5.9) X10^6/uL Hgb 15.2 (13.5-17.5) g/dL Hct 43.3 (41-53) % MCV 97.2 (80-100) fL MCH 34.2 H (26-34) PG MCHC 35.1 (30-36) % RDW 12.6 (11.6-14.8) % Plt Count 193 (150-400) X10^3/uL Neut % (Auto) 68.9 (50-75) % Lymph % (Auto) 16.5 L (25-40) % [place] % (Auto) 10.2 (3-14) % Eos % (Auto) 3.7 (2-4) % Baso % (Auto) 0.7 (0-2) % Neut # (Auto) 3100 (9313-4099) /uL Lymph # (Auto) 700 L (6971-4182) /uL [place] # (Auto) 500 (0-900) /uL Eos # (Auto) 200 (0-450) /uL Baso # (Auto) 0 (0-100) /uL Sodium 139 (137-145) mmol/L Potassium 3.4 (3.4-5.1) mmol/L Chloride 101 (98-107) mmol/L Carbon Dioxide 31 (22-32) mmol/L BUN 24 H (9-20) mg/dL Creatinine 0.98 (0.66-1.25) mg/dL Estimated GFR > 60 (>60) mL/min BUN/Creatinine Ratio 24.5 H (6-22) Glucose 100 (80-110) mg/dL Calcium 8.9 (8.4-10.2) mg/dL Total Bilirubin 1.4 H (0.2-1.3) mg/dL AST 31 (17-59) IU/L ALT 24 (<50) IU/L Alkaline Phosphatase 124 (38-126) U/L Total Creatine Kinase 118 (55-170) U/L CK-MB (CK-2) 3.13 H (<2.37) ng/mL CK-MB (CK-2) Rel Index 2.7 (1.5-5.0) % Troponin I < 0.012 (0.01-0.034) ng/mL Total Protein 7.6 (6.3-8.2) g/dL Albumin 4.1 (3.5-5.0) g/dL Globulin 3.5 (1.7-4.1) g/dL Albumin/Globulin Ratio 1.2 (1.0-2.8) Urine Color Yellow Urine Appearance Clear Urine pH 8.0 (4.5-8.0) Ur Specific [place] <=1.005 (1.000-1.035) Urine Protein Negative (Negative) Urine Glucose (UA) Negative (Negative) g/dL Urine Ketones Negative (NEGATIVE) Urine Occult Blood 2+ H (Negative) Urine Nitrate Negative (Negative) Urine Bilirubin Negative (NEGATIVE) Urine Urobilinogen 0.2 (0.2) E.U./dL Ur Leukocyte Esterase Trace H (NEGATIVE) Urine RBC 1-5/hpf (0-5/HPF) Urine WBC 1-5/hpf (0-5/HPF) Ur Squamous Epith Cells 0-1 /hpf (0-5/HPF) Urine Bacteria Few (2-10) H (None) Ur Culture Indicated? Specimen cultured SARS-CoV-2 (PCR) (Negative) 03/08/22 Range/Units 10:58 WBC (4.5-11.0) X10^3/uL RBC (4.5-5.9) X10^6/uL Hgb (13.5-17.5) g/dL Hct (41-53) % MCV (80-100) fL MCH (26-34) PG MCHC (30-36) % RDW (11.6-14.8) % Plt Count (150-400) X10^3/uL Neut % (Auto) (50-75) % Lymph % (Auto) (25-40) % [place] % (Auto) (3-14) % Eos % (Auto) (2-4) % Baso % (Auto) (0-2) % Neut # (Auto) (7614-0612) /uL Lymph # (Auto) (7647-6296) /uL [place] # (Auto) (0-900) /uL Eos # (Auto) (0-450) /uL Baso # (Auto) (0-100) /uL Sodium (137-145) mmol/L Potassium (3.4-5.1) mmol/L Chloride (98-107) mmol/L Carbon Dioxide (22-32) mmol/L BUN (9-20) mg/dL Creatinine (0.66-1.25) mg/dL Estimated GFR (>60) mL/min BUN/Creatinine Ratio (6-22) Glucose (80-110) mg/dL Calcium (8.4-10.2) mg/dL Total Bilirubin (0.2-1.3) mg/dL AST (17-59) IU/L ALT (<50) IU/L Alkaline Phosphatase (38-126) U/L Total Creatine Kinase (55-170) U/L CK-MB (CK-2) (<2.37) ng/mL CK-MB (CK-2) Rel Index (1.5-5.0) % Troponin I (0.01-0.034) ng/mL Total Protein (6.3-8.2) g/dL Albumin (3.5-5.0) g/dL Globulin (1.7-4.1) g/dL Albumin/Globulin Ratio (1.0-2.8) Urine Color Urine Appearance Urine pH (4.5-8.0) Ur Specific [place] (1.000-1.035) Urine Protein (Negative) Urine Glucose (UA) (Negative) g/dL Urine Ketones (NEGATIVE) Urine Occult Blood (Negative) Urine Nitrate (Negative) Urine Bilirubin (NEGATIVE) Urine Urobilinogen (0.2) E.U./dL Ur Leukocyte Esterase (NEGATIVE) Urine RBC (0-5/HPF) Urine WBC (0-5/HPF) Ur Squamous Epith Cells (0-5/HPF) Urine Bacteria (None) Ur Culture Indicated? SARS-CoV-2 (PCR) Negative (Negative) Point of Care Testing Glucose POC [address] scan - head: Radiologist's Impression: [address] [address] [address] Scan Report Signed Patient: Roel Vickers MR#: [id number] : 1935 Acct:[id number] Age/Sex: 86 / M Date of Service: 03/08/22 Loc: ED Accession Number: [id number] ?? Procedure: CT Stroke Ordering Provider: Lorenzo Bro MD PROCEDURE:? CT STROKE ? INDICATIONS:? confusion ? TECHNIQUE:? Noncontrast 4.5 mm thick angled axial sections acquired from the foramen magnum to the vertex, with coronal reformats.? For radiation dose reduction, the following was used:? automated exposure control, adjustment of mA and/or kV according to patient size.? ? COMPARISON:? None. ? FINDINGS:? Image quality:? Excellent.? ? CSF spaces:? Basal cisterns are patent.? No extra-axial fluid collections.? The ventricles are symmetric in size and shape.? ? Brain:? No intracranial bleeds or masses.? There is cerebral volume loss for age, with resultant ventricular and sulcal prominence.? There are periventricular and deep white matter chronic small vessel ischemic changes.? There is intracranial internal carotid artery atherosclerosis.? ? Skull and face:? Calvarium and visualized facial bones appear intact, without suspicious lesions.? ? Sinuses:? Visualized sinuses and mastoids are clear.? ? IMPRESSION:? 1. CT head without acute intracranial abnormalities or acute calvarial fractures. ? 2. Age-related senescent changes and sequela of chronic small vessel ischemic disease. ? Findings were discussed with Dr. Bro at 0926 hrs. ? This study fulfills neurological imaging criteria for inclusion or exclusion of acute stroke therapies based on available published neurological guidelines.? ? ? Dictated by: Reji Cain M.D. on 03/08/2022 at 9:24 ? ? Approved by: Reji Cain M.D. on 03/08/2022 at 9:27 ? CTA - brain/neck: Radiologist's Impression: [address] [address] [address] Scan Report Signed Patient: Roel Vickers MR#: [id number] : 1935 Acct:[id number] Age/Sex: 86 / M Date of Service: 03/08/22 Loc: ED Accession Number: [id number] ?? Procedure: CT angio head and neck Ordering Provider: Lorenzo Bro MD PROCEDURE:? CT ANGIO HEAD AND NECK ? INDICATIONS:? confusion ? TECHNIQUE:? After the administration of intravenous contrast, 1 mm thick sections acquired from the aortic arch through the [place].? Post-contrast 4.5 mm thick sections then re-acquired from the foramen magnum to the vertex.? 3-dimensional jswjrjb-dbpibylwg-xrcditqegs (MIP) and/or volume rendering reformats were acquired of the central intracranial vasculature and neck separately. For radiation dose reduction, the following was used:? automated exposure control, adjustment of mA and/or kV according to patient size.? ? COMPARISON:? [facility], CT, CT CHEST ABD PEL W CON, 09/06/2021, 9:18.? [facility], CR, XR CALCANEOUS LT MIN 2V, 07/24/2021, 10:36. ? FINDINGS:? Image quality:? Excellent.? ? BRAIN:? CSF spaces:? Ventricles are normal in size and shape.? Basal cisterns are patent.? No extra-axial fluid collections.? ? Brain:? No midline shift.? No intracranial bleeds or masses.? Smalls-white matter interface appears intact.? ? Skull and face:? Calvarium and facial bones appear intact, without suspicious lesions.? Orbits appear normal.? ? Sinuses:? Sinuses and mastoids are clear.? ? HEAD CT ANGIOGRAPHY:? Anterior circulation:? Intracranial internal carotid arteries are normal in size and flow.? The flow within the paired anterior cerebral arteries is normal and symmetric.? The flow within the middle cerebral arteries is normal and symmetric.? The anterior communicating artery is seen.? No aneurysms are seen.? ? Posterior circulation:? Visualized portions of the vertebral arteries demonstrate normal caliber, and join to form a normal appearing basilar artery.? Flow within the posterior cerebral arteries is normal and symmetric.? No aneurysms are seen.? ? NECK CT ANGIOGRAPHY:? Carotid system:? The great vessels demonstrate a conventional anatomy as they arise from the aortic arch.? The origins of the common carotid arteries appear patent.? The common carotid arteries demonstrate normal caliber and courses.? The bifurcation regions are both widely patent.? The internal carotid arteries demonstrate normal calibers and courses.? ? Posterior circulation:? The origins of the vertebral arteries both appear widely patent.? The more superior extracranial portions of both vertebral arteries also demonstrate normal courses and calibers.? They join to form a normal appearing basilar artery.? ? Soft tissues:? Multiple bilateral thyroid nodules, including one left thyroid nodule which is a cyst containing a mural nodule measuring approximately 1.5 centimeters. ? Bones:? No suspicious bony lesions.? Visualized cervical spine appears normally aligned.? IMPRESSION: ? No hemodynamically significant stenosis of the major intracranial or extracranial arterial circulation. ? ? Any quantitative measurements of stenosis were performed using NASCET criteria.? ? ? Dictated by: Duglas Caruso M.D. on 03/08/2022 at 9:47 ? ? Approved by: Duglas Caruso M.D. on 03/08/2022 at 9:52 ? ECG Data Interpretation: Sinus bradycardia rate [address] elevation or depression MDM Narrative Medical decision making narrative: Appropriate for admission, differential diagnosis includes but not limited to TIA/stroke. At this time symptoms have resolved. No neurology consult indicated. No tPA indicated. Blood pressure has improved spontaneously. Patient and agree for admit. Reviewed with primary care on-call and agrees for admit. Discharge Plan Departure Patient Disposition: Admitted as Observation Clinical Impression: Brain TIA Admit Date/Time: 03/08/22 11:02 Admit Provider: Noah Hernandez
[2022-03-08 09:33] LABS: Add Manual Diff / Slide Review NO; Basophils Absolute Auto 0 /uL (0-100); Basophils Percent Auto 0.7 % (0-2); Eosinophils Absolute Auto 200 /uL (0-450); Eosinophils Percent Auto 3.7 % (2-4); Hematocrit 43.3 % (41-53); Hemoglobin 15.2 g/dL (13.5-17.5); Lymphocytes Absolute Auto 700 /uL (1100-4500); Lymphocytes Percent Auto 16.5 % (25-40); Mean Corpuscular HGB Conc 35.1 % (30-36); Mean Corpuscular Hemoglobin 34.2 PG (26-34); Mean Corpuscular Volume 97.2 fL (80-100); Monocytes Absolute Auto 500 /uL (0-900); Monocytes Percent Auto 10.2 % (3-14); Neutrophils Absolute Auto 3100 /uL (1500-7000); Neutrophils Percent Auto 68.9 % (50-75); Platelet Count 193 X10^3/uL (150-400); Red Blood Cell Count 4.46 X10^6/uL (4.5-5.9); Red Cell Distribution Width 12.6 % (11.6-14.8); White Blood Cell Count 4.5 X10^3/uL (4.5-11.0)
[2022-03-08 09:41] LABS: Alanine Aminotransferase 24 IU/L (<50); Albumin 4.1 g/dL (3.5-5.0); Albumin Globulin Ratio 1.2 (1.0-2.8); Alkaline Phosphatase 124 U/L (38-126); Aspartate Aminotransferase 31 IU/L (17-59); BUN Creatinine Ratio 24.5 (6-22); Bilirubin Total 1.4 mg/dL (0.2-1.3); Blood Urea Nitrogen 24 mg/dL (9-20); Calcium 8.9 mg/dL (8.4-10.2); Carbon Dioxide 31 mmol/L (22-32); Chloride 101 mmol/L (98-107); Creatine Kinase 118 U/L (55-170); Estimated Glomerular Filt Rate > 60 mL/min (>60); Globulin 3.5 g/dL (1.7-4.1); Glucose 100 mg/dL (80-110); HEMOLYSIS < 15 (0-50); Potassium 3.4 mmol/L (3.4-5.1); Sodium 139 mmol/L (137-145); Total Protein 7.6 g/dL (6.3-8.2)
[2022-03-08 09:52] LABS: Troponin I < 0.012 ng/mL (0.01-0.034)
[2022-03-08] MEDS: SODIUM CHLORIDE 0.9% 500 ML 1000 ML IV (09:52)
[2022-03-08 09:56] LABS: CKMB % Relative Index 2.7 % (1.5-5.0); Creatine Kinase MB 3.13 ng/mL (<2.37)
[2022-03-08 10:30] LABS: Appearance Urine UA CLEAR; Bilirubin Urine UA NEGATIVE (NEGATIVE); Color Urine UA YELLOW; Glucose Urine UA NEGATIVE (Negative); Ketones Urine UA NEGATIVE (NEGATIVE); Leukocyte Esterase Urine UA TRACE (NEGATIVE); Nitrite Urine UA NEGATIVE (Negative); Occult Blood Urine UA 2+ (Negative); Protein Urine UA NEGATIVE (Negative); Specific Gravity Urine UA <=1.005 (1.000-1.035); Urobilinogen Urine UA 0.2 E.U./dL (0.2)
--- NOTE | 2022-03-08 10:46 | DI.ECHO.S_ITS ---
[facility] +---------+ : : [address] [place] : : : : [id number] : : : : Phone: [phone] Echocardiogram Report + + :Name: MARIO PATE Study Date: 03/08/2022 Height: 71 in : :[facility] ReadingLocation: Weight: 166 lb : : Gender: Male BSA: 1.9 m2 : :: 1935 Age: 86 yrs BP: 171/81 mmHg: :Reason For Study: TIA : :Ordering Physician: : :NESTOR HARMON Performed By: Valente Felipe : :Referring: NESTOR HARMON : + + Interpretation Summary The left ventricle is normal in size and wall thickness. Left ventricular systolic function is normal. The ejection fraction is estimated to be 60-65%. There are no focal wall motion abnormalities. Diastolic parameters suggest probable normal left ventricular diastolic function and normal filling pressures. The right ventricle is normal in size and function. The right ventricular systolic pressure is estimated to be at least 29 mmHg based on an estimated right atrial pressure of 3 mm Hg. Both atria are normal in size. There is mild mitral regurgitation. There is mild aortic regurgitation. The ascending aorta is mildly enlarged. No obvious source for TIA. Procedure: A two-dimensional transthoracic echocardiogram with color flow and Doppler was performed. The study quality was technically adequate. Comparison is made with the echocardiogram of 03/15/2020. Left Ventricle: The left ventricle is normal in size and wall thickness. Left ventricular systolic function is normal. The ejection fraction is estimated to be 60-65%. There are no focal wall motion abnormalities. Diastolic parameters suggest probable normal left ventricular diastolic function and normal filling pressures. Right Ventricle: The right ventricle is normal in size and function. Atria: Both atria are normal in size. The interatrial septum grossly appears intact with no obvious evidence for an atrial septal defect. Mitral Valve: The mitral valve is normal in structure and function. There is mild mitral regurgitation. Aortic Valve: The aortic valve is normal in structure and function. There is mild aortic regurgitation. Tricuspid Valve: The tricuspid valve is normal in structure and function. There is mild tricuspid regurgitation. The right ventricular systolic pressure is estimated to be at least 29 mmHg based on an estimated right atrial pressure of 3 mm Hg. Pulmonic Valve: The pulmonic valve is not well visualized. There is trace pulmonic regurgitation. Great Vessels: The aortic root is normal size. The ascending aorta is mildly enlarged. The IVC is of normal diameter and collapses greater than 50% with a sniff. This suggests a low right atrial pressure of 3 mm Hg. Pericardium/ Pleura There is no pericardial effusion. There is no pleural effusion. MMode/2D Measurements & Calculations LVIDd: 5.2 cm LVOT diam: 2.2 cm LVIDs: 3.4 cm Ao root diam: 3.8 cm FS: 34.5 % asc Aorta Diam: 3.7 cm IVSd: 1.1 cm LVPWd: 0.98 cm LV wilson. diameter/BSA (cm/m^2): 2.7 LV sys. diameter/BSA (cm/m^2): 1.8 LA A2 area: 21.2 cm2 RA long axis: 4.7 cm LA A4 area: 16.9 cm2 RA area: 15.4 cm2 LA length (vol): 5.1 cm RA vol: 43.1 ml LA vol: 59.4 ml RA : 22.1 ml/m2 LA vol index: 30.5 ml/m2 TAPSE: 2.2 cm Doppler Measurements & Calculations Ao V2 max: 127.5 cm/sec LVOT Max Mina: 122.3 cm/sec Ao V2 mean: 81.2 cm/sec LV V1 max P.0 mmHg Ao max P.5 mmHg LV V1 VTI: 28.2 cm Ao mean P.0 mmHg LUBNA(I,D): 3.7 cm2 Ao V2 VTI: 28.4 cm LUBNA(V,D): 3.6 cm2 sev ratio: 0.99 LUBNA indexed to BSA (cm^2/m^2): 1.9 MV E max mina: 63.3 cm/sec TR max mina: 256.0 cm/sec MV A max mina: 61.6 cm/sec TR max P.2 mmHg MV E/A: 1.0 Med Peak E' Mina: 5.9 cm/sec E/E' med: 10.8 Lat Peak E' Mina: 8.6 cm/sec E/E' lat: 7.4 E/e' average: 9.1 MV dec time: 0.21 sec SV(LVOT): 105.9 ml Reading Physician:01:08 PM
--- NOTE | 2022-03-08 10:46 | DI.MRI.S_ITS ---
PROCEDURE: MR HEAD/BRAIN WO CON INDICATIONS: tia TECHNIQUE: Non-contrast axial T1 spin echo, axial T2 fast spin echo, sagittal and axial FLAIR, coronal T2 fast spin echo, axial gradient echo, axial diffusion and ADC through the brain. COMPARISON: [facility], CT, CT ANGIO HEAD AND NECK, 03/08/2022, 9:20. [facility], CT, CT STROKE, 03/08/2022, 9:20. FINDINGS: Image quality: Excellent. CSF spaces: Ventricles appear symmetric in size and shape. Basal cisterns are patent. No extra-axial fluid collections. Brain: No intracranial bleeds or mass effects. There is cerebral volume loss for age. There are periventricular and deep white matter chronic small vessel ischemic changes. Brainstem appears normal. Diffusion-weighted images show no acute ischemic insults. No chronic ischemic insults. Normal intravascular flow voids are present. Skull and face: Calvarial bone marrow is normal in signal. Orbits are normal. Sinuses: Sinuses and mastoids are clear. IMPRESSION: No acute infarct or other acute finding. Age-advanced moderate to severe global cerebral volume loss and chronic microvascular ischemic changes. Dictated by: Duglas Caruso M.D. on 03/08/2022 at 15:09 Approved by: Duglas Caruso M.D. on 03/08/2022 at 15:12
[2022-03-08 11:03] LABS: Bacteria Urine Few (2-10); Culture Indicated Urine Specimen Cultured; RBC Urine 1-5/HPF (0-5/HPF); Squamous Epithelial Cell Urine 0-1 /HPF (0-5/HPF); WBC Urine 1-5/HPF (0-5/HPF)
[2022-03-08 11:15] LABS: COVID19 -Nasal RAPID Negative (Negative)
--- NOTE | 2022-03-08 11:31 | PM.HP.1 ---
History of Present Illness History of Present Illness Date Patient Seen: 03/08/22 Time Patient Seen: 11:31 Date of Onset of Symptoms: 03/07/22 Chief complaint: sitting fell over, shakey , disoriented Narrative: PResented to ED from home with concern for new weakness and vision changes. Called PCP clinic reports he woke up sat up and fell over then was cloudy headed diroeinted weak adn shaky. Described going into bathroom to shave then seeing shower curtain undulate for about ten minutes in absence of wind. Initial workup did not identify a cause so he is admitted for complete stroke workup. NIHSS zero on admission states he feels fine feeling hungry. GF at bedside notes he's had some increased wordfinding and weakness problems creeping in over the last few months - he does have dementia diagnosis - but he seems basically usual to her today except for the story of what was happening at home. Patient History Medical History Anxiety (06/06/14) Bile duct carcinoma Cardiac arrhythmia (06/06/14) Carpal tunnel syndrome Cervical spine disease Essential hypertension (08/04/15) History of adenomatous polyp of colon (12/27/10) History of renal calculi (12/27/10) Hyperlipidemia (08/09/16) Mild cognitive impairment Paroxysmal atrial fibrillation SVT (supraventricular tachycardia) Surgical History S/P carpal tunnel release Family & Social History Family History Father Family history of Alzheimer's disease Social History: household members none lives independently Yes caregiver/support person Yes Tobacco & Substance use: Smoking Status Former smoker alcohol intake never alcohol intake frequency holiday/special occasion Substance Use Type does not use Meds Home Medications and Allergies Home Medications Medication Instructions Recorded Confirmed Type calcium carbonate 200 mg calcium 200 mg PO BID PRN heartburn 10/20/20 03/08/22 History (500 mg) chewable tablet (Tums) pravastatin 80 mg tablet 80 mg PO HS #90 tabs 12/22/20 03/08/22 Rx potassium chloride 8 mEq 8 meq PO QDAY #90 tabs 01/16/21 03/08/22 Rx tablet,extended release (Klor-Con) hydrochlorothiazide 25 mg tablet 25 mg PO QDAY #90 tabs 01/29/21 03/08/22 Rx tamsulosin 0.4 mg capsule (Flomax) 0.4 mg PO QDAY #90 caps 03/07/21 03/08/22 Rx aspirin 81 mg chewable tablet 81 mg PO DAILY 09/06/21 03/08/22 History atenolol 25 mg tablet 25 mg PO DAILY 09/06/21 03/08/22 History diltiazem HCl 120 mg 120 mg PO DAILY 09/06/21 03/08/22 History capsule,extended release 24 hr (Cardizem CD) ranitidine HCl 75 mg tablet 75 mg PO DAILY 09/06/21 03/08/22 History methylprednisolone 4 mg tablets in See Rx Instructions PO PER PKG DIR 01/26/22 03/08/22 Rx a dose pack (Medrol (Alexis)) #21 ea cholecalciferol (vitamin D3) 50 50 mcg PO DAILY 03/08/22 03/08/22 History mcg (2,000 unit) tablet Allergies Allergy/AdvReac Type Severity Reaction Status Date / Time atorvastatin [ATORVASTATIN] Allergy Unknown WEAKNESS/BODY Verified 01/26/22 17:38 ACHES citalopram AdvReac Intermediate Off Verified 01/26/22 17:38 Balance/Head felt stuffed. lisinopril AdvReac Intermediate slow hr Verified 01/26/22 17:38 Review of Systems Review of Systems Narrative: all systems reviewed and negative except as otherwise documented in HPI Exam Vital Signs (past 8 hours): - 03/08/22 08:56 03/08/22 08:54 03/08/22 09:00 Temperature 98.7 F Pulse Rate 56 L Respiratory Rate Blood Pressure 180/86 H Pulse Oximetry 98 Oxygen Delivery Method Room Air 03/08/22 09:00 03/08/22 09:30 03/08/22 09:30 Temperature Pulse Rate 63 63 Respiratory Rate Blood Pressure 185/84 H Pulse Oximetry 99 99 Oxygen Delivery Method Room Air 03/08/22 10:00 03/08/22 10:01 03/08/22 10:01 Temperature Pulse Rate 63 63 Respiratory Rate 13 24 Blood Pressure 171/81 H Pulse Oximetry 98 98 Oxygen Delivery Method 03/08/22 10:30 03/08/22 10:31 03/08/22 10:31 Temperature Pulse Rate 62 55 L Respiratory Rate Blood Pressure 166/79 H Pulse Oximetry 98 98 Oxygen Delivery Method Room Air 03/08/22 11:00 Temperature Pulse Rate 67 Respiratory Rate Blood Pressure Pulse Oximetry Oxygen Delivery Method Oxygen Delivery Method Room Air Narrative Exam Narrative: laying on ED gurney alert conversant Const General: cooperative, comfortable and well developed HENLA Head: normocephalic and atraumatic Resp Other: unlabored breathing speaking full sentences clear to auscultation bilaterally Cardio Other: RRR S1/S2 GI Other: SNTND NBS Skin General: no rashes or lesions noted Neuro General: patient alert, patient awake, patient oriented x3, moves all extremities, CN's II-XI intact bilaterally and deep tendon reflexes 2+ bilaterally Extrem General: full ROM and no pedal edema Psych Appearance: grossly normal Mental Status: mental status grossly normal Speech and Movement: speech and movement normal Objective Labs Result Diagrams: 03/08/22 08:55 03/08/22 08:55 Labs: Laboratory Results - last 24 hr 03/08/22 03/08/22 03/08/22 08:55 08:55 09:55 WBC 4.5 RBC 4.46 L Hgb 15.2 Hct 43.3 MCV 97.2 MCH 34.2 H MCHC 35.1 RDW 12.6 Plt Count 193 Neut % (Auto) 68.9 Lymph % (Auto) 16.5 L [place] % (Auto) 10.2 Eos % (Auto) 3.7 Baso % (Auto) 0.7 Neut # (Auto) 3100 Lymph # (Auto) 700 L [place] # (Auto) 500 Eos # (Auto) 200 Baso # (Auto) 0 Sodium 139 Potassium 3.4 Chloride 101 Carbon Dioxide 31 BUN 24 H Creatinine 0.98 Estimated GFR > 60 BUN/Creatinine Ratio 24.5 H Glucose 100 Calcium 8.9 Total Bilirubin 1.4 H AST 31 ALT 24 Alkaline Phosphatase 124 Total Creatine Kinase 118 CK-MB (CK-2) 3.13 H CK-MB (CK-2) Rel Index 2.7 Troponin I < 0.012 Total Protein 7.6 Albumin 4.1 Globulin 3.5 Albumin/Globulin Ratio 1.2 Urine Color Yellow Urine Appearance Clear Urine pH 8.0 Ur Specific [place] <=1.005 Urine Protein Negative Urine Glucose (UA) Negative Urine Ketones Negative Urine Occult Blood 2+ H Urine Nitrate Negative Urine Bilirubin Negative Urine Urobilinogen 0.2 Ur Leukocyte Esterase Trace H Urine RBC 1-5/hpf Urine WBC 1-5/hpf Ur Squamous Epith Cells 0-1 /hpf Urine Bacteria Few (2-10) H Ur Culture Indicated? Specimen cultured SARS-CoV-2 (PCR) 03/08/22 10:58 WBC RBC Hgb Hct MCV MCH MCHC RDW Plt Count Neut % (Auto) Lymph % (Auto) [place] % (Auto) Eos % (Auto) Baso % (Auto) Neut # (Auto) Lymph # (Auto) [place] # (Auto) Eos # (Auto) Baso # (Auto) Sodium Potassium Chloride Carbon Dioxide BUN Creatinine Estimated GFR BUN/Creatinine Ratio Glucose Calcium Total Bilirubin AST ALT Alkaline Phosphatase Total Creatine Kinase CK-MB (CK-2) CK-MB (CK-2) Rel Index Troponin I Total Protein Albumin Globulin Albumin/Globulin Ratio Urine Color Urine Appearance Urine pH Ur Specific [place] Urine Protein Urine Glucose (UA) Urine Ketones Urine Occult Blood Urine Nitrate Urine Bilirubin Urine Urobilinogen Ur Leukocyte Esterase Urine RBC Urine WBC Ur Squamous Epith Cells Urine Bacteria Ur Culture Indicated? SARS-CoV-2 (PCR) Negative Assessment & Plan Assessment & Plan narrative: #possible TIA/CVA initial presenting symptoms seem to have resolved: NIHSS zero on admission with initial CT scan ok Echo and MRI are pending will track labs and get PT/OT to work with him hx of afib noted, not on AC, not in afib today #alzheimers dementia, mild, with aphasia, also mild continue home donepezil #BPH w/obstruction stable continue home flomax #HTN essential stable now resume home meds metop and hctz with klor-con #hyperlipidemia stable continue home statin #GERD stable continue home meds dispo: admit obsv for stroke workup Code: DNR diet: heart healthy MDM: Nephjose Vickers PCP: Joy Time Spent With Patient Critical Care time: I spent a total of [] minutes of critical care time on this patient's care today; this time is exclusive of procedural time.
--- NOTE | 2022-03-08 12:01 | DI.US.S_ITS ---
PROCEDURE: US CAROTID DOPPLER BI INDICATIONS: TIA/CVA workup TECHNIQUE: Color and pulse Doppler interrogation was performed of both carotid systems, with image documentation and velocity measurements. COMPARISON: [facility], CT, CT ANGIO HEAD AND NECK, 03/08/2022, 9:20. [facility], CT, CT STROKE, 03/08/2022, 9:20. [facility], MR, MR HEAD/BRAIN WO CON, 03/08/2022, 14:38. FINDINGS: Stenosis calculations are based on SRU (Society of Radiologists in Ultrasound) criteria. The flow velocities and the arterial waveforms are normal within both carotid arterial systems. Minimal atherosclerotic plaque is seen on both sides. The estimated degree of internal carotid artery stenosis is less than 50%. Antegrade flow is confirmed within both vertebral arteries. Incidental note is made of thyroid nodules, including a 2.7 cm left thyroid nodule. IMPRESSION: No hemodynamically significant stenosis is seen. Thyroid nodules are seen, including a 2.7 cm left thyroid nodule. When clinically appropriate, please consider a dedicated thyroid ultrasound for further evaluation. Dictated by: Oleksandr Dc M.D. on 03/08/2022 at 15:02 Approved by: Oleksandr Dc M.D. on 03/08/2022 at 15:04
[2022-03-08] MEDS: ASPIRIN 81 MG CHEW TAB PO (12:35)
[2022-03-08] MEDS: atenoloL 25 MG TABLET PO (12:35)
[2022-03-08] MEDS: hydroCHLOROthiazide 25 MG TABLET PO (12:35)
[2022-03-08] MEDS: cefTRIAXone 1,000 MG in SODIUM CHLORIDE 0.9% 100 ML 200 MG IV (12:36)
[2022-03-08] MEDS: CALCIUM CARBONATE 500 MG TAB PO (12:36)
[2022-03-08] MEDS: TAMSULOSIN 0.4 MG CAPSULE PO (12:36)
[2022-03-08] MEDS: dilTIAZem CD 120 MG CAP PO (12:38)
--- NOTE | 2022-03-08 13:35 | PT.IIE ---
Surgical History (Last Reviewed 03/08/22 @ 11:32 by Noah Hernandez MD) S/P carpal tunnel release Medical History (Last Reviewed 03/08/22 @ 11:53 by Noah Hernandez MD) Anxiety (06/06/14) Bile duct carcinoma Cardiac arrhythmia (06/06/14) Carpal tunnel syndrome Cervical spine disease Essential hypertension (08/04/15) History of adenomatous polyp of colon (12/27/10) History of renal calculi (12/27/10) Hyperlipidemia (08/09/16) Mild cognitive impairment Paroxysmal atrial fibrillation SVT (supraventricular tachycardia) Physical Therapy Inpatient Evaluation/Re-Eval M1 PT/OT-IP Prior Functional Status Start: 03/08/22 14:46 Freq: NEEDED Status: Active Protocol: Document 03/08/22 13:35 AB (Rec: 03/08/22 14:58 [facility] Medical Review Prior Functional Status Medical History Reviewed Yes Communication able to make needs known but with slight confusion Mobility and Gait Lifetime partner provided some info regarding pt's mobility and PLOF: stated that pt is modified independent with all mobilities and ambulation without AD but uses a SPC occasionally for outdoor mobility Social History Household Members none Living Arrangements House Number of Floors (Floors) One Floor Number of Stairs To Enter/Railing? 1 step to enter Home Environment Standard Height Toilet,Tub/ Shower Home Equipment Straight Cane,Hand Held Shower Additional Social History Comment pt's partner checks on pt 2x/ day everyday M2 PT-IP Current Condition Start: 03/08/22 14:46 Freq: NEEDED Status: Active Protocol: Document 03/08/22 13:35 AB (Rec: 03/08/22 14:58 AB [email or web address]) Physical Therapy Current Condition Current Condition Evaluation Date 03/08/22 Treatment Diagnosis TIA; UTI; difficulty in walking Onset Date 03/08/22 M3 PT-IP Subjective Start: 03/08/22 14:46 Freq: NEEDED Status: Active Protocol: Document 03/08/22 13:35 AB (Rec: 03/08/22 14:58 AB [email or web address]) Subjective Physical Therapy Visit Type Type Initial Evaluation Visit Start Time 13:35 Visit Stop Time 14:01 Total Visit Minutes 26 Notes Nurse stopped Diltiazem drip prior to PT eval Number of GUEST SERVICE AIDE Visits 0 Physical Therapy Visit Comments Patient Comments pt is agreeable to do PT Therapy Pain Assessment Pain When Pain Assessed At Rest Location Posterior Head Scale Used c/o headache Pain Management Techniques Distraction M4 PT-IP Mobility and Gait Start: 03/08/22 14:46 Freq: NEEDED Status: Active Protocol: Document 03/08/22 13:35 AB (Rec: 03/08/22 14:58 AB [email or web address]) PT-Bed Mobility Assessment Supine to Sit Supine to Sit Standby Assistance Sit to Supine Sit to Supine Standby Assistance PT-Transfer Assessment Sit to and From Stand Sit to and from Stand Contact Guard Assistance,1 Person Assistance,Use of Upper Extremities Equipment Transfer Assistive Device Gait Belt,Front Wheeled Walker Orthotic/Prosthetic Devices or Brace: No Transfers Transfer Destination Chair Transfer Technique ambulated Transfer Ability Level of Assist Contact Guard Assistance Comments Mobility Comments bp in supine: 137/74. c/o posterior headache. completed supine to sit SBA. able to sit on EOB SBA. BP in sittin/75. completed sit to stand SBA and ambulated ~ 15ft using FWW CGA. pt sat on chair. agreed to ambulate without AD and completed ~ 15 ft back to bed CGA to occasional min A. presents with increase lateral R sided lean. pt also presents with forward head/shoulder posture. completed sit to supine SBA. positioned pt in bed. call light and table placed within reach. Nurse in room. Gait Assessment Gait Gait Assistance Required: Contact Guard Assist,Minimum Assistance Distance (Feet) 15 Able to Maintain Weight Bearing Status Yes During Gait Assistive Devices Assistive Device None,Gait Belt,Front Wheeled Walker Orthotic/Prosthetic Devices or Brace: No Gait Deviations General Gait Pattern Ataxic,Decreased Stride Length ,Decreased Feet Clearance Factors Limiting Gait Function Factors Limiting Gait Function Decreased Activity Tolerance, Decreased Strength,Pain,Poor Balance,Poor Safety Awareness PT-Balance Assessment Sitting Balance and Reactions Static Sitting Balance Ability Normal Dynamic Sitting Balance Ability Normal Standing Balance and Reactions Static Standing Balance Ability Good Dynamic Standing Balance Ability Fair M5 PT-IP Objective Assessments Start: 03/08/22 14:46 Freq: NEEDED Status: Active Protocol: Document 03/08/22 13:35 AB (Rec: 03/08/22 14:58 AB [id number]) Orientation Orientation/Cognition Level of Alertness Alert Orientation Name Language Function Ability Hard of Hearing Safety Awareness Decreased Safety Awareness Memory Description Short Term Impaired Comments slight confusion Gross Range of Motion Lower Extremity ROM Assessment Within Functional Limits Strength Comments Strength Comments RLE: 4/5 LLE 4-/5 Muscle Tone Muscle Tone WNL Yes M6 PT-IP Treatment Start: 03/08/22 14:46 Freq: NEEDED Status: Active Protocol: Document 03/08/22 13:35 AB (Rec: 03/08/22 14:58 AB [email or web address]) Physical Therapy Treatment Education Education Provided Safety M7 PT-IP Assessment and Plan Start: 03/08/22 14:46 Freq: NEEDED Status: Active Protocol: Document 03/08/22 13:35 AB (Rec: 03/08/22 14:58 AB [email or web address]) PT Summary Assessment and Plan Potential Rehabilitation Potential Good Status of Condition at Evaluation Stable Summary Impairments Pain,ROM,Strength,Balance, Coordination,Sensation,Tone, Cognition,Bed Mobility, Transfers,Gait,Activity Tolerance Assessment Summary pt requiring CGA to min A with ambulation without AD but only CGA with use of FWW. d/c plan depends on progress and will continue to assess. pt's partner checks on pt 2x daily . will conduct caregiver training when appropraite. also need to complete stair climbing training. Goals Bed Mobility Goal Independent Transfer Goal Independent Gait Goal Independent Gait Distance 200 Other Goals up/down 1 step SPC or without AD SBA Days to Meet Goals 5 Frequency of Treatment Frequency Of Treatment Once a Day Treatment Plan Physical Therapy Treatment Plan Bed Mobility Training,Transfer Training,Gait Training, Therapeutic Exercise,Balance Retraining,Discharge Planning, Hot or Cold Pack,Neuromuscular Re-ed,Coordination Retraining ,Manual Therapy Recommendations To Nursing Amount of Assist Needed 1 Person Assist Discharge Recommendations PT Discharge Recommendations Home with Assistance, Outpatient PT Transportation Needs at Discharge Private Vehicle
--- NOTE | 2022-03-08 14:51 | OT.IPNOTE ---
Attempted to see pt for OT eval, per nursing aid pt at MRI.
--- NOTE | 2022-03-08 15:24 | PC.NURSE ---
Pt arrives to room 213 at 1155 a.m. He is A&Ox3, VSS, slightly bradycardic, afebrile. He has mild unsteadiness with gait. He denies any fall within the last 3 months. He is [place] and has Bilateral hearing aids. He passes his swallow Evaluation without any difficulty swallowing and tolerates lunch well. He is evaluated by PT. MD Hernandez notified of bradycardia in 40's on telemetry and orders to monitor for now with fall precautions and hold atenolol 03/09. He denies vision changes, but states intermittent dizziness. He is escorted to MRI this afternoon via w/chair. Continuous monitoring. Call light in reach and bed alarm in place.
[2022-03-08] MEDS: prednisoLONE OPHTH SUSP 1 DROPS EYE-BOTH (18:00)
[2022-03-08] MEDS: PRAVASTATIN 20 MG TABLET 80 MG PO (20:44)
[2022-03-08] MEDS: PREDNISOLONE 1% 1 EACH EYE-LEFT (20:45)
[2022-03-09] VITALS: BP 125/69; PULSE 52; RESP 18; TEMP 36.5; O2SAT 96
[2022-03-09 04:00] VITALS: BP 133/71; PULSE 71; RESP 18; TEMP 36.6; O2SAT 99
--- NOTE | 2022-03-09 04:40 | PC.NURSE ---
Pt is AxOx3, needs STA to the bathroom and cooperative. VSS, pt denies pain. Pt has tele and it shows sinus nicole and some prolonged QT. Pt ate well and slept well all night. No other changes. Continue monitor.
[2022-03-09 06:14] LABS: Add Manual Diff / Slide Review NO; Basophils Absolute Auto 0 /uL (0-100); Basophils Percent Auto 0.8 % (0-2); Eosinophils Absolute Auto 200 /uL (0-450); Eosinophils Percent Auto 4.4 % (2-4); Lymphocytes Absolute Auto 800 /uL (1100-4500); Lymphocytes Percent Auto 14.2 % (25-40); Mean Corpuscular Hemoglobin 33.4 PG (26-34); Mean Corpuscular Volume 95.2 fL (80-100); Monocytes Absolute Auto 500 /uL (0-900); Monocytes Percent Auto 8.9 % (3-14); Neutrophils Absolute Auto 3800 /uL (1500-7000); Neutrophils Percent Auto 71.7 % (50-75); Platelet Count 167 X10^3/uL (150-400); Red Cell Distribution Width 12.6 % (11.6-14.8); White Blood Cell Count 5.3 X10^3/uL (4.5-11.0)
[2022-03-09 06:25] LABS: Alanine Aminotransferase 20 IU/L (<50); Albumin 3.5 g/dL (3.5-5.0); Albumin Globulin Ratio 1.2 (1.0-2.8); Alkaline Phosphatase 105 U/L (38-126); Aspartate Aminotransferase 24 IU/L (17-59); BUN Creatinine Ratio 18.2 (6-22); Bilirubin Total 1.1 mg/dL (0.2-1.3); Blood Urea Nitrogen 16 mg/dL (9-20); Calcium 8.3 mg/dL (8.4-10.2); Carbon Dioxide 31 mmol/L (22-32); Chloride 103 mmol/L (98-107); Estimated Glomerular Filt Rate > 60 mL/min (>60); Glucose 98 mg/dL (80-110); HEMOLYSIS < 15 (0-50); Potassium 3.4 mmol/L (3.4-5.1); Sodium 137 mmol/L (137-145); Total Protein 6.5 g/dL (6.3-8.2)
[2022-03-09 08:00] VITALS: BP 133/71; PULSE 54; RESP 14; TEMP 36.1; O2SAT 97
[2022-03-09] MEDS: atenoloL 25 MG TABLET PO (08:49)
[2022-03-09] MEDS: ASPIRIN 81 MG CHEW TAB PO (08:49)
[2022-03-09] MEDS: FAMOTIDINE 20 MG TABLET 10 MG PO (08:49)
[2022-03-09] MEDS: POTASSIUM CHLORIDE 10 MEQ TAB PO (08:49)
[2022-03-09] MEDS: TAMSULOSIN 0.4 MG CAPSULE PO (08:49)
[2022-03-09] MEDS: CHOLECALCIFEROL (VITAMIN D3) 1,000 UNIT TABLET 2000 UNIT PO (08:50)
[2022-03-09] MEDS: hydroCHLOROthiazide 25 MG TABLET PO (08:50)
[2022-03-09] MEDS: ENOXAPARIN 30 MG/0.3 ML SYRINGE SUBCUT (08:52)
[2022-03-09] MEDS: dilTIAZem CD 120 MG CAP PO (08:53)
[2022-03-09] MEDS: PREDNISOLONE 1% 1 EACH EYE-LEFT (08:55)
--- NOTE | 2022-03-09 11:34 | PM.DS.1 ---
History of Present Illness History of Present Illness Chief complaint: sitting fell over, shakey , disoriented Narrative: PResented to ED from home with concern for new weakness and vision changes. Called PCP clinic reports he woke up sat up and fell over then was cloudy headed diroeinted weak adn erickky. Described going into bathroom to shave then seeing shower curtain undulate for about ten minutes in absence of wind. Initial workup did not identify a cause so he is admitted for complete stroke workup. NIHSS zero on admission states he feels fine feeling hungry.? GF at bedside notes he's had some increased wordfinding and weakness problems creeping in over the last few months - he does have dementia diagnosis - but he seems basically usual to her today except for the story of what was happening at home. Discharge Providers Provider Date of admission: 03/08/22 11:02 Discharge Date: 03/09/22 Primary care physician: Alvaro Hamilton MD Consults: 03/08/22 11:28 Consult to Occupational Therapy Evaluate & Treat Comment: Physician Instructions: Evaluate and treat Consult to Physical Therapy Evaluate & Treat Comment: Physician Instructions: Evaluate and Treat Discharge provider: Ayla Gusman MD Summary Hospital Course Discharge Diagnosis: possible TIA/CVA alzheimers dementia, mild, with aphasia, also mild BPH w/obstruction HTN essential hyperlipidemia GERD recent cataract surgery UTI Hospital Course: The pt presented with concerns for TIA. His symptoms resolved prior to arrival in the ED. Complete work-up including head CT, MRI, and echocardiogram was negative. U/A initially showed signs of possible UTI and he was treated with IV Ceftriaxone, however urine culture ultimately returned negative. He was noted to be intermittently bradycardic, and Atenolol dosing was halved. The pt is stable for discharge home. Physical therapy recommended outpatient PT. Status at Discharge Cognitive/behavioral status at discharge: at baseline, oriented Exam Vital Signs (past 8 hours): - 03/09/22 04:00 03/09/22 08:00 Temperature 97.9 F 97 F L Pulse Rate 71 54 L Respiratory Rate 18 14 Blood Pressure 133/71 133/71 Pulse Oximetry 99 97 Oxygen Flow Rate 0 0 Oxygen Delivery Method Room Air Oxygen Flow Rate 0 Narrative Exam Narrative: Gen: NAD, sitting comfortably in bed, pleasantly conversant at times forgetting words CV: RRR, no murmurs Resp: clear to auscultation bilaterally Abd: soft, nontender, nondistended Ext: no edema Neuro: no gross deficits Objective Labs Result Diagrams: 03/09/22 05:48 03/09/22 05:48 Labs: Laboratory Results - last 24 hr 03/09/22 03/09/22 05:48 05:48 WBC 5.3 RBC 4.20 L Hgb 14.0 Hct 40.0 L MCV 95.2 MCH 33.4 MCHC 35.0 RDW 12.6 Plt Count 167 Neut % (Auto) 71.7 Lymph % (Auto) 14.2 L [place] % (Auto) 8.9 Eos % (Auto) 4.4 H Baso % (Auto) 0.8 Neut # (Auto) 3800 Lymph # (Auto) 800 L [place] # (Auto) 500 Eos # (Auto) 200 Baso # (Auto) 0 Sodium 137 Potassium 3.4 Chloride 103 Carbon Dioxide 31 BUN 16 Creatinine 0.88 Estimated GFR > 60 BUN/Creatinine Ratio 18.2 Glucose 98 Calcium 8.3 L Total Bilirubin 1.1 AST 24 ALT 20 Alkaline Phosphatase 105 Total Protein 6.5 Albumin 3.5 Globulin 3.0 Albumin/Globulin Ratio 1.2 [facility] Medical History Anxiety (06/06/14) Bile duct carcinoma Cardiac arrhythmia (06/06/14) Carpal tunnel syndrome Cervical spine disease Essential hypertension (08/04/15) History of adenomatous polyp of colon (12/27/10) History of renal calculi (12/27/10) Hyperlipidemia (08/09/16) Mild cognitive impairment Paroxysmal atrial fibrillation SVT (supraventricular tachycardia) Surgical History S/P carpal tunnel release Family History Father Family history of Alzheimer's disease Social History marital status: number of children: 0 household members: none lives independently: Yes caregiver/support person: Yes housing: house pets and animals: No education level: high school occupational status: other current occupational exposures/hazards: No 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 Smoking Status: Former smoker Tobacco: How many years used: 10 Smokeless tobacco user: other quit status: quit date established second hand exposure: No alcohol intake: current substance use type: does not use Discharge Plan Discharge Plan Patient Disposition: Home Discharge orders & Medications Prescriptions: Continued pravastatin 80 mg tablet 80 mg PO HS Qty: 90 3RF potassium chloride [Klor-Con 8] 8 mEq tablet extended release 8 meq PO QDAY Qty: 90 3RF hydrochlorothiazide 25 mg tablet 25 mg PO QDAY Qty: 90 3RF tamsulosin [Flomax] 0.4 mg capsule 0.4 mg PO QDAY Qty: 90 3RF calcium carbonate [Tums] 200 mg calcium (500 mg) tablet,chewable 200 mg PO BID PRN (Reason: heartburn) aspirin 81 mg Tablet,Chewable 81 mg PO DAILY ranitidine HCl 75 mg Tablet 75 mg PO DAILY diltiazem HCl [Cardizem CD] 120 mg Capsule,Extended Release 24hr 120 mg PO DAILY cholecalciferol (vitamin D3) 50 mcg (2,000 unit) Tablet 50 mcg PO DAILY Changed atenolol 25 mg Tablet 12.5 mg PO DAILY Qty: 30 0RF Discontinued methylprednisolone [Medrol (Alexis)] 4 mg tablets,dose pack See Rx Instructions PO PER PKG DIR Qty: 21 0RF Rx Instructions: PO PER PKG DIR Follow up/Referrals: Alvaro Hamilton MD [Primary Care Provider] - 2 Weeks Diet/Activity/Treatments Diet: Diet as Tolerated and Regular Visit Report/Discharge Packet Visit Report Forms: Patient Portal/API, Stroke Signs & Symptoms Discharge Data Primary Care Provider: Alvaro Hamilton Attending Provider: Noah Hernandez Admchristopher Date/Time: 03/08/22 11:02 Quality VTE Deep Vein Thrombosis/Pulmonary Embolism Present on Admission: No
--- NOTE | 2022-03-09 12:04 | OT.IP.EVAL ---
Past Medical History (Last Reviewed 03/08/22 @ 11:53 by Noah Hernandez MD) Anxiety (06/06/14) Bile duct carcinoma Cardiac arrhythmia (06/06/14) Carpal tunnel syndrome Cervical spine disease Essential hypertension (08/04/15) History of adenomatous polyp of colon (12/27/10) History of renal calculi (12/27/10) Hyperlipidemia (08/09/16) Mild cognitive impairment Paroxysmal atrial fibrillation SVT (supraventricular tachycardia) Surgical History (Last Reviewed 03/08/22 @ 11:32 by Noah Hernandez MD) S/P carpal tunnel release Occupational Therapy Inpatient Evaluation/Re-Eval M1 PT/OT-IP Prior Functional Status Start: 03/08/22 14:46 Freq: NEEDED Status: Discharge Protocol: Document 03/09/22 11:20 [facility] (Rec: 03/09/22 13:21 [facility] [id number]) Medical Review Prior Functional Status Medical History Reviewed Yes Communication able to make needs known but with slight confusion Mobility and Gait Pt states does not use a device but a walking stick for outdoors at times. Activities of Daily Living and IADL's Pt states able to independently do all ADl's on his own. Social History Household Members none Living Arrangements House Number of Floors (Floors) One Floor Number of Stairs To Enter/Railing? 1 step to enter Home Environment Standard Height Toilet,Tub/ Shower Home Equipment Straight Cane,Hand Held Shower Additional Social History Comment pt's partner checks on pt 2x/ day everyday M2 OT-IP Current Condition Start: 03/09/22 13:02 Freq: Status: Discharge Protocol: Document 03/09/22 11:20 [facility] (Rec: 03/09/22 13:21 [facility] [id number]) Occupational Therapy Current Condition Current Condition Evaluation Date 03/09/22 Treatment Diagnosis Neurological symptoms Diagnosis Onset Date 03/08/22 M3 OT- IP Subjective and Pain Start: 03/09/22 13:02 Freq: Status: Discharge Protocol: Document 03/09/22 11:20 [facility] (Rec: 03/09/22 13:21 [facility] [id number]) OT- Subjective Occupational Therapy Visit Type Type Initial Evaluation Visit Start Time 11:20 Visit Stop Time 12:04 Total Visit Minutes 44 Occupational Therapy Visit Comments Patient Comments Pt agreed to get up for OT eval. Patient/Caregiver Goals TO go home. OT Pain Assessment Pain When Pain Assessed At Rest Pain Present Pain Present Denied Pain M4 OT- IP ADL's Start: 03/09/22 13:02 Freq: Status: Discharge Protocol: Document 03/09/22 11:20 [facility] (Rec: 03/09/22 13:21 [facility] [id number]) OT OCI-Xhxo-Oqlwdno Comments OT Self-Feeding Comments not at meal time OT ADL-Grooming General Evaluation Grooming Ability Independent Comments OT Grooming Comments while standing at the sink OT ADL-Oral Care General Eval Oral Care Ability Independent Comments Oral Care Comments while standing at the sink OT ADL-Dressing General Eval Lower Body Dressing Ability Independent Comments OT Dressing Comments Pt able to independently rosalina his shoes and socks while seated on the edge of the bed OT ADL-Toileting General Evaluation Toileting Ability Standby Assistance Comments OT Toileting Comments Pt able to stand to urinate with distant SBA. OT ADL-Bathing Comments OT Bathing Comments Suggested that pt may benefit from a shower chair for home use. M5 OT- IP IADL's Start: 03/09/22 13:02 Freq: Status: Discharge Protocol: Document 03/09/22 11:20 [facility] (Rec: 03/09/22 13:21 [facility] [id number]) OT-Instrumental Activities of Daily Living Deficits IADL Deficits Identified Deficits Home Safety Awareness Awareness of Need for Assistance at Home Decreased Awareness Ability to Problem Solve Emergency Able to Problem Solve Situations Home Safety Comments Pt is a times a bit unsteady on his feet and would greatly benefit from assist with showers and IADl needs at this time. Medication Management Medication Management Comments Concerns for safety and pt having difficulty with his cognition word finding and at times following commands. Money Management Money Management Caregiver Provides Assistance Meal Preparation Meal Preparation Comments Pt will benefit from assist. Battery Mechanic Battery Mechanic Comments Pt will benefit from assist. Driving Driving Concerns Identified Regarding Safety M6 OT- IP Functional Cognition Start: 03/09/22 13:02 Freq: Status: Discharge Protocol: Document 03/09/22 11:20 [facility] (Rec: 03/09/22 13:21 [facility] [id number]) Cognitive Factors Limiting Selfcare Function Cognitive Ability Level of Alertness Alert Patient Orientation Name,Place,Situation Attention Span Ability Capable of Focused Attention, Capable of Sustained Attention Ability to Follow Commands Able to Follow One Step Commands Memory Description Working Impaired Safety Awareness Underestimates Need for Assistance Cognitive Comments Cognitive Assessment Comments Pt having difficulty with word finding and tends to get anxious during cognitive assessment of [place] Making Part B. Pt states has been having difficulty with getting the words out in the past fews month since having several surgeries regarding his gall bladder. Pt scored 314 seconds which implies severe impairments for visual attention, speed of processing , mental flexibility, task switching and executive functioning. Suggested that pt not drive at this time. Pt then admits that his girlfriend usually drives. OT- Vision and Hearing OT- Hearing Assessment OT- Hearing Assessment WFL OT- Vision Assessment Visual Acuity Glasses All The Time Vision Assessment Comments Pt states at times his vision is blurry but insists from just havig cataracts done recently. M7 OT- IP Mobility and Balance Start: 03/09/22 13:02 Freq: Status: Discharge Protocol: Document 03/09/22 11:20 [facility] (Rec: 03/09/22 13:21 [facility] [id number]) OT- Bed Mobility Assessment Supine to Sit Supine to Sit Assist Independent OT-Transfer Assessment Sit to and From Stand Sit to and from Stand Standby Assistance Transfers Transfer Ability Standby Assistance,Contact Guard Assistance Technique Transfer Destination Bed,Chair Devices Transfer Assistive Devices Gait Belt Comments Mobility Comments close SBA to occasional CGA as pt occasional sways when up on his feet. Suggested to pt to use his FWW at home of increased balance. OT- Balance Assessment Sitting Balance and Reactions Static Sitting Balance Ability Normal Dynamic Sitting Balance Ability Normal Standing Balance and Reactions Static Standing Balance Ability Good Dynamic Standing Balance Ability Fair M8 OT- IP Objective Assessments Start: 03/09/22 13:02 Freq: Status: Discharge Protocol: Document 03/09/22 11:20 [facility] (Rec: 03/09/22 13:21 [facility] [id number]) OT Gross Range of Motion Upper Extremity Range of Motion Assessment Within Functional Limits OT Strength Upper Extremity Strength Assessment Within Functional Limits OT- Coordination Assessment Upper Extremity Finger to Nose Test Within Functional Limits Finger Tapping Test Within Functional Limits OT-Muscle Tone Assessment Muscle Tone WNL Yes OT Sensation Assessment Comments Summary Comments intact for light touch M9 OT- IP Assessment and Plan Start: 03/09/22 13:02 Freq: Status: Discharge Protocol: Document 03/09/22 11:20 [facility] (Rec: 03/09/22 13:21 [facility] [id number]) OT Summary Assessment and Plan Potential Rehabilitation Potential Good Analytic Complexity at Evaluation Low Summary OT Impairments Balance,Functional Cognition, Functional Mobility,Toileting, Bathing,Toilet Transfers, Shower Transfers Progress Towards Goals Progressing Toward Goals Assessment Summary Pt low complexity and main barriers are decreased executive functioning, difficulty to get the words out , and decreased dynamic balance. Pt complaining of vertigo when suddenly looking up. Pt states in the past has had vertibular therapy. Pt looking to go home with assist and would benefit from outpt PT for dynamic and reassess vestibular needs. Goals Self-Feeding Goal Independent Grooming Goal Independent Dressing Goal Independent Toileting Goal Independent Bathing Goal Independent Toilet Transfer Goal Independent Shower Transfer Goal Independent Days to Meet Goals 5 Frequency of Treatment Frequency Of Treatment Once a Day Treatment Plan OT Treatment Plan ADL Training,Functional Cognition Training,Functional Mobility,Patient/Family Education,Discharge Planning Discharge Recommendations OT Discharge Recommendations Home with 24/7 Assist Available,Outpatient PT Home Equipment Needs shower chair Transportation Needs at Discharge Private Vehicle
--- NOTE | 2022-03-09 12:05 | PT.IPTN ---
Physical Therapy Treatment Note M2 PT-IP Current Condition Start: 03/08/22 14:46 Freq: NEEDED Status: Discharge Protocol: Document 03/08/22 13:35 [facility] (Rec: 03/08/22 14:58 AB [id number]) Physical Therapy Current Condition Current Condition Evaluation Date 03/08/22 Treatment Diagnosis TIA; UTI; difficulty in walking Onset Date 03/08/22 M3 PT-IP Subjective Start: 03/08/22 14:46 Freq: NEEDED Status: Discharge Protocol: Document 03/09/22 12:05 [facility] (Rec: 03/09/22 13:43 AB [id number]) Subjective Physical Therapy Visit Type Type Treatment Note Visit Start Time 12:05 Visit Stop Time 12:31 Total Visit Minutes 26 Number of MERCHANDISE PRESENTATION ASSOCIATE Visits 0 Physical Therapy Visit Comments Patient Comments pt is agreeable to do PT M4 PT-IP Mobility and Gait Start: 03/08/22 14:46 Freq: NEEDED Status: Discharge Protocol: Document 03/09/22 12:05 [facility] (Rec: 03/09/22 13:43 AB [id number]) PT-Transfer Assessment Sit to and From Stand Sit to and from Stand Standby Assistance Equipment Transfer Assistive Device Gait Belt Orthotic/Prosthetic Devices or Brace: No Comments Mobility Comments pt stated that he still feels that posterior head is not normal. Pt with forward head and rounded shoulder posture. cued for posture and alignment . chind tuck exercises conducted and stated that neck and head feels better. checked and with levator scapula, upper/mid traps thighness and stretching conducted and pt reported relief from posterior head pain. pt completed sit to stand from the chair SBA. ambulated in in room without AD and require CGA to min A. presents with unsteady gait. informed pt regarding safety and agreed to use SPC for ambulation. ambulated in room using SPC and completed ~ 30 ft SBA. presents with steadier gait. Pt completed up/down step stool using SPC CGA. repeated x 2 sets. Pt's partner arrived towards end of PT session. informed regarding use of SPC for ambulation at this time and pt needing outpt PT for balance and to address cervical/ shoulder issue. pt and partner expressed understanding. Gait Assessment Gait Gait Assistance Required: Standby Assistance,Contact Guard Assist,Minimum Assistance,1 Person Assist Distance (Feet) 30 Able to Maintain Weight Bearing Status Yes During Gait Assistive Devices Assistive Device None,Gait Belt,Straight Cane Orthotic/Prosthetic Devices or Brace: No Gait Deviations General Gait Pattern Decreased Stride Length, Decreased Feet Clearance Factors Limiting Gait Function Factors Limiting Gait Function Decreased Strength,Difficulty Following Directions,Poor Balance,Poor Safety Awareness Stair Climbing Assessment Evaluation Level of Assist On Stairs Contact Guard Assistance Devices Stair Climbing Assistive Devices Straight Cane Technique/Endurance Stair Climbing Direction Ascend and Descend Stair Climbing Technique Step to Step Number of Steps Climbed 1 Stair Climbing Set # Repetitions (reps) 2 M5 PT-IP Objective Assessments Start: 03/08/22 14:46 Freq: NEEDED Status: Discharge Protocol: Document 03/08/22 13:35 [facility] (Rec: 03/08/22 14:58 AB [id number]) Orientation Orientation/Cognition Level of Alertness Alert Orientation Name Language Function Ability Hard of Hearing Safety Awareness Decreased Safety Awareness Memory Description Short Term Impaired Comments slight confusion Gross Range of Motion Lower Extremity ROM Assessment Within Functional Limits Strength Comments Strength Comments RLE: 4/5 LLE 4-/5 Muscle Tone Muscle Tone WNL Yes M6 PT-IP Treatment Start: 03/08/22 14:46 Freq: NEEDED Status: Discharge Protocol: Document 03/09/22 12:05 [facility] (Rec: 03/09/22 13:43 AB [id number]) Physical Therapy Treatment Education Education Provided Safety Other Treatments Other Treatment Performed chin tucks; traps/levator scap stretching M7 PT-IP Assessment and Plan Start: 03/08/22 14:46 Freq: NEEDED Status: Discharge Protocol: Document 03/09/22 12:05 [facility] (Rec: 03/09/22 13:[email or web address] PT Summary Assessment and Plan Potential Rehabilitation Potential Fair Summary Impairments Pain,ROM,Strength,Balance, Coordination,Sensation,Tone, Cognition,Bed Mobility, Transfers,Gait,Activity Tolerance Progress Towards Goals Slow Progress due to Activity Tolerance Assessment Summary pt requiring SBA to CGA with mobility and recommending use of SPC a this time for balance and safety. informed pt and spouse regarding outpt PT recommendation and agreed. pt plans to go home and spouse to assist him. Goals Bed Mobility Goal Independent Transfer Goal Independent Gait Goal Independent Gait Distance 200 Other Goals up/down 1 step SPC or without AD SBA Days to Meet Goals 5 Frequency of Treatment Frequency Of Treatment Once a Day Treatment Plan Physical Therapy Treatment Plan Bed Mobility Training,Transfer Training,Gait Training, Therapeutic Exercise,Balance Retraining,Discharge Planning, Hot or Cold Pack,Neuromuscular Re-ed,Coordination Retraining ,Manual Therapy Recommendations To Nursing Amount of Assist Needed 1 Person Assist Discharge Recommendations PT Discharge Recommendations Home with Assistance, Outpatient PT Transportation Needs at Discharge Private Vehicle
--- NOTE | 2022-03-09 13:06 | PC.NURSE ---
Patient teaching with patient and sign. other at bedside. Pt states understanding regarding new dose change in current daily medications. Patient and SO are aware to call PCP on friday to get ref. for PT/OT for balance improvement. IV and tele removed. Pt escorted down to private vehicle via wheel chair with belongings in hand.
--- NOTE | 2022-03-09 14:48 | CM.IDA ---
Initial DCP Assessment Note Pt is a 86 yo male, resident of [place], arrives w/ new weakness and vision changes and admitted observation for stroke r/o, MRI Neg and sx resolved. Patient w/ dx of Alz dementia Patient discharged this morning, home to the care of his spouse and close outpatient follow up recommended. PCP: Dr Alvaro Hamilton Payer: [facility] Patient eager to return home w/spouse, No barriers identified at this time to patient's safe discharge home w/family to assist; close outpatient f/u recommended. RAMSEY Desai
--- NOTE | 2022-03-20 11:20 | PC.NURSE ---
Late Entry; Ceftriaxone infusion initiated 03/08 at 1236 complete at 1307.
== END 2022-03-09 12:30 | disposition home or self-care (01) ==
LOC: ED 10:53 → AC 11:04
PROVIDERS: Admitting Provider Family Medicine; Emergency Provider Emergency Medicine; Family Provider Family Medicine; PCP Family Medicine; Referring Provider Emergency Medicine; Visit Provider Family Medicine
DX: R53.1 Weakness (principal); R29.700 NIHSS score 0; R41.0 Disorientation, unspecified; H53.9 Unspecified visual disturbance; F03.90 Unspecified dementia, unspecified severity, without behavioral disturbance, psychotic disturbance, mood disturbance, and anxiety; E04.1 Nontoxic single thyroid nodule; N39.0 Urinary tract infection, site not specified; Z20.822 Contact with and (suspected) exposure to COVID-19
CPT/HCPCS: 36415; 70450; 70496; 70498; 70551; 80053; 81001; 82550; 82553; 82962; 84484; 85025; 87086; 87635; 93005; 93306; 93880; 96361; 96365; 96372; 97116; 97161; 97165; 97530; 99217; 99285; C9803; G0378; A9270; J0696; J1650; Q9967

== ENCOUNTER → 2022-04-01 08:21 | Outpatient (CLI) | payer OTHER, SELFPAY ==
[2022-03-08 12:01] VITALS: BMI 23.8
--- NOTE | 2022-04-01 | DI.US.S_ITS ---
PROCEDURE: US THYROID INDICATIONS: Nontoxic single thyroid nodule TECHNIQUE: Real-time scanning was performed of the thyroid gland, with image documentation. COMPARISON: None. FINDINGS: Right: Thyroid lobe measures 4.8 x 2 x 1.8 cm, and is heterogeneous in echotexture. Left: Thyroid lobe measures 5.1 x 2.7 x 2.7 cm, and is heterogeneous in echotexture. Isthmus: 2.4 mm thick. Nodule number: 1 Location: Upper pole right thyroid lobe Size: 0.7 x 0.9 x 0.6 cm. Composition: Predominantly solid Echogenicity: Isoechoic Shape: Wider than tall Margins: Smooth Echogenic foci: Punctate Total points: 6 ACR TI-RADS category: Moderately suspicious. Nodule number: 2 Location: Mid pole of right thyroid lobe Size: 1.8 x 1.1 x 0.6 cm. Composition: Predominantly solid Echogenicity: Hypoechoic Shape: Wider than tall Margins: Lobulated Echogenic foci: Punctate Total points: 8 ACR TI-RADS category: Highly suspicious. Nodule number: 3 Location: Upper pole left thyroid lobe Size: 1.2 x 0.9 x 0.5 cm. Composition: Predominantly solid Echogenicity: Hypoechoic Shape: Wider than tall Margins: Smooth Echogenic foci: Punctate Total points: 6 ACR TI-RADS category: Moderately suspicious Nodule number: 4 Location: Lower pole left thyroid lobe Size: 2.9 x 2.1 x 1.7 cm. Composition: Predominantly solid Echogenicity: Isoechoic to anechoic Shape: Wider than tall Margins: Smooth Echogenic foci: Non Total points: 3 ACR TI-RADS category: Mildly suspicious IMPRESSION: 1. Bilateral thyroid nodules as described above. Consider fine-needle aspiration of midpole right thyroid nodule (thyroid nodule 2) and lower pole left thyroid lobe nodule (thyroid nodule 4). ACR TI-RADS definitions and recommendations: TI-RADS 1 (benign): 0 points. FNA not needed. TI-RADS 2 (not suspicious): 2 points. FNA not needed. TI-RADS 3 (mildly suspicious): 3 points. * FNA if 2.5 cm or larger, follow up if 1.5 cm or larger (at 1, 3, and 5 years). TI-RADS 4 (moderately suspicious): 4-6 points. * FNA if 1.5 cm or larger, follow up if 1 cm or larger (at 1, 2, 3, and 5 years). TI-RADS 5 (highly suspicious): 7 points or more. * FNA if 1 cm or larger, follow up if 0.5 cm or larger (every year for 5 years). Dictated by: Mehran Barnes M.D. on 04/01/2022 at 10:58 Approved by: Mehran Barnes M.D. on 04/01/2022 at 11:02
== END ==
PROVIDERS: Family Provider Family Medicine; PCP Family Medicine; Referring Provider Family Medicine; Visit Provider Family Medicine
DX: E04.2 Nontoxic multinodular goiter (principal); G45.9 Transient cerebral ischemic attack, unspecified; G30.9 Alzheimer's disease, unspecified
CPT/HCPCS: 76536

== ENCOUNTER → 2022-06-04 12:34 | Outpatient (CLI) | payer OTHER, SELFPAY ==
[2022-03-08 12:01] VITALS: BMI 23.8
--- NOTE | 2022-06-04 | PATH_ITS ---
Note [facility] Accession Number: [id number] TESTS RESULT FLAG UNITS REF RANGE LAB Clinician Provided Cytology Information No. of containers..01 Other (Miscellaneous) No. of containers..00 Previously Prepared Cytology Slide Source: LEFT THYROID INFERIO Clinician ICD10: E04.1 DIAGNOSIS: LEFT THYROID INFERIO INCONCLUSIVE. BETHESDA CATEGORY III. ATYPIA OF UNDETERMINED SIGNIFICANCE. MOLECULAR STUDIES REQUESTED; RESULTS WILL BE REPORTED SEPARATELLY. Pathologist ICD10: R89.6 Clinical history: Right: Thyroid lobe measures 4.8 x 2 x 1.8 cm, and is heterogeneous in echotexture. Left: Thyroid lobe measures 5.1 x 2.7 x 2.7 cm, and is heterogeneous in echotexture. Isthmus: 2.4 mm thick. 1. Bilateral thyroid nodules as described above. Consider fine-needle aspiration of midpole right thyroid nodule (thyroid nodule 2) and lower pole left thyroid lobe nodule (thyroid nodule 4). Signed out by: Sol Shankar MD, Pathologist NPI- [id number] Performed by: Amalia Mehta, Bottle House Cleaners Supervisor ([facility]) Gross description: 30 CC, RED, CLEAR RECIEVED: IN CYTOLYT WITH 5 ALCOHOL FIXED AND 5 QUICK STAINED SLIDES ALSO 1 RNA VIAL WAS RECEIVED. /[facility] 06/05/2022 1026 Local FLAG LEGEND: L-Low Normal,H-High Normal,LL-Alert Low,HH-Alert High <-Panic Low,>-Panic High,A-Abnormal,AA-Critical Abnormal Performed at: 01 =Z [facility] [address], [place] [address] Sandip Cruz MD, Performed at: 01 [facility] [address], [place], [place] [id number] MD Sandip Cruz MD Phone: [phone]
--- NOTE | 2022-06-04 | PATH_ITS ---
Note [facility] Accession Number: [id number] TESTS RESULT FLAG UNITS REF RANGE LAB Clinician Provided Cytology Information No. of containers..01 Other (Miscellaneous) No. of containers..00 Previously Prepared Cytology Slide Source: RIGHT THYROID MID NO Clinician ICD10: E04.1 DIAGNOSIS: RIGHT THYROID MID NO NEGATIVE FOR MALIGNANT CELLS. BETHESDA CATEGORY II. SPECIMEN CONSISTS OF BENIGN FOLLICULAR CELLS, HEMOSIDERIN-LADEN MACROPHAGES, COLLOID, AND BLOOD. THIS PATTERN IS CONSISTENT WITH A BENIGN FOLLICULAR NODULE. Pathologist ICD10: E04.1 Clinical history: Right: Thyroid lobe measures 4.8 x 2 x 1.8 cm, and is heterogeneous in echotexture. Left: Thyroid lobe measures 5.1 x 2.7 x 2.7 cm, and is heterogeneous in echotexture. Isthmus: 2.4 mm thick. 1. Bilateral thyroid nodules as described above. Consider fine-needle aspiration of midpole right thyroid nodule (thyroid nodule 2) and lower pole left thyroid lobe nodule (thyroid nodule 4). Signed out by: Sol Shankar MD, Pathologist NPI- [id number] Performed by: Reagan Altman, Creative Services Writer ([facility]) Gross description: 30 CC, PINK, CLEAR RECIEVED: IN CYTOLYT WITH 5 ALCOHOL FIXED AND 5 QUICK STAINED SLIDES ALSO 1 RNA VIAL WAS RECEIVED. /[facility] 06/05/[address] [place] [address] FLAG LEGEND: L-Low Normal,H-High Normal,LL-Alert Low,HH-Alert High <-Panic Low,>-Panic High,A-Abnormal,AA-Critical Abnormal Performed at: 01 =Z [facility] [address] [place] [address] [address], [place] [address] Sandip Cruz MD, Performed at: 01 [facility] [address] [place] [address] [address], [place], [place] [id number] MD Sandip Cruz MD Phone: [phone]
--- NOTE | 2022-06-04 | DI.US.S_ITS ---
PROCEDURE: US FINE NEEDLE ASPIRATION INDICATIONS: Nontoxic single thyroid nodule TECHNIQUE: The indications, alternatives, benefits, risks, and complications of the procedure were explained to the patient. Written informed consent was obtained and placed in the chart. The thyroid region was examined sonographically and a site was chosen for ultrasound guided percutaneous sampling. The skin was prepared and draped in the usual fashion, and anesthetized with 1% lidocaine infiltrated from the skin down to the thyroid gland. Multiple passes were then performed, with contents emptied into an appropriate pathology specimen container. A bandage was applied to the area of access at completion of the study. COMPARISON: None. FINDINGS: Location(s) of lesion(s) sampled: Right and left thyroid lobe nodules Oden: 25 gauge hypodermic needles. Number of passes: 5 on the right, 5 on the left Medications: 1% lidocaine for local anaesthesia. Complications: None. IMPRESSION: Successful ultrasound-guided thyroid nodule fine needle aspiration, with cytology results pending. Please see chart below for management recommendations based on cytology results. [place] [facility] ReportingRecommendationsNon-diagnostic* Repeat US-guided FNA, with on-site cytology evaluation if possible. * Repeated non-diagnostic nodules without high suspicion US features: close observation vs surgical consult. * Consider surgery if nodule has high suspicion US features, grows >20% in 2 dimensions on followup, or patient has clinical risk factors for malignancy. Benign* If nodule has high suspicion US features: repeat US and FNA within 12 months. * If nodule has low to intermediate suspicion US features: repeat US at 12-24 months. If nodule grows (20% increase in at least 2 dimensions, with minimal increase of 2 mm or >50% change in volume), or development of new suspicious US features, then repeat FNA or continue followup. * If nodule has very low suspicion US features: followup US at >24 months. Atypia of undetermined significance, follicular lesion of undetermined significanceRepeat FNA, molecular testing, followup US, or surgical consult.Follicular neoplasm, suspicious for follicular neoplasmSurgical consult; also consider molecular testing. Suspicious for malignancySurgical consult.MalignantSurgical consult. Dictated by: Enriqueta Duron M.D. on 06/04/2022 at 14:15 Approved by: Enriqueta Duron M.D. on 06/04/2022 at 14:15
== END ==
PROVIDERS: Family Provider Family Medicine; PCP Family Medicine; Referring Provider Family Medicine; Visit Provider Family Medicine
DX: E04.2 Nontoxic multinodular goiter (principal)
CPT/HCPCS: 10005

== ENCOUNTER 2022-06-20 09:57 | Emergency (ER) | payer OTHER, SELFPAY ==
[2022-03-08 12:01] VITALS: BMI 23.8
[2022-06-20] VITALS (8 sets, daily range): BP systolic 131–171; BP diastolic 73–82; PULSE 52–68; RESP 15–22; TEMP 37.1; O2SAT 96–98; BMI 22.9
--- NOTE | 2022-06-20 10:17 | DI.RAD.S_ITS ---
PROCEDURE: XR CHEST 1V INDICATIONS: chest pain TECHNIQUE: One view of the chest was acquired. COMPARISON: [facility], CR, XR CHEST 1V, 09/06/2021, 8:28. FINDINGS: Surgical changes and devices: Partially imaged right upper quadrant abdominal vascular stent or shunt. Lungs and pleura: Lungs are clear. No pleural effusions or pneumothorax. Mediastinum: Mediastinal contours appear normal. Heart size is normal. Bones and chest wall: No suspicious bony lesions. Moderate degeneration of both glenohumeral joints. Overlying soft tissues appear unremarkable. IMPRESSION: No acute cardiopulmonary disease. Dictated by: Marry Steele M.D. on 06/20/2022 at 11:26 Approved by: Marry Steele M.D. on 06/20/2022 at 11:27
--- NOTE | 2022-06-20 10:27 | PC.NURSE ---
Pts partner states recent onset Alzheimers. Unsteady gait. Pt drives short distances.
--- NOTE | 2022-06-20 10:29 | ED.AMS ---
HPI - Altered Mental Status General Chief Complaint: Shortness of Breath/Dyspnea Stated Complaint: pt has Covid, breathing prob, troub walk, weak Time Seen by Provider: 06/20/22 10:09 Source: patient and family Mode of arrival: Ambulatory History of Present Illness HPI narrative: Patient is a 86-year-old male history of mild memory problems, paroxysmal atrial fibrillation, recent TIA in February 2022 presenting today with known COVID diagnosed 4 days ago started on Paxil COVID 3 days ago presenting today with increasing confusion. His partner whom he does not live with states that he is more confused than normal. He was making oatmeal this morning. He denies any pain. His partner was concerned because she noticed he was breathing faster. He denies any nausea or vomiting. No chest pain no shortness of breath no palpitations Related Data Home Medications Medication Instructions Recorded Confirmed calcium carbonate 200 mg calcium 200 mg PO BID PRN heartburn 10/20/20 03/08/22 (500 mg) chewable tablet (Tums) aspirin 81 mg chewable tablet 81 mg PO DAILY 09/06/21 03/08/22 diltiazem HCl 120 mg 120 mg PO DAILY 09/06/21 03/08/22 capsule,extended release 24 hr (Cardizem CD) ranitidine HCl 75 mg tablet 75 mg PO DAILY 09/06/21 03/08/22 cholecalciferol (vitamin D3) 50 50 mcg PO DAILY 03/08/22 03/08/22 mcg (2,000 unit) tablet Previous Rx's Medication Instructions Recorded pravastatin 80 mg tablet 80 mg PO HS #90 tabs 12/22/20 potassium chloride 8 mEq 8 meq PO QDAY #90 tabs 01/16/21 tablet,extended release (Klor-Con) hydrochlorothiazide 25 mg tablet 25 mg PO QDAY #90 tabs 01/29/21 tamsulosin 0.4 mg capsule (Flomax) 0.4 mg PO QDAY #90 caps 03/07/21 atenolol 25 mg tablet 12.5 mg PO DAILY #30 tabs 03/09/22 Allergies Allergy/AdvReac Type Severity Reaction Status Date / Time atorvastatin [ATORVASTATIN] Allergy Unknown WEAKNESS/BODY Verified 01/26/22 17:38 ACHES citalopram AdvReac Intermediate Off Verified 01/26/22 17:38 Balance/Head felt stuffed. lisinopril AdvReac Intermediate slow hr Verified 01/26/22 17:38 Review of Systems Review of Systems ROS Unobtainable: All systems reviewed & are unremarkable except as noted in HPI and below Patient History Medical History Anxiety (06/06/14) Bile duct carcinoma Cardiac arrhythmia (06/06/14) Carpal tunnel syndrome Cervical spine disease Essential hypertension (08/04/15) History of adenomatous polyp of colon (12/27/10) History of renal calculi (12/27/10) Hyperlipidemia (08/09/16) Mild cognitive impairment Paroxysmal atrial fibrillation SVT (supraventricular tachycardia) Surgical History S/P carpal tunnel release Family History Father Family history of Alzheimer's disease Social History marital status: number of children: 0 household members: none lives independently: Yes caregiver/support person: Yes housing: house pets and animals: No education level: high school occupational status: other current occupational exposures/hazards: No Previous occupational history: [employer] destini/druze: None Smoking Status: Former smoker Tobacco: How many years used: 10 Smokeless tobacco user: other quit status: quit date established second hand exposure: No alcohol intake: current substance use type: does not use Smoking Status: Former smoker alcohol intake frequency: holidays/special occasions only Substance Use Type: does not use Exam Initial Vital Signs Initial Vital Signs: Vital Signs Pulse Rate 67 06/20/22 10:15 Respiratory Rate 17 06/20/22 10:15 Blood Pressure 131/73 06/20/22 10:15 Pulse Oximetry 98 06/20/22 10:15 GENERAL: Alert well-appearing 86-year-old male and in no acute distress. HEENT: Head atraumatic,EOMI, pupils reactive, face symmetric, hard CARDIOVASCULAR: Regular rate and rhythm without murmurs, rubs or gallops. RESPIRATORY: Breath sounds equal bilaterally, no wheezes rales or rhonchi. ABDOMEN: Soft, nontender. Normoactive bowel sounds all 4 quadrants. No guarding or rebound. EXTREMITIES: Normal range of motion, no clubbing or edema. Neurovascularly intact NEUROLOGICAL: Alert and oriented x4.Normal gait and speech. Cranial nerves II through XII grossly intact. SKIN: Warm, dry, no laceration, no petechiae, no rashes or lesions. Course Orders Ordered: ED Orders 06/20/22 10:17 XR chest 1V Stat 06/20/22 10:22 EKG-12 Lead Stat 06/20/22 10:39 Complete Blood Count AUTO DIFF Stat Comprehensive Metabolic Panel Stat Lactate (Lactic Acid) Stat Lipase Stat Magnesium Stat Partial Thromboplastin Time Stat Procalcitonin Stat Prothrombin Time INR Stat Troponin & CK Cardiac Panel Stat Vital Signs Vital signs: Vital Signs - 8 hr 06/20/22 11:30 06/20/22 12:00 06/20/22 12:25 Pulse Rate 62 53 L 68 Respiratory Rate 22 22 15 Blood Pressure Pulse Oximetry 97 96 97 06/20/22 12:25 06/20/22 12:30 06/20/22 12:30 Pulse Rate 52 L Respiratory Rate 17 Blood Pressure 171/82 H 141/76 H Pulse Oximetry 97 MDM - Altered Mental Status Lab Data Result diagrams: 06/20/22 10:39 06/20/22 10:39 Labs: Lab Results 06/20/22 06/20/22 06/20/22 Range/Units 10:39 10:39 10:39 WBC 3.1 L (4.5-11.0) X10^3/uL RBC 4.38 L (4.5-5.9) X10^6/uL Hgb 14.3 (13.5-17.5) g/dL Hct 41.8 (41-53) % MCV 95.5 (80-100) fL MCH 32.7 (26-34) PG MCHC 34.3 (30-36) % RDW 12.8 (11.6-14.8) % Plt Count 188 (150-400) X10^3/uL Neut % (Auto) 56.0 (50-75) % Lymph % (Auto) 29.2 (25-40) % [place] % (Auto) 11.7 (3-14) % Eos % (Auto) 2.1 (2-4) % Baso % (Auto) 1.0 (0-2) % Neut # (Auto) 1700 (9357-6181) /uL Lymph # (Auto) 900 L (7803-7893) /uL [place] # (Auto) 400 (0-900) /uL Eos # (Auto) 100 (0-450) /uL Baso # (Auto) 0 (0-100) /uL PT 11.8 (10.1-12.7) SECONDS INR 1.0 (0.9-1.3) APTT 28 (26-36) SECONDS Sodium 137 (137-145) mmol/L Potassium 3.7 (3.4-5.1) mmol/L Chloride 98 (98-107) mmol/L Carbon Dioxide 30 (22-32) mmol/L BUN 26 H (9-20) mg/dL Creatinine 1.09 (0.66-1.25) mg/dL Estimated GFR > 60 (>60) mL/min BUN/Creatinine Ratio 23.9 H (6-22) Glucose 105 (80-110) mg/dL Lactate (0.7-2.1) mmol/L Calcium 8.9 (8.4-10.2) mg/dL Magnesium 2.0 (1.6-2.3) mg/dL Total Bilirubin 1.0 (0.2-1.3) mg/dL AST 32 (17-59) IU/L ALT 30 (<50) IU/L Alkaline Phosphatase 92 (38-126) U/L Total Creatine Kinase 135 (55-170) U/L CK-MB (CK-2) 5.26 H (<2.37) ng/mL CK-MB (CK-2) Rel Index 3.9 (1.5-5.0) % Troponin I < 0.012 (0.01-0.034) ng/mL Total Protein 7.1 (6.3-8.2) g/dL Albumin 3.9 (3.5-5.0) g/dL Globulin 3.2 (1.7-4.1) g/dL Albumin/Globulin Ratio 1.2 (1.0-2.8) Lipase 70 (23-300) U/L Procalcitonin (<0.5) ng/mL 06/20/22 06/20/22 Range/Units 10:39 10:39 WBC (4.5-11.0) X10^3/uL RBC (4.5-5.9) X10^6/uL Hgb (13.5-17.5) g/dL Hct (41-53) % MCV (80-100) fL MCH (26-34) PG MCHC (30-36) % RDW (11.6-14.8) % Plt Count (150-400) X10^3/uL Neut % (Auto) (50-75) % Lymph % (Auto) (25-40) % [place] % (Auto) (3-14) % Eos % (Auto) (2-4) % Baso % (Auto) (0-2) % Neut # (Auto) (9731-3278) /uL Lymph # (Auto) (0749-2167) /uL [place] # (Auto) (0-900) /uL Eos # (Auto) (0-450) /uL Baso # (Auto) (0-100) /uL PT (10.1-12.7) SECONDS INR (0.9-1.3) APTT (26-36) SECONDS Sodium (137-145) mmol/L Potassium (3.4-5.1) mmol/L Chloride (98-107) mmol/L Carbon Dioxide (22-32) mmol/L BUN (9-20) mg/dL Creatinine (0.66-1.25) mg/dL Estimated GFR (>60) mL/min BUN/Creatinine Ratio (6-22) Glucose (80-110) mg/dL Lactate 1.5 (0.7-2.1) mmol/L Calcium (8.4-10.2) mg/dL Magnesium (1.6-2.3) mg/dL Total Bilirubin (0.2-1.3) mg/dL AST (17-59) IU/L ALT (<50) IU/L Alkaline Phosphatase (38-126) U/L Total Creatine Kinase (55-170) U/L CK-MB (CK-2) (<2.37) ng/mL CK-MB (CK-2) Rel Index (1.5-5.0) % Troponin I (0.01-0.034) ng/mL Total Protein (6.3-8.2) g/dL Albumin (3.5-5.0) g/dL Globulin (1.7-4.1) g/dL Albumin/Globulin Ratio (1.0-2.8) Lipase (23-300) U/L Procalcitonin 0.12 (<0.5) ng/mL Imaging Data Chest x-ray: Radiologist's Impression: nt: Roel Vickers MR#: [id number] : 1935 Acct:[id number] Age/Sex: 86 / M Date of Service: 06/20/22 Loc: ED Accession Number: [id number] ?? Procedure: XR chest 1V Ordering Provider: Priscilla Armendariz D.O. PROCEDURE:? XR CHEST 1V ? INDICATIONS:? chest pain ? TECHNIQUE:? One view of the chest was acquired.? ? COMPARISON:? [facility], , XR CHEST 1V, 09/06/2021, 8:28. ? FINDINGS:? ? Surgical changes and devices:? Partially imaged right upper quadrant abdominal vascular stent or shunt. ? Lungs and pleura:? Lungs are clear.? No pleural effusions or pneumothorax.? ? Mediastinum:? Mediastinal contours appear normal.? Heart size is normal.? ? Bones and chest wall:? No suspicious bony lesions.? Moderate degeneration of both glenohumeral joints.? Overlying soft tissues appear unremarkable.? ? IMPRESSION:? No acute cardiopulmonary disease.? ? ? Dictated by: Marry Steele M.D. on 06/20/2022 at 11:26 ? ? Approved by: Marry Steele M.D. on 06/20/2022 at 11:27 ? ECG Data Interpretation: Normal sinus rhythm rate 68 MS interval 164 QRS [address] changes T-wave inversions MDM Narrative Medical decision making narrative: Patient 86-year-old male who does live independently diagnosed with COVID 4 days ago start on Paxil COVID. Presents today with mild worsening confusion. However he has no focal deficits he is ambulating in the ED. Workup in the emergency department included blood work and a chest x-ray. There is some mild leukopenia with leukocytosis of 3.1 without neutropenia his WBC does run on the lower end 4-5. He is no electrolyte abnormalities creatinine is up slightly at 1.09 previously 0.88. No evidence of sepsis he is afebrile vitals are normal lactate 1.5 and procalcitonin 0.12 are also within normal limits. At this time he does not meet any sort of admission criteria. Patient is here for worsening confusion. He is no focal deficits he has no head injury he is steady on his gait he is currently at his baseline per partner. SUNNI CC: Altered mental status Complicating co-morbidities: Hypertension memory problems hyperlipidemia Corroborating data: Life partner Data collected from: [ ] Medical records reviewed: Previous admission for TIA Differential considered: Sepsis, cva Exam documented above, pertinent findings include: Equal strength clear speech Lab Test results independently reviewed as above. Pertinent findings: WBC 3.1 lactate 1.5 procalcitonin 0.12 Independently reviewed EKG as above Imaging studies independently reviewed:yes Consultations: none Treatments: none Re-evaluations: [ ] Discussion: Patient has no focal deficits no trauma does not need imaging of head at this time. He is not hypoxic requiring admission for COVID. No pneumonia is noted. Diagnosis: [ ] Disposition: see below, along with detailed discharge instructions that have been reviewed with patient as well as indications for ED re-evaluation and additional outpatient follow up Discharge Plan Departure Patient Disposition: Home Clinical Impression: COVID-19 Instructions: COVID-19 Activity Restrictions/Additional Instructions: *You have been diagnosed with COVID-19 *What to do: At this time blood work and x-ray are overall reassuring no need for admission. Recommend monitoring and checking on him very regularly to make sure there is no worsening confusion *Continue to take medications as directed *Follow up with your primary care provider in 2-3 days or call [phone] *Return to ER if you should have increasing confused and shortness of breath chest pain or any new, worsening or concerning symptoms Prescriptions: No Action pravastatin 80 mg tablet 80 mg PO HS Qty: 90 3RF potassium chloride [Klor-Con 8] 8 mEq tablet extended release 8 meq PO QDAY Qty: 90 3RF hydrochlorothiazide 25 mg tablet 25 mg PO QDAY Qty: 90 3RF tamsulosin [Flomax] 0.4 mg capsule 0.4 mg PO QDAY Qty: 90 3RF calcium carbonate [Tums] 200 mg calcium (500 mg) tablet,chewable 200 mg PO BID PRN (Reason: heartburn) aspirin 81 mg Tablet,Chewable 81 mg PO DAILY ranitidine HCl 75 mg Tablet 75 mg PO DAILY diltiazem HCl [Cardizem CD] 120 mg Capsule,Extended Release 24hr 120 mg PO DAILY cholecalciferol (vitamin D3) 50 mcg (2,000 unit) Tablet 50 mcg PO DAILY atenolol 25 mg Tablet 12.5 mg PO DAILY Qty: 30 0RF Referrals: Alvaro Hamilton MD [Primary Care Provider] - Stand Alone Forms: Patient Portal/API
[2022-06-20 10:53] LABS: Add Manual Diff / Slide Review NO; Basophils Absolute Auto 0 /uL (0-100); Eosinophils Absolute Auto 100 /uL (0-450); Eosinophils Percent Auto 2.1 % (2-4); Hematocrit 41.8 % (41-53); Hemoglobin 14.3 g/dL (13.5-17.5); Lymphocytes Absolute Auto 900 /uL (1100-4500); Lymphocytes Percent Auto 29.2 % (25-40); Mean Corpuscular HGB Conc 34.3 % (30-36); Mean Corpuscular Hemoglobin 32.7 PG (26-34); Mean Corpuscular Volume 95.5 fL (80-100); Monocytes Absolute Auto 400 /uL (0-900); Monocytes Percent Auto 11.7 % (3-14); Neutrophils Absolute Auto 1700 /uL (1500-7000); Platelet Count 188 X10^3/uL (150-400); Red Blood Cell Count 4.38 X10^6/uL (4.5-5.9); Red Cell Distribution Width 12.8 % (11.6-14.8); White Blood Cell Count 3.1 X10^3/uL (4.5-11.0)
[2022-06-20 11:06] LABS: Prothrombin Time 11.8 SECONDS (10.1-12.7)
[2022-06-20 11:09] LABS: PTT Partial Thromboplastin Tim 28 SECONDS (26-36)
[2022-06-20 11:11] LABS: Alanine Aminotransferase 30 IU/L (<50); Albumin 3.9 g/dL (3.5-5.0); Albumin Globulin Ratio 1.2 (1.0-2.8); Alkaline Phosphatase 92 U/L (38-126); Aspartate Aminotransferase 32 IU/L (17-59); BUN Creatinine Ratio 23.9 (6-22); Blood Urea Nitrogen 26 mg/dL (9-20); Calcium 8.9 mg/dL (8.4-10.2); Carbon Dioxide 30 mmol/L (22-32); Chloride 98 mmol/L (98-107); Creatine Kinase 135 U/L (55-170); Estimated Glomerular Filt Rate > 60 mL/min (>60); Globulin 3.2 g/dL (1.7-4.1); Glucose 105 mg/dL (80-110); HEMOLYSIS < 15 (0-50); Lactate (Lactic Acid) 1.5 mmol/L (0.7-2.1); Lipase 70 U/L (23-300); Potassium 3.7 mmol/L (3.4-5.1); Sodium 137 mmol/L (137-145); Total Protein 7.1 g/dL (6.3-8.2)
[2022-06-20 11:22] LABS: Troponin I < 0.012 ng/mL (0.01-0.034)
[2022-06-20 11:27] LABS: Procalcitonin 0.12 ng/mL (<0.5)
[2022-06-20 11:30] LABS: CKMB % Relative Index 3.9 % (1.5-5.0); Creatine Kinase MB 5.26 ng/mL (<2.37)
== END 2022-06-20 12:53 | disposition home or self-care (01) ==
PROVIDERS: Emergency Provider Emergency Medicine; Family Provider Family Medicine; PCP Family Medicine
DX: U07.1 COVID-19 (principal); R07.9 Chest pain, unspecified; I48.20 Chronic atrial fibrillation, unspecified; Z86.73 Personal history of transient ischemic attack (TIA), and cerebral infarction without residual deficits; Z79.899 Other long term (current) drug therapy
CPT/HCPCS: 36415; 71045; 80053; 82550; 82553; 83605; 83690; 83735; 84145; 84484; 85025; 85610; 85730; 93005; 93010; 99283; 99284

== ENCOUNTER 2022-07-11 02:10 | Observation (INO) | payer OTHER, SELFPAY ==
[2022-03-08 12:01] VITALS: BMI 23.8
[2022-07-11] VITALS (52 sets, daily range): BP systolic 91–142; BP diastolic 53–88; PULSE 60–140; RESP 13–33; TEMP 36.4–37.2; O2SAT 93–98; BMI 22.6
--- NOTE | 2022-07-11 02:21 | DI.RAD.S_ITS ---
PROCEDURE: XR CHEST 1V INDICATIONS: chest pain TECHNIQUE: One view of the chest was acquired. COMPARISON: [facility], CT, CT ANGIO CHEST PE PROTOCOL, 07/11/2022, 4:05. [facility], CR, XR CHEST 1V, 06/20/2022, 10:24. FINDINGS: Surgical changes and devices: None. Lungs and pleura: Lungs are clear. No pleural effusions or pneumothorax. Mediastinum: Mediastinal contours appear normal. Heart size is normal. Bones and chest wall: No suspicious bony lesions. Overlying soft tissues appear unremarkable. IMPRESSION: No acute cardiopulmonary abnormality. There is no significant discrepancy when compared to the overnight preliminary report. Approved by: Ryne Sanderson M.D. on 07/11/2022 at 8:17
[2022-07-11] MEDS: SODIUM CHLORIDE 0.9% 1,000 ML 150 ML IV (02:49)
[2022-07-11 02:52] LABS: Add Manual Diff / Slide Review NO; Basophils Absolute Auto 0 /uL (0-100); Basophils Percent Auto 0.4 % (0-2); Eosinophils Absolute Auto 100 /uL (0-450); Eosinophils Percent Auto 1.7 % (2-4); Hematocrit 39.9 % (41-53); Hemoglobin 13.5 g/dL (13.5-17.5); Lymphocytes Absolute Auto 900 /uL (1100-4500); Lymphocytes Percent Auto 11.8 % (25-40); Mean Corpuscular HGB Conc 33.8 % (30-36); Mean Corpuscular Hemoglobin 32.1 PG (26-34); Mean Corpuscular Volume 94.9 fL (80-100); Monocytes Absolute Auto 600 /uL (0-900); Monocytes Percent Auto 8.3 % (3-14); Neutrophils Absolute Auto 5900 /uL (1500-7000); Neutrophils Percent Auto 77.8 % (50-75); Platelet Count 170 X10^3/uL (150-400); Red Cell Distribution Width 12.9 % (11.6-14.8); White Blood Cell Count 7.6 X10^3/uL (4.5-11.0)
[2022-07-11 02:54] LABS: INR 1.1 (0.9-1.3); Prothrombin Time 12.1 SECONDS (10.1-12.7)
[2022-07-11 02:57] LABS: PTT Partial Thromboplastin Tim 28 SECONDS (26-36)
[2022-07-11 02:59] LABS: Alanine Aminotransferase 26 IU/L (<50); Albumin 3.7 g/dL (3.5-5.0); Albumin Globulin Ratio 1.3 (1.0-2.8); Alkaline Phosphatase 106 U/L (38-126); Aspartate Aminotransferase 26 IU/L (17-59); BUN Creatinine Ratio 21.8 (6-22); Bilirubin Total 1.3 mg/dL (0.2-1.3); Blood Urea Nitrogen 22 mg/dL (9-20); Calcium 8.6 mg/dL (8.4-10.2); Carbon Dioxide 30 mmol/L (22-32); Chloride 100 mmol/L (98-107); Creatine Kinase 104 U/L (55-170); Estimated Glomerular Filt Rate > 60 mL/min (>60); Globulin 2.8 g/dL (1.7-4.1); Glucose 107 mg/dL (80-110); HEMOLYSIS < 15 (0-50); Lipase 445 U/L (23-300); Potassium 3.3 mmol/L (3.4-5.1); Sodium 139 mmol/L (137-145); Total Protein 6.5 g/dL (6.3-8.2)
[2022-07-11 03:08] LABS: NT-proBNP (BNP-Adult 18+) 224 pg/mL (<450)
[2022-07-11 03:11] LABS: Troponin I < 0.012 ng/mL (0.01-0.034)
[2022-07-11 03:14] LABS: Creatine Kinase MB 2.13 ng/mL (<2.37)
[2022-07-11 03:15] LABS: Procalcitonin 0.07 ng/mL (<0.5)
[2022-07-11] MEDS: KETOROLAC 30 MG/ML VIAL 15 MG IV (03:20)
--- NOTE | 2022-07-11 03:32 | ED.CHESTPAIN ---
HPI - Chest Pain <Priscilla Kala, DO - Last Filed: 07/11/22 23:47> General Chief Complaint: Chest Pain Stated Complaint: chest pain Time Seen by Provider: 07/11/22 02:17 Source: patient and EMS Mode of arrival: EMS Limitations: no limitations History of Present Illness HPI narrative: Patient is a 86-year-old male with history of mild memory problems, paroxysmal atrial fibrillation, recent TIA in February 2022 an infection with COVID in June presenting today with left-sided chest pain ongoing for the last 4 hours. He seems to be mostly on the left side fairly consistent nonradiating does not really change with any sort of movement. He reports that he lifted a heavy gallon or box of milk but that was the only thing which was not that heavy. No prior history of coronary artery disease. He denies any shortness of breath. He is not had any fever or chills. No abdominal pain nausea vomiting or sweating. Related Data Home Medications Medication Instructions Recorded Confirmed calcium carbonate 200 mg calcium 200 mg PO BID PRN heartburn 10/20/20 07/11/22 (500 mg) chewable tablet (Tums) aspirin 81 mg chewable tablet 81 mg PO DAILY 09/06/21 07/11/22 diltiazem HCl 120 mg 120 mg PO DAILY 09/06/21 07/11/22 capsule,extended release 24 hr (Cardizem CD) ranitidine HCl 75 mg tablet 75 mg PO DAILY 09/06/21 07/11/22 cholecalciferol (vitamin D3) 50 50 mcg PO DAILY 03/08/22 07/11/22 mcg (2,000 unit) tablet donepezil 10 mg tablet 10 mg PO DAILY 07/11/22 07/11/22 Previous Rx's Medication Instructions Recorded pravastatin 80 mg tablet 80 mg PO HS #90 tabs 12/22/20 potassium chloride 8 mEq 8 meq PO QDAY #90 tabs 01/16/21 tablet,extended release (Klor-Con) hydrochlorothiazide 25 mg tablet 25 mg PO QDAY #90 tabs 01/29/21 tamsulosin 0.4 mg capsule (Flomax) 0.4 mg PO QDAY #90 caps 03/07/21 Allergies Allergy/AdvReac Type Severity Reaction Status Date / Time atorvastatin [ATORVASTATIN] Allergy Unknown WEAKNESS/BODY Verified 08/20/22 17:38 ACHES citalopram AdvReac Intermediate Off Verified 01/26/22 17:38 Balance/Head felt stuffed. lisinopril AdvReac Intermediate slow hr Verified 01/26/22 17:38 Review of Systems <Priscilla Armendariz DO - Last Filed: 07/11/22 23:47> Review of Systems ROS Unobtainable: All systems reviewed & are unremarkable except as noted in HPI and below Patient History <Priscilla Armendariz DO - Last Filed: 07/11/22 23:47> Medical History Anxiety (06/06/14) Bile duct carcinoma Cardiac arrhythmia (06/06/14) Carpal tunnel syndrome Cervical spine disease Essential hypertension (08/04/15) History of adenomatous polyp of colon (12/27/10) History of renal calculi (12/27/10) Hyperlipidemia (08/09/16) Mild cognitive impairment Paroxysmal atrial fibrillation SVT (supraventricular tachycardia) Surgical History S/P carpal tunnel release Family History Father Family history of Alzheimer's disease Social History marital status: number of children: 0 household members: none lives independently: Yes caregiver/support person: Yes housing: house pets and animals: No education level: high school occupational status: other current occupational exposures/hazards: No Previous occupational history: [employer] destini/mu-ism: None Smoking Status: Former smoker Tobacco: How many years used: 10 Smokeless tobacco user: other quit status: quit date established second hand exposure: No alcohol intake: current substance use type: does not use Smoking Status: Former smoker alcohol intake frequency: holidays/special occasions only Substance Use Type: does not use Exam <Priscilla Armendariz DO - Last Filed: 07/11/22 23:47> Initial Vital Signs Initial Vital Signs: Vital Signs Temperature 97.9 F 07/11/22 02:05 Pulse Rate 90 07/11/22 02:05 Respiratory Rate 20 07/11/22 02:05 Blood Pressure 118/75 07/11/22 02:05 Pulse Oximetry 98 07/11/22 02:05 Oxygen Delivery Method 07/11/22 02:05 GENERAL: Alert pleasant hard of hearing 86-year-old male and in no acute distress. HEENT: Head atraumatic,EOMI, pupils reactive, face symmetric, moist mucous membranes CARDIOVASCULAR: Regular rate and rhythm without murmurs, rubs or gallops. Pain is tender in left upper part of his chest not necessarily reproducible with palpation but in the left PICC muscle area. RESPIRATORY: Breath sounds equal bilaterally, no wheezes rales or rhonchi. ABDOMEN: Soft, nontender. Normoactive bowel sounds all 4 quadrants. No guarding or rebound. EXTREMITIES: Normal range of motion, no clubbing or edema. Neurovascularly intact NEUROLOGICAL: Alert and oriented x4. SKIN: Warm, dry, no laceration, no petechiae, no rashes or lesions. <Funmilayo Carey, - Last Filed: 07/11/22 09:58> Initial Vital Signs Initial Vital Signs: Vital Signs Temperature 97.9 F 07/11/22 02:05 Pulse Rate 90 07/11/22 02:05 Respiratory Rate 20 07/11/22 02:05 Blood Pressure 118/75 07/11/22 02:05 Pulse Oximetry 98 07/11/22 02:05 Oxygen Delivery Method 07/11/22 02:05 Course <Priscilla Armendariz DO - Last Filed: 07/11/22 23:47> Orders Ordered: Acetaminophen (Acetaminophen 325 Mg Tablet) 650 mg PO Q6H PRN PRN Reason: Fever/Mild Pain (1-3) Last Admin: 07/11/22 10:20 Dose: 650 mg Documented By: LAURA Hydrocodone Bitart/Acetaminophen (Hydrocodone/Acet 5/325 Tablet) 1 tab PO Q4H PRN PRN Reason: Pain, Moderate (4-6) Aspirin (Aspirin 81 Mg Chew Tab) 81 mg PO DAILY NIKOLE Calcium Carbonate (Calcium Carbonate 500 Mg Tab) 500 mg PO BID PRN PRN Reason: heartburn Diltiazem HCl (Diltiazem Cd 120 Mg Cap) 120 mg PO DAILY NIKOLE Donepezil HCl (Donepezil 5 Mg Tablet) 10 mg PO DAILY NIKOLE Famotidine (Famotidine 20 Mg Tablet) 10 mg PO DAILY NIKOLE Hydrochlorothiazide (Hydrochlorothiazide 25 Mg Tablet) 25 mg PO DAILY NIKOLE Last Admin: 07/11/22 20:46 Dose: 25 mg Documented By: PEPITO Sodium Chloride (Normal Saline 0.9%) 1,000 mls @ 150 mls/hr IV CONT [facility] Last Admin: 07/11/22 02:49 Dose: 150 mls/hr Documented By: DKASHA DILTIAZEM (Diltiazem 125 Mg/125 Ml-D5w) 125 mg in 125 mls @ 5 mls/hr IV TITRATE NIKOLE; Protocol Last Titration: 07/11/22 09:55 Dose: 0 mg/hr, 0 mls/hr Documented By: Admin: 07/11/22 07:54 Dose: 5 mg/hr, 5 mls/hr Documented By: ISAK Lorazepam (Lorazepam 0.5 Mg Tablet) 0.5 mg PO Q6HR PRN PRN Reason: Anxiety Naloxone HCl (Naloxone 0.4 Mg/Ml Vial) 0.2 mg IV Q2MIN PRN PRN Reason: Opiate Reversal Nitroglycerin (Nitroglycerin 0.3 Mg Sl Tab) 0.3 mg SL [id number] PRN PRN Reason: Chest Pain Last Admin: 07/11/22 11:13 Dose: 0.3 mg Documented By: LAURA Potassium Chloride (Potassium Chloride 10 Meq Tab) 10 meq PO DAILY [facility] Pravastatin Sodium (Pravastatin 20 Mg Tablet) 80 mg PO BEDTIME [facility] Last Admin: 07/11/22 20:46 Dose: 80 mg Documented By: PEPITO Tamsulosin HCl (Tamsulosin 0.4 Mg Capsule) 0.4 mg PO DAILY [facility] Last Admin: 07/11/22 20:46 Dose: 0.4 mg Documented By: PEPITO Vitamin D (Cholecalciferol (Vitamin D3) 1,000 Unit Tablet) 2,000 unit PO DAILY [facility] Discontinued Medications Aspirin (Aspirin 81 Mg Chew Tab) 324 mg PO NOW ONE Stop: 07/11/22 02:23 Last Admin: 07/11/22 06:52 Dose: Not Given Documented By: DAKSHA Diltiazem HCl (Diltiazem Cd 120 Mg Cap) 120 mg PO NOW ONE Stop: 07/11/22 05:41 Last Admin: 07/11/22 06:16 Dose: 120 mg Documented By: DAKSHA Diltiazem HCl (Diltiazem 5 Mg/Ml Sdv) 10 mg IV NOW ONE Stop: 07/11/22 05:43 Last Admin: 07/11/22 05:48 Dose: 10 mg Documented By: DAKSHA Ketorolac Tromethamine (Ketorolac 30 Mg/Ml Vial) 15 mg IV NOW ONE Stop: 07/11/22 03:06 Last Admin: 07/11/22 03:20 Dose: 15 mg Documented By: DAKSHA Potassium Chloride (Potassium Chloride 20 Meq/15 Ml Udc) 40 meq PO NOW ONE Stop: 07/11/22 07:41 Last Admin: 07/11/22 07:58 Dose: 40 meq Documented By: ISAK Vital Signs Vital signs: Vital Signs - 8 hr 07/11/22 02:05 07/11/22 02:23 07/11/22 02:37 Temperature 97.9 F Pulse Rate 90 81 86 Respiratory Rate 20 18 Blood Pressure 118/75 140/76 142/73 H Pulse Oximetry 98 Oxygen Delivery Method Room Air 07/11/22 03:08 07/11/22 03:44 07/11/22 04:42 Temperature Pulse Rate 78 65 75 Respiratory Rate 26 H Blood Pressure 121/72 139/76 131/67 Pulse Oximetry 93 Oxygen Delivery Method 07/11/22 05:13 07/11/22 05:48 07/11/22 06:19 Temperature Pulse Rate 102 H 140 H 115 H Respiratory Rate Blood Pressure 131/67 127/66 Pulse Oximetry Oxygen Delivery Method <Funmilayo Carey, - Last Filed: 07/11/22 09:58> Orders Ordered: Acetaminophen (Acetaminophen 325 Mg Tablet) 650 mg PO Q6H PRN PRN Reason: Fever/Mild Pain (1-3) Last Admin: 07/11/22 10:20 Dose: 650 mg Documented By: LAURA Hydrocodone Bitart/Acetaminophen (Hydrocodone/Acet 5/325 Tablet) 1 tab PO Q4H PRN PRN Reason: Pain, Moderate (4-6) Aspirin (Aspirin 81 Mg Chew Tab) 81 mg PO DAILY NIKOLE Calcium Carbonate (Calcium Carbonate 500 Mg Tab) 500 mg PO BID PRN PRN Reason: heartburn Diltiazem HCl (Diltiazem Cd 120 Mg Cap) 120 mg PO DAILY NIKOLE Donepezil HCl (Donepezil 5 Mg Tablet) 10 mg PO DAILY NIKOLE Famotidine (Famotidine 20 Mg Tablet) 10 mg PO DAILY NIKOLE Hydrochlorothiazide (Hydrochlorothiazide 25 Mg Tablet) 25 mg PO DAILY [facility] Last Admin: 07/11/22 20:46 Dose: 25 mg Documented By: PEPITO Sodium Chloride (Normal Saline 0.9%) 1,000 mls @ 150 mls/hr IV CONT [facility] Last Admin: 07/11/22 02:49 Dose: 150 mls/hr Documented By: DAKSHA DILTIAZEM (Diltiazem 125 Mg/125 Ml-D5w) 125 mg in 125 mls @ 5 mls/hr IV TITRATE NIKOLE; Protocol Last Titration: 07/11/22 09:55 Dose: 0 mg/hr, 0 mls/hr Documented By: Admin: 07/11/22 07:54 Dose: 5 mg/hr, 5 mls/hr Documented By: ISAK Lorazepam (Lorazepam 0.5 Mg Tablet) 0.5 mg PO Q6HR PRN PRN Reason: Anxiety Naloxone HCl (Naloxone 0.4 Mg/Ml Vial) 0.2 mg IV Q2MIN PRN PRN Reason: Opiate Reversal Nitroglycerin (Nitroglycerin 0.3 Mg Sl Tab) 0.3 mg SL [id number] PRN PRN Reason: Chest Pain Last Admin: 07/11/22 11:13 Dose: 0.3 mg Documented By: LAURA Potassium Chloride (Potassium Chloride 10 Meq Tab) 10 meq PO DAILY [facility] Pravastatin Sodium (Pravastatin 20 Mg Tablet) 80 mg PO BEDTIME [facility] Last Admin: 07/11/22 20:46 Dose: 80 mg Documented By: PEPITO Tamsulosin HCl (Tamsulosin 0.4 Mg Capsule) 0.4 mg PO DAILY [facility] Last Admin: 07/11/22 20:46 Dose: 0.4 mg Documented By: PEPITO Vitamin D (Cholecalciferol (Vitamin D3) 1,000 Unit Tablet) 2,000 unit PO DAILY [facility] Discontinued Medications Aspirin (Aspirin 81 Mg Chew Tab) 324 mg PO NOW ONE Stop: 07/11/22 02:23 Last Admin: 07/11/22 06:52 Dose: Not Given Documented By: DAKSHA Diltiazem HCl (Diltiazem Cd 120 Mg Cap) 120 mg PO NOW ONE Stop: 07/11/22 05:41 Last Admin: 07/11/22 06:16 Dose: 120 mg Documented By: DAKSHA Diltiazem HCl (Diltiazem 5 Mg/Ml Sdv) 10 mg IV NOW ONE Stop: 07/11/22 05:43 Last Admin: 07/11/22 05:48 Dose: 10 mg Documented By: DAKSHA Ketorolac Tromethamine (Ketorolac 30 Mg/Ml Vial) 15 mg IV NOW ONE Stop: 07/11/22 03:06 Last Admin: 07/11/22 03:20 Dose: 15 mg Documented By: DAKSHA Potassium Chloride (Potassium Chloride 20 Meq/15 Ml Udc) 40 meq PO NOW ONE Stop: 07/11/22 07:41 Last Admin: 07/11/22 07:58 Dose: 40 meq Documented By: NR Consultations Consultation #1: Dr. Hampton, cardiology: Patient had cardioverted on diltiazem drip before going upstairs EKG was repeated he is in sinus rhythm but does have elevation in 1 to. Patient does not have any dynamic changes. Patient has prior EKGs are poor quality but does not appear elevated. Patient has had chest pain since last night without any rise in troponin. Discussed with Cardiology Vital Signs Vital signs: Vital Signs - 8 hr 07/11/22 02:05 07/11/22 02:23 07/11/22 02:37 Temperature 97.9 F Pulse Rate 90 81 86 Respiratory Rate 20 18 Blood Pressure 118/75 140/76 142/73 H Pulse Oximetry 98 Oxygen Delivery Method Room Air 07/11/22 03:08 07/11/22 03:44 07/11/22 04:42 Temperature Pulse Rate 78 65 75 Respiratory Rate 26 H Blood Pressure 121/72 139/76 131/67 Pulse Oximetry 93 Oxygen Delivery Method 07/11/22 05:13 07/11/22 05:48 07/11/22 06:19 Temperature Pulse Rate 102 H 140 H 115 H Respiratory Rate Blood Pressure 131/67 127/66 Pulse Oximetry Oxygen Delivery Method MDM - Chest Pain <Priscilla Armendariz DO - Last Filed: 07/11/22 23:47> Lab Data 07/11/22 02:35 07/11/22 02:35 Labs: Lab Results 07/11/22 07/11/22 07/11/22 Range/Units 02:35 02:35 02:35 WBC 7.6 (4.5-11.0) X10^3/uL RBC 4.20 L (4.5-5.9) X10^6/uL Hgb 13.5 (13.5-17.5) g/dL Hct 39.9 L (41-53) % MCV 94.9 (80-100) fL MCH 32.1 (26-34) PG MCHC 33.8 (30-36) % RDW 12.9 (11.6-14.8) % Plt Count 170 (150-400) X10^3/uL Neut % (Auto) 77.8 H (50-75) % Lymph % (Auto) 11.8 L (25-40) % [place] % (Auto) 8.3 (3-14) % Eos % (Auto) 1.7 L (2-4) % Baso % (Auto) 0.4 (0-2) % Neut # (Auto) 5900 (9519-0693) /uL Lymph # (Auto) 900 L (4149-3301) /uL [place] # (Auto) 600 (0-900) /uL Eos # (Auto) 100 (0-450) /uL Baso # (Auto) 0 (0-100) /uL PT (10.1-12.7) SECONDS INR (0.9-1.3) APTT (26-36) SECONDS D-Dimer 887 H (<500) ng/ml Sodium 139 (137-145) mmol/L Potassium 3.3 L (3.4-5.1) mmol/L Chloride 100 (98-107) mmol/L Carbon Dioxide 30 (22-32) mmol/L BUN 22 H (9-20) mg/dL Creatinine 1.01 (0.66-1.25) mg/dL Estimated GFR > 60 (>60) mL/min BUN/Creatinine Ratio 21.8 (6-22) Glucose 107 (80-110) mg/dL Calcium 8.6 (8.4-10.2) mg/dL Magnesium (1.6-2.3) mg/dL Total Bilirubin 1.3 (0.2-1.3) mg/dL AST 26 (17-59) IU/L ALT 26 (<50) IU/L Alkaline Phosphatase 106 (38-126) U/L Total Creatine Kinase 104 (55-170) U/L CK-MB (CK-2) 2.13 (<2.37) ng/mL CK-MB (CK-2) Rel Index 2.0 (1.5-5.0) % Troponin I < 0.012 (0.01-0.034) ng/mL NT-Pro-B Natriuret Pep (<450) pg/mL Total Protein 6.5 (6.3-8.2) g/dL Albumin 3.7 (3.5-5.0) g/dL Globulin 2.8 (1.7-4.1) g/dL Albumin/Globulin Ratio 1.3 (1.0-2.8) Lipase 445 H (23-300) U/L Procalcitonin 0.07 (<0.5) ng/mL TSH (0.47-4.68) uIU/mL SARS-CoV-2 (PCR) (Negative) 07/11/22 07/11/22 07/11/22 Range/Units 02:35 02:35 02:35 WBC (4.5-11.0) X10^3/uL RBC (4.5-5.9) X10^6/uL Hgb (13.5-17.5) g/dL Hct (41-53) % MCV (80-100) fL MCH (26-34) PG MCHC (30-36) % RDW (11.6-14.8) % Plt Count (150-400) X10^3/uL Neut % (Auto) (50-75) % Lymph % (Auto) (25-40) % [place] % (Auto) (3-14) % Eos % (Auto) (2-4) % Baso % (Auto) (0-2) % Neut # (Auto) (6092-3260) /uL Lymph # (Auto) (3520-4119) /uL [place] # (Auto) (0-900) /uL Eos # (Auto) (0-450) /uL Baso # (Auto) (0-100) /uL PT 12.1 (10.1-12.7) SECONDS INR 1.1 (0.9-1.3) APTT 28 (26-36) SECONDS D-Dimer (<500) ng/ml Sodium (137-145) mmol/L Potassium (3.4-5.1) mmol/L Chloride (98-107) mmol/L Carbon Dioxide (22-32) mmol/L BUN (9-20) mg/dL Creatinine (0.66-1.25) mg/dL Estimated GFR (>60) mL/min BUN/Creatinine Ratio (6-22) Glucose (80-110) mg/dL Calcium (8.4-10.2) mg/dL Magnesium 1.7 (1.6-2.3) mg/dL Total Bilirubin (0.2-1.3) mg/dL AST (17-59) IU/L ALT (<50) IU/L Alkaline Phosphatase (38-126) U/L Total Creatine Kinase (55-170) U/L CK-MB (CK-2) (<2.37) ng/mL CK-MB (CK-2) Rel Index (1.5-5.0) % Troponin I (0.01-0.034) ng/mL NT-Pro-B Natriuret Pep 224 (<450) pg/mL Total Protein (6.3-8.2) g/dL Albumin (3.5-5.0) g/dL Globulin (1.7-4.1) g/dL Albumin/Globulin Ratio (1.0-2.8) Lipase (23-300) U/L Procalcitonin (<0.5) ng/mL TSH (0.47-4.68) uIU/mL SARS-CoV-2 (PCR) (Negative) 07/11/22 07/11/22 07/11/22 Range/Units 02:35 04:30 07:53 WBC (4.5-11.0) X10^3/uL RBC (4.5-5.9) X10^6/uL Hgb (13.5-17.5) g/dL Hct (41-53) % MCV (80-100) fL MCH (26-34) PG MCHC (30-36) % RDW (11.6-14.8) % Plt Count (150-400) X10^3/uL Neut % (Auto) (50-75) % Lymph % (Auto) (25-40) % [place] % (Auto) (3-14) % Eos % (Auto) (2-4) % Baso % (Auto) (0-2) % Neut # (Auto) (2367-2684) /uL Lymph # (Auto) (6183-9775) /uL [place] # (Auto) (0-900) /uL Eos # (Auto) (0-450) /uL Baso # (Auto) (0-100) /uL PT (10.1-12.7) SECONDS INR (0.9-1.3) APTT (26-36) SECONDS D-Dimer (<500) ng/ml Sodium (137-145) mmol/L Potassium (3.4-5.1) mmol/L Chloride (98-107) mmol/L Carbon Dioxide (22-32) mmol/L BUN (9-20) mg/dL Creatinine (0.66-1.25) mg/dL Estimated GFR (>60) mL/min BUN/Creatinine Ratio (6-22) Glucose (80-110) mg/dL Calcium (8.4-10.2) mg/dL Magnesium (1.6-2.3) mg/dL Total Bilirubin (0.2-1.3) mg/dL AST (17-59) IU/L ALT (<50) IU/L Alkaline Phosphatase (38-126) U/L Total Creatine Kinase (55-170) U/L CK-MB (CK-2) (<2.37) ng/mL CK-MB (CK-2) Rel Index (1.5-5.0) % Troponin I < 0.012 (0.01-0.034) ng/mL NT-Pro-B Natriuret Pep (<450) pg/mL Total Protein (6.3-8.2) g/dL Albumin (3.5-5.0) g/dL Globulin (1.7-4.1) g/dL Albumin/Globulin Ratio (1.0-2.8) Lipase (23-300) U/L Procalcitonin (<0.5) ng/mL TSH 3.68 (0.47-4.68) uIU/mL SARS-CoV-2 (PCR) Negative (Negative) Imaging Data Chest x-ray: My Impression: No acute cardiopulmonary process Radiologist's Impression: No acute cardiopulmonary process CT scan - chest: Radiologist's Impression: No CT evidence of pulmonary embolism 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 It seems be constant for last 4 hours. It not necessarily reproducible but does not really seem to be moving. This is not consistent with cardiac pain. Blood work in 2- troponins overall reassuring. D-dimer mildly elevated in the 800s with his recent COVID infection CT angio was done which did not show any pulmonary embolism. The patient is given Toradol for his pain. It seems to have maybe helped. Talking to him getting ready to discharge him patient went into AFib with RVR heart rate in the 140s. He is relatively asymptomatic. He takes Cardizem 120 mg in the morning. He is given his home dose along with 10 mg of IV. Heart rate quickly improves back into the 90s but is still AFib. He does take aspirin daily for his AFib. He was not sinus rhythm most of his stay in the ED. This is unlikely the cause of his chest discomfort or pain <Funmilayo Carey, - Last Filed: 07/11/22 09:58> Lab Data Labs: Lab Results 07/11/22 07/11/22 07/11/22 Range/Units 02:35 02:35 02:35 WBC 7.6 (4.5-11.0) X10^3/uL RBC 4.20 L (4.5-5.9) X10^6/uL Hgb 13.5 (13.5-17.5) g/dL Hct 39.9 L (41-53) % MCV 94.9 (80-100) fL MCH 32.1 (26-34) PG MCHC 33.8 (30-36) % RDW 12.9 (11.6-14.8) % Plt Count 170 (150-400) X10^3/uL Neut % (Auto) 77.8 H (50-75) % Lymph % (Auto) 11.8 L (25-40) % [place] % (Auto) 8.3 (3-14) % Eos % (Auto) 1.7 L (2-4) % Baso % (Auto) 0.4 (0-2) % Neut # (Auto) 5900 (9297-0671) /uL Lymph # (Auto) 900 L (3217-7772) /uL [place] # (Auto) 600 (0-900) /uL Eos # (Auto) 100 (0-450) /uL Baso # (Auto) 0 (0-100) /uL PT (10.1-12.7) SECONDS INR (0.9-1.3) APTT (26-36) SECONDS D-Dimer 887 H (<500) ng/ml Sodium 139 (137-145) mmol/L Potassium 3.3 L (3.4-5.1) mmol/L Chloride 100 (98-107) mmol/L Carbon Dioxide 30 (22-32) mmol/L BUN 22 H (9-20) mg/dL Creatinine 1.01 (0.66-1.25) mg/dL Estimated GFR > 60 (>60) mL/min BUN/Creatinine Ratio 21.8 (6-22) Glucose 107 (80-110) mg/dL Calcium 8.6 (8.4-10.2) mg/dL Magnesium (1.6-2.3) mg/dL Total Bilirubin 1.3 (0.2-1.3) mg/dL AST 26 (17-59) IU/L ALT 26 (<50) IU/L Alkaline Phosphatase 106 (38-126) U/L Total Creatine Kinase 104 (55-170) U/L CK-MB (CK-2) 2.13 (<2.37) ng/mL CK-MB (CK-2) Rel Index 2.0 (1.5-5.0) % Troponin I < 0.012 (0.01-0.034) ng/mL NT-Pro-B Natriuret Pep (<450) pg/mL Total Protein 6.5 (6.3-8.2) g/dL Albumin 3.7 (3.5-5.0) g/dL Globulin 2.8 (1.7-4.1) g/dL Albumin/Globulin Ratio 1.3 (1.0-2.8) Lipase 445 H (23-300) U/L Procalcitonin 0.07 (<0.5) ng/mL TSH (0.47-4.68) uIU/mL SARS-CoV-2 (PCR) (Negative) 07/11/22 07/11/22 07/11/22 Range/Units 02:35 02:35 02:35 WBC (4.5-11.0) X10^3/uL RBC (4.5-5.9) X10^6/uL Hgb (13.5-17.5) g/dL Hct (41-53) % MCV (80-100) fL MCH (26-34) PG MCHC (30-36) % RDW (11.6-14.8) % Plt Count (150-400) X10^3/uL Neut % (Auto) (50-75) % Lymph % (Auto) (25-40) % [place] % (Auto) (3-14) % Eos % (Auto) (2-4) % Baso % (Auto) (0-2) % Neut # (Auto) (7784-5545) /uL Lymph # (Auto) (9549-7120) /uL [place] # (Auto) (0-900) /uL Eos # (Auto) (0-450) /uL Baso # (Auto) (0-100) /uL PT 12.1 (10.1-12.7) SECONDS INR 1.1 (0.9-1.3) APTT 28 (26-36) SECONDS D-Dimer (<500) ng/ml Sodium (137-145) mmol/L Potassium (3.4-5.1) mmol/L Chloride (98-107) mmol/L Carbon Dioxide (22-32) mmol/L BUN (9-20) mg/dL Creatinine (0.66-1.25) mg/dL Estimated GFR (>60) mL/min BUN/Creatinine Ratio (6-22) Glucose (80-110) mg/dL Calcium (8.4-10.2) mg/dL Magnesium 1.7 (1.6-2.3) mg/dL Total Bilirubin (0.2-1.3) mg/dL AST (17-59) IU/L ALT (<50) IU/L Alkaline Phosphatase (38-126) U/L Total Creatine Kinase (55-170) U/L CK-MB (CK-2) (<2.37) ng/mL CK-MB (CK-2) Rel Index (1.5-5.0) % Troponin I (0.01-0.034) ng/mL NT-Pro-B Natriuret Pep 224 (<450) pg/mL Total Protein (6.3-8.2) g/dL Albumin (3.5-5.0) g/dL Globulin (1.7-4.1) g/dL Albumin/Globulin Ratio (1.0-2.8) Lipase (23-300) U/L Procalcitonin (<0.5) ng/mL TSH (0.47-4.68) uIU/mL SARS-CoV-2 (PCR) (Negative) 07/11/22 07/11/22 07/11/22 Range/Units 02:35 04:30 07:53 WBC (4.5-11.0) X10^3/uL RBC (4.5-5.9) X10^6/uL Hgb (13.5-17.5) g/dL Hct (41-53) % MCV (80-100) fL MCH (26-34) PG MCHC (30-36) % RDW (11.6-14.8) % Plt Count (150-400) X10^3/uL Neut % (Auto) (50-75) % Lymph % (Auto) (25-40) % Archuleta % (Auto) (3-14) % Eos % (Auto) (2-4) % Baso % (Auto) (0-2) % Neut # (Auto) (0312-7501) /uL Lymph # (Auto) (5275-5691) /uL Archuleta # (Auto) (0-900) /uL Eos # (Auto) (0-450) /uL Baso # (Auto) (0-100) /uL PT (10.1-12.7) SECONDS INR (0.9-1.3) APTT (26-36) SECONDS D-Dimer (<500) ng/ml Sodium (137-145) mmol/L Potassium (3.4-5.1) mmol/L Chloride (98-107) mmol/L Carbon Dioxide (22-32) mmol/L BUN (9-20) mg/dL Creatinine (0.66-1.25) mg/dL Estimated GFR (>60) mL/min BUN/Creatinine Ratio (6-22) Glucose (80-110) mg/dL Calcium (8.4-10.2) mg/dL Magnesium (1.6-2.3) mg/dL Total Bilirubin (0.2-1.3) mg/dL AST (17-59) IU/L ALT (<50) IU/L Alkaline Phosphatase (38-126) U/L Total Creatine Kinase (55-170) U/L CK-MB (CK-2) (<2.37) ng/mL CK-MB (CK-2) Rel Index (1.5-5.0) % Troponin I < 0.012 (0.01-0.034) ng/mL NT-Pro-B Natriuret Pep (<450) pg/mL Total Protein (6.3-8.2) g/dL Albumin (3.5-5.0) g/dL Globulin (1.7-4.1) g/dL Albumin/Globulin Ratio (1.0-2.8) Lipase (23-300) U/L Procalcitonin (<0.5) ng/mL TSH 3.68 (0.47-4.68) uIU/mL SARS-CoV-2 (PCR) Negative (Negative) ECG Data Interpretation: Normal sinus rhythm rate 83 OK interval 164 QRS 96 QTC 440 EKG2. Sinus rhythm rate of 73 OK 170 QRS 86 QTC of 414. Patient does have a mm elevation 1 and 2, not president aVL. Patient does not have any ST depression or reciprocal changes appreciated. Patient has prior for comparison and these were reviewed. 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 MDM Narrative Medical decision making narrative: The patient 86-year-old male history of paroxysmal atrial fibrillation presenting with chest discomfort today. It seems be constant for last 4 hours. It not necessarily reproducible but does not really seem to be moving. This is not consistent with cardiac pain. Blood work in 2- troponins overall reassuring. D-dimer mildly elevated in the 800s with his recent COVID infection CT angio was done which did not show any pulmonary embolism. The patient is given Toradol for his pain. It seems to have maybe helped. Talking to him getting ready to discharge him patient went into AFib with RVR heart rate in the 140s. He is relatively asymptomatic. He takes Cardizem 120 mg in the morning. He is given his home dose along with 10 mg of IV. Heart rate quickly improves back into the 90s but is still AFib. He does take aspirin daily for his AFib. He was not sinus rhythm most of his stay in the ED. This is unlikely the cause of his chest discomfort or pain. 07/11/22 Cherry: Patient signed out to myself while awaiting callback from hospitalist service. Spoke with Dr. Sanchez who accepts patient came in for chest pain today had resolved is no longer present workup was negative but patient developed AFib with RVR into the rate of 140s he was given Cardizem IV 10 mg as well as his oral Cardizem dose and improved but then returned back to the 140s range. They monitored patient for about 2-1/2 hours with continued persistent AFib with RVR and started on diltiazem drip. I spoke with Dr. Sanchez who accepts for admission, asked to add a Mag TSH and will repeat troponin at 10:30 a.m. and she will see the patient. 0944: Patient's EKG is read as STEMI, he does have 1 mm of elevation in 1 and 2 but non aVL these are not contiguous leads, patient has prior EKGs in the past which appear fairly similar. I did review patient's old EKGs I did see the patient independently. He states he is had chest pain but since last night it never went away according to the patient with 2- troponins. Patient physician Dr. Sanchez was updated. <Funmilayo Carey, DO - Last Filed: 07/11/22 09:58> Critical Care Time Critical Care Time: Yes Total Critical Care Time: 45 Attestation: The high probability of a clinically significant, sudden or life threatening deterioration of the [cardiac] system(s) required my full and direct attention, intervention and personal management. The aggregate critical care time was [] minutes. This time is in addition to time spent performing reported procedures but includes the following: [x] Data Review and interpretation [x] Patient assessment and monitoring of vital signs [x] Documentation [x] Medication orders and management Discharge Plan Departure Patient Disposition: Home Clinical Impression: Atrial fibrillation, Atypical chest pain
[2022-07-11 03:35] LABS: D Dimer 887 ng/ml (<500)
--- NOTE | 2022-07-11 03:48 | DI.CT.S_ITS ---
PROCEDURE: CT ANGIO CHEST PE PROTOCOL INDICATIONS: chest pain covid high dimer TECHNIQUE: After the administration of intravenous contrast, 2 mm thick sections acquired from the pulmonary apices to the posterior costophrenic angles. 3-dimensional maximum intensity projection (MIP) coronal and sagittal reformats were then acquired through the thorax. For radiation dose reduction, the following was used: automated exposure control, adjustment of mA and/or kV according to patient size. COMPARISON: [facility], CR, XR CHEST 1V, 06/20/2022, 10:24. [facility], CR, XR CHEST 1V, 07/11/2022, 2:19. FINDINGS: Image quality: Excellent. Pulmonary arteries: Pulmonary arteries are normal in size, and demonstrate no intraluminal filling defects to suggest central pulmonary embolism. Lungs and pleura: Mild biapical pleural-parenchymal scarring. No acute pulmonary consolidation. No pleural effusions or pneumothorax. Central and peripheral airways are patent. Mediastinum: Heart size is mildly enlarged, without pericardial effusion. Moderate coronary artery calcifications. No mediastinal or hilar adenopathy. Ascending thoracic aorta measures up to 3.8 cm in maximum diameter on coronal and sagittal images. Esophagus is normal in caliber, without hiatal hernia. Bones and chest wall: No suspicious bony lesions. Ribs and thoracic spine appear intact throughout. Thyroid a hypoattenuating nodule in the left thyroid lobe measures up to 2 cm. Recommend correlation with prior thyroid ultrasound and fine needle aspiration. No axillary or supraclavicular adenopathy. Abdomen: A biliary stent is partially imaged and there is associated pneumobilia. Few diverticula are seen in the included colon. IMPRESSION: 1. No acute pulmonary embolus. No acute abnormality is seen in the chest. 2. Moderate coronary artery calcifications. Approved by: Ryne Sanderson M.D. on 07/11/2022 at 8:28
[2022-07-11 05:26] LABS: Troponin I < 0.012 ng/mL (0.01-0.034)
[2022-07-11] MEDS: dilTIAZem 5 MG/ML SDV 10 MG IV (05:48)
[2022-07-11] MEDS: dilTIAZem CD 120 MG CAP PO (06:16)
[2022-07-11] MEDS: DILTIAZEM 125 MG/125 ML PIGGYBACK IV (07:54)
[2022-07-11] MEDS: POTASSIUM CHLORIDE 20 MEQ/15 ML UDC 40 MEQ PO (07:58)
--- NOTE | 2022-07-11 08:11 | PC.NURSE ---
pt started on diltiazem drip. BP set to Q5min, continuous cardiac monitoring in place. call light placed within reach. Pt bed adjusted for comfort.
[2022-07-11 08:30] LABS: COVID19 -Nasal RAPID Negative (Negative)
[2022-07-11] MEDS: ACETAMINOPHEN 325 MG TABLET 650 MG PO (10:20)
--- NOTE | 2022-07-11 11:11 | PC.NURSE ---
patient states chest pain 5/10, nitro SL given, dr schuster made aware
[2022-07-11 11:13] LABS: Magnesium 1.7 mg/dL (1.6-2.3)
[2022-07-11] MEDS: NITROGLYCERIN 0.3 MG SL TAB SL (11:13)
[2022-07-11 11:25] LABS: Creatine Kinase 107 U/L (55-170)
[2022-07-11 11:38] LABS: Troponin I 0.017 ng/mL (0.01-0.034)
[2022-07-11 11:41] LABS: CKMB % Relative Index 1.6 % (1.5-5.0); Creatine Kinase MB 1.71 ng/mL (<2.37)
[2022-07-11 11:44] LABS: Thyroid Stimulating Hormone 3.68 uIU/mL (0.47-4.68)
--- NOTE | 2022-07-11 19:23 | P.HP_ITS ---
History of Present Illness History of Present Illness Date Patient Seen: 07/11/22 Time Patient Seen: 19:23 Date of Onset of Symptoms: 07/11/22 Chief complaint: chest pain Narrative: Patient was brought to the emergency department this morning with complaints of chest pain. His workup was negative for evidence of acute ischemia or acute co ronary syndrome and it was felt that he was safe for discharge but at approximately this time he developed atrial fibrillation with rapid ventricular rate. He was given diltiazem IV and then placed on a diltiazem drip and he was admitted to the hospital for further treatment. He quickly converted to sinus rhythm. Patient has had 1 episode since he has been here with pain which he referred in the substernal area and left anterior chest which improved with nitroglycerin patient has remained in sinus rhythm. 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 Anxiety (06/06/14) Bile duct carcinoma Cardiac arrhythmia (06/06/14) Carpal tunnel syndrome Cervical spine disease Essential hypertension (08/04/15) History of adenomatous polyp of colon (12/27/10) History of renal calculi (12/27/10) Hyperlipidemia (08/09/16) Paroxysmal atrial fibrillation SVT (supraventricular tachycardia) TIA, admitted February 2022 Past surgical history: Cataract surgery, left eye Carpal tunnel surgery ERCP with biopsy common bile duct Patient History Medical History Anxiety (06/06/14) Bile duct carcinoma Cardiac arrhythmia (06/06/14) Carpal tunnel syndrome Cervical spine disease Essential hypertension (08/04/15) History of adenomatous polyp of colon (12/27/10) History of renal calculi (12/27/10) Hyperlipidemia (08/09/16) Mild cognitive impairment Paroxysmal atrial fibrillation SVT (supraventricular tachycardia) Surgical History S/P carpal tunnel release Family & Social History Family History Father Family history of Alzheimer's disease Social History: household members none lives independently Yes caregiver/support person Yes Safety & Behavioral: Feels Safe in Current Yes Environment Tobacco & Substance use: Tobacco type cigarettes Smoking Status Former smoker alcohol intake current alcohol intake frequency holiday/special occasion Substance Use Type does not use Meds Home Medications and Allergies Home Medications Medication Instructions Recorded Confirmed Type calcium carbonate 200 mg calcium 200 mg PO BID PRN heartburn 10/20/20 07/11/22 History (500 mg) chewable tablet (Tums) pravastatin 80 mg tablet 80 mg PO HS #90 tabs 12/22/20 07/11/22 Rx potassium chloride 8 mEq 8 meq PO QDAY #90 tabs 01/16/21 07/11/22 Rx tablet,extended release (Klor-Con) hydrochlorothiazide 25 mg tablet 25 mg PO QDAY #90 tabs 01/29/21 07/11/22 Rx tamsulosin 0.4 mg capsule (Flomax) 0.4 mg PO QDAY #90 caps 03/07/21 07/11/22 Rx aspirin 81 mg chewable tablet 81 mg PO DAILY 09/06/21 07/11/22 History diltiazem HCl 120 mg 120 mg PO DAILY 09/06/21 07/11/22 History capsule,extended release 24 hr (Cardizem CD) ranitidine HCl 75 mg tablet 75 mg PO DAILY 09/06/21 07/11/22 History cholecalciferol (vitamin D3) 50 50 mcg PO DAILY 03/08/22 07/11/22 History mcg (2,000 unit) tablet donepezil 10 mg tablet 10 mg PO DAILY 07/11/22 07/11/22 History Allergies Allergy/AdvReac Type Severity Reaction Status Date / Time atorvastatin [ATORVASTATIN] Allergy Unknown WEAKNESS/BODY Verified 01/26/22 17:38 ACHES citalopram AdvReac Intermediate Off Verified 01/26/22 17:38 Balance/Head felt stuffed. lisinopril AdvReac Intermediate slow hr Verified 01/26/22 17:38 Review of Systems Review of Systems Narrative: Patient has aphasia related to his dementia. Patient denies fever Denies any change in neurologic symptoms Denies any rash Denies any nausea, vomiting or diarrhea. Patient denies any reflux. Patient denies any syncope or presyncope. Otherwise 12 point review of systems is negative Exam Vital Signs (past 8 hours): - 07/11/22 11:30 07/11/22 11:45 07/11/22 12:00 Temperature 98.3 F Pulse Rate 66 66 64 Respiratory Rate 17 Blood Pressure 95/54 L 91/55 L 98/55 L Pulse Oximetry 95 96 96 07/11/22 12:15 07/11/22 12:30 07/11/22 12:45 Temperature Pulse Rate 63 66 64 Respiratory Rate Blood Pressure 103/59 L 99/57 L 104/64 Pulse Oximetry 95 95 96 07/11/22 13:00 07/11/22 13:15 07/11/22 13:30 Temperature Pulse Rate 69 63 63 Respiratory Rate 19 Blood Pressure 100/56 L 99/54 L 96/55 L Pulse Oximetry 96 95 07/11/22 13:33 07/11/22 14:00 07/11/22 14:00 Temperature Pulse Rate 66 60 Respiratory Rate 18 16 Blood Pressure 102/57 L Pulse Oximetry 96 07/11/22 14:30 07/11/22 14:30 07/11/22 15:00 Temperature Pulse Rate 62 64 Respiratory Rate 18 31 H Blood Pressure 93/54 L Pulse Oximetry 07/11/22 15:01 07/11/22 15:01 07/11/22 15:30 Temperature Pulse Rate 66 Respiratory Rate 31 H Blood Pressure 98/53 L 103/55 L Pulse Oximetry 07/11/22 15:30 07/11/22 16:00 07/11/22 16:00 Temperature Pulse Rate 64 63 Respiratory Rate 26 H 22 Blood Pressure 105/59 L Pulse Oximetry 07/11/22 16:30 07/11/22 16:30 07/11/22 17:00 Temperature Pulse Rate 62 Respiratory Rate 17 Blood Pressure 105/56 L 104/56 L Pulse Oximetry 07/11/22 17:00 07/11/22 17:30 07/11/22 17:30 Temperature Pulse Rate 60 69 Respiratory Rate 16 18 Blood Pressure 124/64 Pulse Oximetry 07/11/22 18:00 07/11/22 18:38 Temperature 98.5 F Pulse Rate 70 Respiratory Rate 33 H Blood Pressure Pulse Oximetry Oxygen Delivery Method Room Air Narrative Exam Narrative: Afebrile vital signs are stable Patient is alert and oriented and is able to answer questions but difficulty finding words HEENT is remarkable for poor dentition Neck is supple without adenopathy or masses Chest: Clear to auscultation without wheezes rhonchi or crackles Cor: Regular rate and rhythm without a murmur Abdomen: Positive bowel sounds, soft, nontender, nondistended, no hepatosplenomegaly Extremities: No edema, pulses intact Objective Labs 07/11/22 02:35 07/11/22 02:35 Labs: Laboratory Results - last 24 hr 07/11/22 07/11/22 07/11/22 02:35 02:35 02:35 WBC 7.6 RBC 4.20 L Hgb 13.5 Hct 39.9 L MCV 94.9 MCH 32.1 MCHC 33.8 RDW 12.9 Plt Count 170 Neut % (Auto) 77.8 H Lymph % (Auto) 11.8 L [place] % (Auto) 8.3 Eos % (Auto) 1.7 L Baso % (Auto) 0.4 Neut # (Auto) 5900 Lymph # (Auto) 900 L [place] # (Auto) 600 Eos # (Auto) 100 Baso # (Auto) 0 PT INR APTT D-Dimer 887 H Sodium 139 Potassium 3.3 L Chloride 100 Carbon Dioxide 30 BUN 22 H Creatinine 1.01 Estimated GFR > 60 BUN/Creatinine Ratio 21.8 Glucose 107 Calcium 8.6 Magnesium Total Bilirubin 1.3 AST 26 ALT 26 Alkaline Phosphatase 106 Total Creatine Kinase 104 CK-MB (CK-2) 2.13 CK-MB (CK-2) Rel Index 2.0 Troponin I < 0.012 NT-Pro-B Natriuret Pep Total Protein 6.5 Albumin 3.7 Globulin 2.8 Albumin/Globulin Ratio 1.3 Lipase 445 H Procalcitonin 0.07 TSH SARS-CoV-2 (PCR) 07/11/22 07/11/22 07/11/22 02:35 02:35 02:35 WBC RBC Hgb Hct MCV MCH MCHC RDW Plt Count Neut % (Auto) Lymph % (Auto) [place] % (Auto) Eos % (Auto) Baso % (Auto) Neut # (Auto) Lymph # (Auto) [place] # (Auto) Eos # (Auto) Baso # (Auto) PT 12.1 INR 1.1 APTT 28 D-Dimer Sodium Potassium Chloride Carbon Dioxide BUN Creatinine Estimated GFR BUN/Creatinine Ratio Glucose Calcium Magnesium 1.7 Total Bilirubin AST ALT Alkaline Phosphatase Total Creatine Kinase CK-MB (CK-2) CK-MB (CK-2) Rel Index Troponin I NT-Pro-B Natriuret Pep 224 Total Protein Albumin Globulin Albumin/Globulin Ratio Lipase Procalcitonin TSH SARS-CoV-2 (PCR) 02/02/23 02/02/23 02/02/23 02:35 04:30 07:53 WBC RBC Hgb Hct MCV MCH MCHC RDW Plt Count Neut % (Auto) Lymph % (Auto) [place] % (Auto) Eos % (Auto) Baso % (Auto) Neut # (Auto) Lymph # (Auto) [place] # (Auto) Eos # (Auto) Baso # (Auto) PT INR APTT D-Dimer Sodium Potassium Chloride Carbon Dioxide BUN Creatinine Estimated GFR BUN/Creatinine Ratio Glucose Calcium Magnesium Total Bilirubin AST ALT Alkaline Phosphatase Total Creatine Kinase CK-MB (CK-2) CK-MB (CK-2) Rel Index Troponin I < 0.012 NT-Pro-B Natriuret Pep Total Protein Albumin Globulin Albumin/Globulin Ratio Lipase Procalcitonin TSH 3.68 SARS-CoV-2 (PCR) Negative 07/11/22 10:47 WBC RBC Hgb Hct MCV MCH MCHC RDW Plt Count Neut % (Auto) Lymph % (Auto) [place] % (Auto) Eos % (Auto) Baso % (Auto) Neut # (Auto) Lymph # (Auto) [place] # (Auto) Eos # (Auto) Baso # (Auto) PT INR APTT D-Dimer Sodium Potassium Chloride Carbon Dioxide BUN Creatinine Estimated GFR BUN/Creatinine Ratio Glucose Calcium Magnesium Total Bilirubin AST ALT Alkaline Phosphatase Total Creatine Kinase 107 CK-MB (CK-2) 1.71 CK-MB (CK-2) Rel Index 1.6 Troponin I 0.017 NT-Pro-B Natriuret Pep Total Protein Albumin Globulin Albumin/Globulin Ratio Lipase Procalcitonin TSH SARS-CoV-2 (PCR) Assessment & Plan Assessment & Plan narrative: 86-year-old male with 4 hours of constant chest pain that has had 3- troponins and CKs and was in process of being discharged home but developed AFib with RVR persistently in the 140s Assessment 1. Chest pain. Reviewed echo in February 28. CK and troponin negative x3. I think unlikely this represents ischemia or acute coronary syndrome. His EKGs show slight ST elevation but this appears old. Plan: We will continue to monitor. Will repeat EKG and a CK troponin in the morning. If there is any abnormalities we will repeat an echo. If these are normal we will not repeat the echo Assessment 2. AFib with RVR now in sinus rhythm. Patient takes diltiazem as an outpatient. He received this in the ER. Was placed on diltiazem drip. He is now off of it and continues in sinus rhythm. Plan: Will continue to monitor overnight with telemetry. Assessment 3. Dementia. Will continue with his outpatient Aricept. Will provide lorazepam if he becomes agitated but will use this cautiously because of risks associated with the lorazepam in his age group Assessment 4. BPH Plan: Continue tamsulosin 5. Hyperlipidemia Plan: Continue pravastatin Code status per polst form in our clinic shows that he is DNR 60 minutes spent meeting with patient, reviewing chart, discussing with ER physician as well as nursing and formulating a plan and documentation. Time Spent With Patient Critical Care time: I spent a total of [] minutes of critical care time on this patient's care today; this time is exclusive of procedural time.
[2022-07-11] MEDS: TAMSULOSIN 0.4 MG CAPSULE PO (20:46)
[2022-07-11] MEDS: hydroCHLOROthiazide 25 MG TABLET PO (20:46)
[2022-07-11] MEDS: PRAVASTATIN 20 MG TABLET 80 MG PO (20:46)
[2022-07-12] VITALS (14 sets, daily range): BP systolic 125–166; BP diastolic 62–129; PULSE 70–152; RESP 14–39; O2SAT 94–96
[2022-07-12] MEDS: LORazepam 0.5 MG TABLET PO (01:10)
--- NOTE | 2022-07-12 02:19 | PC.NURSE ---
operations project manager: notified patient in rapid a fib. Orders received. Drip not started, patient converted to NSR.
[2022-07-12 05:04] LABS: Add Manual Diff / Slide Review NO; Basophils Absolute Auto 0 /uL (0-100); Basophils Percent Auto 0.4 % (0-2); Eosinophils Absolute Auto 100 /uL (0-450); Hematocrit 40.6 % (41-53); Lymphocytes Absolute Auto 800 /uL (1100-4500); Lymphocytes Percent Auto 12.1 % (25-40); Mean Corpuscular HGB Conc 34.4 % (30-36); Mean Corpuscular Volume 95.7 fL (80-100); Monocytes Absolute Auto 800 /uL (0-900); Monocytes Percent Auto 11.6 % (3-14); Neutrophils Absolute Auto 4900 /uL (1500-7000); Neutrophils Percent Auto 74.9 % (50-75); Platelet Count 141 X10^3/uL (150-400); Red Blood Cell Count 4.24 X10^6/uL (4.5-5.9); Red Cell Distribution Width 12.8 % (11.6-14.8); White Blood Cell Count 6.5 X10^3/uL (4.5-11.0)
[2022-07-12 05:09] LABS: Creatine Kinase 93 U/L (55-170)
[2022-07-12 05:11] LABS: Alanine Aminotransferase 22 IU/L (<50); Albumin 3.3 g/dL (3.5-5.0); Albumin Globulin Ratio 1.1 (1.0-2.8); Alkaline Phosphatase 84 U/L (38-126); Aspartate Aminotransferase 24 IU/L (17-59); BUN Creatinine Ratio 18.8 (6-22); Bilirubin Total 2.1 mg/dL (0.2-1.3); Blood Urea Nitrogen 16 mg/dL (9-20); Calcium 8.3 mg/dL (8.4-10.2); Carbon Dioxide 31 mmol/L (22-32); Chloride 103 mmol/L (98-107); Estimated Glomerular Filt Rate > 60 mL/min (>60); Globulin 3.1 g/dL (1.7-4.1); Glucose 93 mg/dL (80-110); HEMOLYSIS < 15 (0-50); Potassium 3.6 mmol/L (3.4-5.1); Sodium 137 mmol/L (137-145); Total Protein 6.4 g/dL (6.3-8.2)
[2022-07-12 05:23] LABS: Troponin I 0.013 ng/mL (0.01-0.034)
[2022-07-12] MEDS: dilTIAZem CD 120 MG CAP PO ×2 (08:08→09:13)
[2022-07-12] MEDS: DONEPEZIL 5 MG TABLET 10 MG PO (08:08)
[2022-07-12] MEDS: FAMOTIDINE 20 MG TABLET 10 MG PO (08:08)
[2022-07-12] MEDS: CHOLECALCIFEROL (VITAMIN D3) 1,000 UNIT TABLET 2000 UNIT PO (08:09)
[2022-07-12] MEDS: TAMSULOSIN 0.4 MG CAPSULE PO (08:09)
[2022-07-12] MEDS: ASPIRIN 81 MG CHEW TAB PO (08:09)
[2022-07-12] MEDS: POTASSIUM CHLORIDE 10 MEQ TAB PO (08:09)
[2022-07-12] MEDS: hydroCHLOROthiazide 25 MG TABLET PO (08:09)
[2022-07-12] MEDS: DILTIAZEM 125 MG/125 ML PIGGYBACK IV (08:21)
--- NOTE | 2022-07-12 12:42 | PM.PN.1 ---
Subjective Subjective Date Patient Seen: 07/12/22 Time Patient Seen: 08:55 Interval history: Had another episode of RVR overnight had to get put on diltiazem drip. doing ok this morning still going in and out but not as severe not symptomatic able to eat breakfast will increase oral dilt dose Exam Vital Signs (past 8 hours): - 07/12/22 05:00 07/12/22 05:01 07/12/22 05:01 Pulse Rate 76 78 Respiratory Rate 18 17 Blood Pressure 125/76 Pulse Oximetry 95 95 Oxygen Delivery Method Room Air Narrative Exam Narrative: pleasant elder sitting in bed with Const General: cooperative and well developed Nutritional Appearance: thin HENMT Head: normocephalic and atraumatic Neck Neck: normal visual inspection and full ROM Resp Other: good air movement clear to auscultation bilaterally Cardio Other: regular rate with runs of tachycardia, regular rhythm, S1/S2 GI Other: soft nontender active bowel sounds Extrem General: full ROM and no pedal edema Psych Speech and Movement: speech and movement normal Objective Labs 07/12/22 04:18 07/12/22 04:18 Labs: Laboratory Results - last 24 hr 07/12/22 07/12/22 07/12/22 04:18 04:18 04:18 WBC 6.5 RBC 4.24 L Hgb 14.0 Hct 40.6 L MCV 95.7 MCH 33.0 MCHC 34.4 RDW 12.8 Plt Count 141 L Neut % (Auto) 74.9 Lymph % (Auto) 12.1 L [place] % (Auto) 11.6 Eos % (Auto) 1.0 L Baso % (Auto) 0.4 Neut # (Auto) 4900 Lymph # (Auto) 800 L [place] # (Auto) 800 Eos # (Auto) 100 Baso # (Auto) 0 Sodium 137 Potassium 3.6 Chloride 103 Carbon Dioxide 31 BUN 16 Creatinine 0.85 Estimated GFR > 60 BUN/Creatinine Ratio 18.8 Glucose 93 Calcium 8.3 L Total Bilirubin 2.1 H AST 24 ALT 22 Alkaline Phosphatase 84 Total Creatine Kinase 93 CK-MB (CK-2) TNP CK-MB (CK-2) Rel Index TNP Troponin I 0.013 Total Protein 6.4 Albumin 3.3 L Globulin 3.1 Albumin/Globulin Ratio 1.1 [facility] Medical History Anxiety (06/06/14) Bile duct carcinoma Cardiac arrhythmia (06/06/14) Carpal tunnel syndrome Cervical spine disease Essential hypertension (08/04/15) History of adenomatous polyp of colon (12/27/10) History of renal calculi (12/27/10) Hyperlipidemia (08/09/16) Mild cognitive impairment Paroxysmal atrial fibrillation SVT (supraventricular tachycardia) Surgical History S/P carpal tunnel release Family History Father Family history of Alzheimer's disease Social History marital status: number of children: 0 household members: none lives independently: Yes caregiver/support person: Yes housing: house pets and animals: No education level: high school occupational status: other current occupational exposures/hazards: No Previous occupational history: [employer] destini/taoist: None Smoking Status: Former smoker Tobacco: How many years used: 10 Smokeless tobacco user: other quit status: quit date established second hand exposure: No alcohol intake: current substance use type: does not use Assessment & Plan Time Spent With Patient Critical Care time: I spent a total of [] minutes of critical care time on this patient's care today; this time is exclusive of procedural time.
--- NOTE | 2022-07-12 15:39 | DIET.PN1 ---
Dietary Progress Note Assessment: 86 y/o M admitted with c/o chest pains with afib with RVR. RD screen to r/o malnutrition after discussion with provider. Pt is at risk for malnutrition. Has had 6.7% weight loss over 3 months (not significant but just under 7.5% threshold). Additionally his BMI is just over threshold for moderate malnutrition (criteria BMI <23 for age). Recent PO 50-100%. Does not currently meet criteria for malnutrition, but is at risk. Ht: 178 cm Wt: 75 kg BMI: 23.67 Last BM: () MNA: Cheng Score: 21 Diet: 07/11/22 Lunch Heart Healthy Diet Diet Modifications: Sodium Level: 2 gm Sodium Nutrition Percent Meal Consumed 75% 07/12/22 13:50 Percent Meal Consumed 50% 07/11/22 18:09 Percent Meal Consumed 100% 07/11/22 13:32 Labs: RBC 4.24 X10^6/uL (4.5-5.9) L 07/12/22 04:18 Hgb 14.0 g/dL (13.5-17.5) 07/12/22 04:18 Hct 40.6 % (41-53) L 07/12/22 04:18 Creatinine 0.85 mg/dL (0.66-1.25) 07/12/22 04:18 NT-Pro-B Natriuret Pep 224 pg/mL (<450) 07/11/22 02:35 Monitoring/Evaluations: Please re-consult prn. Electronically Signed by: Nellie Roy 07/12/22 15:39 Clinical Dietitian [address] [address]
--- NOTE | 2022-07-12 17:18 | P.DS_ITS ---
History of Present Illness History of Present Illness Date Patient Seen: 07/12/22 Time Patient Seen: 17:18 Date of Onset of Symptoms: 07/10/22 Chief complaint: chest pain Narrative: Pt did have diltiazem drip some last night for RVR today his PO cardizem was doubled and he did well off the drip with no recurrence of tachycardia or chest pain. He is eating eliminating and walking about at baseline. Discharge Providers Provider Date of admission: 07/11/22 08:13 Discharge Date: 07/12/22 Primary care physician: Alvaro Hamilton MD Discharge provider: Noah Hernandez MD Summary Hospital Course Discharge Diagnosis: #Chest pain #AFib with RVR #Dementia #BPH #Hyperlipidemia Hospital Course: Patient was brought to the emergency department with complaints of chest pain.? His workup was negative for evidence of acute ischemia or acute coronary syndrome and it was felt that he was safe for discharge but at approximately this time he developed atrial fibrillation with rapid ventricular rate.? He was given diltiazem IV and then placed on a diltiazem drip and he was admitted to the hospital for further treatment.? He quickly converted to sinus rhythm however over last night he did require dilt drip again to keep HR down. This morning his oral diltiazem was doubled and he spent a comfortable day without going into symptomatic RVR. Status at Discharge Cognitive/behavioral status at discharge: at baseline, oriented Functional status at discharge: independent ambulation Overall status at discharge: patient is progressing back to baseline Exam Vital Signs (past 8 hours): Oxygen Delivery Method Room Air Narrative Exam Narrative: elderly gentleman laying comfortably in bed Const General: cooperative and well developed [facility] Head: normocephalic and atraumatic Eyes General: appearance normal, both eyes and all related structures Cardio Other: regular rate and rhythm, S1/S2 well perfused GI Other: soft nontender normal bowel sounds Neuro General: patient alert, patient awake, patient oriented x3, moves all extremities and no focal motor deficits Psych Speech and Movement: speech and movement normal Objective Labs 07/12/22 04:18 07/12/22 04:18 Labs: Laboratory Results - last 24 hr 07/12/22 07/12/22 07/12/22 04:18 04:18 04:18 WBC 6.5 RBC 4.24 L Hgb 14.0 Hct 40.6 L MCV 95.7 MCH 33.0 MCHC 34.4 RDW 12.8 Plt Count 141 L Neut % (Auto) 74.9 Lymph % (Auto) 12.1 L [place] % (Auto) 11.6 Eos % (Auto) 1.0 L Baso % (Auto) 0.4 Neut # (Auto) 4900 Lymph # (Auto) 800 L [place] # (Auto) 800 Eos # (Auto) 100 Baso # (Auto) 0 Sodium 137 Potassium 3.6 Chloride 103 Carbon Dioxide 31 BUN 16 Creatinine 0.85 Estimated GFR > 60 BUN/Creatinine Ratio 18.8 Glucose 93 Calcium 8.3 L Total Bilirubin 2.1 H AST 24 ALT 22 Alkaline Phosphatase 84 Total Creatine Kinase 93 CK-MB (CK-2) TNP CK-MB (CK-2) Rel Index TNP Troponin I 0.013 Total Protein 6.4 Albumin 3.3 L Globulin 3.1 Albumin/Globulin Ratio 1.1 PFSH Medical History Anxiety (06/06/14) Bile duct carcinoma Cardiac arrhythmia (06/06/14) Carpal tunnel syndrome Cervical spine disease Essential hypertension (08/04/15) History of adenomatous polyp of colon (12/27/10) History of renal calculi (12/27/10) Hyperlipidemia (08/09/16) Mild cognitive impairment Paroxysmal atrial fibrillation SVT (supraventricular tachycardia) Surgical History S/P carpal tunnel release Family History Father Family history of Alzheimer's disease Social History marital status: number of children: 0 household members: none lives independently: Yes caregiver/support person: Yes housing: house pets and animals: No education level: high school occupational status: other current occupational exposures/hazards: No Previous occupational history: [employer] destini/jew: None Smoking Status: Former smoker Tobacco: How many years used: 10 Smokeless tobacco user: other quit status: quit date established second hand exposure: No alcohol intake: current substance use type: does not use Discharge Assessment & Plan Assessment and Plan Assessment: 86-year-old male with 4 hours of constant chest pain that has had 3- troponins and CKs with recurrent afib/RVR #Chest pain.? Reviewed echo in February 28.? CK and troponin negative on trending seems to be more of a demand issue at high HR #AFib with RVR, recurrent. Will continue increased diltiazem 240mg dose seems to be stable here. monitor and f/u as outpt with PCP #Dementia stable continue home meds #BPH stable continue home meds #Hyperlipidemia stable continue home meds Dispo: home to f/u with PCP Code: DNR MDM: 40 minutes spent meeting with patient, reviewing chart, and formulating a plan and documentation. Discharge Plan Discharge Plan Patient Disposition: Home Discharge orders & Medications Prescriptions: New diltiazem HCl [Cardizem CD] 240 mg Capsule,Extended Release 24hr 240 mg PO DAILY Qty: 30 0RF Continued pravastatin 80 mg tablet 80 mg PO HS Qty: 90 3RF potassium chloride [Klor-Con 8] 8 mEq tablet extended release 8 meq PO QDAY Qty: 90 3RF hydrochlorothiazide 25 mg tablet 25 mg PO QDAY Qty: 90 3RF tamsulosin [Flomax] 0.4 mg capsule 0.4 mg PO QDAY Qty: 90 3RF calcium carbonate [Tums] 200 mg calcium (500 mg) tablet,chewable 200 mg PO BID PRN (Reason: heartburn) aspirin 81 mg Tablet,Chewable 81 mg PO DAILY ranitidine HCl 75 mg Tablet 75 mg PO DAILY donepezil 10 mg tablet 10 mg PO DAILY cholecalciferol (vitamin D3) 50 mcg (2,000 unit) Tablet 50 mcg PO DAILY Discontinued diltiazem HCl [Cardizem CD] 120 mg Capsule,Extended Release 24hr 120 mg PO DAILY Follow up/Referrals: Alvaro Hamilton MD [Primary Care Provider] - Visit Report/Discharge Packet Instructions: Atrial Fibrillation, DI for Atypical Chest Pain Stand Alone Forms: Patient Portal/API, Stroke Signs & Symptoms Discharge Data Primary Care Provider: Alvaro Hamilton Attending Provider: Mindi Sanchez
== END 2022-07-12 18:15 | disposition home or self-care (01) ==
LOC: ED 06:15 → AC 08:16 → ICU 09:23
PROVIDERS: Emergency Medicine; Admitting Provider Family Medicine; Emergency Provider Emergency Medicine; Family Provider Family Medicine; PCP Family Medicine; Referring Provider Emergency Medicine; Visit Provider Family Medicine
DX: R07.9 Chest pain, unspecified (principal); I48.0 Paroxysmal atrial fibrillation; E78.5 Hyperlipidemia, unspecified; N40.0 Benign prostatic hyperplasia without lower urinary tract symptoms; F03.90 Unspecified dementia, unspecified severity, without behavioral disturbance, psychotic disturbance, mood disturbance, and anxiety; Z86.73 Personal history of transient ischemic attack (TIA), and cerebral infarction without residual deficits; Z20.822 Contact with and (suspected) exposure to COVID-19
CPT/HCPCS: 36415; 71045; 71275; 80053; 82550; 82553; 83690; 83735; 83880; 84145; 84443; 84484; 85025; 85379; 85610; 85730; 87635; 93005; 96365; 96366; 96375; 99284; 99291; C9803; G0378; A9270; J1885; Q9967

== ENCOUNTER 2022-07-23 11:24 | Emergency (ER) | payer OTHER, SELFPAY ==
[2022-07-11 08:23] VITALS: BMI 22.6
[2022-07-23] VITALS (17 sets, daily range): BP systolic 113–168; BP diastolic 60–80; PULSE 64–96; RESP 16; TEMP 38.2; O2SAT 93–98; BMI 21.6
--- NOTE | 2022-07-23 11:52 | DI.RAD.S_ITS ---
PROCEDURE: XR CHEST 1V INDICATIONS: suspected sepsis TECHNIQUE: One view of the chest was acquired. COMPARISON: [facility], CT, CT ANGIO CHEST PE PROTOCOL, 07/11/2022, 4:05. [facility], CR, XR CHEST 1V, 07/11/2022, 2:19. FINDINGS: Surgical changes and devices: None. Lungs and pleura: Can be seen at the left lung base, with blunting of the left costophrenic angle. No pleural effusions or pneumothorax. Mediastinum: Mediastinal contours appear normal. Heart size is normal. Bones and chest wall: No suspicious bony lesions. Age-appropriate bony degenerative changes are seen. Overlying soft tissues appear unremarkable. IMPRESSION: There is minimal streaky opacity seen involving the left lung base, with blunting of the left costophrenic angle. Atelectasis is suspected, although differential diagnosis includes a small pleural effusion. Infiltrate is also possible, yet considered to be less likely. Dictated by: Oleksandr Dc M.D. on 07/23/2022 at 11:45 Approved by: Oleksandr Dc M.D. on 07/23/2022 at 11:47
--- NOTE | 2022-07-23 11:58 | DI.US.S_ITS ---
PROCEDURE: US ABDOMEN LIMITED INDICATIONS: SEPTIC. BILIARY STENT PLACED. TECHNIQUE: Real-time focused scanning was performed of the abdomen, with image documentation. COMPARISON: [facility], CT, CT CHEST ABD PEL W CON, 07/23/2022, 12:53. [facility], US, US ABDOMEN LIMITED, 07/30/2020, 11:35. FINDINGS: Liver measures 14.1 cm with mild steatosis. Gallbladder has been removed. Pneumatosis is present. Biliary stent is present partially visualized but appears patent. No gross intrahepatic biliary dilation. IMPRESSION: Limited exam secondary to overlying bowel gas as well as intercostal artifact. Biliary stent within visualized portions appears patent. Pneumobilia is present. Please see CT chest abd pelvis report 07/23/2022 for further details. Dictated by: Zina Rios M.D. on 07/23/2022 at 13:42 Approved by: Zina Rios M.D. on 07/23/2022 at 13:43
--- NOTE | 2022-07-23 11:58 | ED.WEAKNESS ---
HPI - Weakness General Chief complaint: Weakness Stated complaint: High blood pressure, cold, shaking Time Seen by Provider: 07/23/22 11:52 Source: patient and family Mode of arrival: Wheelchair History of Present Illness HPI Narrative: 86-year-old male former smoker with history of atrial fibrillation, recent cholangitis, cholecystectomy and biliary stent placement, recent hospitalization for AFib presents with his partner and a chief complaint of a few days of increasing generalized weakness and fatigue and today uncontrolled shaking chills with low-grade fever. He denies any runny nose, sore throat or cough. He has no chest pain or shortness of breath. He denies abdominal pain but maybe a bit nauseated. He is had no constipation or diarrhea. He denies obvious dysuria, frequency or urgency. Related Data Home Medications Medication Instructions Recorded Confirmed calcium carbonate 200 mg calcium 200 mg PO BID PRN heartburn 10/20/20 07/11/22 (500 mg) chewable tablet (Tums) aspirin 81 mg chewable tablet 81 mg PO DAILY 09/06/21 07/11/22 ranitidine HCl 75 mg tablet 75 mg PO DAILY 09/06/21 07/11/22 cholecalciferol (vitamin D3) 50 50 mcg PO DAILY 03/08/22 07/11/22 mcg (2,000 unit) tablet donepezil 10 mg tablet 10 mg PO DAILY 07/11/22 07/11/22 Previous Rx's Medication Instructions Recorded pravastatin 80 mg tablet 80 mg PO HS #90 tabs 12/22/20 potassium chloride 8 mEq 8 meq PO QDAY #90 tabs 01/16/21 tablet,extended release (Klor-Con) hydrochlorothiazide 25 mg tablet 25 mg PO QDAY #90 tabs 01/29/21 tamsulosin 0.4 mg capsule (Flomax) 0.4 mg PO QDAY #90 caps 03/07/21 diltiazem HCl 240 mg 240 mg PO DAILY #30 caps 07/12/22 capsule,extended release 24 hr (Cardizem CD) nirmatrelvir 300 mg (150 mg See Rx Instructions PO .COMPLEX 07/23/22 x2)-ritonavir 100 mg tablet,dose #30 ea pack(EUA) (Paxlovid) Allergies Allergy/AdvReac Type Severity Reaction Status Date / Time atorvastatin [ATORVASTATIN] Allergy Unknown WEAKNESS/BODY Verified 07/23/22 11:44 ACHES citalopram AdvReac Intermediate Off Verified 07/23/22 11:44 Balance/Head felt stuffed. lisinopril AdvReac Intermediate slow hr Verified 07/23/22 11:44 Review of Systems Review of Systems Narrative: GENERAL: See HPI HEENT: Denies sinus pain, ear pain, sore throat, difficulty swallowing, dizziness. RESPIRATORY: Denies dyspnea, cough, wheezing, hemoptysis, sputum. CARDIOVASCULAR: Denies chest pain, palpitations, orthopnea, edema, GASTROINTESTINAL: See HPI : Denies dysuria, frequency, incontinence, hematuria, urinary retention. MUSCULOSKELETAL: denies weakness, joint pain, or bony pain SKIN: Denies rash, skin lesions, or other NEUROLOGIC: Denies weakness, headache, numbness, change in speech, confusion, seizures, incoordination. PSYCHIATRIC: No concerning psychosocial issues. 12 point review of systems is negative except for those stated above Patient History Medical History Anxiety (06/06/14) Bile duct carcinoma Cardiac arrhythmia (06/06/14) Carpal tunnel syndrome Cervical spine disease Essential hypertension (08/04/15) History of adenomatous polyp of colon (12/27/10) History of renal calculi (12/27/10) Hyperlipidemia (08/09/16) Mild cognitive impairment Paroxysmal atrial fibrillation SVT (supraventricular tachycardia) Surgical History S/P carpal tunnel release Family History Father Family history of Alzheimer's disease Social History marital status: number of children: 0 household members: none lives independently: Yes caregiver/support person: Yes housing: house pets and animals: No education level: high school occupational status: other current occupational exposures/hazards: No Previous occupational history: [employer] destini/jehovah's witness: None Smoking Status: Former smoker Tobacco: How many years used: 10 Smokeless tobacco user: other quit status: quit date established second hand exposure: No alcohol intake: current substance use type: does not use Smoking Status: Former smoker alcohol intake frequency: holidays/special occasions only Substance Use Type: does not use Exam Narrative Exam Narrative: GENERAL: [86] year old patient appears stated age. Well-developed patient, in mild distress. Ill-appearing, mild rigors HEAD: Atraumatic. Normocephalic. EYES: Pupils equal round and reactive. Extraocular motions intact. No scleral icterus. No injection or drainage. ENT: Nose without bleeding, purulent drainage. Throat without erythema, tonsillar hypertrophy or exudate. Airway patent. NECK: Trachea midline. Non tender CARDIOVASCULAR: Regular rate and rhythm without murmurs, gallops, or rubs. RESPIRATORY: Clear to auscultation. Breath sounds equal bilaterally. No wheezes, rales, or rhonchi. GASTROINTESTINAL: Abdomen soft, non-tender, nondistended. EXTREMITIES: No edema or joint tenderness. BACK: Nontender without deformity or crepitance. No flank tenderness. NEURO: AOx3. SKIN: No rash or erythema of visible areas Initial Vital Signs Initial Vital Signs: Vital Signs Temperature 100.7 F H 07/23/22 11:44 Pulse Rate 80 07/23/22 11:44 Respiratory Rate 16 07/23/22 11:44 Blood Pressure 157/64 H 07/23/22 11:44 Pulse Oximetry 96 07/23/22 11:44 Oxygen Delivery Method 07/23/22 11:44 Course Orders Ordered: ED Orders 07/23/22 11:52 XR chest 1V Stat EKG-12 Lead Stat RT Consult Eval and Treat NOW 07/23/22 11:58 US abdomen limited Stat 07/23/22 12:00 Urinalysis and Microscopic Stat 07/23/22 12:05 Complete Blood Count AUTO DIFF Stat Comprehensive Metabolic Panel Stat Lactate (Lactic Acid) Stat Lipase Stat Partial Thromboplastin Time Stat Procalcitonin Stat Prothrombin Time INR Stat 07/23/22 12:10 Blood Culture Stat 07/23/22 12:51 Covid-19 + FLU A/B + RSV - PCR Stat 07/23/22 12:55 CT chest abd pel w con Stat Sodium Chloride (Normal Saline 0.9%) 2,109.21 mls @ 703.07 mls/hr 30 ml/kg infuse over 3 hr (2109.21 ml) IV NOW ONE Stop: 07/23/22 14:55 Last Admin: 07/23/22 12:32 Dose: 703.07 mls/hr Documented By: ISAK Ondansetron HCl (Ondansetron 4 Mg/2 Ml Inj) 4 mg IV NOW PRN PRN Reason: Nausea And Vomiting Discontinued Medications Sodium Chloride (Normal Saline 0.9%) 1,000 mls @ 1,000 mls/hr IV BOLUS ONE Stop: 07/23/22 12:51 Last Admin: 07/23/22 13:04 Dose: Not Given Documented By: NR Ceftriaxone Sodium 2,000 mg/ (Sodium Chloride) 100 mls @ 200 mls/hr IV NOW ONE Stop: 07/23/22 12:27 Last Infusion: 07/23/22 13:57 Dose: 0 mls/hr Documented By: Admin: 07/23/22 13:09 Dose: 200 mls/hr Documented By: RB Ketorolac Tromethamine (Ketorolac 30 Mg/Ml Vial) 10 mg IV NOW ONE Stop: 07/23/22 11:57 Last Admin: 07/23/22 12:32 Dose: 10 mg Documented By: NR Vital Signs Vital signs: Vital Signs - 8 hr 07/23/22 11:44 07/23/22 11:56 07/23/22 12:00 Temperature 100.7 F H Pulse Rate 80 96 H Respiratory Rate 16 Blood Pressure 157/64 H 168/79 H Pulse Oximetry 96 98 Oxygen Delivery Method Room Air Room Air 07/23/22 12:00 07/23/22 12:15 07/23/22 12:15 Temperature Pulse Rate 83 74 Respiratory Rate Blood Pressure 137/66 Pulse Oximetry 96 97 Oxygen Delivery Method 07/23/22 12:30 07/23/22 12:30 07/23/22 12:45 Temperature Pulse Rate 71 Respiratory Rate Blood Pressure 144/70 H 138/65 Pulse Oximetry 95 Oxygen Delivery Method 07/23/22 12:45 07/23/22 13:02 07/23/22 13:03 Temperature Pulse Rate 69 74 75 Respiratory Rate Blood Pressure Pulse Oximetry 96 93 95 Oxygen Delivery Method 07/23/22 13:03 07/23/22 13:15 07/23/22 13:16 Temperature Pulse Rate 70 70 Respiratory Rate Blood Pressure 125/60 Pulse Oximetry 97 97 Oxygen Delivery Method 07/23/22 13:16 07/23/22 13:30 07/23/22 13:30 Temperature Pulse Rate 66 Respiratory Rate Blood Pressure 113/60 126/66 Pulse Oximetry 96 Oxygen Delivery Method 07/23/22 13:45 07/23/22 13:45 07/23/22 14:00 Temperature Pulse Rate 65 Respiratory Rate Blood Pressure 130/64 129/63 Pulse Oximetry 97 Oxygen Delivery Method 07/23/22 14:00 Temperature Pulse Rate 64 Respiratory Rate Blood Pressure Pulse Oximetry 96 Oxygen Delivery Method MDM - Weakness Lab Data 07/23/22 12:05 07/23/22 12:05 Labs: Lab Results 07/23/22 07/23/22 07/23/22 Range/Units 12:00 12:05 12:05 WBC 9.0 (4.5-11.0) X10^3/uL RBC 4.23 L (4.5-5.9) X10^6/uL Hgb 14.0 (13.5-17.5) g/dL Hct 40.1 L (41-53) % MCV 94.6 (80-100) fL MCH 33.1 (26-34) PG MCHC 35.0 (30-36) % RDW 12.8 (11.6-14.8) % Plt Count 212 (150-400) X10^3/uL Neut % (Auto) 88.4 H (50-75) % Lymph % (Auto) 4.0 L (25-40) % [place] % (Auto) 6.9 (3-14) % Eos % (Auto) 0.3 L (2-4) % Baso % (Auto) 0.4 (0-2) % Neut # (Auto) 8000 H (0569-7226) /uL Lymph # (Auto) 400 L (8545-1155) /uL [place] # (Auto) 600 (0-900) /uL Eos # (Auto) 0 (0-450) /uL Baso # (Auto) 0 (0-100) /uL PT 12.3 (10.1-12.7) SECONDS INR 1.1 (0.9-1.3) APTT 27 (26-36) SECONDS Sodium (137-145) mmol/L Potassium (3.4-5.1) mmol/L Chloride (98-107) mmol/L Carbon Dioxide (22-32) mmol/L BUN (9-20) mg/dL Creatinine (0.66-1.25) mg/dL Estimated GFR (>60) mL/min BUN/Creatinine Ratio (6-22) Glucose (80-110) mg/dL Lactate (0.7-2.1) mmol/L Calcium (8.4-10.2) mg/dL Total Bilirubin (0.2-1.3) mg/dL AST (17-59) IU/L ALT (<50) IU/L Alkaline Phosphatase (38-126) U/L Total Protein (6.3-8.2) g/dL Albumin (3.5-5.0) g/dL Globulin (1.7-4.1) g/dL Albumin/Globulin Ratio (1.0-2.8) Lipase (23-300) U/L Procalcitonin (<0.5) ng/mL Urine Color Yellow Urine Appearance Clear Urine pH 6.5 (4.5-8.0) Ur Specific Elizabeth 1.020 (1.000-1.035) Urine Protein Negative (Negative) Urine Glucose (UA) Negative (Negative) g/dL Urine Ketones Negative (NEGATIVE) Urine Occult Blood Negative (Negative) Urine Nitrate Negative (Negative) Urine Bilirubin Negative (NEGATIVE) Urine Urobilinogen 0.2 (0.2) E.U./dL Ur Leukocyte Esterase Negative (NEGATIVE) Urine RBC 0-1/hpf (0-5/HPF) Urine WBC 0-1/hpf (0-5/HPF) Urine Bacteria Few (2-10) H (None) Ur Culture Indicated? Cult not indicated SARS-CoV-2 (PCR) (Negative) Influenza A (RT-PCR) (NEGATIVE) Influenza B (RT-PCR) (NEGATIVE) RSV (PCR) (Negative) 07/23/22 07/23/22 07/23/22 Range/Units 12:05 12:05 12:51 WBC (4.5-11.0) X10^3/uL RBC (4.5-5.9) X10^6/uL Hgb (13.5-17.5) g/dL Hct (41-53) % MCV (80-100) fL MCH (26-34) PG MCHC (30-36) % RDW (11.6-14.8) % Plt Count (150-400) X10^3/uL Neut % (Auto) (50-75) % Lymph % (Auto) (25-40) % [place] % (Auto) (3-14) % Eos % (Auto) (2-4) % Baso % (Auto) (0-2) % Neut # (Auto) (3261-2229) /uL Lymph # (Auto) (8864-0457) /uL [place] # (Auto) (0-900) /uL Eos # (Auto) (0-450) /uL Baso # (Auto) (0-100) /uL PT (10.1-12.7) SECONDS INR (0.9-1.3) APTT (26-36) SECONDS Sodium 139 (137-145) mmol/L Potassium 3.6 (3.4-5.1) mmol/L Chloride 100 (98-107) mmol/L Carbon Dioxide 31 (22-32) mmol/L BUN 24 H (9-20) mg/dL Creatinine 1.00 (0.66-1.25) mg/dL Estimated GFR > 60 (>60) mL/min BUN/Creatinine Ratio 24.0 H (6-22) Glucose 139 H (80-110) mg/dL Lactate 1.7 (0.7-2.1) mmol/L Calcium 8.9 (8.4-10.2) mg/dL Total Bilirubin 1.6 H (0.2-1.3) mg/dL AST 74 H (17-59) IU/L ALT 57 H (<50) IU/L Alkaline Phosphatase 106 (38-126) U/L Total Protein 7.3 (6.3-8.2) g/dL Albumin 4.1 (3.5-5.0) g/dL Globulin 3.2 (1.7-4.1) g/dL Albumin/Globulin Ratio 1.3 (1.0-2.8) Lipase 83 (23-300) U/L Procalcitonin 0.23 (<0.5) ng/mL Urine Color Urine Appearance Urine pH (4.5-8.0) Ur Specific Elizabeth (1.000-1.035) Urine Protein (Negative) Urine Glucose (UA) (Negative) g/dL Urine Ketones (NEGATIVE) Urine Occult Blood (Negative) Urine Nitrate (Negative) Urine Bilirubin (NEGATIVE) Urine Urobilinogen (0.2) E.U./dL Ur Leukocyte Esterase (NEGATIVE) Urine RBC (0-5/HPF) Urine WBC (0-5/HPF) Urine Bacteria (None) Ur Culture Indicated? SARS-CoV-2 (PCR) Positive H (Negative) Influenza A (RT-PCR) Flu a negative (NEGATIVE) Influenza B (RT-PCR) Flu b negative (NEGATIVE) RSV (PCR) Negative (Negative) Urine Dip Bedside Urine Glucose Negative Bedside Urine Bilirubin - Negative Bedside Urine Ketone - Negative Urine Specific Elizabeth 1.020 Bedside Urine Occult Blood - Negative Bedside Urine pH 6.0 Bedside Urine Protein - Negative Bedside Urine Urobilinogen - Negative Bedside Urine Nitrite - Negative Bedside Urine Leukocytes - Negative Esterase Imaging Data CT scan - abdomen/pelvis: Radiologist Impression: Roel Vickers??86??M??1935 ? Allergy/Adv: atorvastatin, citalopram, lisinopril (More??) Close Chest/Abdomen/Pelvis CT (Signed) Zina Rios - 07/23/22 Abdomen Ultrasound (Signed) Zina Rios - 07/23/22 Chest X-Ray (Signed) Oleksandr Dc - 07/23/22 Telemetry Strips 07/11/22 Chest CTA (Signed) Ryne Sanderson - 07/11/22 Chest X-Ray (Signed) Ryne Sanderson - 07/11/22 Chest X-Ray (Signed) Marry Steele - 06/20/22 Needle Aspiration Ultrasound (Signed) Enriqueta Duron - 06/04/22 Thyroid Ultrasound (Signed) Mehran Barnes - 04/01/22 Telemetry Strips 03/09/22 Carotid Doppler Study (Signed) Oleksandr Dc - 03/08/22 Echocardiogram Ultrasound (Signed) Jay Chun - 03/08/22 Brain MRI (Signed) Duglas Caruso - 03/08/22 Head/Neck CTA (Signed) Duglas Caruso - 03/08/[address] (Signed) Reji Cain - 03/08/22 Chest/Abdomen/Pelvis CT (Signed) Enriqueta Duron - 09/06/21 Chest X-Ray (Signed) Marry Steele - 09/06/21 Calcaneus X-Ray (Signed) Sandip Crook - 02/15/22 Chest X-Ray (Signed) Marry Steele - 10/23/20 Abdomen Ultrasound (Signed) Oleksandr Dc - 07/30/[address] (Signed) Anali Ragland - 07/30/20 Chest/Abdomen/Pelvis CTA (Signed) Anali Ragland - 07/30/20 Peripheral Vascular Ultrasound (Signed) Oleksandr Dc - 04/21/20 Echocardiogram Ultrasound (Signed) Zack Montes - 03/15/20 Chest X-Ray (Signed) Mario Claros - 02/15/20 Lumbar Spine X-Ray (Signed) Rubens Matute - 12/09/19 Chest X-Ray (Signed) Moisés Bowser - 06/14/19 Launch?[place] [address] CT Scan Report Signed Patient: Roel Vickers MR#: [id number] : 1935 Acct:[id number] Age/Sex: 86 / M Date of Service: 07/23/22 Loc: ED Accession Number: [id number] ?? Procedure: CT chest abd pel w con Ordering Provider: Bradford Manzanares D.O. PROCEDURE:? CT CHEST ABD PEL W CON ? INDICATIONS:? severe sepsis, rigors, recent biliary stent placement ? TECHNIQUE:? After the administration of intravenous contrast, axial sections acquired from the supraclavicular neck to the pubic symphysis.? Coronal and sagittal reformats were performed.? For radiation dose reduction, the following was used:? automated exposure control, adjustment of mA and/or kV according to patient size.? ? COMPARISON: ? [facility], CT, CT ANGIO CHEST PE PROTOCOL, 07/11/2022, 4:05.? [facility], CT, CT CHEST ABD PEL W CON, 09/06/2021, 9:18.? [facility], CT, CT ABDOMEN PELVIS WITHOUT CONTRAST, 05/06/2022, 10:37. ? FINDINGS:? Image quality:? Excellent.? ? CHEST: Lower Neck: No enlarged lymph nodes.? Thyroid: Within normal limits. Axillae: No enlarged lymph nodes. Chest Wall:? Unremarkable.? ? Lungs and Airways: No consolidation or suspicious nodules. Pleura: No pneumothorax or pleural effusions.? ? Heart: Heart size is mildly enlarged.? No pericardial effusion. Thoracic Vessels: The aorta and pulmonary arteries demonstrate normal size.? Mediastinum and Radhika: No enlarged lymph nodes.? Esophagus: No wall thickening. No hiatal hernia. ? ? ABDOMEN: Liver:? Pneumobilia is present, unchanged.? Biliary stent is present extending into the left biliary system as well as portions of the pancreatic duct, unchanged.? Areas of debris within the stent lumen remains stable and the stent overall appears patent.? Appearance is similar compared to prior exam. Gallbladder:? Removed? ? Biliary ducts:? Unremarkable.? ? Pancreas:? Unremarkable.? ? Spleen:? Unremarkable.? ? Adrenal Glands:? Unremarkable.? ? Kidneys and Ureters:? Punctate nonobstructing left renal calculus, unchanged. ? Stomach and Bowel:? Stomach, small bowel loops, and colon are nonobstructive.? Colonic diverticula are present. Peritoneum:? No abnormal intraperitoneal fluid.? No free air.? ? Ventral Wall: ? No hernia.? Abdominal Nodes:? No retroperitoneal or mesenteric adenopathy by size criteria.? Vessels:? Aorta and inferior vena cava are normal in size.? ? PELVIS: Pelvic Organs:? Unremarkable.? ? Bladder:? Unremarkable.? ? Pelvic Nodes: No enlarged lymph nodes.? Miscellaneous: No inguinal hernias are seen. ? ? ? Bones:? Unremarkable.? ? ? IMPRESSION:? ? Stable interval exam demonstrating biliary stent which appears patent. ? No acute intra-abdominal or pelvic process. ? Diverticulosis. ? Dictated by: Zina Rios M.D. on 07/23/2022 at 13:34 ? ? Approved by: Zina Rios M.D. on 07/23/2022 at 13:41 ? MDM Narrative Medical decision making narrative: CC: 86-year-old male presents with weakness and rigors, low-grade fever at home Complicating co-morbidities: Age, AFib, recent hospitalization, hypertension Data collected from: Patient and Medical records reviewed: multiple prior ED notes. Differential considered, but not limited to: COVID, flu, RSV, pneumonia, UTI, biliary infection versus other Exam documented above, pertinent findings include: Patient in no respiratory distress, clear lung sounds, abdomen soft, mild rigors Lab Test results independently reviewed as above. Pertinent findings: No significant leukocytosis, lactate under cutoff, electrolytes largely normal very slight bump in LFTs, likely an acute phase reactant to viral infection. COVID positive Independently reviewed EKG as above Imaging studies independently reviewed: Ultrasound and imaging are very reassuring Consultations: Discussed with patient's PCP (Joy) will see patient in follow-up, requests patient be placed on Paxil COVID, hold pravastatin Treatments: Fluids and Toradol Re-evaluations: Patient with significant improvement, no longer having rigors Discussion: Patient with 2 days or so of fatigue and low-grade fever with rigors. Exam very reassuring, no evidence of tachypnea or hypoxemia, abdomen is soft. Labs very reassuring and imaging demonstrates no significant abnormality that would require specific or immediate intervention, most notably biliary stent appears patent and without change. Disposition: see below, along with detailed discharge instructions that have been reviewed with patient as well as indications for ED re-evaluation and additional outpatient follow up Discharge Plan Departure Patient Disposition: Home Clinical Impression: COVID-19 Instructions: COVID-19 Activity Restrictions/Additional Instructions: I sent a prescription for PAXLOVID to [facility] PLEASE STOP TAKING YOUR PRAVASTATIN until further notice Please call Dr. Hamilton's office to reschedule tomorrow's appointment to next week *You have been diagnosed with [ COVID-19] *What to do: ?* per recommendations from the CDC and the [facility] Department of Health ?* stay home except to get medical care. ?Restrict activities outside your home, except for getting medical care. ?Do not go to work, school, or public areas. ?Avoid using public transportation, ride sharing, or taxis. ?* separate yourself from other people in your home. ?* call ahead before visiting your doctor ?* Wear a facemask ?* Cover your coughs and sneezes ?* Clean your hands often ?* Avoid sharing household items ?* Clean all high-touch services every day ?* Monitor your symptoms and seek prompt medical attention if your illness is worsening, particularly with difficulty in breathing. You may discontinue your isolation when: ?1. You have been fever-free for at least 24 hours without the use of fever reducing medication, AND ?2. Your symptoms are getting better, AND ?3. At least 5 days have passed since symptoms first appeared ?4. If you have fever, continue to stay home until fever resolves Individuals with laboratory confirmed COVID-19 who have not had any symptoms may discontinue home isolation when at least 5 days have passed since the date of their first COVID-19 diagnostic test and have had no subsequent illness You should notifiy any friends and family that have been in close contact *If up to date on COVID Vaccines, then they do not need to quarantine unless symptoms develop. Get tested on day 5 (or sooner if symptoms develop). Take precautions and watch for symptoms until day 10 *If NOT up to date on COVID Vaccines, then CDC recommends quarantine for at least 5 full days. Wear a well fitted mask at home if you must be around others. If they ?develop symptoms they should get tested. If they remain asymptomatic they should get tested on day 5. They should take precautions and monitor for symptoms until day 10. Prescriptions: New Paxlovid (EUA) 300 mg (150 mg x 2)-100 mg tablets,dose pack See Rx Instructions .ROUTE .COMPLEX Qty: 30 0RF Rx Instructions: take TWO 150 mg tablets of nirmatrelvir with ONE 100 mg tablet of ritonavir twice daily for 5 days No Action pravastatin 80 mg tablet 80 mg PO HS Qty: 90 3RF potassium chloride [Klor-Con 8] 8 mEq tablet extended release 8 meq PO QDAY Qty: 90 3RF hydrochlorothiazide 25 mg tablet 25 mg PO QDAY Qty: 90 3RF tamsulosin [Flomax] 0.4 mg capsule 0.4 mg PO QDAY Qty: 90 3RF calcium carbonate [Tums] 200 mg calcium (500 mg) tablet,chewable 200 mg PO BID PRN (Reason: heartburn) aspirin 81 mg Tablet,Chewable 81 mg PO DAILY ranitidine HCl 75 mg Tablet 75 mg PO DAILY donepezil 10 mg tablet 10 mg PO DAILY diltiazem HCl [Cardizem CD] 240 mg Capsule,Extended Release 24hr 240 mg PO DAILY Qty: 30 0RF cholecalciferol (vitamin D3) 50 mcg (2,000 unit) Tablet 50 mcg PO DAILY Referrals: Alvaro Hamilton MD [Primary Care Provider] - Stand Alone Forms: Patient Portal/API
[2022-07-23 12:22] LABS: Add Manual Diff / Slide Review NO; Basophils Absolute Auto 0 /uL (0-100); Basophils Percent Auto 0.4 % (0-2); Eosinophils Absolute Auto 0 /uL (0-450); Eosinophils Percent Auto 0.3 % (2-4); Hematocrit 40.1 % (41-53); Lymphocytes Absolute Auto 400 /uL (1100-4500); Mean Corpuscular Hemoglobin 33.1 PG (26-34); Mean Corpuscular Volume 94.6 fL (80-100); Monocytes Absolute Auto 600 /uL (0-900); Monocytes Percent Auto 6.9 % (3-14); Neutrophils Absolute Auto 8000 /uL (1500-7000); Neutrophils Percent Auto 88.4 % (50-75); Platelet Count 212 X10^3/uL (150-400); Red Blood Cell Count 4.23 X10^6/uL (4.5-5.9); Red Cell Distribution Width 12.8 % (11.6-14.8)
[2022-07-23 12:27] LABS: INR 1.1 (0.9-1.3); Prothrombin Time 12.3 SECONDS (10.1-12.7)
[2022-07-23 12:30] LABS: Appearance Urine UA CLEAR; Bilirubin Urine UA NEGATIVE (NEGATIVE); Color Urine UA YELLOW; Glucose Urine UA NEGATIVE (Negative); Ketones Urine UA NEGATIVE (NEGATIVE); Leukocyte Esterase Urine UA NEGATIVE (NEGATIVE); Nitrite Urine UA NEGATIVE (Negative); Occult Blood Urine UA NEGATIVE (Negative); Protein Urine UA NEGATIVE (Negative); Urobilinogen Urine UA 0.2 E.U./dL (0.2); pH Urine UA 6.5 (4.5-8.0)
[2022-07-23 12:30] LABS: PTT Partial Thromboplastin Tim 27 SECONDS (26-36)
[2022-07-23 12:31] LABS: Alanine Aminotransferase 57 IU/L (<50); Albumin 4.1 g/dL (3.5-5.0); Albumin Globulin Ratio 1.3 (1.0-2.8); Alkaline Phosphatase 106 U/L (38-126); Aspartate Aminotransferase 74 IU/L (17-59); Bilirubin Total 1.6 mg/dL (0.2-1.3); Blood Urea Nitrogen 24 mg/dL (9-20); Calcium 8.9 mg/dL (8.4-10.2); Carbon Dioxide 31 mmol/L (22-32); Chloride 100 mmol/L (98-107); Estimated Glomerular Filt Rate > 60 mL/min (>60); Globulin 3.2 g/dL (1.7-4.1); Glucose 139 mg/dL (80-110); HEMOLYSIS < 15 (0-50); Lipase 83 U/L (23-300); Potassium 3.6 mmol/L (3.4-5.1); Sodium 139 mmol/L (137-145); Total Protein 7.3 g/dL (6.3-8.2)
[2022-07-23 12:32] LABS: Lactate (Lactic Acid) 1.7 mmol/L (0.7-2.1)
[2022-07-23] MEDS: SODIUM CHLORIDE 0.9% 2,109.21 ML 703.07 ML IV (12:32)
[2022-07-23] MEDS: KETOROLAC 30 MG/ML VIAL 10 MG IV (12:32)
[2022-07-23 12:45] LABS: Bacteria Urine Few (2-10); Culture Indicated Urine Cult Not Indicated; RBC Urine 0-1/HPF (0-5/HPF); WBC Urine 0-1/HPF (0-5/HPF)
[2022-07-23 12:48] LABS: Procalcitonin 0.23 ng/mL (<0.5)
--- NOTE | 2022-07-23 12:55 | DI.CT.S_ITS ---
PROCEDURE: CT CHEST ABD PEL W CON INDICATIONS: severe sepsis, rigors, recent biliary stent placement TECHNIQUE: After the administration of intravenous contrast, axial sections acquired from the supraclavicular neck to the pubic symphysis. Coronal and sagittal reformats were performed. For radiation dose reduction, the following was used: automated exposure control, adjustment of mA and/or kV according to patient size. COMPARISON: [facility], CT, CT ANGIO CHEST PE PROTOCOL, 07/11/2022, 4:05. [facility], CT, CT CHEST ABD PEL W CON, 09/06/2021, 9:18. [facility], CT, CT ABDOMEN PELVIS WITHOUT CONTRAST, 05/06/2022, 10:37. FINDINGS: Image quality: Excellent. CHEST: Lower Neck: No enlarged lymph nodes. Thyroid: Within normal limits. Axillae: No enlarged lymph nodes. Chest Wall: Unremarkable. Lungs and Airways: No consolidation or suspicious nodules. Pleura: No pneumothorax or pleural effusions. Heart: Heart size is mildly enlarged. No pericardial effusion. Thoracic Vessels: The aorta and pulmonary arteries demonstrate normal size. Mediastinum and Radhika: No enlarged lymph nodes. Esophagus: No wall thickening. No hiatal hernia. ABDOMEN: Liver: Pneumobilia is present, unchanged. Biliary stent is present extending into the left biliary system as well as portions of the pancreatic duct, unchanged. Areas of debris within the stent lumen remains stable and the stent overall appears patent. Appearance is similar compared to prior exam. Gallbladder: Removed Biliary ducts: Unremarkable. Pancreas: Unremarkable. Spleen: Unremarkable. Adrenal Glands: Unremarkable. Kidneys and Ureters: Punctate nonobstructing left renal calculus, unchanged. Stomach and Bowel: Stomach, small bowel loops, and colon are nonobstructive. Colonic diverticula are present. Peritoneum: No abnormal intraperitoneal fluid. No free air. Ventral Wall: No hernia. Abdominal Nodes: No retroperitoneal or mesenteric adenopathy by size criteria. Vessels: Aorta and inferior vena cava are normal in size. PELVIS: Pelvic Organs: Unremarkable. Bladder: Unremarkable. Pelvic Nodes: No enlarged lymph nodes. Miscellaneous: No inguinal hernias are seen. Bones: Unremarkable. IMPRESSION: Stable interval exam demonstrating biliary stent which appears patent. No acute intra-abdominal or pelvic process. Diverticulosis. Dictated by: Zina Rios M.D. on 07/23/2022 at 13:34 Approved by: Zina Rios M.D. on 07/23/2022 at 13:41
[2022-07-23] MEDS: cefTRIAXone 2,000 MG in SODIUM CHLORIDE 0.9% 100 ML 200 MG IV (13:09)
[2022-07-23 13:47] LABS: Influenza A - CEPHEID Flu A NEGATIVE (NEGATIVE); Influenza B - CEPHEID Flu B NEGATIVE (NEGATIVE); Respiratory Syncytial Virus Negative (Negative)
[2022-07-23 13:52] LABS: COVID-19 CEPHEID 4-PLEX PCR POSITIVE (Negative)
--- NOTE | 2022-07-23 14:17 | PC.NURSE ---
Per provider verbally patient to stop fluids after 1 liter of fluids.
== END 2022-07-23 14:53 | disposition home or self-care (01) ==
PROVIDERS: Emergency Provider Emergency Medicine; Family Provider Family Medicine; PCP Family Medicine
DX: U07.1 COVID-19 (principal); I10 Essential (primary) hypertension
CPT/HCPCS: 0241U; 36415; 71045; 71260; 74177; 76705; 80053; 81001; 81003; 83605; 83690; 84145; 85025; 85610; 85730; 87040; 96365; 96375; 99284; 99285; J0696; J1885; Q9967

== ENCOUNTER 2023-04-17 07:23 | Day surgery (SDC) | payer OTHER, SELFPAY ==
[2022-07-11 08:23] VITALS: BMI 22.6
[2023-04-17 07:46] VITALS: BP 130/70; PULSE 77; RESP 22; TEMP 36.5; O2SAT 97; BMI 20.9
[2023-04-17] MEDS: LACTATED RINGERS 1,000 ML 42 ML IV (07:46)
--- NOTE | 2023-04-17 08:50 | P.HP_ITS ---
History of Present Illness History of Present Illness Date Patient Seen: 04/17/23 Time Patient Seen: 08:50 Chief complaint: Colonoscopy Narrative: Norberto is an 87-year-old man with a history of melena. See the office note from March for details. No significant melena since that visit. [facility] Medical History Mild cognitive impairment Bile duct carcinoma Carpal tunnel syndrome Cervical spine disease SVT (supraventricular tachycardia) Paroxysmal atrial fibrillation Hyperlipidemia (08/09/16) Essential hypertension (08/04/15) Cardiac arrhythmia (06/06/14) Anxiety (06/06/14) History of adenomatous polyp of colon (12/27/10) History of renal calculi (12/27/10) Surgical History S/P carpal tunnel release Family History Father Family history of Alzheimer's disease Social History marital status: number of children: 0 household members: spouse and none lives independently: Yes caregiver/support person: Yes housing: house pets and animals: No education level: high school occupational status: other current occupational exposures/hazards: No Previous occupational history: [employer]ini/evangelical: None Smoking Status: Former smoker Tobacco: How many years used: 10 Smokeless tobacco user: other quit status: quit date established second hand exposure: No alcohol intake: never substance use type: does not use Meds Home Medications and Allergies Home Medications Medication Instructions Recorded Confirmed Type calcium carbonate 200 mg calcium 200 mg PO BID PRN heartburn 10/20/20 03/17/23 History (500 mg) chewable tablet (Tums) pravastatin 80 mg tablet 80 mg PO HS #90 tabs 12/22/20 04/17/23 Rx hydrochlorothiazide 25 mg tablet 25 mg PO QDAY #90 tabs 01/29/21 04/17/23 Rx tamsulosin 0.4 mg capsule (Flomax) 0.4 mg PO QDAY #90 caps 03/07/21 04/17/23 Rx aspirin 81 mg chewable tablet 81 mg PO DAILY 09/06/21 04/17/23 History ranitidine HCl 75 mg tablet 75 mg PO DAILY 09/06/21 04/17/23 History cholecalciferol (vitamin D3) 50 50 mcg PO DAILY 03/08/22 03/17/23 History mcg (2,000 unit) tablet donepezil 10 mg tablet 10 mg PO DAILY 07/11/22 04/17/23 History diltiazem HCl 240 mg 240 mg PO DAILY #30 caps 07/12/22 04/17/23 Rx capsule,extended release 24 hr (Cardizem CD) Allergies Allergy/AdvReac Type Severity Reaction Status Date / Time atorvastatin [ATORVASTATIN] Allergy Unknown WEAKNESS/BODY Verified 04/17/23 07:38 ACHES citalopram AdvReac Intermediate Off Verified 04/17/23 07:38 Balance/Head felt stuffed. lisinopril AdvReac Intermediate slow hr Verified 04/17/23 07:38 Exam Vital Signs (past 8 hours): - 04/17/23 07:46 Temperature 97.7 F Pulse Rate 77 Respiratory Rate 22 Blood Pressure 130/70 Pulse Oximetry 97 Oxygen Delivery Method Room Air Oxygen Delivery Method Room Air Const General: No acute distress Assessment & Plan Assessment and plan (1) Melena: Status: Acute Plan We reviewed the risks and benefits of colonoscopy for melena and he would like to proceed.
--- NOTE | 2023-04-17 09:19 | PM.OP.COLON ---
Operative Date/Time/Diagnoses Date of procedure: 04/17/23 Time of procedure: 09:19 Pre-op diagnosis: Melena Post-op diagnosis: same Procedure & Clinicians Study performed: Colonoscopy Same procedure as scheduled: Yes Surgeon: Uri Jeffers Procedure Notes Procedure in detail: Surgeon: Uri Jeffers MD Anesthesia: Yaneth Jovel CRNA Procedure: The patient was brought to the endoscopy suite, placed in left lateral decubitus position. The patient was connected to monitoring devices. A time-out was performed. Sedation was administered. Once the patient was adequately sedated, a digital rectal exam was performed and was normal. The scope was then inserted and advanced to the cecum where the appendiceal orifice was identified and photographed. The scope was then slowly withdrawn over greater than 6 minutes. The mucosa was thoroughly inspected. There was scattered diverticulosis greatest in the left colon. No polyps or masses were seen. The scope was retroflexed in the rectum. No other abnormalities were seen. The scope was straightened and removed. The patient was awakened and brought to recovery. Scope withdrawal time: 9 minutes Sedation time: 18 minutes EBL: 0 Findings: Diverticulosis Post-procedure Disposition: PACU
[2023-04-17 09:22] VITALS: BP 89/38; PULSE 74; RESP 16; TEMP 36.2; O2SAT 98
[2023-04-17 09:27] VITALS: BP 122/74; PULSE 66; RESP 16; TEMP 36.8; O2SAT 98
[2023-04-17 09:33] VITALS: BP 99/60; PULSE 58; RESP 16; O2SAT 98
[2023-04-17 09:40] VITALS: BP 116/60; PULSE 60; RESP 16; TEMP 36.8; O2SAT 98
== END 2023-04-17 09:55 | disposition home or self-care (01) ==
PROVIDERS: Family Provider Family Medicine; PCP Family Medicine; Referring Provider Surgery; Visit Provider Surgery
PROC: 0DJD8ZZ Inspection of Lower Intestinal Tract, Via Natural or Artificial Opening Endoscopic (ICD-10-PCS; CPT 45378; principal; 2023-04-17 08:45)
DX: K92.1 Melena (principal); K57.30 Diverticulosis of large intestine without perforation or abscess without bleeding
CPT/HCPCS: 45378; J2704

== ENCOUNTER → 2024-02-27 14:55 | Outpatient (CLI) | payer OTHER, SELFPAY ==
[2022-07-11 08:23] VITALS: BMI 22.6
--- NOTE | 2024-02-27 14:58 | DI.RAD.S_ITS ---
PROCEDURE: XR ABDOMEN 3V INDICATIONS: Malignant neoplasm of head of pancreas TECHNIQUE: One view chest and two views of the abdomen were acquired. COMPARISON: None. FINDINGS: Stool gas pattern: Scattered air-fluid levels within nondilated small and large bowel are compatible with mild ileus. No free intraperitoneal or extraperitoneal air. No gross evidence of ascites. There is both a Wallstent and a double pigtail stent overlying the expected location of the common bile duct. Soft tissues: No abnormal calcifications. No soft tissue masses. Organs: No gross evidence for organomegaly. Chest x-ray shows cardiomediastinal silhouette and pulmonary vascular 3 normal. Lungs clear. Pleural space is normal. IMPRESSION: Mild ileus. Dictated by: Jack Enamorado M.D. on 03/01/2024 at 7:37 Approved by: Jack Enamorado M.D. on 03/01/2024 at 7:39
[2024-02-27 15:36] LABS: Add Manual Diff / Slide Review NO; Basophils Absolute Auto 0 /uL (0-100); Basophils Percent Auto 0.6 % (0-2); Eosinophils Absolute Auto 300 /uL (0-450); Eosinophils Percent Auto 3.9 % (2-4); Hematocrit 24.1 % (41-53); Hemoglobin 7.6 g/dL (13.5-17.5); Lymphocytes Absolute Auto 600 /uL (1100-4500); Lymphocytes Percent Auto 8.2 % (25-40); Mean Corpuscular HGB Conc 31.4 % (30-36); Mean Corpuscular Hemoglobin 23.9 PG (26-34); Mean Corpuscular Volume 75.9 fL (80-100); Monocytes Absolute Auto 700 /uL (0-900); Monocytes Percent Auto 10.5 % (3-14); Neutrophils Absolute Auto 5200 /uL (1500-7000); Neutrophils Percent Auto 76.8 % (50-75); Platelet Count 217 X10^3/uL (150-400); Red Blood Cell Count 3.17 X10^6/uL (4.5-5.9); Red Cell Distribution Width 16.1 % (11.6-14.8); White Blood Cell Count 6.8 X10^3/uL (4.5-11.0)
[2024-02-27 16:05] LABS: Alanine Aminotransferase 25 IU/L (<50); Albumin Globulin Ratio 0.9 (1.0-2.8); Alkaline Phosphatase 102 U/L (38-126); Aspartate Aminotransferase 28 IU/L (17-59); BUN Creatinine Ratio 38.6 (6-22); Bilirubin Total 0.6 mg/dL (0.2-1.3); Blood Urea Nitrogen 32 mg/dL (9-20); Calcium 8.7 mg/dL (8.4-10.2); Carbon Dioxide 29 mmol/L (22-32); Chloride 102 mmol/L (98-107); Estimated Glomerular Filt Rate > 60 mL/min (>60); Globulin 3.5 g/dL (1.7-4.1); Glucose 105 mg/dL (80-110); HEMOLYSIS < 15 (0-50); Potassium 3.6 mmol/L (3.4-5.1); Sodium 134 mmol/L (137-145); Total Protein 6.5 g/dL (6.3-8.2)
== END ==
PROVIDERS: Family Provider Family Medicine; PCP Family Medicine; Referring Provider Family Medicine; Visit Provider Family Medicine
DX: C25.0 Malignant neoplasm of head of pancreas (principal); K56.7 Ileus, unspecified
CPT/HCPCS: 36415; 74021; 80053; 85025